=== PATIENT | male | born 1955 | race Caucasian/White ===

== ENCOUNTER → 2020-04-09 14:53 | Outpatient (BNVA) | payer OTHER, SELFPAY | PROVIDERS: PCP Internal Medicine; Visit Provider Internal Medicine | DX: J45.50 Severe persistent asthma, uncomplicated (principal); J30.9 Allergic rhinitis, unspecified | CPT/HCPCS: 99212 ==

== ENCOUNTER 2020-05-30 15:19 | Outpatient (REF) | payer OTHER, SELFPAY ==
[2020-05-30 16:05] LABS: MANUAL DIFF FLAG NO
[2020-05-30 16:12] LABS: Basophils Absolute Auto 0.1 X10*3/uL (0.0-0.2); Basophils Percent Auto 1.2 % (0-2); Eosinophils Absolute Auto 0.7 X10*3/uL (0.0-0.4); Eosinophils Percent Auto 11.4 % (0-4); Hematocrit 40.8 % (42-52); Hemoglobin 14.3 g/dl (14.0-18.0); Imm Gran Abs Auto 0.04 X10*3/uL (0.00-0.03); Imm Gran Pct Auto 0.7 % (0.0-0.4); Lymphocytes Absolute Auto 0.7 X10*3/uL (1.2-4.9); Lymphocytes Percent Auto 12.3 % (20-40); Mean Corpuscular Hemoglobin 30.6 pg (27.0-33.0); Mean Corpuscular Volume 87.4 fL (80-98); Monocytes Absolute Auto 0.7 X10*3/uL (0.1-1.2); Monocytes Percent Auto 11.4 % (2-11); Neutrophils Absolute Auto 3.8 X10*3/uL (2.0-8.3); Platelet Count 243 X10*3/uL (160-400); Red Blood Count 4.67 X10*6/uL (4.60-5.80); Red Cell Distribution Width 12.2 % (11.0-16.0)
[2020-05-31 06:56] LABS: Immunoglobulin E 166 kU/L (<OR=114)
== END 2020-05-30 15:20 | disposition home or self-care (01) ==
LOC: HO.LAB 15:19
PROVIDERS: Visit Provider Internal Medicine
DX: J45.50 Severe persistent asthma, uncomplicated (principal)
CPT/HCPCS: 36415; 82785; 85025

== ENCOUNTER → 2020-06-11 13:36 | Outpatient (BNVA) | payer OTHER, SELFPAY | PROVIDERS: PCP Internal Medicine; Visit Provider Internal Medicine | DX: J45.909 Unspecified asthma, uncomplicated (principal) | CPT/HCPCS: 99212 ==

== ENCOUNTER → 2020-08-15 11:43 | Outpatient (BNVA) | payer OTHER, SELFPAY | PROVIDERS: PCP Internal Medicine; Visit Provider Internal Medicine | DX: J45.909 Unspecified asthma, uncomplicated (principal); Z87.891 Personal history of nicotine dependence; Z79.899 Other long term (current) drug therapy | CPT/HCPCS: 99212 ==

== ENCOUNTER → 2020-10-15 09:53 | Outpatient (BNVA) | payer OTHER, SELFPAY | PROVIDERS: PCP Internal Medicine; Visit Provider Internal Medicine | DX: J45.909 Unspecified asthma, uncomplicated (principal); J45.50 Severe persistent asthma, uncomplicated | CPT/HCPCS: 99212 ==

== ENCOUNTER → 2020-12-17 13:26 | Outpatient (BNVA) | payer OTHER, SELFPAY | PROVIDERS: PCP Urology; Visit Provider Internal Medicine | DX: J45.909 Unspecified asthma, uncomplicated (principal); R63.4 Abnormal weight loss | CPT/HCPCS: 99212 ==

== ENCOUNTER → 2021-02-18 13:03 | Outpatient (BNVA) | payer OTHER, SELFPAY | PROVIDERS: PCP Internal Medicine; Visit Provider Internal Medicine | DX: J45.909 Unspecified asthma, uncomplicated (principal); J30.9 Allergic rhinitis, unspecified | CPT/HCPCS: 99212 ==

== ENCOUNTER → 2021-04-18 13:41 | Outpatient (BNVA) | payer OTHER, SELFPAY | PROVIDERS: PCP Internal Medicine; Visit Provider Internal Medicine | DX: J45.909 Unspecified asthma, uncomplicated (principal) | CPT/HCPCS: 99212 ==

== ENCOUNTER → 2021-08-22 11:11 | Outpatient (BNVA) | payer OTHER, SELFPAY | PROVIDERS: PCP Internal Medicine; Visit Provider Internal Medicine | DX: J45.909 Unspecified asthma, uncomplicated (principal) | CPT/HCPCS: 99212 ==

== ENCOUNTER → 2021-12-26 10:50 | Outpatient (BNVA) | payer OTHER, SELFPAY | PROVIDERS: PCP Internal Medicine; Visit Provider Internal Medicine | DX: J45.50 Severe persistent asthma, uncomplicated (principal); J30.9 Allergic rhinitis, unspecified; D3A.019 Benign carcinoid tumor of the small intestine, unspecified portion | CPT/HCPCS: 99212 ==

== ENCOUNTER → 2022-06-10 09:54 | Outpatient (BNVA) | payer OTHER, SELFPAY | PROVIDERS: PCP Internal Medicine; Visit Provider Internal Medicine | DX: J45.909 Unspecified asthma, uncomplicated (principal) | CPT/HCPCS: 99212 ==

== ENCOUNTER 2022-12-11 11:18 | Outpatient (AMB) | payer OTHER, SELFPAY ==
[2022-12-11 11:20] VITALS: BP 136/74; PULSE 84; O2SAT 93; BMI 26.6
--- NOTE | 2022-12-11 11:20 | MHC.OFFVIS ---
Intake Vital Signs 12/11/22 11:20 Height 5 ft 2 in Weight 145 lb 8.081 oz BMI 26.6 BP 136/74 Blood Pressure Location Lt brachial Position Sitting Pulse 84 Pulse Source Pulse Oximeter Pulse Oximetry (%) 93 Oxygen Delivery Method Room Air Intake Visit Reasons: COPD Intake Note: Pt presents today for a f/u and is looking to discuss his cough. Allergies No Known Allergies Allergy (Verified 12/11/22 11:29) Medication List - Last Reconciled 12/11/22 by Surya Goel MD albuterol sulfate 90 mcg/actuation 2 puffs inhalation Q6H PRN alendronate (Fosamax) 70 mg PO QWEEK amlodipine 10 mg PO DAILY cholecalciferol (vitamin D3) 50 mcg PO DAILY diclofenac sodium 1% 2 grams topical QID docusate sodium 100 mg PO DAILY fluticasone propion-salmeterol 250-50 mcg/dose (Wixela Inhub) 1 inh inhalation BID fluticasone propionate 50 mcg/actuation (Flonase Allergy Relief) 1 spray intranasal DAILY ipratropium-albuterol 0.5 mg-3 mg(2.5 mg base)/3 mL 3 mL inhalation Q6H PRN lisinopril 2.5 mg PO DAILY mepolizumab (Nucala) 100 mg subcut Q4W 28 days octreotide acetate (Sandostatin) subcutaneously monthly; omega 7-qub-tpt-fish oil 60-90-500 mg (Fish Oil) 1 cap PO DAILY tadalafil (Cialis) 10 mg PO DAILY PRN testosterone 1 packet transdermal DAILY tiotropium bromide 2.5 mcg/actuation (Spiriva Respimat) 2 inhalations inhalation QAM zafirlukast 20 mg PO Q12H Do you need a note to return to daycare/school/sports/work: No HPI COPD HPI Details 67 YEARS OLD , A CASE OF CHRONIC ALLERGIC RHINITIS, ASTHMA/COPD, WHO HAD BEEN DEPENDENT ON ORAL STEROIDS FOR MANY YEARS. FINALLY STARTED ON BIOLOGIC TREATMENT, HE GETS NUCALA 100 MG SUBQ Q 28 DAYS. IN ADDITION HE IS ALSO GETTING IGG. INFUSION. AT HOME ONCE A MONTH HE CONTINUES TO USE HIS INHALERS REGULARLY. CLAIMS THAT HIS BREATHING HAS BEEN FAIRLY STABLE, EXCEPT IN THE LAST FEW WEEKS HE HAS HAD INCREASED COUGH, THIS COINCIDES WITH INCREASES ALLERGY SYMPTOMS. HE HAS USED PREDNISONE FOR 4 DAYS WHICH HE DID HAVE ON HAND, AND IS FEELING BETTER. HE HAD. NO FEVER CHILLS OR CHEST PAIN. OVERALL HE IS DOING MUCH BETTER SINCE HE HAS BEEN ON NUCALA THERAPY. FORMERLY [facility] Medical History Allergic rhinitis Bronchial asthma Controlled severe persistent asthma with allergic rhinitis Weight loss Social History Patient Tobacco Use Status: Former Tobacco user Review of Systems Const All systems reviewed & are unremarkable except as noted in HPI and below Eyes Reports no additional complaints ENT Reports nasal congestion (Only mild off and on) Resp Reports as per HPI GI Reports no additional complaints Musc Reports no additional complaints Skin/Breast Reports system reviewed and no additional complaints, except as documented Neuro Reports no additional complaints Psych Reports no additional complaints Physical Exam Vital Signs: Last Vital Signs Pulse 84 12/11/22 11:20 BP 136/74 12/11/22 11:20 Pulse Ox 93 12/11/22 11:20 Oxygen Delivery Method Room Air 12/11/22 11:20 BMI result Body Mass Index 26.6 Const General: healthy appearing, comfortable, no acute distress, alert and awake Orientation/consciousness: patient oriented x3 HEENT Head: Yes normal to inspection General nose exam: No nasal polyps present, No nasal discharge present and Other nasal findings present (MILD NASAL CONGESTION) Face and sinus: Yes sinuses nontender Mouth: oropharynx normal Throat: Yes posterior oropharynx normal Eyes General: appearance normal, both eyes and all related structures Neck Neck: Yes normal visual inspection, Yes no lymphadenopathy, Yes trachea midline and Yes no JVD Thyroid: Thyroid normal Chest Chest palpation & inspection: normal inspection of the chest, normal palpation of entire chest wall and no tenderness Resp Other: Percussion note is resonant, he has good breath sounds on both sides, clear and no wheezes or crepitations are heard Cardio Palpation: normal PMI Rate: regular rate Rhythm: regular rhythm Heart sounds: no gallops and no murmurs Peripheral pulses: Peripheral pulses 2+ throughout GI Palpation (GI): Soft to palpation, nontender, No hepatosplenomegaly present and no masses Auscultation: normal bowel sounds Back/Spine/Pelvis Thoracic/Lumbar Spine: thoracic and lumbar spine normal to inspection Skin General skin exam: no rashes or lesions noted Neuro General: patient oriented x3 and no focal motor deficits Cranial nerves: Yes CN's II-XII intact bilaterally Extrem General: Yes normal to inspection, Yes no clubbing, cyanosis or edema and Yes no calf tenderness Psych Appearance: grossly normal and well kempt Speech and movement: Normal speech and movement present Assessment & Plan Assessment & Plan (1) Allergic rhinitis: Comment: ALLERGIC RHINITIS, GOES ALONG WITH HIS CHRONIC ALLERGIC BRONCHIAL ASTHMA. Controlled at this time . [place]: Cont. present meds : Flonase 2 sprays in each Nostril Daily ZAFALUKAST 20 MG B.I.D. Code(s): J30.9 - Allergic rhinitis, unspecified (2) Bronchial asthma: Comment: THIS GENTLEMAN IS BEING TREATED FOR CHRONIC, SEVERE, PERSISTENT BRONCHIAL ASTHMA. HE HAS EIOSINOPHILIA WELL HIGH LEVEL OF IGE. HE IS MUCH IMPROVED WITH USE OF NUCALA 100 MG Q 4 WEEKS , WHICH HE CONTINUES REGULARLY WITHOUT ANY UNTOWARD SIDE EFFECTS. [place]: ZAFIRLUKAST 20 MG B.I.D. SPIRIVA RESPIMAT 2 INHALATION DAILY WIXELA 250-50 I INH BID., but if symptoms are controlled he might use it only once a day. DUONEB UPDRAFTS Q.4 HOURS P.R.N. OR ALBUTEROL HFA 2 PUFFS Q 4-6 HOURS P.R.N.. NUCALA 100 MG SC Q 4 WEEKS *SHORT COPOURSE OF PREDNISONE 5 MG TABS , 5,4,3,2,1,/ PER DAY, WHEN COUGH AND WHEEZING GETs WORSE . TO CONTROL COUGH IT IS OKAY TO USE BENZONATATE PERLES ONCE OR TWICE A DAY P.R.N.. Code(s): J45.909 - Unspecified asthma, uncomplicated Coding Level of Care Code Est Pt Level 3 (54250) Diagnoses Allergic rhinitis J30.9 Bronchial asthma J45.909
== END 2022-12-11 11:52 | disposition home or self-care (01) ==
PROVIDERS: PCP Internal Medicine; Visit Provider Internal Medicine
DX: J45.909 Unspecified asthma, uncomplicated (principal)
CPT/HCPCS: 99213

== ENCOUNTER → 2022-12-11 11:18 | Outpatient (BNVA) | payer OTHER, SELFPAY | PROVIDERS: PCP Internal Medicine; Visit Provider Internal Medicine | DX: J45.909 Unspecified asthma, uncomplicated (principal); J30.9 Allergic rhinitis, unspecified | CPT/HCPCS: 99212 ==

== ENCOUNTER 2023-06-16 11:01 | Outpatient (AMB) | payer OTHER, SELFPAY ==
[2023-06-16 11:39] VITALS: BP 102/70; PULSE 83; TEMP 37.3; O2SAT 93; BMI 26.5
--- NOTE | 2023-06-16 11:39 | A.OFFVIS_ITS ---
Intake Vital Signs 06/16/23 11:39 Height 5 ft 2 in Weight 145 lb BMI 26.5 BP 102/70 Blood Pressure Location Lt brachial Position Sitting Pulse 83 Pulse Source Pulse Oximeter Temp 99.1 F Pulse Oximetry (%) 93 Oxygen Delivery Method Room Air Intake Visit Reasons: COPD Intake Note: pt is here for follow up and states he in not feeling well, cough is very bad, very hard which causes some vomiting, some congestion in the nasal area with green nasal discharge, has been using over the counter, not much help. Chief Medical Technologist Required: No Allergies No Known Allergies Allergy (Verified 06/16/23 12:02) Medication List - Last Reconciled 06/16/23 by Surya Goel MD albuterol sulfate 90 mcg/actuation 2 puffs inhalation Q6H PRN alendronate (Fosamax) 70 mg PO QWEEK amlodipine 10 mg PO DAILY benzonatate 100 mg PO TID PRN cholecalciferol (vitamin D3) 50 mcg PO DAILY diclofenac sodium 1% 2 grams topical QID docusate sodium 100 mg PO DAILY fluticasone propion-salmeterol 250-50 mcg/dose (Wixela Inhub) 1 inh inhalation BID fluticasone propionate 50 mcg/actuation (Flonase Allergy Relief) 1 spray intranasal DAILY ipratropium-albuterol 0.5 mg-3 mg(2.5 mg base)/3 mL 3 mL inhalation Q6H PRN lisinopril 2.5 mg PO DAILY mepolizumab (Nucala) 100 mg subcut Q4W 28 days octreotide acetate (Sandostatin) subcutaneously monthly; omega 5-aev-azr-fish oil 60-90-500 mg (Fish Oil) 1 cap PO DAILY tadalafil (Cialis) 10 mg PO DAILY PRN testosterone 1 packet transdermal DAILY tiotropium bromide 2.5 mcg/actuation (Spiriva Respimat) 2 inhalations inhalation QAM zafirlukast 20 mg PO Q12H Do you need a note to return to daycare/school/sports/work: No HPI COPD HPI Details Sammy is 68 years old , with chronic allergic rhinitis and bronchial asthma for many years. He had been on large dose prednisone for many years, Finally doing much better with biologic treatment, he has used short courses of prednisone only once or twice a year. He was doing very well on his current medical regimen. In the past 1 week he has had chest congestion with significant cough without much expectoration. He has no fever or chills. [facility] Medical History (Updated 06/16/23 @ 12:09 by Surya Goel MD) Acute bronchitis Weight loss Bronchial asthma Controlled severe persistent asthma with allergic rhinitis Allergic rhinitis Social History Patient Tobacco Use Status: Former Tobacco user Review of Systems Const All systems reviewed & are unremarkable except as noted in HPI and below Eyes Reports no additional complaints ENT Reports nasal congestion (Only mild off and on) Resp Reports as per HPI GI Reports no additional complaints Musc Reports no additional complaints Skin/Breast Reports system reviewed and no additional complaints, except as documented Neuro Reports no additional complaints Psych Reports no additional complaints Physical Exam Vital Signs: Last Vital Signs Temp 99.1 F 06/16/23 11:39 Pulse 83 06/16/23 11:39 BP 102/70 06/16/23 11:39 Pulse Ox 93 06/16/23 11:39 Oxygen Delivery Method Room Air 06/16/23 11:39 BMI result Body Mass Index 26.5 Const General: healthy appearing, comfortable, no acute distress, alert and awake Orientation/consciousness: patient oriented x3 HEENT Head: Yes normal to inspection General nose exam: No nasal polyps present, No nasal discharge present and Other nasal findings present (MILD NASAL CONGESTION IS PRESENT .) Face and sinus: Yes sinuses nontender Mouth: oropharynx normal Throat: Yes posterior oropharynx normal Eyes General: appearance normal, both eyes and all related structures Neck Neck: Yes normal visual inspection, Yes no lymphadenopathy, Yes trachea midline and Yes no JVD Thyroid: Thyroid normal Chest Chest palpation & inspection: normal inspection of the chest, normal palpation of entire chest wall and no tenderness Resp Other: Percussion note is resonant, he has good breath sounds on both sides, . The breath sounds are somewhat distant, and he does have few expiratory wheezes over the basilar areas. Cardio Palpation: normal PMI Rate: regular rate Rhythm: regular rhythm Heart sounds: no gallops and no murmurs Peripheral pulses: Peripheral pulses 2+ throughout GI Palpation (GI): Soft to palpation, nontender, No hepatosplenomegaly present and no masses Auscultation: normal bowel sounds Back/Spine/Pelvis Thoracic/Lumbar Spine: thoracic and lumbar spine normal to inspection Skin General skin exam: no rashes or lesions noted Neuro General: patient oriented x3 and no focal motor deficits Cranial nerves: Yes CN's II-XII intact bilaterally Extrem General: Yes normal to inspection, Yes no clubbing, cyanosis or edema and Yes no calf tenderness Psych Appearance: grossly normal and well kempt Speech and movement: Normal speech and movement present Assessment & Plan Assessment & Plan (1) Allergic rhinitis: Comment: ALLERGIC RHINITIS, GOES ALONG WITH HIS CHRONIC ALLERGIC BRONCHIAL ASTHMA. Controlled at this time . Code(s): J30.9 - Allergic rhinitis, unspecified Plan: TX: Cont. present meds : Flonase 2 sprays in each Nostril Daily ZAFALUKAST 20 MG B.I.D. (2) Bronchial asthma: Comment: THIS GENTLEMAN IS BEING TREATED FOR CHRONIC, SEVERE, PERSISTENT BRONCHIAL ASTHMA. HE HAS EIOSINOPHILIA WELL HIGH LEVEL OF IGE. HE IS MUCH IMPROVED WITH USE OF NUCALA 100 MG Q 4 WEEKS , WHICH HE CONTINUES REGULARLY WITHOUT ANY UNTOWARD SIDE EFFECTS. *SHORT COPOURSE OF PREDNISONE 5 MG TABS , 5,4,3,2,1,/ PER DAY, WHEN COUGH AND WHEEZING GETs WORSE . TO CONTROL COUGH IT IS OKAY TO USE BENZONATATE PERLES ONCE OR TWICE A DAY P.R.N.. Code(s): J45.909 - Unspecified asthma, uncomplicated Plan: TX: CONTINUE : ZAFIRLUKAST 20 MG B.I.D. SPIRIVA RESPIMAT 2 INHALATION DAILY WIXELA 250-50 I INH BID., but if symptoms are controlled he might use it only once a day. DUONEB UPDRAFTS Q.4 HOURS P.R.N. OR ALBUTEROL HFA 2 PUFFS Q 4-6 HOURS P.R.N.. NUCALA 100 MG SC Q 4 WEEKS (3) Acute bronchitis: Comment: AT PRESENT HE HAS UPPER RESPIRATORY INFECTION, MOST LIKELY VIRUS, WITH MUCH INCREASE IN HIS COUGH. Code(s): J20.9 - Acute bronchitis, unspecified Plan: A SHORT COURSE OF PREDNISONE AND ALSO AMOXICILLIN 500 MG T.I.D. FOR 1 WEEK STEAM INHALATIONS T.I.D.. OTC COUGH MED 2 TSP Q 6 HOURS P.R.N.. Coding Level of Care Code Est Pt Level 3 (53547) Diagnoses Allergic rhinitis J30.9 Bronchial asthma J45.909 Acute bronchitis J20.9
== END 2023-06-16 12:13 | disposition home or self-care (01) ==
PROVIDERS: PCP Internal Medicine; Referring Provider Internal Medicine; Visit Provider Internal Medicine
DX: J30.9 Allergic rhinitis, unspecified (principal); J45.909 Unspecified asthma, uncomplicated; J20.9 Acute bronchitis, unspecified
CPT/HCPCS: 99213

== ENCOUNTER → 2023-06-16 11:01 | Outpatient (BNVA) | payer OTHER, SELFPAY | PROVIDERS: PCP Internal Medicine; Visit Provider Internal Medicine | DX: J45.909 Unspecified asthma, uncomplicated (principal); J20.9 Acute bronchitis, unspecified | CPT/HCPCS: 99212 ==

== ENCOUNTER 2023-12-16 11:00 | Outpatient (AMB) | payer OTHER, SELFPAY ==
[2023-12-16 11:03] VITALS: BP 122/72; PULSE 84; O2SAT 95; BMI 27.1
--- NOTE | 2023-12-16 11:03 | A.OFFVIS_ITS ---
Vital Signs 12/16/23 11:03 Height 5 ft 2 in Weight 148 lb BMI 27.1 BP 122/72 Blood Pressure Location Lt brachial Position Sitting Pulse 84 Pulse Source Pulse Oximeter Pulse Oximetry (%) 95 Oxygen Delivery Method Room Air Intake Visit Reasons: COPD Allergies No Known Allergies Allergy (Verified 12/16/23 11:53) Medication List - Last Reconciled 12/16/23 by Surya Goel MD albuterol sulfate 90 mcg/actuation 2 puffs inhalation Q6H PRN alendronate (Fosamax) 70 mg PO QWEEK amlodipine 10 mg PO DAILY benzonatate 100 mg PO TID PRN cholecalciferol (vitamin D3) 50 mcg PO DAILY diclofenac sodium 1% 2 grams topical QID docusate sodium 100 mg PO DAILY fluticasone propion-salmeterol 250-50 mcg/dose (Wixela Inhub) 1 inh inhalation BID fluticasone propionate 50 mcg/actuation (Flonase Allergy Relief) 1 spray intranasal DAILY ipratropium-albuterol 0.5 mg-3 mg(2.5 mg base)/3 mL 3 mL inhalation Q6H PRN lisinopril 2.5 mg PO DAILY mepolizumab (Nucala) 100 mg subcut Q4W 28 days octreotide acetate (Sandostatin) subcutaneously monthly; omega 7-afp-jcu-fish oil 60-90-500 mg (Fish Oil) 1 cap PO DAILY prednisone 5 mg PO BID tadalafil (Cialis) 10 mg PO DAILY PRN testosterone 1 packet transdermal DAILY tiotropium bromide 2.5 mcg/actuation (Spiriva Respimat) 2 inhalations inhalation QAM zafirlukast 20 mg PO Q12H Do you need a note to return to daycare/school/sports/work: No HPI HPI COPD: Details: MR. RUVALCABA IS 68 YEARS OLD GENTLEMAN, HE IS HERE FOR 6 M[facility] FOLLOW-[facility] HE IS A CASE OF SEVERE BRONCHIAL ASTHMA /COPD , WITH EOSINOPHILIA . HAD BEEN STEROIDS DEPENDENT ALL THE TIME FOR MANY YEARS, BUT HAS DONE VERY WELL SINCE HE HAS BEEN STARTED ON BIOLOGIC TREATMENT WITH NUCALA 100 MG SUBQ Q.4 WEEKS. NOW HE GETS ACUTE EXACERBATION MAY BE ONCE OR TWICE A YEAR, AND HAS TO USE SHORT COURSE OF PREDNISONE IN ADDITION TO HIS MAINTENANCE MEDICAL REGIMEN . TODAY HE TELLS ME THAT SINCE LAST WEEK HE WAS HAVING INCREASED SYMPTOMS AND HE IS ON PREDNISONE TAPER WHICH IS ALMOST COMPLETED. [facility] Medical History Acute bronchitis Weight loss Bronchial asthma Controlled severe persistent asthma with allergic rhinitis Allergic rhinitis Social History Patient Tobacco Use Status: Former Tobacco user Review of Systems Const All systems reviewed & are unremarkable except as noted in HPI and below Eyes Reports no additional complaints ENT Reports nasal congestion (Only mild off and on) Resp Reports as per HPI GI Reports no additional complaints Musc Reports no additional complaints Skin/Breast Reports system reviewed and no additional complaints, except as documented Neuro Reports no additional complaints Psych Reports no additional complaints Physical Exam Vital Signs: Last Vital Signs Pulse 84 12/16/23 11:03 BP 122/72 12/16/23 11:03 Pulse Ox 95 12/16/23 11:03 Oxygen Delivery Method Room Air 12/16/23 11:03 BMI result Body Mass Index 27.1 Const General: healthy appearing, comfortable, no acute distress, alert and awake Orientation/consciousness: patient oriented x3 HEENT Head: Yes normal to inspection General nose exam: No nasal polyps present, No nasal discharge present and Other nasal findings present (MILD NASAL CONGESTION IS PRESENT .) Face and sinus: Yes sinuses nontender Mouth: oropharynx normal Throat: Yes posterior oropharynx normal Eyes General: appearance normal, both eyes and all related structures Neck Neck: Yes normal visual inspection, Yes no lymphadenopathy, Yes trachea midline and Yes no JVD Thyroid: Thyroid normal Chest Chest palpation & inspection: normal inspection of the chest, normal palpation of entire chest wall and no tenderness Resp Other: Percussion note is resonant, he has good breath sounds on both sides, . The breath sounds are somewhat distant, and he does have few expiratory wheezes over the basilar areas. Cardio Palpation: normal PMI Rate: regular rate Rhythm: regular rhythm Heart sounds: no gallops and no murmurs Peripheral pulses: Peripheral pulses 2+ throughout GI Palpation (GI): Soft to palpation, nontender, No hepatosplenomegaly present and no masses Auscultation: normal bowel sounds Back/Spine/Pelvis Thoracic/Lumbar Spine: thoracic and lumbar spine normal to inspection Skin General skin exam: no rashes or lesions noted Neuro General: patient oriented x3 and no focal motor deficits Cranial nerves: Yes CN's II-XII intact bilaterally Extrem General: Yes normal to inspection, Yes no clubbing, cyanosis or edema and Yes no calf tenderness Psych Appearance: grossly normal and well kempt Speech and movement: Normal speech and movement present Results Reviewed Results Reviewed: HE HAD A CT SCAN OF THE CHEST AT [facility] ON 12/07 HE SHOWED ME THE REPORT ON ,HIS IPHONE. 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 THERE ARE A FEW SCATTERED PULMONARY NODULES BUT SMALL IN SIZE. Assessment & Plan Assessment & Plan (1) Allergic rhinitis: Comment: ALLERGIC RHINITIS, GOES ALONG WITH HIS CHRONIC ALLERGIC BRONCHIAL ASTHMA. Controlled at this time . Code(s): J30.9 - Allergic rhinitis, unspecified Category: Medical Plan: CONTINUES ZAFIRLUKAST 20 MG B.I.D. A ND USE FLONASE -50 1 1 SPRAY IN EACH NOSTRIL TWICE A DAY (2) Bronchial asthma: Comment: THIS GENTLEMAN IS BEING TREATED FOR CHRONIC, SEVERE, PERSISTENT BRONCHIAL ASTHMA. HE HAS EIOSINOPHILIA WELL HIGH LEVEL OF IGE. HE IS MUCH IMPROVED WITH USE OF NUCALA 100 MG Q 4 WEEKS , WHICH HE CONTINUES REGULARLY WITHOUT ANY UNTOWARD SIDE EFFECTS. Code(s): J45.909 - Unspecified asthma, uncomplicated Category: Medical Plan: CONTINUE THE FOLLOWING REGIMEN : WIXELA 250-51 INHALATION B.I.D.. IPRATROPIUM/ALBUTEROL SOLUTION IN THE NEBULIZER Q 6 HOURS P.R.N. ALBUTEROL HFA 2 PUFFS Q 6 HOURS P.R.N. WHEN OUTDOORS CONTINUES ZAFIRLUKAST 20 MG B.I.D.. CONTINUE NUCALA 100 MG SUBQ Q.4 WEEKS. *SHORT COPOURSE OF PREDNISONE 5 MG TABS , 5,4,3,2,1,/ PER DAY, WHEN COUGH AND WHEEZING GETs WORSE . TO CONTROL COUGH IT IS OKAY TO USE BENZONATATE PERLES ONCE OR TWICE A DAY P.R.N.. Coding Level of Care Code Est Pt Level 3 (35898) Diagnoses Allergic rhinitis J30.9 Bronchial asthma J45.909
== END 2023-12-16 11:27 | disposition home or self-care (01) ==
PROVIDERS: PCP Internal Medicine; Visit Provider Internal Medicine
DX: J30.9 Allergic rhinitis, unspecified (principal); J45.909 Unspecified asthma, uncomplicated
CPT/HCPCS: 99213

== ENCOUNTER → 2023-12-16 11:00 | Outpatient (BNVA) | payer OTHER, SELFPAY | PROVIDERS: PCP Internal Medicine; Visit Provider Internal Medicine | DX: J44.9 Chronic obstructive pulmonary disease, unspecified (principal); J30.9 Allergic rhinitis, unspecified; D72.10 Eosinophilia, unspecified; Z79.52 Long term (current) use of systemic steroids | CPT/HCPCS: 99212 ==

== ENCOUNTER 2024-06-22 10:45 | Outpatient (AMB) | payer OTHER, SELFPAY ==
[2024-06-22 10:59] VITALS: BP 130/60; PULSE 72; O2SAT 96; BMI 25.2
--- NOTE | 2024-06-22 10:59 | A.OFFVIS_ITS ---
Vital Signs 06/22/24 10:59 Height 5 ft 2 in Weight 138 lb BMI 25.2 BP 130/60 Blood Pressure Location Lt brachial Position Sitting Pulse 72 Pulse Source Pulse Oximeter Pulse Oximetry (%) 96 Oxygen Delivery Method Room Air Intake Visit Reasons: COPD Intake Note: pt is here for follow up and feeling okay now, but sinus issue at this time of year. Medical Malpractice Paralegal Required: No Allergies No Known Allergies Allergy (Verified 06/22/24 11:06) Medication List - Last Reconciled 06/22/24 by Surya Goel MD albuterol sulfate 90 mcg/actuation 2 puffs inhalation Q6H PRN alendronate (Fosamax) 70 mg PO QWEEK amlodipine 10 mg PO DAILY benzonatate 100 mg PO TID PRN cholecalciferol (vitamin D3) 50 mcg PO DAILY diclofenac sodium 1% 2 grams topical QID docusate sodium 100 mg PO DAILY fluticasone propion-salmeterol 250-50 mcg/dose (Wixela Inhub) 1 inh inhalation BID fluticasone propionate 50 mcg/actuation (Flonase Allergy Relief) 1 spray intranasal DAILY ipratropium-albuterol 0.5 mg-3 mg(2.5 mg base)/3 mL 3 mL inhalation Q6H PRN lisinopril 2.5 mg PO DAILY mepolizumab (Nucala) 100 mg subcut Q4W 28 days omega 6-tzj-eve-fish oil 60-90-500 mg (Fish Oil) 1 cap PO DAILY tadalafil (Cialis) 10 mg PO DAILY PRN testosterone 1 packet transdermal DAILY tiotropium bromide 2.5 mcg/actuation (Spiriva Respimat) 2 inhalations inhalation QAM zafirlukast 20 mg PO Q12H HPI HPI COPD: Details: THIS 70 YEARS OLD GENTLEMAN IS HERE FOR 6 MONTHS FOLLOW-UP. HE IS DOING GREAT AND HAS HAD NO ACUTE EXACERBATION OF COPD/BRONCHIAL ASTHMA. HE HARDLY NEEDS TO USE THE RESCUE INHALER. HE HAS HAD NO ACUTE. RESPIRATORY INFECTION CONTINUES TO USE HIS MAINTENANCE REGIMEN INCLUDING WIXELA, SPIRIVA RESPIMAT, AND ZAFIRLUKAST . HE IS ON NUCALA 100 MG INJECTION ONCE A MONTH. BECAUSE HE HAS NOT USED ANY STEROIDS LATELY HIS WEIGHT REMAINS WELL CONTROLLED. HE HAS LOST SOME WEIGHT AFTER THE ABDOMINAL SURGERY FOR CARCINOID TUMORS WHILE HE WAS HAVING SURGERY HE WAS FOUND TO HAVE RESPIRATORY PAUSES. HE HAD HOME-BASED SLEEP STUDY WHICH SHOWED THAT HE DOES HAVE SLEEP APNEA. HE IS NOW ON CPAP THERAPY WHICH HE USES REGULARLY EVERY NIGHT. THIS IS BEING MANAGED BY [facility] , RESPIRATORY SERVICE. [facility] Medical History (Updated 06/22/24 @ 11:55 by Surya Goel MD) ANH on CPAP COPD (chronic obstructive pulmonary disease) Acute bronchitis Weight loss Bronchial asthma Controlled severe persistent asthma with allergic rhinitis Allergic rhinitis Social History Patient Tobacco Use Status: Former Tobacco user Review of Systems Const All systems reviewed & are unremarkable except as noted in HPI and below Eyes Reports no additional complaints ENT Reports nasal congestion (Only mild off and on) Resp Reports as per HPI GI Reports no additional complaints Musc Reports no additional complaints Skin/Breast Reports system reviewed and no additional complaints, except as documented Neuro Reports no additional complaints Psych Reports no additional complaints Physical Exam Vital Signs: Last Vital Signs Pulse 72 06/22/24 10:59 BP 130/60 06/22/24 10:59 Pulse Ox 96 06/22/24 10:59 Oxygen Delivery Method Room Air 06/22/24 10:59 BMI result Body Mass Index 25.2 Const General: healthy appearing, comfortable, no acute distress, alert and awake Orientation/consciousness: patient oriented x3 HEENT Head: Yes normal to inspection General nose exam: No nasal polyps present, No nasal discharge present and Other nasal findings present (MILD NASAL CONGESTION IS PRESENT .) Face and sinus: Yes sinuses nontender Mouth: oropharynx normal Throat: Yes posterior oropharynx normal Eyes General: appearance normal, both eyes and all related structures Neck Neck: Yes normal visual inspection, Yes no lymphadenopathy, Yes trachea midline and Yes no JVD Thyroid: Thyroid normal Chest Chest palpation & inspection: normal inspection of the chest, normal palpation of entire chest wall and no tenderness Resp Other: Percussion note is resonant, he has good breath sounds on both sides, . The breath sounds are somewhat distant, lungs are clear , no wheezes rhonchi or crepitations are heard today. Cardio Palpation: normal PMI Rate: regular rate Rhythm: regular rhythm Heart sounds: no gallops and no murmurs Peripheral pulses: Peripheral pulses 2+ throughout GI Inspection: Yes incision (MIDLINE SCAR FROM RECENT ABDOMINAL SURGERY.) Palpation (GI): Soft to palpation, nontender, No hepatosplenomegaly present and no masses Auscultation: normal bowel sounds Back/Spine/Pelvis Thoracic/Lumbar Spine: thoracic and lumbar spine normal to inspection Skin General skin exam: no rashes or lesions noted Neuro General: patient oriented x3 and no focal motor deficits Cranial nerves: Yes CN's II-XII intact bilaterally Extrem General: Yes normal to inspection, Yes no clubbing, cyanosis or edema and Yes no calf tenderness Psych Appearance: grossly normal and well kempt Speech and movement: Normal speech and movement present Office Procedures Spirometry Testing Spirometry Comments: In office spirometry completed with results given to Dr Goel. [id number]- Spirometry Results Reviewed Results Reviewed: SPIROMETRY THE RESULTS ARE CONSISTENT WITH MODERATELY SEVERE OBSTRUCTIVE AIRWAY DISORDER. FVC=. 92% FEV1 59%. FEV1/FVC = 50. FEF 25-75 = 30% Assessment & Plan Assessment & Plan (1) Allergic rhinitis: Comment: ALLERGIC RHINITIS, GOES ALONG WITH HIS CHRONIC ALLERGIC BRONCHIAL ASTHMA. Controlled at this time . Code(s): J30.9 - Allergic rhinitis, unspecified Category: Medical Plan: CONTINUE ZAFIRLUKAST 20 MG B.I.D. FLONASE 2 SPRAY EACH NOSTRIL DAILY. (2) Bronchial asthma: Comment: THIS GENTLEMAN IS BEING TREATED FOR CHRONIC, SEVERE, PERSISTENT BRONCHIAL ASTHMA. HE HAS EIOSINOPHILIA WELL HIGH LEVEL OF IGE. HE IS MUCH IMPROVED WITH USE OF NUCALA 100 MG Q 4 WEEKS , WHICH HE CONTINUES REGULARLY WITHOUT ANY UNTOWARD SIDE EFFECTS. Code(s): J45.909 - Unspecified asthma, uncomplicated Category: Medical Plan: ADVISED TO CONTINUE THE PRESENT REGIMEN WHICH IS FOLLOWS: WIXELA 250-51 INHALATION B.I.D. SPIRIVA RESPIMAT2.5 MG 2 INHALATIONS DAILY IPRATROPIUM-ALBUTEROL SOLUTION IN THE NEBULIZER Q 4-6 HOURS P.R.N. CONTINUE NUCALA 100 MG SUBQ Q.4 WEEKS (3) Weight loss: Comment: PATIENT HAS LOST WEIGHT INITIALLY BECAUSE OF NOT TAKING PREDNISONE ANYMORE. BUT MORE RECENTLY DUE TO ABDOMINAL SURGERY FOR CARCINOMA NIGHTS. HE ACTUALLY HAS A HEALTHY WEIGHT AT PRESENT. Code(s): R63.4 - Abnormal weight loss Category: Medical Plan: CONTINUE TO WATCH AND THIS SHOULD BE NO FURTHER WEIGHT LOSS. (4) COPD (chronic obstructive pulmonary disease): Comment: THIS GENTLEMAN HAS LIFELONG HISTORY OF BRONCHIAL ASTHMA. .NO HISTORY OF SMOKING BUT HE HAS NOW DEVELOPED MODERATELY SEVERE OBSTRUCTIVE AIRWAY DISORDER IN ADDITION TO BRONCHIAL ASTHMA. Code(s): J44.9 - Chronic obstructive pulmonary disease, unspecified Category: Medical Plan: TREATMENT UNDER BRONCHIAL ASTHMA (5) ANH on CPAP: Comment: PATIENT HAS RECENT DIAGNOSIS OF OBSTRUCTIVE SLEEP APNEA, PER HOME SLEEP STUDY PERFORMED THROUGH [facility]. HE IS USING CPAP REGULARLY EVERY NIGHT. HE CLAIMS THAT HIS OXYGEN LEVELS ARE. STAYING IN THE NORMAL RANGE WITH THE USE OF CPAP Code(s): G47.33 - Obstructive sleep apnea (adult) (pediatric) Category: Medical Plan: CONTINUE TO HAVE REGULAR FOLLOW-UP AT [facility] RESPIRATORY SERVICE IS Plan THIS GENTLEMAN REQUEST A YEARLY FOLLOW-UP, WHICH IS OKAY WITH BE. Orders: Orders AMB Spirometry Testing Today J45.909 - Unspecified asthma, uncomplicated Coding Level of Care Code Est Pt Level 4 (09726) Diagnoses Allergic rhinitis J30.9 Bronchial asthma J45.909 Weight loss R63.4 COPD (chronic obstructive pulmonary disease) J44.9 ANH on CPAP G47.33 CPT Codes Spirometry - CPT: 93370- Spirometry ([id number])
--- OUTSIDE RECORDS SUMMARY | 2024-06-22 11:25 | XMS_ITS ---
Author Name [facility] [facility] Address [address] [place] [address] Care Team Providers Care Shot Tube Machine Tender Name Role Phone ZEB MUIR Primary Care Provider Unavailabl e Insurance Providers: All historical and current Section Date Range: From patient's date of to the date document was created. This section includes the names of all active insurance providers for the patient. Insurance Provider Type of Coverage Plan Name Start of Policy Coverage End of Policy Coverage Group Number Member ID Insurance Provider's Telephone Number Policy Schaffer's Name Patient's Relationship to Policy Schaffer MEDICARE (WNR) MEDICARE (M) PART A May 04, 2019 PART A [id number] Alicia WESLEY PATIENT Selected Encounter This section includes the information on record at [place] for the Encounter. Date/Time Encounter Type Encounter Description Reason Provider Source Jun 07, 2024 04:53 PM Outpatient Encounter PRIMARY CARE/MEDICINE ZEB MUIR [facility] Encounter Template Text not used by [place] Plan of Treatment: Future Appointments (+ 6 months) and Future Tests (+/- 45 days) The Plan of Treatment section includes future care activities for the patient from all [facility] treatmentfacilities. This section includes future appointments and future orders which are active, pending or scheduled. Future Appointments This section includes appointments that were scheduled to occur 6 months from the date of the Encounter, up to a maximum of 20 appointments. The data comes from all [place] treatment [facility]. Appointment Date/Time Appointment Type Appointme nt Facility Name Jun 16, 2024 09:30 AM AMBULATORY [facility] NONE [facility] [place] [facility] Jun 22, 2024 10:45 AM AMBULATORY [facility] MEDICINE [facility] [place] [facility] Jul 05, 2024 03:30 PM AMBULATORY - MEDICINE [facility] Aug 03, 2024 11:00 AM AMBULATORY - NONE [facility] [place] [facility] Aug 08, 2024 09:30 AM [facility]BULATORY [facility] MEDICINE [facility] [place] [facility] Aug 16, 2024 09:45 AM AMBULATORY - NONE [facility] [place] [facility] Aug 22, 2024 10:30 AM AMBULATORY - MEDICINE [facility] [place] [facility] Aug 24, 2024 01:00 PM AMBULATORY - REHAB MEDICIN E [facility] [place] [facility] September 19, 2024 10:00 AM AMBULATORY - MEDICINE [facility] [place] [facility] September 29, 2024 11:00 AM AMBULATORY - NONE [facility] [place] [facility] Nov 08, 2024 09:00 AM AMBULATORY - NONE [facility] [place] [facility] Nov 16, 2024 10:00 AM AMBULATORY - NONE [facility] [place] [facility] Active, Pending, and Scheduled Orders This section includes a listing of several types of active, pending, and scheduled orders, including clinic medications orders, diagnostic test orders, procedure orders and consult orders; where the start date of the order is 45 days before the date of the Encounter or 45 days after the date of theEncounter. The data comes from all [place] treatment [facility]. Test Date/Time Test Type Test Details Facility Name Jun 05, 2024 07:18 PM Consult Order COMMUNITY CARE-PULMONARY Cons Blow Mold Operator's Choice [place] [facility] [place] [facility] Social History: Smoking Status (Most current) and Tobacco Use (All prior to encounter date) This section includes the most current, and the historical, smoking and tobacco- related health factors from the [place] facility where the Encounter took place. Current Smoking Status This section includes the most current smoking, or tobacco-related health factor, from the [place] facility where the Encounter took place. Date/Time Current Smoking Status Comment [facility] Jun 08, 2023 10:00 AM VA-TOBACCO FORMER USER [place] [facility] [place] [facility] Tobacco Use History This section includes a history of the smoking, or tobacco-related health factors, that were collected on or before the date of the Encounter. The data comes from the [place] facility where the Encounter took place. Date/Time Smoking Status/Tobac co Use Comment Facility Jun 08, 2023 10:00 AM VA-TOBACCO QUIT 15 YRS OR MORE [facility] [place] [facility] Jun 09, 2022 10:30 AM VA-TOBACCO FORMER USER [facility] [place] [facility] Jun 09, 2022 10:30 AM VA-TOBACCO QUIT 15 YRS OR MORE [facility] [place] [facility] Jun 14, 2021 09:00 AM VA-TOBACCO FORMER USER [facility] [place] [facility] Jun 14, 2021 09:00 AM VA-TOBACCO QUIT 15 YRS OR MORE [facility] [place] [facility] Feb 03, 2020 01:00 PM VA-TOBACCO FORMER USER [facility] [place] [facility] Feb 03, 2020 01:00 PM VA-TOBACCO QUIT 15 YRS OR MORE [facility] [place] [facility] Feb 02, 2019 11:49 AM VA-TOBACCO FORMER USER [facility] [place] [facility] Feb 02, 2019 11:49 AM VA-TOBACCO QUIT 15 YRS OR MORE [facility] [place] [facility] May 13, 2017 10:12 AM LIFETIME NON-TOBACCO USER [facility] [place] [facility] Jun 11, 2016 10:31 AM QUIT TOBACCO USE > 7 YEARS AGO [facility] [place] [facility] Jun 21, 2015 12:49 PM QUIT TOBACCO USE > 7 YEARS AGO pt states he quit smoking 30 yr ago. [facility] [place] [facility] Jul 18, 2004 08:23 AM HISTORY OF SMOKING Smoke free since 1989 [facility] [place] [facility] May 11, 2003 02:17 PM HISTORY OF SMOKING quit smoking 15 years ago [facility] [place] [facility] May 11, 2003 02:17 PM QUIT TOBACCO USE > 7 YEARS AGO quit smoking 15 years ago [facility] Advance Directives: All historical and current Section Date Range: From patient's date of to the date document was created. This section includes ALL of a patient's completed or amended [place] Advance and Rescinded Directives. The entries below indicate that a directive exists for the patient, but an actual copy is not included with this document. The data comes from all [place] facilities. Date Advance Directives Provider Source Nov 26, 2020 ADVANCE DIRECTIVE GARY GUNTER [facility] Jan 25, 2017 ADVANCE DIRECTIVE [facility] Apr 06, 2009 ADVANCE DIRECTIVE KHAI BADILLO [facility] Radiology Reports: +/- 30 days of the encounter Radiology Reports For cases when an order for radiology services may have been completed prior to the date of the Encounter, the report list includes the Radiology Reports that were completed up to 30 days before dateof the Encounter. For cases when an order for radiology services may have been completed after the date of the Encounter, the report list also includes the Radiology Reports that were completed up to30 days after date of the Encounter. The data comes from all [place] treatment facilities. Date/Time Radiology Report Provider Source Jun 10, 2024 09:29 AM HAND3 OR MORE VIEWS(RIGHT): GENARO WESLEY [id number] -1955 Ex Date: JUN 10, 2024@09:29 Req Phys: ZEB MUIR Pat Loc: [facility] PACT 2 MD (Req'g Loc) Im Loc: [facility] 1 Service: Unknown [facility] SANDRA HERRERA [id number] (Case [id number] COMPLETE) HAND3 OR MORE VIEWS(RIGHT) (RAD Detailed) CPT:00790 Reason for Study: pain finger#3 Clinical History: Report Status: Verified Date Reported: JUN 10, 2024 Date Verified: JUN 10, 2024 Contract Coordinator E-Sig:/ES/PAULA ALCARAZ JR Report: Study: AP, lateral and oblique views of the right hand. Comparison: None Findings: No soft tissue swelling or radiopaque foreign body is identified. The right third finger appears intact and normal. Mild to moderate joint space narrowing is seen to the right third MCP joint space which can be seen from osteoarthritis as well as CPPD arthropathy. No joint space erosions are identified. The remaining right hand joint spaces are normal and well-maintained. No acute bony abnormality is seen. 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 Primary Diagnostic Code: No immediate attention required Primary Interpreting Staff: PAULA ALCARAZ JR, Radiologist (Contract Coordinator) /PAULA RUDOLPH JR [place] [facility] Encounter Notes: All associated encounter notes This section contains the clinical notes associated to the Encounter. Date/Time Encounter Note(s) Provider Source Jun 07, 2024 04:53 PM PRIMARY CARE Isoflux E MESSAGING: LOCAL TITLE: PRIMARY CARE SECURE MESSAGING STANDARD TITLE: PRIMARY CARE SECURE MESSAGING DATE OF NOTE: JUN 07, 2024@16:53 ENTRY DATE: JUN 07, 2024@16:53:26 AUTHOR: ZEB MUIR EXP COSIGNER: URGENCY: STATUS: COMPLETED ------Original Message ------- Sent: 06/07/2024 10:58 AM ET From: GENARO WESLEY To: Tima MUIR_PRIMARY CARE_[facility] Subject: Appointment:Rumatology appointment Please set up an appointment to receive a shot in my Right hand middle finger. It is terribly painful. Thank you Genaro Wesley [id number]. ------Original Message ------- Sent: 06/07/2024 04:52 PM ET From: ZEB MUIR To: GENARO WESLEY Subject: Appointment:Rumatology appointment I entered a request for physiatry appointment. This usually goes to physiatry rather than rheumatology. You need to have an updated x-ray before they can inject you. The last x-rays of the right hand were done in 2012. Please come to radiology for x-ray in the next few weeks. They will call you for the physiatry appointment. /alicia/ Zeb Muir MD Staff Physician Signed: 06/07/2024 16:53 ZEB MUIR [facility]
--- OUTSIDE RECORDS SUMMARY | 2024-06-22 11:26 | XMS_ITS | Encounter Summary ---
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 Date/Time Encounter Type Encounter Description Reason Provider Source Aug 05, 2023 10:00 AM OFFICE O/P EST HI 40 MIN PM&RS PHYSICIAN ICD-10-CM M46.1 Sacroiliitis, not elsewhere classified DANIKA JOHNSON IHMoses Encounter Template Text not used by [place] Assessments - Encounter Diagnoses This section includes the primary and secondary diagnoses documented for the Encounter. Date/Time Primary/Secondary Diagnosis Diagnosis Name Provider Source Aug 05, 2023 10:46 AM PRIMARY Sacroiliitis, not elsewhere classified DANIKA JOHNSON [facility] [place] [facility] Plan of Treatment: Future Appointments (+ 6 months) and Future Tests (+/- 45 days) The Plan of Treatment section includes future care activities for the patient from all [place] treatmentfacilities. This section includes future appointments and future orders which are active, pending or scheduled. Future Appointments This section includes appointments that were scheduled to occur 6 months from the date of the Encounter, up to a maximum of 20 appointments. The data comes from all [place] treatment facilities. Appointment Date/Time Appointment Type Appointme nt Facility Name Aug 07, 2023 09:45 AM AMBULATORY - NONE [facility] [place] [facility] Aug 07, 2023 10:00 AM AMBULATORY - NONE [facility] [place] [facility] Aug 27, 2023 09:00 AM AMBULATORY - MEDICINE [facility] [place] [facility] September 14, 2023 08:00 AM AMBULATORY - MEDICINE [facility] [place] [facility] September 18, 2023 11:00 AM AMBULATORY - MEDICINE [facility] [place] [facility] September 21, 2023 09:00 AM AMBULATORY - MEDICINE [facility] [place] [facility] September 22, 2023 03:00 PM AMBULATORY - REHAB MEDICIN E [facility] [place] [facility] Nov 23, 2023 10:00 AM AMBULATORY - MEDICINE [facility] [place] [facility] Dec 01, 2023 08:00 AM AMBULATORY - REHAB MEDICIN E [facility] [place] [facility] Dec 16, 2023 11:00 AM AMBULATORY - MEDICINE [facility] [place] [facility] Dec 17, 2023 10:30 AM AMBULATORY - REHAB MEDICIN E [facility] [place] [facility] Dec 30, 2023 01:30 PM AMBULATORY - REHAB MEDICIN E [facility] [place] [facility] Jan 06, 2024 09:00 AM AMBULATORY - MEDICINE [facility] [place] [facility] Active, Pending, and Scheduled Orders This section includes a listing of several types of active, pending, and scheduled orders, including clinic medications orders, diagnostic test orders, procedure orders and consult orders; where the start date of the order is 45 days before the date of the Encounter or 45 days after the date of theEncounter. The data comes from all [place] treatment facilities. Test Date/Time Test Type Test Details Facility Name Jun 23, 2023 12:00 AM Laboratory - Chemi stry Order CBC BLOOD (LAV-BLOOD) SP [facility] [place] [facility] Vital Signs: All taken on the encounter date This section contains inpatient and outpatient Vital Signs collected on the date of the Encounter. Date/Time Temperature Pulse Blood Pressure Respiratory Rate SP02 Pain Height Weight Body Mass Index Source Aug 05, 2023 10:40 AM 122/80 [facility] [place] [facility] Aug 05, 2023 10:38 AM 76 140/88 18 93 2 [facility] [place] [facility] Aug 05, 2023 09:52 AM 80 140/80 16 94 7 [facility] [place] [facility] Social History: Smoking Status (Most current) and Tobacco Use (All prior to encounter date) This section includes the most current, and the historical, smoking and tobacco- related health factors from the [place] facility where the Encounter took place. Current Smoking Status This section includes the most current smoking, or tobacco-related health factor, from the [place] facility where the Encounter took place. Date/Time Current Smoking Status Comment [facility] Jun 08, 2023 10:00 AM VA-TOBACCO [facility] [place] [facility] Tobacco Use History This section includes a history of the smoking, or tobacco-related health factors, that were collected on or before the date of the Encounter. The data comes from the [place] facility where the Encounter took place. Date/Time Smoking Status/Tobac co Use Comment Facility Jun 08, 2023 10:00 AM VA-TOBACCO QUIT 15 YRS OR MORE [facility] [place] [facility] Jun 09, 2022 10:30 AM VA-TOBACCO FORMER USER [facility] [place] [facility] Jun 09, 2022 10:30 AM VA-TOBACCO QUIT 15 YRS OR MORE [facility] [place] [facility] Jun 14, 2021 09:00 AM VA-TOBACCO FORMER USER [facility] [place] [facility] Jun 14, 2021 09:00 AM VA-TOBACCO QUIT 15 YRS OR MORE [facility] Feb 03, 2020 01:00 PM [facility] Feb 03, 2020 01:00 PM VA-TOBACCO QUIT 15 YRS OR MORE [facility] Feb 02, 2019 11:49 AM VA[facility]BACCO [facility] Feb 02, 2019 11:49 AM VA-TOBACCO QUIT 15 YRS OR MORE [facility] May 13, 2017 10:12 AM LIFETIME NON[facility]TOBACCO [facility] Jun 11, 2016 10:31 AM QUIT TOBACCO USE > 7 YEARS AGO [facility] Jun 21, 2015 12:49 PM QUIT TOBACCO USE > 7 YEARS AGO pt states he quit smoking 30 yr ago. [facility] Jul 18, 2004 08:23 AM HISTORY OF SMOKING Smoke free since 1989 [facility] May 11, 2003 02:17 PM HISTORY OF SMOKING quit smoking 15 years ago [facility] May 11, 2003 02:17 PM QUIT TOBACCO USE > 7 YEARS AGO quit smoking 15 years ago [facility] Advance Directives: All historical and current Section Date Range: From patient's date of to the date document was created. This section includes ALL of a patient's completed or amended [place] Advance and Rescinded Directives. The entries below indicate that a directive exists for the patient, but an actual copy is not included with this document. The data comes from all [place] facilities. Date Advance Directives Provider Source Nov 26, 2020 ADVANCE DIRECTIVE GARY GUNTER [facility] Jan 25, 2017 ADVANCE DIRECTIVE RAFAEL MEJIA [facility] Apr 06, 2009 ADVANCE DIRECTIVE [facility]I BADILLO [facility] Radiology Reports: +/- 30 days of [...] the Encounter. The data comes from all [place] treatment facilities. Date/Time Radiology Report Provider Source Aug 05, 2023 10:17 AM FLUOROSCOPIC KAROLYN NCE FOR NEEDLE PLACEMENT: GENARO RUVALCABA [id number] -[id number] M Exm Date: AUG 05, 2023@10:17 Req Phys: DANIKA JOHNSON THI Pat Loc: [facility]/NO/MED REHAB/SPINE INJ (Re Img Loc: [facility]/BUILDING 1 Service: Unknown (Case [id number] COMPLETE) FLUOROSCOPIC GUIDANCE FOR NEEDLE (RAD Detailed) CPT:27961 Reason for Study: SI joint injection Clinical History: Report Status: Verified Date Reported: AUG 05, 2023 Date Verified: AUG 05, 2023 Lead Network Engineer E-Sig:/ES/PAULA ALCARAZ JR Report: Study: Pain injection of the left and right sacroiliac joints. Findings: Fluoroscopic guidance was provided to Pain Management for interventional pain injection. No dictation provided for this study. Images captured for documentation only. Total fluoroscopy time used was 13.5 seconds. Total cumulative dose is 3.64 mGy. Impression: Fluoroscopic guidance for interventional pain injection. Primary Diagnostic Code: No immediate attention required Primary Interpreting Staff: PAULA LACARAZ JR, Radiologist (Lead Network Engineer) /PAULA RUDOLPH JR [facility] Encounter Notes: All associated encounter notes This section contains the clinical notes associated to the Encounter. Date/Time Encounter Note(s) Provider Source Aug 05, 2023 10:34 AM PHYSICAL MEDICINE REHAB NOTE: LOCAL TITLE: PM&R BACK/JOINT PROCEDURE NOTE STANDARD TITLE: PHYSICAL MEDICINE REHAB NOTE DATE OF NOTE: AUG 05, 2023@10:34 ENTRY DATE: AUG 05, 2023@10:34:13 AUTHOR: DANIKA JOHNSON TH EXP COSIGNER: URGENCY: STATUS: COMPLETED PROCEDURE NOTE: SACROILIAC JOINT INJECTION WITH FLUOROSCOPY PROCEDURE: 1) Bilateral sacroiliac joint injection 2) Fluoroscopic needle guidance REASON FOR PROCEDURE: Sacroiliac joint pain/sacroiliitis PHYSICIAN: Danika Johnson DO MEDICATIONS INJECTED: 40mg triamcinolone and 2 mL of 1% lidocaine each level. Total triamcinolone: 80 mg Lot #: [id number] Exp: 03/2025 LOCAL ANESTHETIC INJECTED: 1 mL of 1% lidocaine CONTRAST AGENT USED: 0.5mL of Omnipaque 300 CONTRAST AGENT WASTED: 0mL of Omnipaque 300 SEDATION MEDICATIONS: None ESTIMATED BLOOD LOSS: None COMPLICATIONS: None HISTORY: Mallie presents with persistent low back pain and pelvic pain. 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 Is followed by oncology, Milo French. He had improvement for 2 half months after the last sacroiliac joint injection on the right, April 08, 2023. Since that time he has been having more pain in the iliac crest and central low back region. He had CT scans done specifically of the abdomen but these were reviewed to determine degree of disc degeneration and facet arthropathy. There were no fractures identified in the CT scan from 06/09/2023. Dedicated MRI would be necessary in order to better assess the L2-3 and L3-4 level. It does appear that there is lateral recess stenosis more prominent on the right at the L2-3 level. And bilateral lateral recess stenosis at L3-4. Significant facet arthrosis noted. Mild retrolisthesis L4 on L5. Significant disc degeneration throughout the lumbar spine noted. No changes about the sacroiliac joint were appreciated. No cystic changes. No compression fractures. Denies bowel/bladder incontinence, fever, or chills. EXAM: Vitals in chart. Hin gentleman, well groomed, awake, alert, in NAD. Affect appropriate. Lumbar maneuvers are tolerated with some restriction in flexion as well as extension. Majority of his pain is on the left side over the sacroiliac joint with a positive Faith's positive pelvic compression test and positive Gaenslen's. Lasegue's maneuver was negative. He has some hypertonicity in the quadratus lumborum region of the left side. Right side was also tender to palpation. Some mild hypertonicity noted in the paralumbar region. He had a positive Faith's and positive Gaenslen's as well as a positive Franki sign. There was additionally central pain at the lumbosacral region. Percussion cause some increased discomfort over the sacrum. No atrophy identified in the lower extremities. Patchy area of numbness noted in the anterior thigh on the left side. INFORMED CONSENT: Verbal and electronic consent in iMed. TIME OUT NOTE TIME: AUG 05, 2023@10:15 correctly stated: [X]Full name: GENARO RUVALCABA [X]Last 4 of #: [id number] [X]: May STAFF NAME: Candsi Causey LPN LOCATION: Marked sites in bilateral lower back TECHNIQUE: Time-out was taken to identify the correct patient, procedure and side prior to starting the procedure. With the patient lying in the prone position, the patient was prepped and draped in the usual sterile fashion using ChloraPrep and a fenestrated drape. The sacroiliac joint was determined under fluoroscopy. Local anesthetic was given by raising a skin wheal and going down to the hub of a 30-gauge 0.5-inch needle. The 3.5-inch 25-gauge Quincke needle was advanced into the above sacroiliac joint. After a negative aspirate to make sure that there was no intravascular placement, Omnipaque 300 was injected to confirm intraarticular spread, and confirm no vascular runoff. Medication was then injected slowly. Procedure was repeated on the contralateral side. The procedure was completed without complications and was tolerated well. The patient was monitored after the procedure. The patient (or responsible democrat) was given post-procedure and discharge instructions to follow at home. The patient was discharged in stable condition. A follow-up appointment was made. Preprocedure pain level: 7/10 Postprocedure pain level: 2/10 ASSESSMENT: : 68-year-old Mallie with neuroendocrine tumor presenting with bilateral sacroiliac joint dysfunction and low back pain. Plan: - Bilateral SI joint injections provided today. - Discharge instructions provided including the use of ice q2 hrs x 48 hrs prn post injection soreness/pain. - Post-injection follow-up with PM&R PA in 2-4 weeks. - Will order PT at follow-up. - If symptoms persist then a dedicated MRI scan of the lumbar spine will be obtained. - Discussed the importance of following pelvic stabilization exercises. - Encouraged engagement in some form of low impact aerobic activity such as walking daily for 30-45 minutes. - Continue all medications - no change. - Contact me with any issues/questions MDM: 45 min Medication Reconciliation: Outpatient: Has the patient been taking medications as documented in the EMLR? YES: The patient has been taking medications as documented in the EMLR. Essential Medication List for Review used to complete this medication reconciliation. INCLUDED IN THIS LIST: Alphabetical list of active outpatient prescriptions dispensed from this [place] (local) and dispensed from another [place] or [facility] facility (remote) as well as inpatient orders (local, pending and active), local clinic medications, locally documented non-VA medications, and local prescriptions that have or been discontinued in the past 90 days. - All changes in medications, including all non-VA/Herbal/OTC medications were entered into CPRS. - If there were any medications the patient should no longer take, they were discontinued. - The patient/caregiver was instructed to update this list, discard old lists, and take this list to the next appointment, whether with a VA or non-VA provider. /alicia/ DANIKA JOHNSON DO STOCK HOLDER Signed: 08/05/2023 10:46 DANIKA JOHNSON [facility] [place] [facility] Aug 05, 2023 10:17 AM DISCHARGE NOTE: LOCAL TITLE: DISCHARGE INSTRUCTIONS/OUTPATIENT STANDARD TITLE: DISCHARGE NOTE DATE OF NOTE: AUG 05, 2023@10:17 ENTRY DATE: AUG 05, 2023@10:17:11 AUTHOR: DANIKA JOHNSON EXP COSIGNER: URGENCY: STATUS: COMPLETED Your ATTENDING PHYSICIAN for today's injection is: Danika Johnson DO Reason for Visit: Bilateral SI joint injections - Physical/Activity Limitations: No strenous activity for 24 Hours - Diet: Resume Previous Diet - Medication reconciliation performed. Active Outpatient Medications (including Supplies): Active Outpatient Medications Status 1) ACCU-CHEK GUIDE (GLUCOSE) TEST STRIP USE 1 STRIP TO ACTIVE TEST BLOOD SUGARS TWO TIMES A WEEK 2) ACETAMINOPHEN 500MG TAB TAKE TWO TABLETS BY MOUTH ACTIVE EVERY 8 HOURS NEEDED FOR PAIN 3) ADAPALENE 0.3% TOP GEL APPLY SMALL AMOUNT TOPICALLY ACTIVE AT BEDTIME NEEDED FOR ACNE 4) ALENDRONATE 70MG TAB TAKE ONE TABLET BY MOUTH EVERY 7 ACTIVE DAYS (TAKE WITH A FULL GLASS OF WATER; REMAIN UPRIGHT FOR 30 MINUTES; NO FOOD OR DRINK FOR 30 MINUTES) 5) AMLODIPINE BESYLATE 10MG TAB TAKE ONE TABLET BY MOUTH ACTIVE ONCE DAILY FOR BLOOD PRESSURE/HEART, DO NOT TAKE WITH GRAPEFRUIT JUICE 6) BENZONATATE 200MG CAP TAKE ONE CAPSULE BY MOUTH THREE ACTIVE TIMES DAILY NEEDED FOR COUGH 7) CALCIUM 200MG (CA CITRATE-950MG) TAB TAKE THREE ACTIVE TABLETS BY MOUTH TWICE DAILY REPLACES CALCIUM CARBONATE 8) CARBOXYMETHYLCELLULOSE NA 1% OPH GEL APPLY 1 DROP ACTIVE INTO EACH EYE FOUR TIMES DAILY NEEDED FOR DRY EYE 9) CETIRIZINE HCL 10MG TAB TAKE ONE TABLET BY MOUTH ACTIVE EVERY DAY NEEDED FOR ALLERGIES 10) CHOLECALCIF 25MCG (D3-1,000UNIT) TAB TAKE ONE TABLET ACTIVE (S) BY MOUTH ONCE DAILY FOR VITAMIN SUPPLEMENTATION 11) DICLOFENAC NA 1% TOP GEL APPLY 4 GRAMS TOPICALLY ACTIVE EVERY 8 HOURS FOR OSTEOARTHRITIS - USE DOSING CARD PROVIDED IN BOX 12) DOCUSATE NA 100MG CAP TAKE ONE CAPSULE BY MOUTH TWICE ACTIVE DAILY NEEDED TO SOFTEN STOOL 13) FISH OIL 1000MG (500MG DHA/EPA) CAP TAKE ONE CAPSULE ACTIVE BY MOUTH THREE TIMES A DAY 14) FLUTICAS 250/SALMETEROL 50 INHL DISK 60 INHALE 1 PUFF ACTIVE BY MOUTH TWICE DAILY FOR BRONCHOSPASM PREVENTION WITH COPD - RINSE MOUTH AFTER USE 15) FLUTICASONE PROP 50MCG 120D NASAL INHL INSTILL 1 ACTIVE SPRAY INTO EACH NOSTRIL TWICE DAILY FOR NASAL IRRITATION/INFLAMMATION 16) KETOTIFEN 0.025% OPH SOLN INSTILL 1 DROP INTO EACH ACTIVE EYE TWICE DAILY NEEDED FOR ALLERGIC CONJUNCTIVITIS 17) LISINOPRIL 2.5MG TAB TAKE ONE TABLET BY MOUTH ONCE ACTIVE (S) DAILY TO CONTROL BLOOD PRESSURE 18) MEPOLIZUMAB 100MG/ML INJ SYR 1ML INJECT 1ML ACTIVE SUBCUTANEOUSLY EVERY FOUR WEEKS 19) NYSTATIN 337723 UNT/ML SUSP TAKE 5 TO 10ML BY MOUTH ACTIVE FOUR TIMES DAILY NEEDED FOR CLEMENTE INFECTION OF MOUTH -- SWISH AND SWALLOW 20) PANTOPRAZOLE NA 40MG EC TAB TAKE ONE TABLET BY MOUTH ACTIVE (S) EVERY MORNING 30 MINUTES BEFORE BREAKFAST FOR GERD 21) TESTOSTERONE 1.62% 20.25MG/PUMP TOP GEL APPLY 3 PUMPS ACTIVE (S) (60.75 MG) TOPICALLY ONCE DAILY FOR LOW TESTOSTERONE 22) TIOTROPIUM 2.5MCG/ACTUAT 60D ORAL INHL INHALE 2 PUFFS ACTIVE BY MOUTH EVERY DAY FOR BREATHING (THIS REPLACES SPIRIVA HANDIHALER). 23) ZAFIRLUKAST 20MG TAB TAKE ONE TABLET BY MOUTH TWICE ACTIVE (S) DAILY Active Non-VA Medications Status 1) Non-VA MULTIVITAMIN/MINERALS CAP/TAB 1 TABLET BY ACTIVE MOUTH EVERY DAY 2) Non-VA OCTREOTIDE (SANDOSTATIN LAR DEPOT) INJ,SUSP,SA ACTIVE UNKNOWN DOSE INTRAMUSCULARLY EVERY MONTH 3) Non-VA OTHER CAP/TAB GAMMAGUARD MONTHLY ACTIVE 26 Total Medications No changes to current medications Resume your prior meds at you next regular scheduled dose except Aspirin, Plavix, Warfarin which can be restarted the next day if you are taking these medications. Medication Education 1. Take medications in the exact amount ordered by the clinician. Do not take more or less. 2. Keep each medication in the original and separate containers. 3. Ice every 2 hours as needed for post injection soreness/pain. Keep on for 15 minutes. Do not use heat within the first 48 hours unless specifically instructed by your doctor. 4. Keep a complete list of all your medications and share with all your health care providers, include all over the counter medications, vitamins or supplements. 5. Do not drink alcoholic beverage, drive or operate machinery, cook or make important decisions for twenty-four (24) hours. A responsible adult should remain with you for the next twenty-four hours and you should REST quietly during this time. Recommended plan for follow up: As scheduled Please call TELEPHONE ASSISTANCE if you experience: Fever 101.5, Dizziness or light-headedness, Redness, discharge, warmth to the touch or foul smelling discharge from wound, Shortness of breath, Nausea, vomiting, diarrhea, or no bowel movement for more than 48 hrs, Newly onset headache, Changes in behavior If you feel the medications are making you sick, your symptoms worsen or you are experiencing problems contact: TELEPHONE ASSISTANCE at [phone] or extension [phone] Or [phone] extension [phone] (DILIP Chirinos) or extension [phone] (ANÍBAL Lopez) If you are in an emotional crisis, feeling suicidal or having any troubling or self-destructive or violent impulses - please call [phone] (or [phone]); press 1 for Veterans to ask for help 24hours per day. Discharge Instructions printed and given to patient: No. Verbal instructions provided due to COVID-19 restrictions. Patient/Caregiver verbalizes understanding of discharge instructions: Yes Diagnostic studies discussed with patient: N/A I have discussed these instructions with the patient/responsible adult and/or demonstrated appropriate care for the patient post discharge. A copy of these discharge instructions have been printed and given to the patient at the time of discharge. /alicia/ DANIKA JOHNSON DO STOCK HOLDER Signed: 08/05/2023 10:17 DANIKA JOHNSON [facility]
--- OUTSIDE RECORDS SUMMARY | 2024-06-22 11:26 | XMS_ITS ---
Author Name [facility] Organization [facility] Address [address] [place] [address] Care Team Providers Care Sustainability Engineer Name Role Phone RAFAEL MEJIA Primary Care [...] PART A May 04, 2019 PART A [id number] Alicia RUVALCABA PATIENT Selected Encounter This section includes the information on record at [place] for the Encounter. Date/Time Encounter Type Encounter Description Reason Provider Source Apr 22, 2024 08:30 AM MECHANICAL TRACTION THERAPY COMMUNICATIONS DIRECTOR ICD-10-CM M54.59 Other low back pain YASSINE HU Moses Encounter Template Text not used by [place] Assessments - Encounter Diagnoses This section includes the primary and secondary diagnoses documented for the Encounter. Date/Time Primary/Secondary Diagnosis Diagnosis Name Provider Source Apr 22, 2024 08:54 AM PRIMARY Other low back pain YASSINE HU [facility] Apr 22, 2024 08:54 AM SECONDARY Pain in thoracic spine YASSINE HU [facility] [place] [facility] Plan of Treatment: Future Appointments (+ 6 months) and Future Tests (+/- 45 days) The Plan of Treatment section includes future care activities for the patient from all [place] treatmentfacilities. This section includes future appointments and future orders which are active, pending or scheduled. Future Appointments This section includes appointments that were scheduled to occur 6 months from the date of the Encounter, up to a maximum of 20 appointments. The data comes from all [place] treatment facilities. Appointment Date/Time Appointment Type Appointme nt Facility Name Apr 25, 2024 07:00 AM AMBULATORY - MEDICINE [facility] [place] [facility] May 05, 2024 10:00 AM AMBULATORY - NONE [facility] [place] [facility] May 05, 2024 01:00 PM AMBULATORY - NONE [facility] [place] [facility] May 09, 2024 01:30 PM AMBULATORY - MEDICINE [facility] [place] [facility] May 12, 2024 11:45 AM AMBULATORY - MEDICINE [facility] [place] [facility] Jun 02, 2024 01:30 PM AMBULATORY - MEDICINE [facility] [place] [facility] Jun 16, 2024 09:30 AM AMBULATORY - NONE [facility] [place] [facility] Jul 05, 2024 03:30 PM AMBULATORY [facility] MEDICINE [facility] Aug 03, 2024 11:00 AM AMBULATORY - NONE [facility] [place] [facility] Aug 08, 2024 09:30 AM AMBULATORY - MEDICINE [facility] [place] [facility] Aug 16, 2024 09:45 AM AMBULATORY - NONE [facility] [place] [facility] Aug 22, 2024 10:30 AM AMBULATORY - MEDICINE [facility] [place] [facility] September 19, 2024 10:00 AM AMBULATORY - MEDICINE [facility] [place] [facility] September 29, 2024 11:00 AM AMBULATORY - NONE [facility] [place] [facility] Active, Pending, and Scheduled Orders This section includes a listing of several types of active, pending, and scheduled orders, including clinic medications orders, diagnostic test orders, procedure orders and consult orders; where the start date of the order is 45 days before the date of the Encounter or 45 days after the date of theEncounter. The data comes from all [place] treatment facilities. Test Date/Time Test Type Test Details Facility Name Mar 21, 2024 04:25 PM Consult Order COMMUNITY CARE-INFUSION Cons Supervisor [facility] [place] [facility] Mar 23, 2024 10:28 AM Consult Order RESPIRATOR Y THERAPY/ NH[facility] OUTPT Cons Supervisor [facility] [place] [facility] Apr 15, 2024 04:34 PM Consult Order COMMUNITY CARE-ONCOLOGY Cons Supervisor [facility] [place] [facility] May 05, 2024 10:00 AM Imaging - General Radiology Order BONE DENSITY AXIAL HIPS,PELVIS.SPINE [facility] [place] [facility] Social History: Smoking Status (Most current) and Tobacco Use (All prior to encounter date) This section includes the most current, and the historical, smoking and tobacco- related health factors from the [place] facility where the Encounter took place. Current Smoking Status This section includes the most current smoking, or tobacco-related health factor, from the [place] facility where the Encounter took place. Date/Time Current Smoking Status Comment [facility] Jun 08, 2023 10:00 AM VA-TOBACCO FORMER USER [facility] [place] [facility] Tobacco Use History This section includes a history of the smoking, or tobacco-related health factors, that were collected on or before the date of the Encounter. The data comes from the [place] facility where the Encounter took place. Date/Time Smoking Status/Tobac co Use Comment Facility Jun 08, 2023 10:00 AM VA-TOBACCO QUIT 15 YRS OR MORE [facility] [place] [facility] Jun 09, 2022 10:30 AM VA-TOBACCO FORMER USER [facility] [place] [facility] Jun 09, 2022 10:30 AM VA-TOBACCO QUIT 15 YRS OR MORE [facility] [place] [facility] Jun 14, 2021 09:00 AM VA-TOBACCO FORMER USER [facility] [place] [facility] Jun 14, 2021 09:00 AM VA-TOBACCO QUIT 15 YRS OR MORE [facility] [place] [facility] Feb 03, 2020 01:00 PM VA-TOBACCO [facility] Feb 03, 2020 01:00 PM VA-TOBACCO QUIT 15 YRS OR MORE [facility] Feb 02, 2019 11:49 AM VA-TOBACCO FORMER USER [facility] Feb 02, 2019 11:49 AM VA-TOBACCO QUIT 15 YRS OR MORE [facility] May 13, 2017 10:12 AM LIFETIME NON-TOBACCO USER [facility] Jun 11, 2016 10:31 AM QUIT TOBACCO USE > 7 YEARS AGO [facility] Jun 21, 2015 12:49 PM QUIT TOBACCO USE > 7 YEARS AGO pt states he quit smoking 30 yr ago. [facility] Jul 18, 2004 08:23 AM HISTORY OF SMOKING Smoke free since 1989 [facility] May 11, 2003 02:17 PM HISTORY OF SMOKING quit smoking 15 years ago [facility] May 11, 2003 02:17 PM QUIT TOBACCO USE > 7 YEARS AGO quit smoking 15 years ago [facility] Advance Directives: All historical and current Section Date Range: From patient's date of to the date document was created. This section includes ALL of a patient's completed or amended [place] Advance and Rescinded Directives. The entries below indicate that a directive exists for the patient, but an actual copy is not included with this document. The data comes from all [place] facilities. Date Advance Directives Provider Source Nov 26, 2020 ADVANCE DIRECTIVE GARY GUNTER [facility] Jan 25, 2017 ADVANCE DIRECTIVE RAFAEL MEJIA [facility] Apr 06, 2009 ADVANCE DIRECTIVE KHAI BADILLO [facility] Encounter Notes: All associated encounter notes This section contains the clinical notes associated to the Encounter. 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; and [employer] Service Connected Disabilities with % Eligibility: Active Problem Microscopic hematuria R31.29, Onset 12/08/2022 RAFAEL MEJIA Impaired fasting glucose R73.01 09/22/2022 KAL GRANADOS Chronic dermatitis L30.9, Onset 12/08/2022 RAFAEL MEJIA Thyroid function tests abnormal R94 06/09/2022 RAFAEL MEJIA 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 04/12/2013SeptemberRENNY Spondylosis (SNOMED CT 9681978) M47 07/04/2023 JEREMIE AYALA Osteoarthritis * (ICD-9-CM 715.90) 10/15/2012 ELY BAJWA Peptic Ulcer Disease * (ICD-9-CM 53 10/25/2008 RAFAEL MEJIA Chronic Low Back Pain (ICD-9-CM 724 11/09/2007 RAFAEL MEJIA Dermatitis * (ICD-9-CM 692.9) 692.9 11/09/2007 RAFAEL MEJIA Sciatica * (ICD-9-CM 724.3) 724.3 10/22/2007 IQRA MERRITT JAWED Allergic rhinitis 477.9 04/21/2006 VANITA FRANZ Colonic Polyps 211.3 03/09/2006 EMMANUEL FRANZVANITA E Dyslipidemia (ICD-9-CM 272.4) 272.4 07/17/2003 PRISCA MURPHY NONINF GASTROENTERIT NEC 558.9 06/10/2000 PRISCA MURPHY NEED INOC/VIRAL HEP V05.3 06/10/2000 PRISCA MURPHY ESOPHAGEAL REFLUX 530.81 08/20/1999 IVAN WOLFE Asthma (SNOMED CT 205023355) J45.90 03/05/2015 ANTOINE PETERS Past Surgeries: Surgery abdominal - 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 At the same time gall bladder removed. [facility] and reports feeling less pain after the last visit. His upper back feels better but the lower pain has not changed much. After he shovelled snow the sx returned. Consistent of back pain but in the mornings it is painful but not severe He/she describes the pain as deep ache and sometimes sharp constant ache and sharp, intermittent Vet rates the pain average on the NPRS 5/10 Onset: 2011 and earlier. No known trauma; He had a job that involved heavy lifting. Palliative: heat; sitting in recliner Provocative: bending, lifting, up or down stairs. Timing: NA Prior treatment: Med Rehab injections in SI jts, both but L>R. He has had about 6 injections; Acu- no relief; Some Physical Therapy traction did not help. He did some of the Hep He lost 15 lbs during medical problems/procedures. 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 AAOx3, speech is fluent. Wood's: Neg bilat Rhombergs no sway General exam findings Cursory PE demonstrates no acute or emergent health conditions. No signs of acute pulmonary distress, breathing is steady and non-labored. No distal edema or signs of peripheral circulatory distress. No saddle paresthesia and no acute bowel or bladder dysfunction. Active LUMBAR ROM limited and provocative into: all motions Extension Flexion Lateral Bending Rotation Motor strength graded 5/5 hip flexion 5/5 5/5 knee extension 5/5 5/5 foot dorsifexion 5/5 5/5 foot inversion 5/5 5/5 foot eversion 5/5 5/5 Resisted hip flexion on left provokes LBP L4-S1 (B) DTR's Not able to obtain at L4 & S1 Sensation grossly intact to light touch L4-S1 (B) No clonus appreciated upon ankle dorsiflexion. Denies calf tenderness (B) Lumbar Orthopedic testing: Valsalva Maneuver: Neg Seated Dural Tension Test SLR/seated slump pos Kemps pos Prone knee bending pos SI provocation testing pos Fabere's neg FADIRs pos Direct S-I palpation Neg supine SLR at 90 C/O lbp Soft tissue palpation reveals hypertonicity and tenderness in left iliopsoas which reproduced N/T in left anterior thigh. Hypertonic tender in TFL, IT band and upper gluteal, L PSIS, L SI jt, T/L Bilat Motion palpation reveals intersegmental T/L lumbar somatic dysfunction with relative joint hypomobility. IMPRESSION: It is reasonable in this case to apply a conservative course of manual therapy to address myofascial and joint findings while encouraging activity and stretching specific to the patient's presentation. PLAN: Treatment #1. I explained all of this to the patient and the patient seemed to understand. Treatment options from least invasive to most with the associated risks, benefits, alternatives, and potential outcomes were discussed in detail. Potential risks associated with spinal manipulative therapy, the following were shared with the patient: Likely (transient mild post-treatment soreness); Less Likely (Bruising, sprain/strain); Rare but potentially serious (disc herniation, fracture); Extremely Rare but serious (epidural spinal hematoma, cauda equina syndrome). Informed consent obtained to provide management consisting of: ~ Lumbar F/D decompression manipulation with the intended goal of the reduction of LBP and limitations related to LBP through the mechanical action of lumbar flexion with a gentle distractive force. ~ MFR as per palpation (10 minutes) ~ Mobilization/SMT to Cervical, Thoracic, and/or Lumbar and S-I regions in lateral decubitus posture ~ Prone or supine thoracic mobilization/SMT ~ Prone hip flexor/quadriceps stretching as per palpation ~ Supine gluteal stretching as per palpation Objectives 04/22/24: Hypertonic lumbar paraspinal mm rambo Restrictions T/L junction and L/S spine Treatment: active/corrective FD mechanical lumbar traction w flexion and lateral bending, 8 min CMT lumbar side posture CMT lower thoracic seated Instructed patient in pelvic tilt which he performed and felt stretch Treatment carried out today and well tolerated The prognosis,at this time,is fair to good Short term goals include improvement in excess 25% on regional disability questionnaire and/or NRS over the first 3-4 treatment visits. It was explained to the patient that resolution of soft tissue complaints through conservative management requires compliance with at home recommendations and avoidance of aggravating factors. Self-Care Recommendations: Try to lower his body instead of bending at the waist over sink. Provided handouts ~Patient encouraged to engage in activities such as a walking program with established goals to reduce fear-avoidance behaviors with regard to movement,and improve overall health and fitness. emphasis placed upon function over pain with effort made each day to remain active understanding that normal daily activities may temporarily increase pain experience but are not inherently injurious and should be explored to the extent possible. Provided patient with Yoga information ~ Activity such as Yoga encouraged to enhance relaxation, flexibility, posture, core stability, balance, and pain modulation. Plan: trial 4 visits; Instruct in hip flexor stretches. Visit 2 F/U next week Seek urgent care as needed. CMT: chiropractic manipulative therapy SMT: Spinal Manipulative Therapy F/D: Flexion Distraction MFR: Myofascial Release S-I: Sacroiliac MFTP: Myofascial Trigger Point NRS: Numeric Rating Scale N/T: Numbness/Tingling PIR: Post isometric relaxation /es/ YASSINE HU [facility]. CHIROPRACTOR Signed: 04/22/2024 08:54 YASSINE HU [facility]
--- OUTSIDE RECORDS SUMMARY | 2024-06-22 11:27 | XMS_ITS | Clinical Summary ---
Author Organization [facility] Facility Address [address] [place] [id number] Care Team Providers Care Puppet Engineer Name Role Phone Zeb Muir MD Primary Care Provider [phone] Social History Tobacco Use Types Packs/Day Years Used Date Smoking Tobacco: Never Assessed Sex and Gender Information Value Date Recorded Sex Assigned at Not on file Legal Sex Male 8:21 AM EST Gender Identity Not on file Sexual Orientation Not on file Plan of Treatment Health Maintenance Due Date Last Done Comments Colorectal Cancer Screening: Annual FOBT 2003 Colorectal Cancer Screening: Colonoscopy 2003 Colorectal Cancer Screening: Sigmoidoscopy 2003 Pneumococcal Vaccine: 65+ Ye ars (1 of 1 - PCV) 2019 Influenza Vaccine (#1) 2024 Hepatitis B Vaccine Aged Out No longe r eligible based on patient's age to complete this topic Insurance [facility] 1,2,3 (VACCN) Care Teams Puppet Engineer Relationship Specialty Start Date End Date Zeb Muir MD [address], [place] PCP - General Internal Medicine 04/21/19
--- OUTSIDE RECORDS SUMMARY | 2024-06-22 11:27 | XMS_ITS | Encounter Summary ---
Author Name [facility] [place] [facility] [place] [facility] [place] Address [address] [place] [address] Care Team Providers Care Detective Captain Name Role Phone RAFAEL MEJIA Primary Care [...] PART A May 04, 2019 PART A [id number] Alicia RUVALCABA PATIENT Selected Encounter This section includes the information on record at [place] for the Encounter. Date/Time Encounter Type Encounter Description Reason Pro vider Source Jun 10, 2024 08:14 AM Outpatient Encounter PM&RS PHYSICIAN IHE Encounter Template Text not used by [place] Plan of Treatment: Future Appointments (+ 6 [...] 20 appointments. The data comes from all [place] treatment [facility]. Appointment Date/Time Appointment Type Appointme nt Facility Name Jun 16, 2024 09:30 AM AMBULATORY - NONE [facility] Jun 22, 2024 10:45 AM AMBULATORY - MEDICINE [facility] Jul 05, 2024 03:30 PM AMBULATORY [facility] MEDICINE [facility] Aug 03, 2024 11:00 AM AMBULATORY - NONE [facility] Aug 08, 2024 09:30 AM AMBULATORY - MEDICINE [facility] Aug 16, 2024 09:45 AM AMBULATORY - NONE [facility] Aug 22, 2024 10:30 AM AMBULATORY [facility] MEDICINE [facility] Aug 24, 2024 01:00 PM AMBULATORY - REHAB MEDICIN E [facility] September 19, 2024 10:00 AM AMBULATORY - MEDICINE [facility] September 29, 2024 11:00 AM AMBULATORY - NONE [facility] Nov 08, 2024 09:00 AM AMBULATORY - NONE [facility] Nov 16, 2024 10:00 AM AMBULATORY - NONE [facility] Active, Pending, and Scheduled Orders This section includes a listing of several types of active, pending, and scheduled orders, including clinic medications orders, diagnostic test orders, procedure orders and consult orders; where the start date of the order is 45 days before the date of the Encounter or 45 days after the date of theEncounter. The data comes from all [facility]. Test Date/Time Test Type Test Details Facility Name Jun 05, 2024 07:18 PM Consult Order COMMUNITY CARE-PULMONARY Cons Chief Talent Officer's Choice [place] [facility] [place] [facility] Social History: Smoking Status (Most current) and Tobacco Use (All prior to encounter date) This section includes the most current, and the historical, smoking and tobacco- related health factors from the [place] facility where the Encounter took place. Current Smoking Status This section includes the most current smoking, or tobacco-related health factor, from the [place] facility where the Encounter took place. Date/Time Current Smoking Status Comment [facility] it Jun 08, 2023 10:00 AM VA-TOBACCO FORMER USER [place] [facility] [place] [facility] Tobacco Use History This section includes a history of the smoking, or tobacco-related health factors, that were collected on or before the date of the Encounter. The data comes from the [place] facility where the Encounter took place. Date/Time Smoking Status/Tobac co Use Comment Facility Jun 08, 2023 10:00 AM VA-TOBACCO QUIT 15 YRS OR MORE [facility] [place] [facility] Jun 09, 2022 10:30 AM VA-TOBACCO FORMER USER [facility] [place] [facility] Jun 09, 2022 10:30 AM VA-TOBACCO QUIT 15 YRS OR MORE [facility] [place] [facility] Jun 14, 2021 09:00 AM VA-TOBACCO FORMER USER [facility] [place] [facility] Jun 14, 2021 09:00 AM VA-TOBACCO QUIT 15 YRS OR MORE [facility] [place] [facility] Feb 03, 2020 01:00 PM VA-TOBACCO FORMER USER [facility] [place] [facility] Feb 03, 2020 01:00 PM VA-TOBACCO QUIT 15 YRS OR MORE [facility] [place] [facility] Feb 02, 2019 11:49 AM VA-TOBACCO FORMER USER [facility] [place] [facility] Feb 02, 2019 11:49 AM VA-TOBACCO QUIT 15 YRS OR MORE [facility] [place] [facility] May 13, 2017 10:12 AM LIFETIME NON-TOBACCO USER [facility] [place] [facility] Jun 11, 2016 10:31 AM QUIT TOBACCO USE > 7 YEARS AGO [facility] [place] [facility] Jun 21, 2015 12:49 PM QUIT TOBACCO USE > 7 YEARS AGO pt states he quit smoking 30 yr ago. [facility] Jul 18, 2004 08:23 AM HISTORY OF SMOKING Smoke free since 1989 [facility] [place] [facility] May 11, 2003 02:17 PM HISTORY OF SMOKING quit smoking 15 years ago [facility] May 11, 2003 02:17 PM QUIT TOBACCO USE > 7 YEARS AGO quit smoking 15 years ago [facility] Advance Directives: All historical and current Section Date Range: From patient's date of to the date document was created. This section includes ALL of a patient's completed or amended [place] Advance and Rescinded Directives. The entries below indicate that a directive exists for the patient, but an actual copy is not included with this document. The data comes from all [place] facilities. Date Advance Directives Provider Source Nov 26, 2020 ADVANCE DIRECTIVE GARY GUNTER [facility] Jan 25, 2017 ADVANCE DIRECTIVE RAFAEL MEJIA [facility] Apr 06, 2009 ADVANCE DIRECTIVE KHAI BADILLO [facility] Radiology Reports: +/- 30 days of [...] the Encounter. The data comes from all [place] treatment facilities. Date/Time Radiology Report Provider Source Jun 10, 2024 09:29 AM HAND3 OR MORE VIEWS(RIGHT): GENARO RUVALCABA [id number] -1955 M Ex Date: JUN 10, 2024@09:29 Req Phys: RAFAEL MEJIA Pat Loc: [facility] PACT 2 MD (Req'g Loc) Im Loc: [facility] 1 Service: Unknown [facility] JAVIERSANDRA [id number] (Case [id number] COMPLETE) HAND3 OR MORE VIEWS(RIGHT) (RAD Detailed) CPT:73806 Reason for Study: pain finger#3 Clinical History: Report Status: Verified Date Reported: JUN 10, 2024 Date Verified: JUN 10, 2024 Hostess Party Sales Representative E-Sig:/ES/PAULA ALCARAZ JR Report: Study: AP, lateral [...] Primary Interpreting Staff: PAULA ALCARAZ JR, Radiologist (Hostess Party Sales Representative) /PAULA RUDOLPH JR [facility] Encounter Notes: All associated encounter notes This section contains the clinical notes associated to the Encounter. Date/Time Encounter Note(s) Provider Source Jun 10, 2024 08:14 AM TELEPHONE ENCOUNTE R NOTE: LOCAL TITLE: TELEPHONE NOTE/SPECIALTY CLINIC STANDARD TITLE: TELEPHONE ENCOUNTER NOTE DATE OF NOTE: JUN 10, 2024@08:14 ENTRY DATE: JUN 10, 2024@08:14:22 AUTHOR: TESSIE BRUNSON EXP COSIGNER: URGENCY: STATUS: COMPLETED vet does not want appt with pid 07/04/2024. rtc disp /es/ TESSIE BRUNSON SHIFT MANAGER Signed: 06/10/2024 08:14 TESSIE BRUNSON [facility]
--- OUTSIDE RECORDS SUMMARY | 2024-06-22 11:27 | XMS_ITS ---
Author Name [facility] [place] [facility] [place] [facility] [place] Address [address] [place] [address] Care Team Providers Care Court Recording Monitor Name Role Phone ZEB MUIR Primary Care [...] PART A May 04, 2019 PART A [id number] Alicia RUVALCABA PATIENT Selected Encounter This section includes the information on record at [place] for the Encounter. Date/Time Encounter Type Encounter Description Reason Pro vider Source Jun 05, 2024 07:17 PM Outpatient Encounter PRIMARY CARE/MEDICINE IHE Encounter Template Text not used by [place] Plan of Treatment: Future Appointments (+ 6 [...] 20 appointments. The data comes from all [place] treatment [facility]. Appointment Date/Time Appointment Type Appointme nt Facility Name Jun 16, 2024 09:30 AM AMBULATORY - NONE [facility] [facility] Jun 22, 2024 10:45 AM AMBULATORY - MEDICINE [facility] [place] [facility] Jul 05, 2024 03:30 PM AMBULATORY - MEDICINE [facility] Aug 03, 2024 11:00 AM AMBULATORY - NONE [facility] [place] [facility] Aug 08, 2024 09:30 AM AMBULATORY - MEDICINE [facility] [place] [facility] Aug 16, 2024 09:45 AM AMBULATORY - NONE [facility] [place] [facility] Aug 22, 2024 10:30 AM AMBULATORY - MEDICINE [facility] [place] [facility] Aug 24, 2024 01:00 PM AMBULATORY - REHAB MEDICIN E [facility] [place] [facility] September 19, 2024 10:00 AM AMBULATORY - MEDICINE [facility] [place] [facility] September 29, 2024 11:00 AM AMBULATORY - NONE [facility] [place] [facility] Nov 08, 2024 09:00 AM AMBULATORY - NONE [facility] [place] [facility] Nov 16, 2024 10:00 AM AMBULATORY - NONE [facility] [place] [facility] Active, Pending, and Scheduled Orders This section includes a listing of several types of active, pending, and scheduled orders, including clinic medications orders, diagnostic test orders, procedure orders and consult orders; where the start date of the order is 45 days before the date of the Encounter or 45 days after the date of theEncounter. The data comes from all [facility]. Test Date/Time Test Type Test Details Facility Name Jun 05, 2024 07:18 PM Consult Order COMMUNITY CARE-PULMONARY Cons Hydrodynamics Teacher's Choice [place] [facility] [place] [facility] Social History: Smoking Status (Most current) and Tobacco Use (All prior to encounter date) This section includes the most current, and the historical, smoking and tobacco- related health factors from the [place] facility where the Encounter took place. Current Smoking Status This section includes the most current smoking, or tobacco-related health factor, from the [place] facility where the Encounter took place. Date/Time Current Smoking Status Comment [facility] it Jun 08, 2023 10:00 AM VA-TOBACCO FORMER USER [place] [facility] [place] [facility] Tobacco Use History This section includes a history of the smoking, or tobacco-related health factors, that were collected on or before the date of the Encounter. The data comes from the [place] facility where the Encounter took place. Date/Time Smoking Status/Tobac co Use Comment Facility Jun 08, 2023 10:00 AM VA-TOBACCO QUIT 15 YRS OR MORE [place] [facility] [place] [facility] Jun 09, 2022 10:30 AM VA-TOBACCO FORMER USER [place] [facility] [place] [facility] Jun 09, 2022 10:30 AM VA-TOBACCO QUIT 15 YRS OR MORE [place] [facility] [place] [facility] Jun 14, 2021 09:00 AM VA-TOBACCO FORMER USER [place] [facility] [place] [facility] Jun 14, 2021 09:00 AM VA-TOBACCO QUIT 15 YRS OR MORE [place] [facility] [place] [facility] Feb 03, 2020 01:00 PM VA-TOBACCO FORMER USER [place] [facility] [place] [facility] Feb 03, 2020 01:00 PM VA-TOBACCO QUIT 15 YRS OR MORE [place] [facility] [place] [facility] Feb 02, 2019 11:49 AM VA-TOBACCO FORMER USER [place] [facility] [place] [facility] Feb 02, 2019 11:49 AM VA-TOBACCO QUIT 15 YRS OR MORE [place] [facility] [place] [facility] May 13, 2017 10:12 AM LIFETIME NON-TOBACCO USER [place] [facility] [place] [facility] Jun 11, 2016 10:31 AM QUIT TOBACCO USE > 7 YEARS AGO [place] [facility] [place] [facility] Jun 21, 2015 12:49 PM QUIT TOBACCO USE > 7 YEARS AGO pt states he quit smoking 30 yr ago. [facility] [place] [facility] Jul 18, 2004 08:23 AM HISTORY OF SMOKING Smoke free since 1989 [place] [facility] [place] [facility] May 11, 2003 02:17 PM HISTORY OF SMOKING quit smoking 15 years ago [facility] May 11, 2003 02:17 PM QUIT TOBACCO USE > 7 YEARS AGO quit smoking 15 years ago [facility] Advance Directives: All historical and current Section Date Range: From patient's date of to the date document was created. This section includes ALL of a patient's completed or amended [place] Advance and Rescinded Directives. The entries below indicate that a directive exists for the patient, but an actual copy is not included with this document. The data comes from all [place] facilities. Date Advance Directives Provider Source Nov 26, 2020 ADVANCE DIRECTIVE GARY GUNTER [facility] Jan 25, 2017 ADVANCE DIRECTIVE ZEB MUIR [facility] Apr 06, 2009 ADVANCE DIRECTIVE KHAI BADILLO [facility] Radiology Reports: +/- 30 days of [...] the Encounter. The data comes from all [place] treatment facilities. Date/Time Radiology Report Provider Source Jun 10, 2024 09:29 AM HAND3 OR MORE VIEWS(RIGHT): GENARO RUVALCABA [id number] -1955 M Ex Date: JUN 10, 2024@09:29 Req Phys: ZEB MUIR Pat Loc: [facility] PACT 2 MD (Req'g Loc) Im Loc: [facility] 1 Service: Unknown [facility] JAVIERSANDRA [id number] (Case [id number] COMPLETE) HAND3 OR MORE VIEWS(RIGHT) (RAD Detailed) CPT:[id number] Reason for Study: pain finger#3 Clinical History: Report Status: Verified Date Reported: JUN 10, 2024 Date Verified: JUN 10, 2024 Research Animal Facility Supervisor E-Sig:/ES/PAULA ALCARAZ JR Report: Study: AP, lateral [...] Primary Interpreting Staff: PAULA ALCARAZ JR, Radiologist (Research Animal Facility Supervisor) /PAULA RUDOLPH JR [facility] Encounter Notes: All associated encounter notes This section contains the clinical notes associated to the Encounter. Date/Time Encounter Note(s) Provider Source Jun 05, 2024 07:19 PM PHYSICIAN NOTE: LOCAL TITLE: NOTE STANDARD TITLE: PHYSICIAN NOTE DATE OF NOTE: JUN 05, 2024@19:19 ENTRY DATE: JUN 05, 2024@19:19:08 AUTHOR: ZEB MUIR EXP COSIGNER: URGENCY: STATUS: COMPLETED Renewed consult pulmonary community care for COPD. /alicia/ Zeb Muir MD Staff Physician Signed: 06/05/2024 19:19 ZEB MUIR [facility]
--- OUTSIDE RECORDS SUMMARY | 2024-06-22 11:27 | XMS_ITS ---
Author Name [facility] Address [address] [place] [address] Care Team Providers Care Wood Floor Layer Name Role Phone ZEB MUIR Primary Care [...] PART A May 04, 2019 PART A [id number] Alicia RUVALCABA PATIENT Selected Encounter This section includes the information on record at [place] for the Encounter. Date/Time Encounter Type Encounter Description Reason Provider Source Feb 22, 2024 10:30 AM OFFICE O/P EST SF 10 MIN PRIMARY CARE/MEDICINE ICD-10-CM I10 Essential (primary) hypertension ZEB MUIR [facility] Encounter Template Text not used by MS Assessments - Encounter Diagnoses This section includes the primary and secondary diagnoses documented for the Encounter. Date/Time Primary/Secondary Diagnosis Diagnosis Name Provider Source Feb 22, 2024 11:02 AM PRIMARY Essential (primary) hypertension ZEB MUIR [facility] [place] [facility] Plan of Treatment: Future Appointments (+ 6 months) and Future Tests (+/- 45 days) The Plan of Treatment section includes future care activities for the patient [facility] This section includes future appointments and future orders which are active, pending or scheduled. Future Appointments This section includes appointments that were scheduled to occur 6 months from the date of the Encounter, up to a maximum of 20 appointments. The data comes from all [place] treatment facilities. Appointment Date/Time Appointment Type Appointme nt Facility Name Feb 24, 2024 08:30 AM AMBULATORY - REHAB MEDICIN E [facility] [place] [facility] Mar 09, 2024 11:00 AM AMBULATORY - NONE [facility] [place] [facility] Mar 09, 2024 11:30 AM AMBULATORY - MEDICINE [facility] [place] [facility] Mar 23, 2024 10:00 AM AMBULATORY - MEDICINE [facility] [place] [facility] Mar 28, 2024 07:00 AM AMBULATORY - MEDICINE [facility] [place] [facility] Mar 28, 2024 11:15 AM AMBULATORY - MEDICINE [facility] [place] [facility] Apr 06, 2024 10:00 AM AMBULATORY - MEDICINE [facility] [place] [facility] Apr 12, 2024 11:00 AM AMBULATORY - NONE [facility] [place] [facility] Apr 14, 2024 02:30 PM AMBULATORY - MEDICINE [facility] [place] [facility] Apr 22, 2024 08:30 AM AMBULATORY - MEDICINE [facility] [place] [facility] Apr 25, 2024 07:00 AM AMBULATORY - MEDICINE [facility] [place] [facility] May 05, 2024 10:00 AM AMBULATORY - NONE [facility] [place] [facility] May 05, 2024 01:00 PM AMBULATORY - NONE [facility] [place] [facility] May 06, 2024 03:00 PM AMBULATORY - MEDICINE [facility] [place] [facility] May 09, 2024 01:30 PM AMBULATORY - MEDICINE [facility] [place] [facility] May 12, 2024 11:45 AM AMBULATORY - MEDICINE [facility] [place] [facility] Jun 16, 2024 09:30 AM AMBULATORY - NONE [facility] [place] [facility] Jun 22, 2024 10:45 AM AMBULATORY - MEDICINE [facility] [place] [facility] Jul 05, 2024 03:30 PM AMBULATORY - MEDICINE [facility] Aug 03, 2024 11:00 AM [facility] NONE [facility] Active, Pending, and Scheduled Orders This section includes a listing of several types of active, pending, and scheduled orders, including clinic medications orders, diagnostic test orders, procedure orders and consult orders; where the start date of the order is 45 days before the date of the Encounter or 45 days after the date of theEncounter. The data comes from all [place] treatment facilities. Test Date/Time Test Type Test Details Facility Name Feb 20, 2024 05:26 PM Consult Order [facility] Cons [employer] Engineer[facility] Mar 21, 2024 04:25 PM Consult Order COMMUNITY CARE-INFUSION Cons [employer] Engineer's Choice [facility] Lab Results: +/- 30 days of the encounter This section includes the Chemistry and Hematology Lab Results on record with MS for the patient. Radiology Reports and Pathology Reports are provided separately, in subsequent sections. Lab Results This section contains the Chemistry/Hematology Results that were resulted 30 days before or 30 daysafter the date of the Encounter. Date/Time Source Result Type Result - Unit Interpretation Reference Range Comment Mar 23, 2024 10:50 AM [facility] TESTOSTERONE, TOTAL (WHV) Specimen Type: SERUM No comment entered. Ordering Provider: KAL GRANADOS Report Released Date/Time: September 21, 2023 09:22 AM Reporting Lab: [facility] [address] [facility] [address] Performing Lab: [address] [address] TESTOSTERONE , TOTAL (WHV) 680.68 ng/dL 220.00-892. 00 Mar 23, 2024 10:50 AM [facility] THYROID T4 FREE(FT4) (WROX) Specimen Type: SERUM No comment entered. Ordering Provider: KAL GRANADOS Report Released Date/Time: Mar 23, 2024 10:31 AM Reporting Lab: [facility] [place] [facility] [address] [facility] [address] Performing Lab: [place] [facility] [place] [facility] [address] [facility] [address] THYROID T4 FREE(FT4) (WROX) 1.12 ng/dL 0.6-1.6 Mar 23, 2024 10:50 AM [facility] VITAMIN D (25-OH) Specimen Type: SERUM No comment entered. Ordering Provider: KAL GRANADOS Report Released Date/Time: September 21, 2023 09:22 AM Reporting Lab: [facility] [place] [facility] [address] [facility] [address] Performing Lab: [facility] [address] [address] VITAMIN D (25-OH) 34 ng/mL 20-50 Mar 23, 2024 10:50 AM [facility] PSA Specimen Type: SERUM No comment entered. Ordering Provider: KAL GRANADOS Report Released Date/Time: September 21, 2023 09:22 AM Reporting Lab: [facility] [place] [facility] [address] [facility] [address] Performing Lab: [facility] [address] [facility] [address] PSA 1.83 ng/mL 0.00-4.00 Mar 23, 2024 10:50 AM [facility] CALCIUM Specimen Type: SERUM No comment entered. Ordering Provider: KAL GRANADOS Report Released Date/Time: September 21, 2023 09:22 AM Reporting Lab: [facility] [place] [address] [address] Performing Lab: [facility] [address] [address] CALCIUM 8.8 mg/dL 8.5-10.2 Mar 23, 2024 10:50 AM [facility] TSH Specimen Type: SERUM No comment entered. Ordering Provider: KAL GRANADOS Report Released Date/Time: Mar 23, 2024 10:31 AM Reporting Lab: [address] [address] Performing Lab: [address] [address] TSH 2.38 u[IU]/mL 0.35-5.00 Mar 23, 2024 10:50 AM [facility] BASIC METABOLIC PANEL (non-fasting) Specimen Type: SERUM No comment entered. Ordering Provider: KAL GRANADOS Report Released Date/Time: September 21, 2023 09:22 AM Reporting Lab: [address] [address] Performing Lab: [address] [address] UREA NITROGEN 10 mg/dL 7-25 GLUCOSE 88 mg/dL 65-100 SODIUM 136 mmol/L 135-145 POTASSIUM 4.0 mmol/L 3.5-5.0 CHLORIDE 105 mmol/L 100-110 CO2 22 meq/L 20-30 CREATININE, Serum 0.91 mg/dL 0.50-1.40 eGFR(CKD-EPI 2020) >90 mL/min >60 Mar 23, 2024 10:50 AM [facility] CBC Specimen Type: BLOOD No comment entered. Ordering Provider: KAL GRANADOS Report Released Date/Time: September 21, 2023 09:22 AM Reporting Lab: [address] [address] Performing Lab: [address] [address] WBC 6.16 10*3/uL 4.50-11.00 RBC 4.48 10*6/uL 4.23-5.66 HGB 10.7 g/dL L 12.8-17 HCT 33.8 L 39.2-50.4 MCV 75.4 fL L 82-99 MCHC 31.7 g/dL 30.8-35.1 PLT 297 10*3/uL 140-360 RDW-CV 14.2 12.0-16.0 MCH 23.9 pg L 26.2-32.6 Vital Signs: All taken on the encounter date This section contains inpatient and outpatient Vital Signs collected on the date of the Encounter. Date/Time Temperature Pulse Blood Pressure Respiratory Rate SP02 Pain Height Weight Body Mass Index Source Feb 22, 2024 10:53 AM 128/78 [facility] [place] [facility] Feb 22, 2024 10:22 AM 98 91 147/74 16 96 4 62 130 24 [facility] [place] [facility] Social History: Smoking Status (Most current) and Tobacco Use (All prior to encounter date) This section includes the most current, and the historical, smoking and tobacco- related health factors from the [place] facility where the Encounter took place. Current Smoking Status This section includes the most current smoking, or tobacco-related health factor, from the MS facility where the Encounter took place. Date/Time Current Smoking Status Comment [facility] Jun 08, 2023 10:00 AM VA-TOBACCO FORMER USER [facility] [place] [facility] Tobacco Use History This section includes a history of the smoking, or tobacco-related health factors, that were collected on or before the date of the Encounter. The data comes from the MS facility where the Encounter took place. Date/Time Smoking Status/Tobac co Use Comment Facility Jun 08, 2023 10:00 AM VA-TOBACCO QUIT 15 YRS OR MORE [facility] [place] [facility] Jun 09, 2022 10:30 AM VA-TOBACCO FORMER USER [facility] [place] [facility] Jun 09, 2022 10:30 AM VA-TOBACCO QUIT 15 YRS OR MORE [facility] [place] [facility] Jun 14, 2021 09:00 AM VA-TOBACCO FORMER USER [facility] [place] [facility] Jun 14, 2021 09:00 AM VA-TOBACCO QUIT 15 YRS OR MORE [facility] [place] [facility] Feb 03, 2020 01:00 PM VA-TOBACCO FORMER USER [facility] [place] [facility] Feb 03, 2020 01:00 PM VA-TOBACCO QUIT 15 YRS OR MORE [facility] [place] [facility] Feb 02, 2019 11:49 AM VA-TOBACCO FORMER USER [facility] [place] [facility] Feb 02, 2019 11:49 AM VA-TOBACCO QUIT 15 YRS OR MORE [facility] May 13, 2017 10:12 AM LIFETIME NON-TOBACCO USER [facility] Jun 11, 2016 10:31 AM QUIT TOBACCO USE > 7 YEARS AGO [facility] Jun 21, 2015 12:49 PM QUIT TOBACCO USE > 7 YEARS AGO pt states he quit smoking 30 yr ago. [facility] Jul 18, 2004 08:23 AM HISTORY OF SMOKING Smoke free since 1989 [facility] May 11, 2003 02:17 PM HISTORY OF SMOKING quit smoking 15 years ago [facility] May 11, 2003 02:17 PM QUIT TOBACCO USE > 7 YEARS AGO quit smoking 15 years ago [facility] Advance Directives: All historical and current Section Date Range: From patient's date of to the date document was created. This section includes ALL of a patient's completed or amended [place] Advance and Rescinded Directives. The entries below indicate that a directive exists for the patient, but an actual copy is not included with this document. The data comes from all [place] facilities. Date Advance Directives Provider Source Nov 26, 2020 ADVANCE DIRECTIVE GARY GUNTER [facility] Jan 25, 2017 ADVANCE DIRECTIVE ZEB MUIR [facility] Apr 06, 2009 ADVANCE DIRECTIVE KHAI BADILLO [facility] Radiology Reports: +/- 30 days of the [...] the Encounter. The data comes from all [place] treatment facilities. Date/Time Radiology Report Provider Source Feb 24, 2024 08:47 AM FLUOROSCOPIC KAROLYN NCE FOR NEEDLE PLACEMENT: GENARO RUVALCABA [id number] -[id number] M Exm Date: FEB 24, 2024@08:47 Req Phys: DANIKA JOHNSON Pat Loc: [facility]/NO/MED REHAB/SPINE INJ (Re Img Loc: [facility]/BUILDING 1 Service: [place] [address] (Case [id number] COMPLETE) FLUOROSCOPIC GUIDANCE FOR NEEDLE (RAD Detailed) CPT:72169 Reason for Study: SI joint injection Clinical History: Report Status: Verified Date Reported: FEB 24, 2024 Date Verified: FEB 24, 2024 Stone Splitter E-Sig:/ES/PAULA ALCARAZ JR Report: Study: Pain injection of the left sacroiliac joint. Findings: Fluoroscopic guidance was provided to Pain Management for interventional pain injection. No dictation provided for this study. Images captured for documentation only. Total fluoroscopy time used was 5.7 seconds. Total cumulative air kerma dose is 1.93 mGy. Impression: Fluoroscopic guidance for interventional pain injection. Primary Diagnostic Code: No immediate attention required Primary Interpreting Staff: PAULA ALCARAZ JR, Radiologist (Stone Splitter) /PAULA RUDOLPH JR [facility] Encounter Notes: All associated encounter notes This section contains the clinical notes associated to the Encounter. Date/Time Encounter Note(s) Provider Source Feb 22, 2024 10:56 AM PHYSICIAN NOTE: LOCAL TITLE: MD NOTE STANDARD TITLE: PHYSICIAN NOTE DATE OF NOTE: FEB 22, 2024@10:56 ENTRY DATE: FEB 22, 2024@10:56:23 AUTHOR: ZEB MUIR EXP COSIGNER: URGENCY: STATUS: COMPLETED Patient Name: GENARO RUVALCABA VITALS: Patient temperature: 98 F [36.7 C] (02/22/2024 10:22) Blood pressure: 128/78 (02/22/2024 10:53) Patient height: 62 in [157.5 cm] (02/22/2024 10:22) Patient weight: 130 lb [58.97 kg] (02/22/2024 10:22) Patient BMI: BMI: 23.8 Patient pulse: 91 (02/22/2024 10:22) Patient respiration: 16 (02/22/2024 10:22) Patient Pulse Oximetry: 96% (02/22/2024 10:22) Pain Ratin (02/22/2024 10:22) Active VA Medications: Active Outpatient Medications (including Supplies): Active Outpatient Medications Status 1) ALENDRONATE 70MG TAB TAKE ONE TABLET BY MOUTH EVERY 7 ACTIVE DAYS (TAKE WITH A FULL GLASS OF WATER; REMAIN UPRIGHT FOR 30 MINUTES; NO FOOD OR DRINK FOR 30 MINUTES) 2) CALCIUM 200MG (CA CITRATE-950MG) TAB TAKE THREE ACTIVE TABLETS BY MOUTH TWICE DAILY REPLACES CALCIUM CARBONATE 3) CARBOXYMETHYLCELLULOSE NA 1% OPH GEL APPLY 1 DROP ACTIVE INTO EACH EYE FOUR TIMES DAILY NEEDED FOR DRY EYE 4) CHOLECALCIF 25MCG (D3-1,000UNIT) TAB TAKE ONE TABLET ACTIVE BY MOUTH ONCE DAILY FOR VITAMIN SUPPLEMENTATION 5) DICLOFENAC NA 1% TOP GEL APPLY 4 GRAMS TOPICALLY ACTIVE EVERY 8 HOURS FOR OSTEOARTHRITIS - USE DOSING CARD PROVIDED IN BOX 6) KETOTIFEN 0.025% OPH SOLN INSTILL 1 DROP INTO EACH ACTIVE EYE TWICE DAILY NEEDED FOR ALLERGIC CONJUNCTIVITIS 7) MEPOLIZUMAB 100MG/ML INJ SYR 1ML INJECT 1ML ACTIVE SUBCUTANEOUSLY EVERY FOUR WEEKS 8) TESTOSTERONE 1.62% 20.25MG/PUMP TOP GEL APPLY 3 PUMPS ACTIVE (60.75 MG) TOPICALLY ONCE DAILY FOR LOW TESTOSTERONE Pending Outpatient Medications Status 1) AMLODIPINE BESYLATE 10MG TAB TAKE ONE TABLET BY MOUTH PENDING ONCE DAILY FOR BLOOD PRESSURE/HEART, DO NOT TAKE WITH GRAPEFRUIT JUICE 2) LISINOPRIL 2.5MG TAB TAKE ONE TABLET BY MOUTH ONCE PENDING DAILY TO CONTROL BLOOD PRESSURE Active Non-VA Medications Status 1) Non-VA MULTIVITAMIN/MINERALS CAP/TAB 1 TABLET BY ACTIVE MOUTH EVERY DAY 2) Non-VA OCTREOTIDE (SANDOSTATIN LAR DEPOT) INJ,SUSP,SA ACTIVE UNKNOWN DOSE INTRAMUSCULARLY EVERY MONTH 3) Non-VA OTHER CAP/TAB GAMMAGUARD MONTHLY ACTIVE 13 Total Medications bar manager note Chief complaint: Hypertension history of present illness Patient takes medications for hypertension. Feels well today with no complaints. Takes medications regularly Review of systems o chest pain or dyspnea No abdominal pain No trouble urinating No fever or chills No cough Physical examination Well-developed well-nourished male no acute distress Coronary no murmur Lungs clear No edema Pharynx and ears no erythema TMs normal Provided paper copy private labs recently were normal Assessment and plan 1. Hypertension: Blood pressure satisfactory plan continue present medications Follow-up 6 months clinic visit and lab Patient declined RSV vaccine PTSD Screening: PC-PTSD-5 A PTSD screening test (PC-PTSD-5) was negative (score=0). IN THE PAST MONTH, have you ever had any experience that was so frightening, horrible or traumatic. For example: A serious accident or fire a physical or sexual assault or abuse An earthquake or flood A war Seeing someone be killed or seriously injured Having a loved one through homicide or suicide 1. Have you ever experienced this kind of event? YES 2. Had nightmares about the event(s) or thought about the event(s) when you did not want to? NO 3. Tried hard not to think about the event(s) or went out of your way to avoid situations that reminded you of the event(s)? NO 4. Been constantly on guard, watchful, or easily startled? NO 5. [place] numb or detached from people, activities, or your surroundings? NO 6. [place] guilty or unable to stop blaming yourself or others for the event(s) or any problems the event(s) may have caused? NO Medication Reconciliation: Outpatient: Has the patient been taking medications as documented in the EMLR? YES: The patient has been taking medications as documented in the EMLR. Essential Medication List for Review used to complete this medication reconciliation. INCLUDED IN THIS LIST: Alphabetical list of active outpatient prescriptions dispensed from this [facility] (local) and dispensed from another MS or DoD facility (remote) as well as inpatient orders [...] whether with a VA or non-VA provider. COVID-19 Immunization: Refused Moderna Monovalent COVID-19 vaccine Immunization: COVID-19 (MODERNA), MRNA, LNP-S, PF, 50 MCG/0.5 ML (AGES 12+ YEARS) Refusal Reason: PATIENT DECISION Patient refuses all immunization(s) in the COVID-19 group Date Documented: 02/22/24 11:01 Screen for Abd Aortic Aneurysm: The patient has had prior imaging of the aorta performed. Date: July 10, 2021 Comment: CT scan this sd No abdominal aortic aneurysm. // Zeb Muir MD Staff Physician Signed: 02/22/2024 11:02 ZEB MUIR [facility] [place] [facility] Feb 22, 2024 10:25 AM PREVENTIVE MEDICINE NURSING NOTE: LOCAL TITLE: CLINICAL REMINDERS/NURSING STANDARD TITLE: PREVENTIVE MEDICINE NURSING NOTE DATE OF NOTE: FEB 22, 2024@10:25 ENTRY DATE: FEB 22, 2024@10:25:51 AUTHOR: SOTO MELLO EXP COSIGNER: URGENCY: STATUS: COMPLETED Sexual Orientation: The patient thinks of their sexual orientation as: Straight or Heterosexual Influenza Immunization: The patient has received the seasonal influenza vaccine for the current season at another location. Documented: INFLUENZA, UNSPECIFIED FORMULATION Historical Date Administered: Jan 18, 2024 Series: Complete Outside Location: Outside Healthcare Provider Information Source: FROM OTHER REGISTRY Comment: [facility] Advance Directive Screen MH AD: Patient has an Advance Directive on file at this [facility]. No updates are needed at this time. The patient received education about Advance Directives and written notification of his/her rights. Comment: up to date (Optional) Whole Health Documentation: What matters the most to you? What motivates you to be healthy? (MAP) Response: I'm retired, I'm here, enjoying what I do /alicia/ SOTO MELLO LPN LPN Signed: 02/22/2024 10:29 SOTO MELLO [facility]
--- OUTSIDE RECORDS SUMMARY | 2024-06-22 11:27 | XMS_ITS | Encounter Summary ---
Author Name [facility] [place] [facility] [place] Address [address] [place] [address] Care Team Providers Care Rn Progressive Care Name Role Phone RAFAEL MEJIA Primary Care [...] PART A May 04, 2019 PART A [id number] Alicia RUVALCABA PATIENT Selected Encounter This section includes the information on record at [place] for the Encounter. Date/Time Encounter Type Encounter Description Reason Provider Source Apr 14, 2024 02:30 PM MECHANICAL TRACTION THERAPY PUDDLER PILE [employer]IVING ICD-10-CM M54.59 Other low back pain YASSINE HU Moses Encounter Template Text not used by [place] Assessments - Encounter Diagnoses This section includes the primary and secondary diagnoses documented for the Encounter. Date/Time Primary/Secondary Diagnosis Diagnosis Name Provider Source Apr 14, 2024 02:48 PM PRIMARY Other low back pain YASSINE HU [facility] Plan of Treatment: Future Appointments (+ 6 months) and Future Tests (+/- 45 days) The Plan of Treatment section includes future care activities for the [facility] [place] [facility] This section includes future appointments and future orders which are active, pending or scheduled. Future Appointments This section includes appointments that were scheduled to occur 6 months from the date of the Encounter, up to a maximum of 20 appointments. The data comes from all [place] treatment facilities. Appointment Date/Time Appointment Type Appointme nt Facility Name Apr 22, 2024 08:30 AM AMBULATORY [facility] MEDICINE [facility] [place] [facility] Apr 25, 2024 07:00 AM AMBULATORY [facility] MEDICINE [facility] [place] [facility] May 05, 2024 10:00 AM AMBULATORY - NONE [facility] [place] [facility] May 05, 2024 01:00 PM AMBULATORY - NONE [facility] [place] [facility] May 06, 2024 03:00 PM AMBULATORY - MEDICINE [facility] [place] [facility] May 09, 2024 01:30 PM AMBULATORY - MEDICINE [facility] [place] [facility] May 12, 2024 11:45 AM AMBULATORY - MEDICINE [facility] [place] [facility] Jun 16, 2024 09:30 AM AMBULATORY - NONE [facility] [place] [facility] Jun 22, 2024 10:45 AM AMBULATORY - MEDICINE [facility] [place] [facility] Jul 05, 2024 03:30 PM AMBULATORY - [place]ICINE [place] [facility] Aug 03, 2024 11:00 AM AMBULATORY - NONE [facility] [place] [facility] Aug 08, 2024 09:30 AM AMBULATORY - MEDICINE [facility] [place] [facility] Aug 16, 2024 09:45 AM AMBULATORY - NONE [facility] [place] [facility] Aug 22, 2024 10:30 AM AMBULATORY - MEDICINE [facility] [place] [facility] Aug 24, 2024 01:00 PM AMBULATORY - REHAB MEDICIN E [facility] [place] [facility] September 19, 2024 10:00 AM AMBULATORY - MEDICINE [facility] [place] [facility] September 29, 2024 11:00 AM AMBULATORY - NONE [facility] Active, Pending, and Scheduled Orders This section includes a listing of several types of active, pending, and scheduled orders, including clinic medications orders, diagnostic test orders, procedure orders and consult orders; where the start date of the order is 45 days before the date of the Encounter or 45 days after the date of theEncounter. The data comes from all [place] treatment facilities. Test Date/Time Test Type Test Details Facility Name Mar 21, 2024 04:25 PM Consult Order COMMUNITY CARE-INFUSION Cons Gravure Press Operator's Choice [facility] Lab Results: +/- 30 days of the encounter This section includes the Chemistry and Hematology Lab Results on record with [place] for the patient. Radiology Reports and Pathology Reports are provided separately, in subsequent sections. Lab Results This section contains the Chemistry/Hematology Results that were resulted 30 days before or 30 daysafter the date of the Encounter. Date/Time Source Result Type Result - Unit Interpretation Reference Range Comment Mar 23, 2024 10:50 AM [facility] TESTOSTERONE, TOTAL (WHV) Specimen Type: SERUM No comment entered. Ordering Provider: KAL GRANADOS Report Released Date/Time: September 21, 2023 09:22 AM Reporting Lab: [facility] [address] [facility] [address] Performing Lab: [facility] [address] [facility] [address] TESTOSTERONE , TOTAL (V) 680.68 ng/dL 220.00-892. 00 Mar 23, 2024 10:50 AM [facility] THYROID T4 FREE(FT4) (WROX) Specimen Type: SERUM No comment entered. Ordering Provider: KAL GRANADOS Report Released Date/Time: Mar 23, 2024 10:31 AM Reporting Lab: [facility] [address] [facility] [address] Performing Lab: [facility] [address] [facility] [address] THYROID T4 FREE(FT4) (WROX) 1.12 ng/dL 0.6-1.6 Mar 23, 2024 10:50 AM [facility] [place] [facility] VITAMIN D (25-OH) Specimen Type: SERUM No comment entered. Ordering Provider: KAL GRANADOS Report Released Date/Time: September 21, 2023 09:22 AM Reporting Lab: [facility] [place] [facility] [address] [facility] [address] Performing Lab: [facility] [place] [address] [address] VITAMIN D (25-OH) 34 ng/mL 20-50 Mar 23, 2024 10:50 AM [facility] PSA Specimen Type: SERUM No comment entered. Ordering Provider: KAL GRANADOS Report Released Date/Time: September 21, 2023 09:22 AM Reporting Lab: [facility] [place] [address] [address] Performing Lab: [facility] [address] [address] PSA 1.83 ng/mL 0.00-4.00 Mar 23, 2024 10:50 AM [facility]RDEKAL[facility] CALCIUM Specimen Type: SERUM No comment entered. Ordering Provider: KAL GRANADOS Report Released Date/Time: September 21, 2023 09:22 AM Reporting Lab: [facility] [place] [address] [address] Performing Lab: [facility] [address] [address] CALCIUM 8.8 mg/dL 8.5-10.2 Mar 23, 2024 10:50 AM [facility] TSH Specimen Type: SERUM No comment entered. Ordering Provider: KAL GRANADOS Report Released Date/Time: Mar 23, 2024 10:31 AM Reporting Lab: [facility] [place] [address] [address] Performing Lab: [facility] [place] [address] [address] TSH 2.38 u[IU]/mL 0.35-5.00 Mar 23, 2024 10:50 AM [facility] BASIC METABOLIC PANEL (non-fasting) Specimen Type: SERUM No comment entered. Ordering Provider: KAL GRANADOS Report Released Date/Time: September 21, 2023 09:22 AM Reporting Lab: [facility] [address] [facility] [address] Performing Lab: [address] [address] UREA NITROGEN 10 mg/dL 7-25 GLUCOSE 88 mg/dL 65-100 SODIUM 136 mmol/L 135-145 POTASSIUM 4.0 mmol/L 3.5-5.0 CHLORIDE 105 mmol/L 100-110 CO2 22 meq/L 20-30 CREATININE, Serum 0.91 mg/dL 0.50-1.40 eGFR(CKD-EPI 2020) >90 mL/min >60 Mar 23, 2024 10:50 AM [facility] CBC Specimen Type: BLOOD No comment entered. Ordering Provider: KAL GRANADOS Report Released Date/Time: September 21, 2023 09:22 AM Reporting Lab: [facility] [address] [facility] [address] Performing Lab: [address] [address] WBC 6.16 10*3/uL 4.50-11.00 RBC 4.48 10*6/uL 4.23-5.66 HGB 10.7 g/dL L 12.8-17 HCT 33.8 L 39.2-50.4 MCV 75.4 fL L 82-99 MCHC 31.7 g/dL 30.8-35.1 PLT 297 10*3/uL 140-360 RDW-CV 14.2 12.0-16.0 MCH 23.9 pg L 26.2-32.6 Social History: Smoking Status (Most current) and Tobacco Use (All prior to encounter date) This section includes the most current, and the historical, smoking and tobacco- related health factors from the [place] facility where the Encounter took place. Current Smoking Status This section includes the most current smoking, or tobacco-related health factor, from the [place] facility where the Encounter took place. Date/Time Current Smoking Status Comment Kajal melton Jun 08, 2023 10:00 AM VA-TOBACCO FORMER USER [facility] [place] [facility] Tobacco Use History This section includes a history of the smoking, or tobacco-related health factors, that were collected on or before the date of the Encounter. The data comes from the [place] facility where the Encounter took place. Date/Time Smoking Status/Tobac co Use Comment Facility Jun 08, 2023 10:00 AM VA-TOBACCO QUIT 15 YRS OR MORE [place] [facility] [place] [facility] Jun 09, 2022 10:30 AM VA-TOBACCO FORMER USER [place] [facility] [place] [facility] Jun 09, 2022 10:30 AM VA-TOBACCO QUIT 15 YRS OR MORE [place] [facility] [place] [facility] Jun 14, 2021 09:00 AM VA-TOBACCO FORMER USER [place] [facility] [place] [facility] Jun 14, 2021 09:00 AM VA-TOBACCO QUIT 15 YRS OR MORE [place] [facility] [place] [facility] Feb 03, 2020 01:00 PM VA-TOBACCO FORMER USER [place] [facility] [place] [facility] Feb 03, 2020 01:00 PM VA-TOBACCO QUIT 15 YRS OR MORE [place] [facility] [place] [facility] Feb 02, 2019 11:49 AM VA-TOBACCO FORMER USER [place] [facility] [place] [facility] Feb 02, 2019 11:49 AM VA-TOBACCO QUIT 15 YRS OR MORE [place] [facility] [place] [facility] May 13, 2017 10:12 AM LIFETIME NON-TOBACCO USER [place] [facility] [place] [facility] Jun 11, 2016 10:31 AM QUIT TOBACCO USE > 7 YEARS AGO [place] [facility] [place] [facility] Jun 21, 2015 12:49 PM QUIT TOBACCO USE > 7 YEARS AGO pt states he quit smoking 30 yr ago. [place] [facility] [place] [facility] Jul 18, 2004 08:23 AM HISTORY OF SMOKING Smoke free since 1989 [place] [facility] [place] [facility] May 11, 2003 02:17 PM HISTORY OF SMOKING quit smoking 15 years ago [place] [facility] [place] [facility] May 11, 2003 02:17 PM QUIT TOBACCO USE > 7 YEARS AGO quit smoking 15 years ago [place] [facility] Advance Directives: All historical and current Section Date Range: From patient's date of to the date document was created. This section includes ALL of a patient's completed or amended [place] Advance and Rescinded Directives. The entries below indicate that a directive exists for the patient, but an actual copy is not included with this document. The data comes from all [place] facilities. Date Advance Directives Provider Source Nov 26, 2020 ADVANCE DIRECTIVE GARY GUNTER [facility] Jan 25, 2017 ADVANCE DIRECTIVE RAFAEL MEJIA [facility] Apr 06, 2009 ADVANCE DIRECTIVE KHAI BADILLO [facility] Radiology Reports: +/- 30 days of [...] the Encounter. The data comes from all [place] treatment facilities. Date/Time Radiology Report Provider Source May 05, 2024 10:04 AM BONE DENSITY AXIAL HIPS,PELVIS.SPINE: GENARO RUVALCABA [id number] -[id number] M Exm Date: MAY 05, 2024@10:04 Req Phys: KAL GRANADOS Loc: [facility]/ENDOCRINE (Req'g Loc) Img Loc: [facility]/BUILDING 1 Service: Unknown [facility] SANDRA HERRERA [id number] (Case [id number] COMPLETE) BONE DENSITY AXIAL HIPS,PELVIS.SP(RAD Detailed) CPT:63820 Reason for Study: osteoporosis Clinical History: Report Status: Verified Date Reported: MAY 05, 2024 Date Verified: MAY 05, 2024 Cover Assembler E-Sig:/ES/JEREMIE CERRATO Report: DXA BONE DENSITY AXIAL REASON FOR STUDY: osteoporosis HISTORY: Reason for Study: osteoporosis TECHNIQUE: Routine bone density was performed. COMPARISON: February 24, 2022 FINDINGS: Total lumbar spine BMD 1.036 g/cm2, T score -0.4. Z score 0.4. Left femoral neck BMD 0.617 g/cm2. T score -2.3. Z score -1.1. Total left hip BMD 0.853 g/cm2. T score -1.2. Z score -0.5. Left proximal third distal forearm BMD 0.805 g/cm2. T score -0.2. Z score 1.1. Total left distal forearm BMD 0.625 g/cm2. T score -1.2. Z score 0.0. Percent change of bone mineral density since the prior study: Total distal left forearm: +3% Total left hip: +2.5% Total lumbar spine: +7% The T-score calculation uses a uniform (non-race adjusted) female reference for women and men of all ethnic groups, concordant with the 2019 ISCD Adult Official Position Statement. Impression: Left hip osteopenia. *10 year fracture risk: not reported. Primary Diagnostic Code: No immediate attention required Primary Interpreting Staff: JEREMIE CERRATO, Staff Physician (Cover Assembler) /JEREMIE GRANT [facility] Encounter Notes: All associated encounter notes This section contains the clinical notes associated to the Encounter. 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 04/12/2013SeptemberRENNY Spondylosis (SNOMED CT 3791077) M47 07/04/2023 JEREMIE AYALA Osteoarthritis * (ICD-9-CM 715.90) 10/15/2012 ELY BAJWA Peptic Ulcer Disease * (ICD-9-CM 53 10/25/2008 RAFAEL MEJIA Chronic Low Back Pain (ICD-9-CM 724 11/09/2007 RAFAEL MEJIA Dermatitis * (ICD-9-CM 692.9) 692.9 11/09/2007 RAFAEL MEJIA Sciatica * (ICD-9-CM 724.3) 724.3 10/22/2007 IQRA MERRITT JAWED Allergic rhinitis 477.9 04/21/2006 VANITA FRANZ Colonic Polyps 211.3 03/09/2006 VANITA FRANZ Dyslipidemia (ICD-9-CM 272.4) 272.4 07/17/2003 PRISCA MURPHY NONINF GASTROENTERIT NEC 558.9 06/10/2000 PRISCA MURPHY NEED INOC/VIRAL HEP V05.3 06/10/2000 PRISCA MURPHY ESOPHAGEAL REFLUX 530.81 08/20/1999 YANETHIVAN Asthma (SNOMED CT 969308990) J45.90 03/05/2015 ANTOINE PETERS Past Surgeries: Surgery abdominal - 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 At the same time gall bladder removed. [facility] and report felt relief after the last visit. After he shovelled snow the sx returned. When he gets up during the night to use the bathroom there is a lot of back pain but in the mornings [...] lost 15 lbs during medical problems/procedures. Prior home care rn: years ago which was helpful Exercise/Activities: None [...] Supine gluteal stretching as per palpation Objectives 04/14/24: Hypertonic lumbar paraspinal mm rambo Restrictions T/L junction and L/S spine Treatment: active/corrective Manual therapy TrPt release 8 min lumbar FD mechanical lumbar traction w flexion and lateral bending, 5 min CMT lumbar side posture CMT lower thoracic seated Treatment carried out today and well tolerated [...] instead of bending at the waist over sink.Provided handouts ~Patient encouraged to engage in activities [...] the extent possible. Provided patient with Yoga flyer ~ Activity such as Yoga encouraged to enhance relaxation, flexibility, posture, core stability, balance, and pain modulation. Plan: trial 4 visits; Instruct in hip flexor stretches. Visit 1 F/U next week Seek urgent care as needed. CMT: chiropractic manipulative therapy SMT: Spinal Manipulative Therapy F/D: Flexion Distraction MFR: Myofascial Release S-I: Sacroiliac MFTP: Myofascial Trigger Point NRS: Numeric Rating Scale N/T: Numbness/Tingling PIR: Post isometric relaxation /es/ YASSINE HU D.C. CHIROPRACTOR Signed: 04/14/2024 14:50 YASSINE HU [facility]
--- OUTSIDE RECORDS SUMMARY | 2024-06-22 11:27 | XMS_ITS | Encounter Summary ---
Author Name [facility] [place] [facility] [place] Address [address] [place] [address] Care Team Providers Care Hand Weaver Name Role Phone ZEB MUIR Primary Care [...] PART A May 04, 2019 PART A [id number] Alicia RUVALCABA PATIENT Selected Encounter This section includes the information on record at [place] for the Encounter. Date/Time Encounter Type Encounter Description Reason Pro vider Source May 26, 2024 10:29 AM Outpatient Encounter PRIMARY CARE/MEDICINE IHE Encounter Template Text not used by [place] Plan of Treatment: Future Appointments (+ 6 [...] 20 appointments. The data comes from all [place] treatment facilities. Appointment Date/Time Appointment Type Appointme nt Facility Name Jun 16, 2024 09:30 AM AMBULATORY - NONE [facility] Jun 22, 2024 10:45 AM AMBULATORY - MEDICINE [facility] [place] [facility] Jul 05, 2024 03:30 PM AMBULATORY - MEDICINE [facility] Aug 03, 2024 11:00 AM AMBULATORY - NONE [facility] [place] [facility] Aug 08, 2024 09:30 AM AMBULATORY - MEDICINE [facility] [place] [facility] Aug 16, 2024 09:45 AM AMBULATORY - NONE [facility] [place] [facility] Aug 22, 2024 10:30 AM AMBULATORY [facility] MEDICINE [facility] [place] [facility] Aug 24, 2024 01:00 PM AMBULATORY - REHAB MEDICIN E [facility] [place] September 19, 2024 10:00 AM AMBULATORY - MEDICINE [facility] [place] [facility] September 29, 2024 11:00 AM AMBULATORY - NONE [facility] [place] [facility] Nov 08, 2024 09:00 AM AMBULATORY - NONE [facility] [place] [facility] Nov 16, 2024 10:00 AM AMBULATORY - NONE [facility] [place] [facility] Active, Pending, and Scheduled Orders This section includes a listing of several types of active, pending, and scheduled orders, including clinic medications orders, diagnostic test orders, procedure orders and consult orders; where the start date of the order is 45 days before the date of the Encounter or 45 days after the date of theEncounter. The data comes from all [place] treatment [facility]. Test Date/Time Test Type Test Details Facility Name Jun 05, 2024 07:18 PM Consult Order COMMUNITY CARE-PULMONARY Cons Stretcher Leveler Operator's Choice [place] [facility] [place] [facility] Social History: Smoking Status (Most current) and Tobacco Use (All prior to encounter date) This section includes the most current, and the historical, smoking and tobacco- related health factors from the [place] facility where the Encounter took place. Current Smoking Status This section includes the most current smoking, or tobacco-related health factor, from the [place] facility where the Encounter took place. Date/Time Current Smoking Status Comment [facility] Jun 08, 2023 10:00 AM VA-TOBACCO FORMER USER [place] [facility] [place] [facility] Tobacco Use History This section includes a history of the smoking, or tobacco-related health factors, that were collected on or before the date of the Encounter. The data comes from the [place] facility where the Encounter took place. Date/Time Smoking Status/Tobac co Use Comment Facility Jun 08, 2023 10:00 AM VA-TOBACCO QUIT 15 YRS OR MORE [place] [facility] [place] [facility] Jun 09, 2022 10:30 AM VA-TOBACCO FORMER USER [facility] [place] [facility] Jun 09, 2022 10:30 AM VA-TOBACCO QUIT 15 YRS OR MORE [place] [facility] [place] [facility] Jun 14, 2021 09:00 AM VA-TOBACCO FORMER USER [place] [facility] [place] [facility] Jun 14, 2021 09:00 AM VA-TOBACCO QUIT 15 YRS OR MORE [place] [facility] [place] [facility] Feb 03, 2020 01:00 PM VA-TOBACCO FORMER USER [place] [facility] [place] [facility] Feb 03, 2020 01:00 PM VA-TOBACCO QUIT 15 YRS OR MORE [place] [facility] [place] [facility] Feb 02, 2019 11:49 AM VA-TOBACCO FORMER USER [facility] [place] [facility] Feb 02, 2019 11:49 AM VA-TOBACCO QUIT 15 YRS OR MORE [place] [facility] [place] [facility] May 13, 2017 10:12 AM LIFETIME NON-TOBACCO USER [place] [facility] [place] [facility] Jun 11, 2016 10:31 AM QUIT TOBACCO USE > 7 YEARS AGO [place] [facility] [place] [facility] Jun 21, 2015 12:49 PM QUIT TOBACCO USE > 7 YEARS AGO pt states he quit smoking 30 yr ago. [place] [facility] [place] [facility] Jul 18, 2004 08:23 AM HISTORY OF SMOKING Smoke free since 1989 [place] [facility] [place] [facility] May 11, 2003 02:17 PM HISTORY OF SMOKING quit smoking 15 years ago [place] [facility] May 11, 2003 02:17 PM QUIT TOBACCO USE > 7 YEARS AGO quit smoking 15 years ago [facility] Advance Directives: All historical and current Section Date Range: From patient's date of to the date document was created. This section includes ALL of a patient's completed or amended [place] Advance and Rescinded Directives. The entries below indicate that a directive exists for the patient, but an actual copy is not included with this document. The data comes from all [place] facilities. Date Advance Directives Provider Source Nov 26, 2020 ADVANCE DIRECTIVE GARY GUNTER [facility] Jan 25, 2017 ADVANCE DIRECTIVE ZEB MUIR [facility] Apr 06, 2009 ADVANCE DIRECTIVE KHAI BADILLO [facility] Radiology Reports: +/- 30 days of [...] the Encounter. The data comes from all [place] treatment facilities. Date/Time Radiology Report Provider Source Jun 10, 2024 09:29 AM HAND3 OR MORE VIEWS(RIGHT): GENARO RUVALCABA [id number] -[id number] M Ex Date: JUN 10, 2024@09:29 Req Phys: ZEB MUIR Pat Loc: [facility] PACT 2 MD (Req'g Loc) Im Loc: [facility] 1 Service: Unknown [facility] [place] [address] (Case [id number] COMPLETE) HAND3 OR MORE VIEWS(RIGHT) (RAD Detailed) CPT:29153 Reason for Study: pain finger#3 Clinical History: Report Status: Verified Date Reported: JUN 10, 2024 Date Verified: JUN 10, 2024 Fender Repairer E-Sig:/ES/PAULA ALCARAZ JR Report: Study: AP, lateral [...] Primary Interpreting Staff: PAULA ALCARAZ JR, Radiologist (Fender Repairer) /PAULA RUDOLPH JR [facility] May 05, 2024 10:04 AM BONE DENSITY AXIAL HIPS,PELVIS.SPINE: GENARO RUVALCABA [id number] -[id number] M Exm Date: MAY 05, 2024@10:04 Req Phys: KAL GRANADOS Loc: [facility]/ENDOCRINE (Req'g Loc) Img Loc: [facility]/BUILDING 1 Service: [place] [address] (Case [id number] COMPLETE) BONE DENSITY AXIAL HIPS,PELVIS.SP(RAD Detailed) CPT:71627 Reason for Study: osteoporosis Clinical History: Report Status: Verified Date Reported: MAY 05, 2024 Date Verified: MAY 05, 2024 Fender Repairer E-Sig:/ES/JEREMIE CERRATO Report: DXA BONE DENSITY AXIAL [...] Primary Interpreting Staff: JEREMIE CERRATO, Staff Physician (Fender Repairer) /JEREMIE GRANT [facility] Encounter Notes: All associated encounter notes This section contains the clinical notes associated to the Encounter. Date/Time Encounter Note(s) Provider Source May 26, 2024 10:29 AM NONVA CONSULT: LOCAL TITLE: MD/OUTSIDE CONSULT REPORT SUMMARY STANDARD TITLE: NONVA CONSULT DATE OF NOTE: MAY 26, 2024@10:29 ENTRY DATE: MAY 26, 2024@10:29:35 AUTHOR: ZEB MUIR EXP COSIGNER: URGENCY: STATUS: COMPLETED 05-19-[address] French Hematology oncology [facility] Chief complaint: Follow-up carcinoid Treated with octreotide and surgery No evidence of disease Plan: Discontinue octreotide Follow-up 6 months /alicia/ Zeb Muir MD Staff Physician Signed: 05/26/2024 10:29 ZEB MUIR [facility]
--- OUTSIDE RECORDS SUMMARY | 2024-06-22 11:27 | XMS_ITS ---
Author Name [facility] Address [address] [place] [address] Care Team Providers Care Java Sql Developer Name Role Phone RAFAEL MEJIA Primary Care [...] PART A May 04, 2019 PART A [id number] Alicia RUVALCABA PATIENT Selected Encounter This section includes the information on record at [place] for the Encounter. Date/Time Encounter Type Encounter Description Reason Provider Source Dec 17, 2023 10:30 AM MANUAL THERAPY 1/> [facility] ICD-10-CM M47.27 Other spondylosis with radiculopathy, lumbosacral region SHARON CA Moses Encounter Template Text not used by [facility] Assessments - Encounter Diagnoses This section includes the primary and secondary diagnoses documented for the Encounter. Date/Time Primary/Secondary Diagnosis Diagnosis Name Provider Source Dec 17, 2023 02:36 PM PRIMARY Other spondylosis with radiculopathy, lumbosacral region SHARON CA [facility] [place] [facility] Dec 17, 2023 02:36 PM SECONDARY Sacroiliitis, not elsewhere classified SHARON CA [facility] [place] [facility] Plan of Treatment: Future Appointments (+ 6 months) and Future Tests (+/- 45 days) The Plan of Treatment section includes future care activities for the patient from all [place] treatmentfacilities. This section includes future appointments and future orders which are active, pending or scheduled. Future Appointments This section includes appointments that were scheduled to occur 6 months from the date of the Encounter, up to a maximum of 20 appointments. The data comes from all [place] treatment facilities. Appointment Date/Time Appointment Type Appointme nt Facility Name Dec 30, 2023 01:30 PM AMBULATORY - REHAB MEDICIN E [facility] [place] [facility] Jan 06, 2024 09:00 AM AMBULATORY - MEDICINE [facility] [place] [facility] Feb 17, 2024 09:45 AM AMBULATORY - NONE [facility] [place] [facility] Feb 22, 2024 10:30 AM AMBULATORY - MEDICINE [facility] [place] [facility] Feb 24, 2024 08:30 AM AMBULATORY - REHAB MEDICIN E [facility] [place] [facility] Mar 09, 2024 11:00 AM AMBULATORY - NONE [facility] [place] [facility] Mar 09, 2024 11:30 AM AMBULATORY - MEDICINE [facility] [place] [facility] Mar 23, 2024 10:00 AM AMBULATORY - MEDICINE [facility] [place] [facility] Mar 28, 2024 07:00 AM AMBULATORY - MEDICINE [facility] [place] [facility] Mar 28, 2024 11:15 AM AMBULATORY - MEDICINE [facility] [place] [facility] Apr 06, 2024 10:00 AM AMBULATORY - MEDICINE [facility] [place] [facility] Apr 12, 2024 11:00 AM AMBULATORY - NONE [facility] [place] [facility] Apr 14, 2024 02:30 PM AMBULATORY - MEDICINE [facility] [place] [facility] Apr 22, 2024 08:30 AM AMBULATORY - MEDICINE [facility] [place] [facility] Apr 25, 2024 07:00 AM AMBULATORY - MEDICINE [facility] [place] [facility] May 05, 2024 10:00 AM AMBULATORY - NONE [facility] [place] [facility] May 05, 2024 01:00 PM AMBULATORY - NONE [facility] [place] [facility] May 06, 2024 03:00 PM AMBULATORY - MEDICINE [facility] [place] [facility] May 09, 2024 01:30 PM AMBULATORY - MEDICINE [facility] [place] [facility] May 12, 2024 11:45 AM AMBULATORY [facility] Lab Results: +/- 30 days of the encounter This section includes the Chemistry and Hematology Lab Results on record with [place] for the patient. Radiology Reports and Pathology Reports are provided separately, in subsequent sections. Lab Results This section contains the Chemistry/Hematology Results that were resulted 30 days before or 30 daysafter the date of the Encounter. Date/Time Source Result Type Result - Unit Interpretation Reference Range Comment Dec 01, 2023 09:42 AM [facility] PSA Specimen Type: SERUM No comment entered. Ordering Provider: RAFAEL MEJIA Report Released Date/Time: Nov 23, 2023 11:37 AM Reporting Lab: [facility] [place] [facility] [address] [address] Performing Lab: [facility] [address] PSA 2.90 ng/mL 0.00-4.00 Dec 01, 2023 09:42 AM [facility] LIPID PANEL FASTING Specimen Type: SERUM No comment entered. Ordering Provider: RAFAEL MEJIA Report Released Date/Time: Nov 23, 2023 11:37 AM Reporting Lab: [facility] [address] [facility] [address] Performing [facility]: [facility] [address] [address] CHOLESTEROL 190 mg/dL TRIGLYCERIDE 269 mg/dL H 0-150 LDL calculated 109 mg/dL 0-129 CHOL/HDL 7.0 HDL CHOLESTEROL 27 mg/dL L 40-60 Dec 01, 2023 09:42 AM [facility] LIVER FUNCTION Specimen Type: SERUM No comment entered. Ordering Provider: RAFAEL MEJIA Report Released Date/Time: Nov 23, 2023 11:37 AM Reporting Lab: [facility] [address] [facility] [address] Performing Lab: [address] [address] PROTEIN,TOTAL 7.8 g/dL 6.0-8.3 ALBUMIN 4.2 g/dL 3.5-5.0 ALKALINE PHOSPHATASE 60 U/L 40-150 AST 23 U/L 5-34 ALT 37 U/L BILIRUBIN, TOTAL 1.1 mg/dL 0.2-1.2 Dec 01, 2023 09:42 AM [facility] BASIC METABOLIC PANEL (fasting) Specimen Type: SERUM No comment entered. Ordering Provider: RAFAEL MEJIA Report Released Date/Time: Nov 23, 2023 11:37 AM Reporting Lab: [address] [address] Performing Lab: [address] [address] UREA NITROGEN 15 mg/dL 7-25 GLUCOSE 125 mg/dL H 65-100 SODIUM 139 mmol/L 135-145 POTASSIUM 4.2 mmol/L 3.5-5.0 CHLORIDE 99 mmol/L L 100-110 CO2 30 meq/L 20-30 CREATININE, Serum 1.44 mg/dL H 0.50-1.40 eGFR(CKD-EPI 2020) 53 mL/min L >60 Dec 01, 2023 09:42 AM [facility] MICROSCOPIC AUTOMATED, URINE Specimen Type: URINE Comment: If Glucose = >500 and Ketones are positive, please alert the Physician. Ordering Provider: RAFAEL MEJIA Report Released Date/Time: Nov 23, 2023 11:37 AM Reporting Lab: [address] [address] Performing Lab: [address] [address] UA WBC 11-20 /[HPF] H 0-5 UA MUCUS FEW /[LPF] Trace UA RBC 3-5 /[HPF] 0-3 Dec 01, 2023 09:42 AM [facility] URINALYSIS CLEAN CATCH Specimen Type: URINE Comment: If Glucose = >500 and Ketones are positive, please alert the Physician. Ordering Provider: RAFAEL MEJIA Report Released Date/Time: Nov 23, 2023 11:37 AM Reporting Lab: [facility] [address] [facility] [address] Performing Lab: [address] [address] UA COLOR Yellow Yellow UA APPEARANCE Clear Clear UA GLUCOSE NEGATIVE mg/dL Negative UA KETONES NEGATIVE mg/dL Negative UA BLOOD NEGATIVE mg/dL Negative UA PROTEIN NEGATIVE mg/dL Negative UA NITRITE NEGATIVE mg/dL Negative UA BILIRUBIN NEGATIVE mg/dL Negative UA SPECIFIC GRAVITY 1.015 L 1.016-1.022 UA pH 6.0 5.0-9.0 UA UROBILINOGEN <2.0 mg/dL <2.0 UA LEUKOCYTE TRACE Negative Dec 01, 2023 09:42 AM [facility] CBC AND DIFF (AUTO) Specimen Type: BLOOD No comment entered. Ordering Provider: RAFAEL MEJIA Report Released Date/Time: Nov 23, 2023 11:37 AM Reporting Lab: [facility] [address] [facility] [address] Performing Lab: [address] [address] WBC 8.78 10*3/uL 4.50-11.00 RBC 5.22 10*6/uL 4.23-5.66 HGB 16.2 g/dL 12.8-17 HCT 46.2 39.2-50.4 MCV 88.5 fL 82-99 MCHC 35.1 g/dL 30.8-35.1 PLT 252 10*3/uL 140-360 RDW-CV 12.0 12.0-16.0 MONO, ABS 0.82 10*3/uL 0.30-1.10 MCH 31.0 pg 26.2-32.6 NEUT % 61.4 43.7-75.8 LYMPH % 28.0 14.0-42.3 MONO % 9.3 5.1-13.7 EOS % 0.5 0.4-6.8 BASO % 0.5 0.1-2.0 NEUT, ABS 5.39 10*3/uL 2.20-7.60 LYMPH, ABS 2.46 10*3/uL 1.00-3.20 EOS, ABS 0.04 10*3/uL 0.03-0.44 BASO, ABS 0.04 10*3/uL 0.01-0.13 IMMATURE GRAN % 0.3 0.0-0.7 IMMATURE GRAN, ABS 0.03 10*3/uL 0.00-0.06 NRBC % 0.0 0.0-0.0 NRBC, ABS 0.00 10*3/uL 0.00-0.00 Nov 23, 2023 11:09 AM [facility] THYROID T4 FREE(FT4) (WROX) Specimen Type: SERUM No comment entered. Ordering Provider: KAL GRANADOS Report Released Date/Time: September 21, 2023 09:26 AM Reporting Lab: [facility] [address] [facility] [address] Performing Lab: [facility] [address] [facility] [address] THYROID T4 FREE(FT4) (WROX) 1.00 ng/dL 0.6-1.6 Nov 23, 2023 11:09 AM [facility] TSH Specimen Type: SERUM No comment entered. Ordering Provider: KAL GRANADOS Report Released Date/Time: September 21, 2023 09:26 AM Reporting Lab: [facility] [address] [facility] [address] Performing Lab: [facility] [address] [facility] [address] TSH 3.32 u[IU]/mL 0.35-5.00 Nov 23, 2023 11:09 AM [facility] MICROALBUMIN CREATININE RATIO PANEL Specimen Type: URINE No comment entered. Ordering Provider: KAL GRANADOS Report Released Date/Time: September 21, 2023 09:32 AM Reporting Lab: [facility] [place] [facility] [address] [facility] [address] Performing Lab: [facility] [place] [facility] [address] [facility] [address] MICROALBUMIN/C REATININE RATIO 5.2 mg/g 0-29.9 MICROALBUMIN,Q UANTITATIVE 0.9 mg/dL RR UNAVAIL CREATININE URINE 172.99 mg/dL Social History: Smoking Status (Most current) and Tobacco Use (All prior to encounter date) This section includes the most current, and the historical, smoking and tobacco- related health factors from the [place] facility where the Encounter took place. Current Smoking Status This section includes the most current smoking, or tobacco-related health factor, from the [place] facility where the Encounter took place. Date/Time Current Smoking Status Comment [facility] Jun 08, 2023 10:00 AM VA-TOBACCO FORMER USER [facility] [place] [facility] Tobacco Use History This section includes a history of the smoking, or tobacco-related health factors, that were collected on or before the date of the Encounter. The data comes from the [place] facility where the Encounter took place. Date/Time Smoking Status/Tobac co Use Comment Facility Jun 08, 2023 10:00 AM VA-TOBACCO QUIT 15 YRS OR MORE [facility] [place] [facility] Jun 09, 2022 10:30 AM VA-TOBACCO FORMER USER [facility] [place] [facility] Jun 09, 2022 10:30 AM VA-TOBACCO QUIT 15 YRS OR MORE [facility] [place] [facility] Jun 14, 2021 09:00 AM VA-TOBACCO FORMER USER [facility] [place] [facility] Jun 14, 2021 09:00 AM VA-TOBACCO QUIT 15 YRS OR MORE [facility] [place] [facility] Feb 03, 2020 01:00 PM VA-TOBACCO FORMER USER [facility] [place] [facility] Feb 03, 2020 01:00 PM VA-TOBACCO QUIT 15 YRS OR MORE [facility] [place] [facility] Feb 02, 2019 11:49 AM VA-TOBACCO FORMER USER [facility] [place] [facility] Feb 02, 2019 11:49 AM VA-TOBACCO QUIT 15 YRS OR MORE [facility] May 13, 2017 10:12 AM LIFETIME NON-TOBACCO USER [facility] Jun 11, 2016 10:31 AM QUIT TOBACCO USE > 7 YEARS AGO [facility] Jun 21, 2015 12:49 PM QUIT TOBACCO USE > 7 YEARS AGO pt states he quit smoking 30 yr ago. [facility] Jul 18, 2004 08:23 AM HISTORY OF SMOKING Smoke free since 1989 [facility] May 11, 2003 02:17 PM HISTORY OF SMOKING quit smoking 15 years ago [facility] May 11, 2003 02:17 PM QUIT TOBACCO USE > 7 YEARS AGO quit smoking 15 years ago [facility] Advance Directives: All historical and current Section Date Range: From patient's date of to the date document was created. This section includes ALL of a patient's completed or amended [place] Advance and Rescinded Directives. The entries below indicate that a directive exists for the patient, but an actual copy is not included with this document. The data comes from all [place] facilities. Date Advance Directives Provider Source Nov 26, 2020 ADVANCE DIRECTIVE GARY GUNTER [facility] Jan 25, 2017 ADVANCE DIRECTIVE RAFAEL MEJIA [facility] Apr 06, 2009 ADVANCE DIRECTIVE KHAI BADILLO [facility] Encounter Notes: All associated encounter notes This section contains the clinical notes associated to the Encounter. Date/Time Encounter Note(s) Provider Source Dec 17, 2023 07:55 AM PHYSICAL THERAPY N OTE: LOCAL TITLE: PHYSICAL THERAPY STANDARD TITLE: PHYSICAL THERAPY NOTE DATE OF NOTE: DEC 17, 2023@07:55 ENTRY DATE: DEC 17, 2023@07:55:10 AUTHOR: SHARON CA COSIGNER: URGENCY: STATUS: COMPLETED Initial Evaluation date: Nov Treat Date: 12/17/2023 Treatment #: 1 Treatment time: 30min Diagnosis: Other Spondylosis with Radiculopathy, Lumbosacral Region (ICD-10-CM M47.27)(Primary) Sacroiliitis, not elsewhere classified(ICD-10-CM M46.1)(secondary) Provider: Ursula PT Treatment Precautions: Patient identified by full name and date of Curtis SUBJECTIVE: Pain got a little worse after I came last time for a few days wasn't sure if it was all the moving we did for testing or if it was the new exercises. OBJECTIVE: THERAPEUTIC EXERCISE: MINUTES:15 Ensure good TA brace and then instruct in Hip flexor stretch, pelvic tilts, gluteal sets, MANUAL THERAPY: MINUTES:10 lumbar traction noted slight relief of left thigh numbness LAD no positive effect noted. GAIT TRAINING: MINUTES: NEUROMUSCULAR EDUCATION: MINUTES: OTHER: MINUTES: MODALITIES: MINUTES: [] Contraindication screen completed prior to modality [] Skin intact pre/post SELF CARE/EDUCATION: MINUTES: HEP:Access Code: [email or web address] URL: [email or web address] Date: 12/17/2023 Prepared by: Sharon Ca Exercises - Seated Transversus Abdominis Bracing - 5-10 x daily - 5-10 reps - 2 breaths hold - Seated Hamstring Stretch - 3 x daily - 3 sets - 30 secs hold - Standing Hamstring Stretch with Step - 3 x daily - 3 sets - 30 secs hold - Standing Bilateral Gastroc Stretch with Step - 3 x daily - 3 sets - 30 secs hold - Supine Pelvic Tilt - 3 x daily - 2 sets - 10 reps - 2 breaths hold - Hooklying Gluteal Sets - 3 x daily - 3 sets - 30 secs hold - Hip Flexor Stretch on Step - 3 x daily - 3 sets - 30 secs hold Patient education was provided for all aspects of care during this clinical encounter. ASSESSMENT:Patient noted numbness in the left thigh decreased from down to the knee to about mid thigh following manual lumbar traction today, noted it contiued to have some relief as he was walking out about 15 min after manual lumbar traction. With walking and standing following left thigh numbness did not increase during session. PLAN: [x]Continue with plan of care. [x]Pt to perform HEP as prescribed. Goals, within: []2-4 wks [x]4-6wks []8wks [x]Perform household ADL's with pain < 3/10. [x]Increase walking/standing tolerance to 60 minutes in order to Ambulate community distances independently with pain < 3/10. [x] Pt will improve core and LE strength to overall 4/5 for improved ability to Ascend/descend 1 flight of stairs independently with pain < 3/10. [x]Pt will increase supine 90/90 by 10-20 degrees to demonstrate increase in HS length. [x]Pt will decrease prone passive knee flexion restriction to demonstrate improved hip flexor/quad length to minimal restriction. [x]Pt will be independent with HEP for increased LE flexibility and optimal progress with PT. PLAN: Pt to be seen 1x/1-2week for 6-8 sessions POC to include: [x]Low impact cardio: [x]Nustep [x]Recumbent elliptical [x]Manual: [x]STM/DTM [x]METs/SCS [x]IASTM [x]Joint mobilizations [x]Therex: [x]Progressive Core [x]Progressive LQ [x]Lumbar flex [x]LQ flex [x]Neuro Re-education: [x]Dual-Task [x]Education: [x]Posture [x]Bodymechanics [x]Self-care strategies [x]PNE [x]Modalities(PRN): [x]Heat/Ice[x]Mechanical traction [x]Biofreeze Trial Mechanical lumbar traction next session, low pull weight 30-40lb Max to start due to moderate osteoporosis do not exceed 40lb pull. intermittant. Proposed interventions: stretches: quad, TFL, gluteals, piriformis, Adductors, QLs, and lumbar flexion stretch Strength/stability:bridge as able, progress pelvic rocking sitting (on ball?) bilat, unilat, side to side.cue core brace. Hip abd, ext, flx, IR, ER. MOdified planks. Progressive stabilization exercises as able. towards functional rx. Suicide Screen: C-SSRS Screening [place]-Suicide Severity Rating Scale (C-SSRS Screener) 1. Over the past month, have you wished you were or wished you could go to sleep and not wake up? No 2. Over the past month, have you had any actual thoughts of killing yourself? No 3. Over the past month, have you been thinking about how you might do this? Response not required due to responses to other questions. 4. Over the past month, have you had these thoughts and had some intention of acting on them? Response not required due to responses to other questions. 5. Over the past month, have you started to work out or worked out the details of how to kill yourself? Response not required due to responses to other questions. 6. If yes, at any time in the past month did you intend to carry out this plan? Response not required due to responses to other questions. 7. In your lifetime, have you ever done anything, started to do anything, or prepared to do anything to end your life (for example, collected pills, obtained a gun, gave away valuables, went to the roof but didn't jump)? No 8. If YES, was this within the past 3 months? Response not required due to responses to other questions. /alicia/ SHARON CA PT, DPT PHYSICAL THERAPIST Signed: 12/17/2023 14:36 [facility]
--- OUTSIDE RECORDS SUMMARY | 2024-06-22 11:28 | XMS_ITS ---
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 Date/Time Encounter Type Encounter Description Reason Provider Source Mar 23, 2024 10:00 AM OFFICE O/P EST MOD 30 MIN ENDOCRINOLOGY ICD-10-CM M81.0 Age-related osteoporosis w/o current pathological fracture KAL GRANADOS Encounter Template Text not used by NH Assessments - Encounter Diagnoses This section includes the primary and secondary diagnoses documented for the Encounter. Date/Time Primary/Secondary Diagnosis Diagnosis Name Provider Source Mar 23, 2024 12:47 PM PRIMARY Age-related osteoporosis w/o current pathological fracture [facility] [place] [facility] Mar 23, 2024 12:47 PM SECONDARY Abnormal results of thyroid function studies [facility] [place] [facility] Mar 23, 2024 12:47 PM SECONDARY Impaired fasting glucose [facility] [place] [facility] Mar 23, 2024 12:47 PM SECONDARY Testicular hypofunction [facility] [place] [facility] Plan of Treatment: Future Appointments (+ 6 months) and Future Tests (+/- 45 days) The Plan of Treatment section includes future care activities for the patient from all [place] treatment[facility] stanlyities. This section includes future appointments and future orders which are active, pending or scheduled. Future Appointments This section includes appointments that were scheduled to occur 6 months from the date of the Encounter, up to a maximum of 20 appointments. The data comes from all [place] treatment facilities. Appointment Date/Time Appointment Type Appointme nt Facility Name Mar 28, 2024 07:00 AM AMBULATORY - MEDICINE [facility] [place] [facility] Mar 28, 2024 11:15 AM AMBULATORY - MEDICINE [facility] [place] [facility] Apr 06, 2024 10:00 AM AMBULATORY - MEDICINE [facility] [place] [facility] Apr 12, 2024 11:00 AM AMBULATORY - NONE [facility] [place] [facility] Apr 14, 2024 02:30 PM AMBULATORY - MEDICINE [facility] [place] [facility] Apr 22, 2024 08:30 AM AMBULATORY - MEDICINE [facility] [place] [facility] Apr 25, 2024 07:00 AM AMBULATORY - MEDICINE [facility] [place] [facility] May 05, 2024 10:00 AM AMBULATORY - NONE [facility] [place] [facility] May 05, 2024 01:00 PM AMBULATORY - NONE [facility] [place] [facility] May 06, 2024 03:00 PM AMBULATORY - MEDICINE [facility] [place] [facility] May 09, 2024 01:30 PM AMBULATORY - MEDICINE [facility] [place] [facility] May 12, 2024 11:45 AM AMBULATORY - MEDICINE [facility] [place] [facility] Jun 16, 2024 09:30 AM AMBULATORY - NONE [facility] [place] [facility] Jun 22, 2024 10:45 AM AM[facility]ULATORY [facility]ICINE [facility] [place] [facility] Jul 05, 2024 03:30 PM AMBULATORY - MEDICINE [place] [facility] Aug 03, 2024 11:00 AM AMBULATORY - NONE [facility] [place] [facility] Aug 08, 2024 09:30 AM AMBULATORY [facility] MEDICINE [facility] [place] [facility] Aug 16, 2024 09:45 AM AMBULATORY - NONE [facility] [place] [facility] Aug 22, 2024 10:30 AM AMBULATORY - MEDICINE [facility] [place] [facility] Aug 24, 2024 01:00 PM AMBULATORY - REHAB MEDICIN E [facility] Active, Pending, and Scheduled Orders This section includes a listing of several types of active, pending, and scheduled orders, including clinic medications orders, diagnostic test orders, procedure orders and consult orders; where the start date of the order is 45 days before the date of the Encounter or 45 days after the date of theEncounter. The data comes from all [place] treatment facilities. Test Date/Time Test Type Test Details Facility Name Feb 20, 2024 05:26 PM Consult Order COMMUNITY CARE-INFUSION Cons [employer] Work[employer] [facility] [place] [facility] Mar 21, 2024 04:25 PM Consult Order COMMUNITY CARE-INFUSION Cons [place] Lab Results: +/- 30 days of the encounter This section includes the Chemistry and Hematology Lab Results on record with NH for the patient. Radiology Reports and Pathology Reports are provided separately, in subsequent sections. Lab Results This section contains the Chemistry/Hematology Results that were resulted 30 days before or 30 daysafter the date of the Encounter. Date/Time Source Result Type Result - Unit Interpretation Reference Range Comment Mar 23, 2024 10:50 AM [facility] TESTOSTERONE, TOTAL (WHV) Specimen Type: SERUM No comment entered. Ordering Provider: KAL GRANADOS Report Released Date/Time: September 21, 2023 09:22 AM Reporting Lab: [facility] [place] [facility] [address] [facility] [address] Performing Lab: [facility] [place] [facility] [address] [facility] [address] TESTOSTERONE , TOTAL (WHV) 680.68 ng/dL 220.00-892. 00 Mar 23, 2024 10:50 AM [facility] [place] [facility] THYROID T4 FREE(FT4) (WROX) Specimen Type: SERUM No comment entered. Ordering Provider: KAL GRANADOS Report Released Date/Time: Mar 23, 2024 10:31 AM Reporting Lab: [facility] [place] [facility] [address] [facility] [address] Performing Lab: [facility] [place] [facility] [address] [facility] [address] THYROID T4 FREE(FT4) (WROX) 1.12 ng/dL 0.6-1.6 Mar 23, 2024 10:50 AM [facility] VITAMIN D (25-OH) Specimen Type: SERUM No comment entered. Ordering Provider: KAL GRANADOS Report Released Date/Time: September 21, 2023 09:22 AM Reporting Lab: [facility] [place] [facility] [address] [facility] [address] Performing Lab: [facility] [place] [facility] [address] [facility] [address] VITAMIN D (25-OH) 34 ng/mL 20-50 Mar 23, 2024 10:50 AM [facility] PSA Specimen Type: SERUM No comment entered. Ordering Provider: KAL GRANADOS Report Released Date/Time: September 21, 2023 09:22 AM Reporting Lab: [facility] [place] [facility] [address] [facility] [address] Performing Lab: [facility] [place] [facility] [address] [facility] [address] PSA 1.83 ng/mL 0.00-4.00 Mar 23, 2024 10:50 AM [facility] CALCIUM Specimen Type: SERUM No comment entered. Ordering Provider: KAL GRANADOS Report Released Date/Time: September 21, 2023 09:22 AM Reporting Lab: [facility] [place] [facility] [address] [facility] [address] Performing Lab: [facility] [place] [facility] [address] [facility] [address] CALCIUM 8.8 mg/dL 8.5-10.2 Mar 23, 2024 10:50 AM [facility] [place] [facility] TSH Specimen Type: SERUM No comment entered. Ordering Provider: KAL GRANADOS Report Released Date/Time: Mar 23, 2024 10:31 AM Reporting Lab: [facility] [place] [facility] [address] [facility] [address] Performing Lab: [facility] [address] [facility] [address] TSH 2.38 u[IU]/mL 0.35-5.00 Mar 23, 2024 10:50 AM [facility] BASIC METABOLIC PANEL (non-fasting) Specimen Type: SERUM No comment entered. Ordering Provider: KAL GRANADOS Report Released Date/Time: September 21, 2023 09:22 AM Reporting Lab: [facility] [address] [facility] [address] Performing Lab: [facility]ITALTRN [facility] [address] [address] UREA NITROGEN 10 mg/dL 7-25 GLUCOSE 88 mg/dL 65-100 SODIUM 136 mmol/L 135-145 POTASSIUM 4.0 mmol/L 3.5-5.0 CHLORIDE 105 mmol/L 100-110 CO2 22 meq/L 20-30 CREATININE, Serum 0.91 mg/dL 0.50-1.40 eGFR(CKD-EPI 2020) >90 mL/min >60 Mar 23, 2024 10:50 AM [facility] CBC Specimen Type: BLOOD No comment entered. Ordering Provider: KAL GRANADOS Report Released Date/Time: September 21, 2023 09:22 AM Reporting Lab: [facility] [address] [facility] [address] Performing Lab: [facility]RJ[facility]ITALN [facility] [address] [address] WBC 6.16 10*3/uL 4.50-11.00 RBC 4.48 10*6/uL [...] Pain Height Weight Body Mass Index Source Mar 23, 2024 09:59 AM 97.9 84 121/77 16 97 3 62 132 24 [place] [facility] [place] [facility] Social History: Smoking Status (Most current) and Tobacco Use (All prior to encounter date) This section includes the most current, and the historical, smoking and tobacco- related health factors from the NH facility where the Encounter took place. Current Smoking Status This section includes the most current smoking, or tobacco-related health factor, from the NH facility where the Encounter took place. Date/Time Current Smoking Status Comment [facility] Jun 08, 2023 10:00 AM VA-TOBACCO FORMER USER [place] [facility] [place] [facility] Tobacco Use History This section includes a history of the smoking, or tobacco-related health factors, that were collected on or before the date of the Encounter. The data comes from the NH facility where the Encounter took place. Date/Time Smoking Status/Tobac co Use Comment Facility Jun 08, 2023 10:00 AM VA-TOBACCO QUIT 15 YRS OR MORE [facility] [place] [facility] Jun 09, 2022 10:30 AM VA-TOBACCO FORMER USER [place] [facility] [place] [facility] Jun 09, 2022 10:30 AM VA-TOBACCO QUIT 15 YRS OR MORE [facility] [place] [facility] Jun 14, 2021 09:00 AM VA-TOBACCO FORMER USER [facility] [place] [facility] Jun 14, 2021 09:00 AM VA-TOBACCO QUIT 15 YRS OR MORE [place] [facility] [place] [facility] Feb 03, 2020 01:00 PM VA-TOBACCO FORMER USER [facility] Feb 03, 2020 01:00 PM VA-TOBACCO QUIT 15 YRS OR MORE [facility] Feb 02, 2019 11:49 AM VA-TOBACCO FORMER USER [facility] Feb 02, 2019 11:49 AM VA-TOBACCO QUIT 15 YRS OR MORE [facility] May 13, 2017 10:12 AM LIFETIME NON-TOBACCO USER [facility]TR[facility] Jun 11, 2016 10:31 AM QUIT TOBACCO USE > 7 YEARS AGO [facility] Jun 21, 2015 12:49 PM QUIT TOBACCO USE > 7 YEARS AGO pt states he quit smoking 30 yr ago. [facility] Jul 18, 2004 08:23 AM HISTORY OF SMOKING Smoke free since 1989 [facility] May 11, 2003 02:17 PM HISTORY OF SMOKING quit smoking 15 years ago [facility] May 11, 2003 02:17 PM QUIT TOBACCO USE > 7 YEARS AGO quit smoking 15 years ago [facility] Advance Directives: All historical and current Section Date Range: From patient's date of to the date document was created. This section includes ALL of a patient's completed or amended NH Advance and Rescinded Directives. The entries below indicate that a directive exists for the patient, but an actual copy is not included with this document. The data comes from all NH facilities. Date Advance Directives Provider Source Nov 26, 2020 ADVANCE DIRECTIVE GARY GUNTER [facility] Jan 25, 2017 ADVANCE DIRECTIVE RAFAEL MEJIA [facility] Apr 06, 2009 ADVANCE DIRECTIVE KHAI BADILLO [facility] Radiology Reports: +/- 30 days of [...] the Encounter. The data comes from all [place] treatment facilities. Date/Time Radiology Report Provider Source Feb 24, 2024 08:47 AM FLUOROSCOPIC KAROLYN NCE FOR NEEDLE PLACEMENT: GENARO RUVALCABA [id number] -[id number] M Exm Date: FEB 24, 2024@08:47 Req Phys: DANIKA JOHNSON THI Pat Loc: [facility]/NO/MED REHAB/SPINE INJ (Re Img Loc: [facility]BUILDING 1 Service: Unknown [place] [address] (Case [id number] COMPLETE) FLUOROSCOPIC GUIDANCE FOR NEEDLE (RAD Detailed) CPT:56947 Reason for Study: SI joint injection Clinical History: Report Status: Verified Date Reported: FEB 24, 2024 Date Verified: FEB 24, 2024 Optimization Consultant E-Sig:/ES/PAULA ALCARAZ JR Report: Study: Pain injection [...] Primary Interpreting Staff: PAULA ALCARAZ JR, Radiologist (Optimization Consultant) /PAULA RUDOLPH JR [facility] Encounter Notes: All associated encounter notes This section contains the clinical notes associated to the Encounter. 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 Currently not on sandostatin. Taking testosterone gel three pumps daily. Feels pretty well. Fair libido and sexual function. Not in a relationship at this time, and not desiring sildenafil. No clotting or CV events. No falls or fractures. Last calcium fill 09/2023. States he was taking three tabs bid. Recently, states not taking vitamins because he has difficulty swallowing since intubation, and having nausea. Has GI appt next week. No other barriers. Alendronate fill 10/2023, 01/2024. Not much dairy No temp intolerance, no constipation or diarhea, no tremor or palpitations. No recent endocrine labs available non VA labs 02/16 Glucose 105 calcium 9.3 Hct 35.4 Nov 22 Nov 22 TSH 3.32 uIU/mL .35 - 5 FT4 1.00 ng/dL .6 - 1.6 Nov 23, 2023@11:09 mALB/Cr: 5.2 mg/G 0 - 29.9 FEB 24, 2022 Bone Mineral Density (BMD) HISTORY: Osteoporosis PRIOR: 02/08/2020 FOREARM: BMD of 0.8, T -score -0.7 HIP: BMD of 0.6, T score -2.5 L-SPINE: BMD of 1.0, T score -1.1 Active problems - Computerized Problem List is the source for the followin. Microscopic hematuria 2. Impaired fasting glucose 3. Chronic dermatitis 4. Thyroid function tests abnormal 5. Carcinoid tumour 6. Lesion of liver 7. Osteoporosis 8. Testicular hypofunction 9. HTN - Hypertension (SCT 19906287) 10. AIN - Acute interstitial nephritis 11. Alcohol Dep-Remission 12. Muscle, ligament and fascia disorders 13. Hand pain (SNOMED CT 28535859) 14. Spondylosis (SNOMED CT 7029984) 15. Osteoarthritis * 16. Peptic Ulcer Disease * 17. Chronic Low Back Pain 18. Dermatitis * 19. Sciatica * 20. Allergic rhinitis 21. Colonic Polyps 22. Dyslipidemia 23. NONINF GASTROENTERIT NEC 24. NEED INOC/VIRAL HEP 25. ESOPHAGEAL REFLUX 26. Asthma (SNOMED CT 100848706) Active Outpatient Medications (including Supplies): Active Outpatient Medications Status ========= 1) ALENDRONATE 70MG TAB TAKE ONE TABLET BY MOUTH EVERY 7 ACTIVE DAYS (TAKE WITH A FULL GLASS OF WATER; REMAIN UPRIGHT FOR 30 MINUTES; NO FOOD OR DRINK FOR 30 MINUTES) 2) AMLODIPINE BESYLATE 10MG TAB TAKE ONE TABLET BY MOUTH ACTIVE (S) ONCE DAILY FOR BLOOD PRESSURE/HEART, DO NOT TAKE WITH GRAPEFRUIT JUICE 3) CALCIUM 200MG (CA CITRATE-950MG) TAB TAKE THREE ACTIVE TABLETS BY MOUTH TWICE DAILY REPLACES CALCIUM CARBONATE 4) CARBOXYMETHYLCELLULOSE NA 1% OPH GEL APPLY 1 DROP ACTIVE INTO EACH EYE FOUR TIMES DAILY NEEDED FOR DRY EYE 5) CETIRIZINE HCL 10MG TAB TAKE ONE TABLET BY MOUTH ACTIVE (S) EVERY DAY NEEDED FOR ALLERGIES 6) CHOLECALCIF 25MCG (D3-1,000UNIT) TAB TAKE ONE TABLET ACTIVE BY MOUTH ONCE DAILY FOR VITAMIN SUPPLEMENTATION 7) DICLOFENAC NA 1% TOP GEL APPLY 4 GRAMS TOPICALLY ACTIVE EVERY 8 HOURS FOR OSTEOARTHRITIS - USE DOSING CARD PROVIDED IN BOX 8) FLUTICASONE PROP 50MCG 120D NASAL INHL INSTILL 1 ACTIVE (S) SPRAY INTO EACH NOSTRIL TWICE DAILY FOR NASAL IRRITATION/INFLAMMATION 9) KETOTIFEN 0.025% OPH SOLN INSTILL 1 DROP INTO EACH ACTIVE EYE TWICE DAILY NEEDED FOR ALLERGIC CONJUNCTIVITIS 10) LISINOPRIL 2.5MG TAB TAKE ONE TABLET BY MOUTH ONCE ACTIVE (S) DAILY TO CONTROL BLOOD PRESSURE 11) MEPOLIZUMAB 100MG/ML INJ SYR 1ML INJECT 1ML ACTIVE SUBCUTANEOUSLY EVERY FOUR WEEKS 12) ONDANSETRON 4MG ORAL DISINTEGRATING TAB PLACE ONE ACTIVE TABLET BY MOUTH EVERY 8 HOURS NEEDED (ALLOW TABLET TO DISSOLVE ON TONGUE, AND SWALLOW WITH SALIVA) 13) PANTOPRAZOLE NA 40MG EC TAB TAKE ONE TABLET BY MOUTH ACTIVE (S) EVERY MORNING 30 MINUTES BEFORE BREAKFAST FOR GERD 14) TESTOSTERONE 1.62% 20.25MG/PUMP TOP GEL APPLY 3 PUMPS ACTIVE (60.75 MG) TOPICALLY ONCE DAILY FOR LOW TESTOSTERONE 15) TIOTROPIUM 2.5MCG/ACTUAT 60D ORAL INHL INHALE 2 PUFFS ACTIVE (S) BY MOUTH ONCE DAILY FOR BRONCHOSPASM PREVENTION WITH COPD 16) ZAFIRLUKAST 20MG TAB TAKE ONE TABLET BY MOUTH TWICE ACTIVE (S) DAILY Active Non-VA Medications Status ========= 1) Non-VA MULTIVITAMIN/MINERALS CAP/TAB 1 TABLET BY ACTIVE MOUTH EVERY DAY 2) Non-VA OCTREOTIDE (SANDOSTATIN LAR DEPOT) INJ,SUSP,SA ACTIVE discontinued UNKNOWN DOSE INTRAMUSCULARLY EVERY MONTH 3) Non-VA OTHER CAP/TAB GAMMAGUARD MONTHLY ACTIVE Wexela 19 Total Medications SHx: lives alone ROS: Chronic cough no fever PE: affect pleasant appropriate speaking easily in full sentences well masculinized A/P: Active problems - Computerized Problem List is the source for the followin. Osteoporosis Discussd role of full calcium supplementation to prevent bone loss. Generally no barriers R/s when he feels able. Hold alendronate until gi eval of esophagus done. He agrees to Bone density now Thyroid function tests abnormal TFTs now 8. Testicular hypofunction Continue testosteorne Impaired fasting glucose Optometry exam was 08/2023, no evidence of retinopathy Calcium, BMP Vitamin D testosterone, CBC PSA hgba1c now and before next visit TFTs now Follow up six mos FTF Medication Reconciliation: Outpatient: Has the patient been taking medications as documented in the EMLR? No: Discrepencies were identified. See below. Essential Medication List for Review used to complete this medication reconciliation. INCLUDED IN THIS LIST: Alphabetical list of active outpatient prescriptions dispensed from this VA (local) and dispensed from another VA or DoD facility (remote) as well as inpatient orders (local, pending and active), local clinic medications, locally documented non-VA medications, and local prescriptions that have or been discontinued in the past 90 days. - Discrepancies were identified, addressed, and discussed with the patient/caregiver at this encounter. - All changes in medications, including all non-VA/Herbal/OTC medications were entered into CPRS. - If there were any medications the patient should no longer take, they were discontinued. - The patient/caregiver was instructed to update this list, discard old lists, and take this list to the next appointment, whether with a VA or non-VA provider. JLV Link Data on this list may not be complete. Please check JLV. Allergies/ADRs (Tool #5) FACILITY ALLERGY/ADR -------- [facility] [place] [facility] No Known Allergies [facility] NO KNOWN ALLERGIES Med [facility] ([facility] INCLUDED IN THIS LIST: Alphabetical list of active outpatient prescriptions dispensed from this NH (local) and dispensed from another NH or [facility] facility (remote) as well as inpatient orders (local pending and active), local clinic medications, locally documented non-VA medications, and local prescriptions that have or been discontinued in the past 90 days. Non-VA Meds Last Documented On: Mar 24, 2022 NOTE The display of VA prescriptions dispensed from another VA or DoD facility (remote) is limited to active outpatient prescription entries matched to National Drug File at the originating site and may not include some items such as investigational drugs, compounds, etc. NOT INCLUDED IN THIS LIST: Medications self-entered by the patient into personal health records (i.e. [employer]) are NOT included in this list. Non-VA medications documented outside this NH, remote inpatient orders (regardless of status) and remote clinic medications are NOT included in this list. The patient and provider must always discuss medications the patient is taking, regardless of where the medication was dispensed or obtained. -------- OUTPT ACETAMINOPHEN 500MG TAB (Status = ) TAKE TWO TABLETS BY MOUTH EVERY 8 HOURS NEEDED FOR PAIN Rx# [id number] Last Released: 01/09/23 Qty/Days Supply: 100/30 Rx Expiration Date: 12/26/23 Refills Remainin Indication: FOR PAIN OUTPT ALENDRONATE 70MG TAB (Status = Active) TAKE ONE TABLET BY MOUTH EVERY 7 DAYS (TAKE WITH A FULL GLASS OF WATER; REMAIN UPRIGHT FOR 30 MINUTES; NO FOOD OR DRINK FOR 30 MINUTES) Rx# [id number] Last Released: 01/06/24 Qty/Days Supply: Rx Expiration Date: 09/21/24 Refills Remainin OUTPT AMLODIPINE BESYLATE 10MG TAB (Status = Discontinued) TAKE ONE TABLET BY MOUTH ONCE DAILY FOR BLOOD PRESSURE/HEART, DO NOT TAKE WITH GRAPEFRUIT JUICE Rx# [id number] Last Released: 10/27/23 Qty/Days Supply: Rx Expiration Date: 02/17/24 Refills Remainin OUTPT AMLODIPINE BESYLATE 10MG TAB (Status = Active/Suspended) TAKE ONE TABLET BY MOUTH ONCE DAILY FOR BLOOD PRESSURE/HEART, DO NOT TAKE WITH GRAPEFRUIT JUICE Rx# [id number] Last Released: 02/24/24 Qty/Days Supply: Rx Expiration Date: 02/22/25 Refills Remainin OUTPT CALCIUM 200MG (CA CITRATE-950MG) TAB (Status = Active) TAKE THREE TABLETS BY MOUTH TWICE DAILY REPLACES CALCIUM CARBONATE Rx# [id number] Last Released: 09/24/23 Qty/Days Supply: Rx Expiration Date: 09/21/24 Refills Remainin Indication: FOR OSTEOPOROSIS OUTPT CARBOXYMETHYLCELLULOSE NA 1% OPH GEL (Status = Active) APPLY 1 DROP INTO EACH EYE FOUR TIMES DAILY NEEDED FOR DRY EYE Rx# [id number] Last Released: 10/12/23 Qty/Days Supply: Rx Expiration Date: 08/03/24 Refills Remainin Indication: FOR DRY EYE OUTPT CETIRIZINE HCL 10MG TAB (Status = Active/Suspended) TAKE ONE TABLET BY MOUTH EVERY DAY NEEDED FOR ALLERGIES Rx# [id number] Last Released: 02/24/24 Qty/Days Supply: Rx Expiration Date: 02/22/25 Refills Remainin OUTPT CHOLECALCIF 25MCG (D3-1,000UNIT) TAB (Status = Active) TAKE ONE TABLET BY MOUTH ONCE DAILY FOR VITAMIN SUPPLEMENTATION Rx# [id number] Last Released: 02/02/24 Qty/Days Supply: Rx Expiration Date: 09/21/24 Refills Remainin OUTPT COLON ELECTROLYTE LAVAGE PWD FOR SOLN (Status = Discontinued) TAKE CONTENTS OF BOTTLE BY MOUTH DIRECTED BY PROVIDER ACCORDING TO INSTRUCTIONS FROM PRESCRIBER - DISSOLVE CONTENTS BEFORE DRINKING Rx# [id number] Last Released: 01/14/24 Qty/Days Supply: 05/04 Rx Expiration Date: 02/12/24 Refills Remainin OUTPT DICLOFENAC NA 1% TOP GEL (Status = Active) APPLY 4 GRAMS TOPICALLY EVERY 8 HOURS FOR OSTEOARTHRITIS - USE DOSING CARD PROVIDED IN BOX Rx# [id number] Last Released: 12/25/23 Qty/Days Supply: Rx Expiration Date: 06/08/24 Refills Remainin OUTPT FLUTICAS 250/SALMETEROL 50 INHL DISK 60 (Status = Pending) 250/SALMETEROL 50 INHL DISK 60 INHALE 1 PUFF BY MOUTH TWICE DAILY FOR BRONCHOSPASM PREVENTION WITH COPD - RINSE MOUTH AFTER USE Renewed from Rx# [id number] Qty/Days Supply: Login Date: 03/23/24 Refills Ordered: 3 OUTPT FLUTICASONE PROP 50MCG 120D NASAL INHL (Status = Active/Suspended) INSTILL 1 SPRAY INTO EACH NOSTRIL TWICE DAILY FOR NASAL IRRITATION/INFLAMMATION Rx# [id number] Last Released: 03/07/24 Qty/Days Supply: Rx Expiration Date: 03/03/25 Refills Remainin Indication: FOR NASAL IRRITATION/INFLAMMATION OUTPT KETOTIFEN 0.025% OPH SOLN (Status = Active) INSTILL 1 DROP INTO EACH EYE TWICE DAILY NEEDED FOR ALLERGIC CONJUNCTIVITIS Rx# [id number] Last Released: 03/15/24 Qty/Days Supply: 09/30 Rx Expiration Date: 08/03/24 Refills Remainin Indication: FOR ALLERGIC CONJUNCTIVITIS OUTPT LISINOPRIL 2.5MG TAB (Status = Active/Suspended) TAKE ONE TABLET BY MOUTH ONCE DAILY TO CONTROL BLOOD PRESSURE Rx# [id number] Last Released: 02/24/24 Qty/Days Supply: 90 Rx Expiration Date: 02/22/25 Refills Remainin OUTPT MEPOLIZUMAB 100MG/ML INJ SYR 1ML (Status = Active) INJECT 1ML SUBCUTANEOUSLY EVERY FOUR WEEKS Rx# [id number] Last Released: 02/22/24 Qty/Days Supply: 05/31 Rx Expiration Date: 04/23/24 Refills Remainin OUTPT METRONIDAZOLE 500MG TAB (Status = ) TAKE ONE TABLET BY MOUTH DIRECTED BY PROVIDER AT 5 PM, 6 PM AND 8 PM THE NIGHT BEFORE SURGERY Rx# [id number] Last Released: 01/13/24 Qty/Days Supply: 07/02 Rx Expiration Date: 02/06/24 Refills Remainin Non-VA MULTIVITAMIN/MINERALS CAP/TAB CAP/TAB TAKE ONE TABLET BY MOUTH EVERY DAY Medication prescribed by Non-VA provider. OUTPT NEOMYCIN SULFATE 500MG TAB (Status = ) TAKE TWO TABLETS BY MOUTH DIRECTED BY PROVIDER AT 5 PM, 6 PM AND 8 PM THE NIGHT BEFORE SURGERY Rx# [id number] Last Released: 01/13/24 Qty/Days Supply: 10/02 Rx Expiration Date: 02/06/24 Refills Remainin OUTPT NYSTATIN [id number] UNT/ML SUSP (Status = ) TAKE 5 TO 10ML BY MOUTH FOUR TIMES DAILY NEEDED FOR CLEMENTE INFECTION OF MOUTH -- SWISH AND SWALLOW Rx# [id number] Last Released: 12/25/23 Qty/Days Supply: Rx Expiration Date: 02/09/24 Refills Remainin Indication: FOR CLEMENTE INFECTION OF MOUTH OUTPT ONDANSETRON 4MG ORAL DISINTEGRATING TAB (Status = Active) PLACE ONE TABLET BY MOUTH EVERY 8 HOURS NEEDED (ALLOW TABLET TO DISSOLVE ON TONGUE, AND SWALLOW WITH SALIVA) Rx# [id number] Last Released: 03/04/24 Qty/Days Supply: 02/03 Rx Expiration Date: 03/03/25 Refills Remainin Non-VA OTHER CAP/TAB TAKE GAMMAGUARD iv MONTHLY OUTPT PANTOPRAZOLE NA 40MG EC TAB (Status = Active/Suspended) TAKE ONE TABLET BY MOUTH EVERY MORNING 30 MINUTES BEFORE BREAKFAST FOR GERD Rx# [id number] Last Released: 02/24/24 Qty/Days Supply: 90 Rx Expiration Date: 02/22/25 Refills Remainin OUTPT TESTOSTERONE 1.62% 20.25MG/PUMP TOP GEL (Status = Active) APPLY 3 PUMPS (60.75 MG) TOPICALLY ONCE DAILY FOR LOW TESTOSTERONE Rx# [id number] Last Released: 03/21/24 Qty/Days Supply: Rx Expiration Date: 03/23/24 Refills Remainin Indication: FOR LOW TESTOSTERONE OUTPT TIOTROPIUM 2.5MCG/ACTUAT 60D ORAL INHL (Status = Active/Suspended) INHALE 2 PUFFS BY MOUTH ONCE DAILY FOR BRONCHOSPASM PREVENTION WITH COPD Rx# [id number] Last Released: 02/24/24 Qty/Days Supply: Rx Expiration Date: 02/22/25 Refills Remainin Indication: FOR BRONCHOSPASM PREVENTION WITH COPD OUTPT ZAFIRLUKAST 20MG TAB (Status = Active/Suspended) TAKE ONE TABLET BY MOUTH TWICE DAILY Rx# [id number] Last Released: 03/07/24 Qty/Days Supply: Rx Expiration Date: 02/22/25 Refills Remainin -------- SUPPLIES -------- /juan carlos GRANADOS MD STAFF PHYSICIAN Signed: 03/23/2024 12:47 KAL GRANADOS [facility]
--- OUTSIDE RECORDS SUMMARY | 2024-06-22 11:28 | XMS_ITS ---
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 Date/Time Encounter Type Encounter Description Reason Provider Source Jul 06, 2023 03:00 PM DIAB MANAGE TRN PER INDIV DIABETES CLINIC ICD-10-CM R73.01 Impaired fasting glucose RENITA VELAZCO Moses Encounter Template Text not used by [place] Assessments - Encounter Diagnoses This section includes the primary and secondary diagnoses documented for the Encounter. Date/Time Primary/Secondary Diagnosis Diagnosis Name Provider Source Jul 06, 2023 04:43 PM PRIMARY Impaired fasting glucose RENITA VELAZCO [facility] [place] [facility] Plan of Treatment: Future Appointments (+ 6 months) and Future Tests (+/- 45 days) The Plan of Treatment section includes future care activities for the patient from [facility] This section includes future appointments and future orders which are active, pending or scheduled. Future Appointments This section includes appointments that were scheduled to occur 6 months from the date of the Encounter, up to a maximum of 20 appointments. The data comes from all [place] treatment facilities. Appointment Date/Time Appointment Type Appointme nt Facility Name Aug 03, 2023 09:30 AM AMBULATORY - MEDICINE [facility] [place] [facility] Aug 05, 2023 10:00 AM AMBULATORY - REHAB MEDICIN E [facility] [place] [facility] Aug 07, 2023 09:45 AM AMBULATORY - NONE [facility] [place] [facility] Aug 07, 2023 10:00 AM AMBULATORY - NONE [facility] [place] [facility] Aug 27, 2023 09:00 AM AMBULATORY - MEDICINE [facility] [place] [facility] September 14, 2023 08:00 AM AMBULATORY - MEDICINE [facility] [place] [facility] September 18, 2023 11:00 AM AMBULATORY - MEDICINE [facility] [place] [facility] September 21, 2023 09:00 AM AMBULATORY - MEDICINE [facility] [place] [facility] September 22, 2023 03:00 PM AMBULATORY - REHAB MEDICIN E [facility] [place] [facility] Nov 23, 2023 10:00 AM AMBULATORY - MEDICINE [facility] [place] [facility] Dec 01, 2023 08:00 AM AMBULATORY - REHAB MEDICIN E [facility] [place] [facility] Dec 16, 2023 11:00 AM AMBULATORY - MEDICINE [facility] [place] Dec 17, 2023 10:30 AM AMBULATORY - REHAB MEDICIN E [facility] [place] [facility] Dec 30, 2023 01:30 PM AMBULATORY - REHAB MEDICIN E [facility] [place] [facility] Jan 06, 2024 09:00 AM AMBULATORY - MEDICINE [facility] [place] [facility] Active, Pending, and Scheduled Orders This section includes a listing of several types of active, pending, and scheduled orders, including clinic medications orders, diagnostic test orders, procedure orders and consult orders; where the start date of the order is 45 days before the date of the Encounter or 45 days after the date of theEncounter. The data comes from all [place] treatment facilities. Test Date/Time Test Type Test Details Facility Name Jun 23, 2023 12:00 AM Laboratory - Chemi stry Order CBC BLOOD (LAV-BLOOD) SP [facility] Lab Results: +/- 30 days of the encounter This section includes the Chemistry and Hematology Lab Results on record with [place] for the patient. Radiology Reports and Pathology Reports are provided separately, in subsequent sections. Lab Results This section contains the Chemistry/Hematology Results that were resulted 30 days before or 30 daysafter the date of the Encounter. Date/Time Source Result Type Result - Unit Interpretation Reference Range Comment Jun 08, 2023 09:30 AM [facility] TESTOSTERONE, TOTAL Specimen Type: SERUM No comment entered. Ordering Provider: KAL GRANADOS Report Released Date/Time: Jun 05, 2023 03:02 PM Reporting Lab: [facility] [address] [facility] [facility] [id number] Performing Lab: [facility] [address] [facility] [address] TESTOSTER ONE, TOTAL 372.75 ng/dL 220.00-892.0 0 Social History: Smoking Status (Most current) and Tobacco Use (All prior to encounter date) This section includes the most current, and the historical, smoking and tobacco- related health factors from the [place] facility where the Encounter took place. Current Smoking Status This section includes the most current smoking, or tobacco-related health factor, from the [place] facility where the Encounter took place. Date/Time Current Smoking Status Comment Kajal harrison Jun 08, 2023 10:00 AM VA-TOBACCO FORMER USER [facility] Tobacco Use History This section includes a history of the smoking, or tobacco-related health factors, that were collected on or before the date of the Encounter. The data comes from the [place] facility where the Encounter took place. Date/Time Smoking Status/Tobac co Use Comment Facility Jun 08, 2023 10:00 AM VA-TOBACCO QUIT 15 YRS OR MORE [facility] [place] [facility] Jun 09, 2022 10:30 AM VA-TOBACCO FORMER USER [facility] [place] [facility] Jun 09, 2022 10:30 AM VA-TOBACCO QUIT 15 YRS OR MORE [facility] [place] [facility] Jun 14, 2021 09:00 AM VA-TOBACCO FORMER USER [facility] [place] [facility] Jun 14, 2021 09:00 AM VA-TOBACCO QUIT 15 YRS OR MORE [facility] [place] [facility] Feb 03, 2020 01:00 PM VA-TOBACCO FORMER USER [facility] [place] [facility] Feb 03, 2020 01:00 PM VA-TOBACCO QUIT 15 YRS OR MORE [facility] [place] [facility] Feb 02, 2019 11:49 AM VA-TOBACCO FORMER USER [facility] [place] [facility] Feb 02, 2019 11:49 AM VA-TOBACCO QUIT 15 YRS OR MORE [facility] [place] [facility] May 13, 2017 10:12 AM LIFETIME NON-TOBACCO USER [facility] [place] [facility] Jun 11, 2016 10:31 AM QUIT TOBACCO USE > 7 YEARS AGO [facility] [place] [facility] Jun 21, 2015 12:49 PM QUIT TOBACCO USE > 7 YEARS AGO pt states he quit smoking 30 yr ago. [facility] [place] [facility] Jul 18, 2004 08:23 AM HISTORY OF SMOKING Smoke free since 1989 [facility] [place] [facility] May 11, 2003 02:17 PM HISTORY OF SMOKING quit smoking 15 years ago [facility] [place] [facility] May 11, 2003 02:17 PM QUIT TOBACCO USE > 7 YEARS AGO quit smoking 15 years ago [facility] [place] [facility] Advance Directives: All historical and current Section Date Range: From patient's date of to the date document was created. This section includes ALL of a patient's completed or amended VA Advance and Rescinded Directives. The entries below indicate that a directive exists for the patient, but an actual copy is not included with this document. The data comes from all [place] facilities. Date Advance Directives Provider Source Nov 26, 2020 ADVANCE DIRECTIVE [facility] Jan 25, 2017 ADVANCE DIRECTIVE [facility]IA [facility] Apr 06, 2009 ADVANCE DIRECTIVE KHAI BADILLO [facility] Radiology Reports: +/- 30 days of [...] the Encounter. The data comes from all [place] treatment facilities. Date/Time Radiology Report Provider Source Aug 05, 2023 10:17 AM FLUOROSCOPIC KAROLYN NCE FOR NEEDLE PLACEMENT: GENARO WESLEY [id number] -1955 Ex Date: AUG 05, 2023@10:17 Req Phys: DANIKA JOHNSON ZAIN THI Pat Loc: CWM/NO/MED REHAB/SPINE INJ (Re Img Loc: [facility]/BUILDING 1 Service: Unknown (Case [id number] COMPLETE) FLUOROSCOPIC GUIDANCE FOR NEEDLE (RAD Detailed) CPT:43284 Reason for Study: SI joint injection Clinical History: Report Status: Verified Date Reported: AUG 05, 2023 Date Verified: AUG 05, 2023 Stereoplotter Operator E-Sig:/ES/PAULA ALCARAZ JR Report: Study: Pain injection [...] Primary Interpreting Staff: PAULA ALCARAZ JR, Radiologist (Stereoplotter Operator) /PAULA RUDOLPH JR [facility] Jun 09, 2023 02:[address] ABDOMEN , PELVIS W/CONT: GENARO WESLEY [id number] -1955 M Exm Date: JUN 09, 2023@14:00 Req Phys: RAFAEL MEJIA Loc: [facility]/OUTSIDE IMAGING NON-CNT (R Img Loc: OUTSIDE GENERAL RADIOLOGY Service: Unknown (Case [id number] COMPLETE) OUTSIDE CT ABDOMEN, PELVIS W/CONT(RAD Detailed) CPT:38839 Reason for Study: outside cd uploaded for continuity of care Clinical History: outside cd uploaded for continuity of care Report Status: Electronically Filed Date Reported: JUN 09, 2023 Report: THIS EXAM WAS PERFORMED AND INTERPRETED AT AN OUTSIDE HOSPITAL Impression: THIS EXAM WAS PERFORMED AND INTERPRETED AT AN OUTSIDE HOSPITAL Primary Diagnostic Code: VERIFIED BY: / *ELECTRONICALLY FILED* [facility] Jun 09, 2023 12:[address] CHEST W CONT: GENARO WESLEY [id number] -1955 M Exm Date: JUN 09, 2023@12:46 Req Phys: RAFAEL MEJIA Loc: [facility]/OUTSIDE IMAGING NON-CNT (R Img Loc: OUTSIDE GENERAL RADIOLOGY Service: Unknown (Case [id number] COMPLETE) OUTSIDE CT CHEST W CONT (RAD Detailed) CPT:91742 Reason for Study: outside cd uploaded for continuity of care Clinical History: outside cd uploaded for continuity of care Report Status: Electronically Filed Date Reported: JUN 09, 2023 Report: THIS EXAM WAS PERFORMED AND INTERPRETED AT AN OUTSIDE HOSPITAL Impression: THIS EXAM WAS PERFORMED AND INTERPRETED AT AN OUTSIDE HOSPITAL Primary Diagnostic Code: VERIFIED BY: / *ELECTRONICALLY FILED* [facility] [place] [facility] Encounter Notes: All associated encounter notes This section contains the clinical notes associated to the Encounter. Date/Time Encounter Note(s) Provider Source Jul 06, 2023 03:06 PM DIABETOLOGY EDUCATION NOTE: LOCAL TITLE: DIABETES EDU FOLLOW UP STANDARD TITLE: DIABETOLOGY EDUCATION NOTE DATE OF NOTE: JUL 06, 2023@15:06 ENTRY DATE: JUL 06, 2023@15:06:23 AUTHOR: RENITA VELAZCO EXP COSIGNER: URGENCY: STATUS: COMPLETED FOLLOW UP DIABETES EDUCATION VISIT Demographics: Patient Name: GENARO WESLEY Age: 68 Sex: MALE Race: WHITE MARITAL STATUS - Introduction: [place] identified with 2 identifiers: [X] Full Name [X] Date of [ ] Address [ ] VA ID Card PATIENT PHONE - PHONE NUMBER [CELLULAR] - Is patient phone number correct, if not, enter below: 's phone number: GENARO WESLEY [address] [facility] [address], [place], [address] MOST RECENT LABS: HEMOGLOBIN A1C TREND Collection DT Spec HGBA1c 03/23/2023 08:42 BLOOD 5.0 11/16/2017 10:14 BLOOD 5.3 CHEM 7 TREND LAB CUMULATIVE SELECTED Collection DT Spec GLUCOSE BUN CREATIN Sodium K+/Pot CL CO2 06/03/2023 09:50 SERUM 100 15 1.45 H 140 4.0 104 27 03/23/2023 08:42 SERUM 106 H 13 1.26 138 4.5 100 27 03/12/2023 08:00 SERUM 110 H 17 1.21 138 4.0 102 29 12/02/2022 11:15 SERUM 103 H 19 1.13 140 4.0 103 28 09/15/2022 10:09 SERUM 115 H 15 1.32 139 4.1 102 26 Collection DT Spec eGFR 10/11/2008 08:14 SERUM >60 11/05/2006 10:35 SERUM >60 03/03/2006 08:35 SERUM >60 LAB CUMULATIVE SELECTED 2 No selection items chosen for this component. CHEM 7 Results Collection DT Spec Sodium K+/Pot CL CO2 GLUCOSE BUN eGFR 06/03/2023 09:50 SERUM 140 4.0 104 27 100 15 03/23/2023 08:42 SERUM 138 4.5 100 27 106 H 13 03/12/2023 08:00 SERUM 138 4.0 102 29 110 H 17 12/02/2022 11:15 SERUM 140 4.0 103 28 103 H 19 09/15/2022 10:09 SERUM 139 4.1 102 26 115 H 15 06/03/2022 09:33 SERUM 140 4.2 103 29 126 H 14 02/04/2022 08:47 SERUM 140 3.9 100 30 101 H 18 12/02/2021 09:12 SERUM 140 4.2 104 28 110 H 16 07/10/2021 11:02 SERUM 141 4.0 102 31 H 94 15 06/25/2021 10:09 SERUM 142 4.3 104 31 H 99 19 04/08/2021 08:12 SERUM 139 4.3 102 27 107 H 11 12/24/2020 09:18 SERUM 139 4.6 101 29 104 H 7 11/15/2020 08:46 SERUM 135 4.2 95 L 29 96 9 10/03/2020 08:42 SERUM 137 3.9 101 29 113 H 9 01/20/2020 08:48 SERUM 139 4.2 101 28 108 H 9 08/29/2019 07:41 SERUM 138 3.8 103 26 130 H 12 06/28/2019 09:37 SERUM 141 4.2 101 29 113 H 10 06/10/2019 09:24 SERUM 142 3.6 104 28 119 H 10 05/31/2019 08:55 SERUM 141 3.6 104 26 113 H 9 05/11/2019 13:27 SERUM 138 4.3 100 27 158 H 14 04/20/2019 12:46 SERUM 139 4.3 103 23 80 63 H 05/20/2018 14:53 SERUM 139 4.5 101 29 163 H 9 11/16/2017 10:14 SERUM 141 4.3 105 25 144 H 13 08/17/2017 08:22 SERUM 139 4.7 103 25 171 H 8 05/25/2017 08:40 SERUM 139 3.6 101 30 122 H 7 12/11/2015 09:20 SERUM 142 5.0 106 32 H 99 7 11/10/2013 08:26 SERUM 140 4.7 105 28 103 H 10 05/24/2013 12:36 SERUM 136 4.1 104 25 128 H 12 04/12/2013 14:01 SERUM 139 4.0 105 27 100 16 01/06/2012 11:10 SERUM 141 5.0 104 28 97 13 02/21/2011 08:00 SERUM 140 4.7 103 27 109 H 20 01/25/2010 07:53 SERUM 140 4.3 103 29 109 H 12 10/11/2008 08:14 SERUM 140 4.5 106 27 98 14 >60 11/05/2006 10:35 SERUM 143 4.3 108 27 96 20 >60 03/03/2006 08:35 SERUM 141 4.4 107 26 90 18 >60 10/10/2004 08:24 SERUM 138 4.2 104 28 93 18 07/11/2004 08:40 SERUM 137 4.6 102 29 88 15 01/11/2004 06:13 SERUM 137 4.1 101 27 93 12 07/10/2003 08:09 SERUM 140 4.4 105 30 105 14 05/02/2003 14:02 SERUM 139 4.0 102 28 89 16 LIPID PANEL TREND Collection DT Spec CHOL HDL CHO/HDL LDL-d LDL-c TRIG 06/03/2023 09:50 SERUM 210 H 32 L 6.6 148 H 152 H 12/02/2022 11:15 SERUM 163 31 L 5.3 85 233 H 06/03/2022 09:33 SERUM 177 34 L 5.2 116 136 12/02/2021 09:12 SERUM 164 27 L 6.1 89 240 H 06/05/2021 11:54 SERUM 171 35 L 4.9 95 204 H CREATININE-EGFR 06/03/23 09:50 1.45 H 03/23/23 08:42 1.26 03/12/23 08:00 1.21 EGFR - NONE FOUND WEIGHT: 145 lb [65.77 kg] (06/08/2023 09:49) HEIGHT: 68 in [172.7 cm] (03/23/2023 07:49) BMI: 22.1 REASON FOR EDUCATION VISIT TODAY: Was told he has pre-diabetes and it was brought up during his appointment with Endocrine in March. reports he has given up jelly beans, however, he does not stop drinking Sprite (soda) and he continues to drink 2-3 cans per day. Has history of exertion asthma and has been on prednisone for years. He was on prednisone for 5 years. Also has history of COPD. Has been in and out of hospital for respiratory issues. Took a course of prednisone for a quick run of it recently about 1.5 months. Also has a sinus issue, had a sinus infection. Also has history of back pain and [facility] History [facility] and [facility]. He has been sober since 1983. Source of referral/primary care provider: (X) Outpatient Name of Referring Provider: Dr. Granados Living arrangements: X Alone Possible barriers to learning: X None Diabetes health history: Years old at diagnosis Diagnosed: Type of diabetes: X PRE diabetes- last visit, started talking about it. No family members have diabetes, as far as he knows. Father had heart condition Mother had Parkinson Allergies: No Allergy Assessment Substance use/abuse: X Cigarettes- quit after a year after being sober, in 1984 Alcohol- quit in 1983 X Other- smoked dope and marijuana in the past and has been sober in 1983 DIABETIC-RELATED CHRONIC COMPLICATIONS EYES: X Cataracts- had surgery 4 years ago for both eyes. Comments: Appt next month. 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 KIDNEYS: Comments: Was sick for 3 days and was very sick. His creatinine was elevated 7.9 and he was sent to [facility]. FEET/LEGS/SKIN: Does not see diamond powder technician. Comments: Has sciatica pain in left leg (seeing Dr. Johnson). CARDIOVASCULAR/CEREBROVASCU LAR: X Hypertension Comments: Father history had heart disease, since he was a young child. 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 Feeling that I am failing my diabetes routine. DIABETES MANAGEMENT Diet In the last 12 months, were there times when the food for you just did not last and there was no money to buy more? Current Meal Plan: breakfast: coffee with sugar and half and half; will eat at the diner and have eggs and sometimes yogurt (activia); or toast and sometimes will cook eggs. lunch: big y and will eat off hot bar (ribs, or chicken nuggets or popcorn chicken, fish, dinner: May only have 2 meals per day and snack during the day. snacks: cut up watermelon and Beverages consumed: He will drink 2 Sprites per day and does not want to give this up. He already gave up jelly beans. Goal weight desired: lbs Exercise/activity: Type: Not a very active person and has helped a friend with shoveling out of her driveway. However, he enjoys sitting in his chair and playing games. DIABETES MEDICATIONS: Not being treated with Diabetes Medications. History of hypoglycemia: Not at risk of hypoglycemia. Monitoring: Downloaded meter today and report reveals: Name: Genaro Wesley : 1955 ID: [id number] Information from [facility] on 07/06/2023 Patient Name: Genaro Wesley Date Range: 04/08/2023 - 07/06/2023 bG values are displayed in mg/dL # of tests 22 Average 117 SD 15.2 Highest 149 Lowest 96 Avg tests/day 0.2 # HI 0 # LO 0 <70 0.0% 70-140 90.9% >140 9.1% Hypos(<69) 0 Date Range: 04/08/2023 - 07/06/2023 bG values are displayed in mg/dL 00:00- 05:30- 08:00- 11:00- 12:30- 17:00- 18:30- 21:30- 05:30 08:00 11:00 12:30 17:00 18:30 21:30 00:00 04/28/2023 100 Isabella 04/30/2023 126 05/01/2023 136 05/05/2023 149 05/09/2023 116 05/12/2023 111 Isabella 05/14/2023 123 05/20/2023 110 05/22/2023 96 05/26/2023 129 Isabella 05/28/2023 112 06/02/2023 117 06/05/2023 98 Mon 06/08/2023 120 06/10/2023 113 06/14/2023 97 Isabella 06/18/2023 135 06/24/2023 143 06/26/2023 129 06/30/2023 103 Isabella 07/02/2023 103 07/06/2023 109 Date Range: 04/08/2023 - 07/06/2023 bG values are displayed in mg/dL 00:00- 05:30- 08:00- 11:00- 12:30- 17:00- 18:30- :30- 05:30 08:00 11:00 12:30 17:00 18:30 21:30 00:00 # of tests 0 1 5 0 5 1 8 2 Average 0 135 106 0 113 136 119 130 SD 0 12.1 8.3 0 16.8 18.4 Hi/Lo 0 0 0 0 0 0 0 0 Date Range: 04/08/2023 - 07/06/2023 bG values are displayed in mg/dL 04/28/2023 3:13 PM 100 04/30/2023 8:17 AM 126 05/01/2023 5:55 PM 136 05/05/2023 8:47 PM 149 05/09/2023 4:19 PM 116 05/12/2023 8:53 PM 111 05/14/2023 3:55 PM 123 05/20/2023 9:01 PM 110 05/22/2023 8:27 AM 96 05/26/2023 8:34 PM 129 05/28/2023 3:05 PM 112 06/02/2023 9:48 PM 117 06/05/2023 9:49 AM 98 06/08/2023 6:45 PM 120 06/10/2023 1:07 PM 113 06/14/2023 8:04 PM 97 06/18/2023 6:52 AM 135 06/24/2023 9:31 PM 143 06/26/2023 8:56 PM 129 06/30/2023 10:06 AM 103 07/02/2023 7:23 PM 103 07/06/2023 8:45 AM 109 End of information from [employer] [facility] SMBG/ What are your BG targets? Fastin-130 mg/dl; 2 hours after meals: 140-180 mg/dl Sensor Glucose/What are your SG TIR targets? 70% What is your A1c target? 7.0% Learning limitations/special education needs: None Cultural influences: None Health beliefs/attitudes/feelings about diabetes: Does not want to give up food or drinks that he likes. Will significant other participate in program? No ASSESSMENT: Kindly referred by Dr. Granados. Last seen by Endocrine in March and Diabetes Education in April. Last A1C was 5.0% in March. Reports he is on IGG infusions for Carcinoid tumors. Currently not being treated with medication for his pre-diabetes. He was told he had pre-diabetes in March of this year. Currently checks his glucose with meter, however, he admits he does not enjoy pricking his finger and he hates needles. He has blood work done once a month when he is visiting with his oncologist, therefore, he questions if he could watch his blood work with them and if something starts to look out of control, he could check his glucose with his meter. We agreed that this would be okay. We also agreed that if he had symptoms of feeling tired, increased thirst, urination would be another reason to check his glucose or if there were any changes with his diet. He continues to keep the jelly beans out of his diet, however, he has not cut out the Sprite (soda) from his diet. He will drink between 2-3 cans per day. We discussed how to prevent the progression of diabetes with lifestyle changes. Reviewed how we offer an online pre-diabetes class at the [facility] for [place] and he would only be interested if his glucose levels increase more then he will consider it. is scheduled to see Endocrine in September and follow up with Diabetes Education on a PRN basis. Education plan/goals/objectives: Assessment/Scale: 1= needs instruction; 2= needs review; 3= comprehends marshall points; 4= demonstrates understanding/competency; NC= Not covered; N/A= not applicable Topics Learning Objectives: Diabetes Pathophysiology (define diabetes and identify own type of diabetes; list 2 options for treating diabetes) Dates Covered & Assessment: 04/28/23; 07/06/23; Healthy Eating (Describe effect of type, amount and timing of food on blood glucose; list 3 methods for planning meals) Dates Covered & Assessment: 04/28/23; 07/06/23; Being Active (State effect of exercise on blood glucose levels) Dates Covered & Assessment: 04/28/23; 07/06/23; Taking Medication (State effect of diabetes medicines on diabetes; name diabetes medication taking, action and side effects) Dates Covered & Assessment: 04/28/23; 07/06/23; Monitoring Glucose (Identify recommended blood glucose targets and personal targets) Dates Covered & Assessment: 04/28/23; 07/06/23; Acute Complications (List symptoms and treatment of hyper- and hypoglycemia, DKA, sick day guidelines and guidelines for severe weather or situation crisis and diabetes supply management) Dates Covered & Assessment: 04/28/23; 07/06/23; Chronic Complications (Define the relationship of blood glucose levels to bed bug exterminator complications of diabetes and screening and preventative measures) Dates Covered & Assessment: 04/28/23; 07/06/23; Lifestyle and Healthy Coping (Describe life style and healthy coping strategies to promote diabetes self-management) Dates Covered & Assessment: 04/28/23; 07/06/23; Diabetes Distress and Support (Recognize diabetes Distress and be able to identify support options) Dates Covered & Assessment: 04/28/23; 07/06/23; HEALTH GOAL #1: In order to meet this goal, I will: Check glucose based on monthly blood work with oncology. HEALTH GOAL #2: In order to meet this goal, I will: Continue watch diet to prevent the progression or the development of diabetes. Clinical or Quality of Life outcome baseline: TEACHING MATERIALS GIVEN: Education: -Reviewed target blood sugars. -Reviewed benefits of checking glucose. -Reviewed when to check glucose. -Reviewed how lifestyle changes help to prevent development of diabetes. INSTRUCTIONS GIVEN TO : -Check glucose based on results of your monthly oncology results. -Continue to bring meter to appointments for download. -Consider cutting back on soda intake. -Please call with any questions or concerns. -Follow up on an as needed basis. Patient/Family Verbalized Understanding FUTURE APPOINTMENTS: 08/03/2023 09:30 CWM/NO/OPTOMETRY 1 AM 08/07/2023 09:45 CWM/NO/DENTAL/RDH1 AM 08/18/2023 09:00 CWM/NO/MED REHAB INJECTIO 09/21/2023 09:00 NHM/ENDOCRINE 12/07/2023 10:00 CWM/NO/PACT 2 DM type is : Pre-diabetes Length of Visit: 60 minutes /alicia/ RENITA VELAZCO RN,BSN, [facility] DIABETES UTILITY BAG ASSEMBLER, RN Signed: 07/06/2023 16:43 RENITA VELAZCO [facility]
--- OUTSIDE RECORDS SUMMARY | 2024-06-22 11:28 | XMS_ITS | Encounter Summary ---
Author Name [facility] [place] Organization [facility] [place] Address [address] [place] [address] Care Team Providers Care Alpine Guide Name Role Phone RAFAEL MEJIA Primary Care [...] PART A May 04, 2019 PART A [id number] Alicia RUVALCABA PATIENT Selected Encounter This section includes the information on record at [place] for the Encounter. Date/Time Encounter Type Encounter Description Reason Pro vider Source Jun 15, 2024 08:25 AM Outpatient Encounter DENTAL IHE Encounter Template Text not used by [facility] Plan of Treatment: Future Appointments (+ 6 [...] 20 appointments. The data comes from all [place] treatment facilities. Appointment Date/Time Appointment Type Appointme nt Facility Name Jun 16, 2024 09:30 AM AMBULATORY - NONE [facility] [place] [facility] Jun 22, 2024 10:45 AM AMBULATORY - MEDICINE [facility] [place] [facility] Jul 05, 2024 03:30 PM AMBULATORY - MEDICINE [place] [place] [facility] Aug 03, 2024 [...] of theEncounter. The data comes from all [place] treatment [facility]. Test Date/Time Test Type Test Details Facility Name Jun 05, 2024 07:18 PM Consult Order COMMUNITY CARE-PULMONARY Cons Nurse Obgyn's Choice [place] [facility] [place] [facility] Social History: Smoking Status (Most current) and Tobacco Use (All prior to encounter date) This section includes the most current, and the historical, smoking and tobacco- related health factors from the [facility] facility where the Encounter took place. Current Smoking Status This section includes the most current smoking, or tobacco-related health factor, from the [place] facility where the Encounter took place. Date/Time Current Smoking Status Comment [facility] Jun 08, 2023 10:00 AM VA-TOBACCO FORMER USER [place] [facility] [place] [facility] Tobacco Use History This section includes a history of the smoking, or tobacco-related health factors, that were collected on or before the date of the Encounter. The data comes from the [place] facility where the Encounter took place. Date/Time Smoking Status/Tobac co Use Comment Facility Jun 08, 2023 10:00 AM VA-TOBACCO QUIT 15 YRS OR MORE [place] [facility] [place] [facility] Jun 09, 2022 10:30 AM VA-TOBACCO FORMER USER [place] [facility] [place] [facility] Jun 09, 2022 10:30 AM VA-TOBACCO QUIT 15 YRS OR MORE [facility] [place] [facility] Jun 14, 2021 09:00 AM VA-TOBACCO FORMER USER [place] [facility] [place] [facility] Jun 14, 2021 09:00 AM VA-TOBACCO QUIT 15 YRS OR MORE [facility] [place] [facility] Feb 03, 2020 01:00 PM VA-TOBACCO FORMER USER [place] [facility] [place] [facility] Feb 03, 2020 01:00 PM VA-TOBACCO QUIT 15 YRS OR MORE [facility] [place] [facility] Feb 02, 2019 11:49 AM VA-TOBACCO FORMER USER [place] [facility] [place] [facility] Feb 02, 2019 11:49 AM VA-TOBACCO QUIT 15 YRS OR MORE [facility] [place] [facility] May 13, 2017 10:12 AM LIFETIME NON-TOBACCO USER [place] [facility] [place] [facility] Jun 11, 2016 10:31 AM QUIT TOBACCO USE > 7 YEARS AGO [place] [facility] [place] [facility] Jun 21, 2015 12:49 PM QUIT TOBACCO USE > 7 YEARS AGO pt states he quit smoking 30 yr ago. [place] [facility] [place] [facility] Jul 18, 2004 08:23 AM HISTORY OF SMOKING Smoke free since 1989 [place] [facility] [place] [facility] May 11, 2003 02:17 PM HISTORY OF SMOKING quit smoking 15 years ago [place] [facility] [place] [facility] May 11, 2003 02:17 PM QUIT TOBACCO USE > 7 YEARS AGO quit smoking 15 years ago [facility] Advance Directives: All historical and current Section Date Range: From patient's date of to the date document was created. This section includes ALL of a patient's completed or amended [place] Advance and Rescinded Directives. The entries below indicate that a directive exists for the patient, but an actual copy is not included with this document. The data comes from all [place] facilities. Date Advance Directives Provider Source Nov 26, 2020 ADVANCE DIRECTIVE GARY GUNTER [facility] Jan 25, 2017 ADVANCE DIRECTIVE RAFALE MEJIA [facility] Apr 06, 2009 ADVANCE DIRECTIVE KHAI BADILLO [facility] Radiology Reports: +/- 30 days of [...] the Encounter. The data comes from all [place] treatment facilities. Date/Time Radiology Report Provider Source Jun 10, 2024 09:29 AM HAND3 OR MORE VIEWS(RIGHT): GENARO RUVALCABA [id number] -1955 M Ex Date: JUN 10, 2024@09:29 Req Phys: RAFAEL MEJIA Pat Loc: [facility] PACT 2 MD (Req'g Loc) [facility] [place] Loc: [facility] 1 Service: [place] [address] (Case [id number] COMPLETE) HAND3 OR MORE VIEWS(RIGHT) (RAD Detailed) CPT:24967 Reason for Study: pain finger#3 Clinical History: Report Status: Verified Date Reported: JUN 10, 2024 Date Verified: JUN 10, 2024 Supervisor Production Managing E-Sig:/ES/PAULA ALCARAZ JR Report: Study: AP, lateral [...] Primary Interpreting Staff: PAULA ALCARAZ JR, Radiologist (Supervisor Production Managing) /PAULA RUDOLPH JR [facility] Encounter Notes: All associated encounter notes This section contains the clinical notes associated to the Encounter. Date/Time Encounter Note(s) Provider Source Jun 15, 2024 08:25 AM DENTISTRY TELEPHON E ENCOUNTER NOTE: LOCAL TITLE: TELEPHONE NOTE/DENTAL STANDARD TITLE: DENTISTRY TELEPHONE ENCOUNTER NOTE DATE OF NOTE: JUN 15, 2024@08:25 ENTRY DATE: JUN 15, 2024@08:25:07 AUTHOR: BILLIE HERRMANN EXP COSIGNER: URGENCY: STATUS: COMPLETED Called pt and LM to confirm dental appointment on 06/16/2024 at 9:30 am. /alicia/ BILLIE HERRMANN ADVANCED COMPENSATION EXPERT Signed: 06/15/2024 08:27 BILLIE HERRMANN [facility]
--- OUTSIDE RECORDS SUMMARY | 2024-06-22 11:28 | XMS_ITS ---
Author Name [facility] [place] [facility] [place] Organization [facility] [place] Address [address] [place] [address] Care Team Providers Care Slope Runner Name Role Phone RAFAEL MEJIA Primary Care [...] PART A May 04, 2019 PART A [id number] Alicia RUVALCABA PATIENT Selected Encounter This section includes the information on record at [place] for the Encounter. Date/Time Encounter Type Encounter Description Reason Provider Source Jun 16, 2024 09:30 AM REMOVABLE PROSTHODONTIC PROC DENTAL ICD-10-CM K08.9 Disorder of teeth and supporting structures, unspecified ARGELIA GODFREY Moses Encounter Template Text not used by [place] Assessments - Encounter Diagnoses This section includes the primary and secondary diagnoses documented for the Encounter. Date/Time Primary/Secondary Diagnosis Diagnosis Name Provider Source Jun 16, 2024 10:11 AM PRIMARY Disorder of teeth and supporting structures, unspecified ARGELIA GODFREY [facility] [place] [facility] Plan of Treatment: Future Appointments (+ 6 months) and Future Tests (+/- 45 days) The Plan of Treatment section includes future care activities for the patient from all [place] [facility] This section includes future appointments and future orders which are active, pending or scheduled. Future Appointments This section includes appointments that were scheduled to occur 6 months from the date of the Encounter, up to a maximum of 20 appointments. The data comes from all [facility] facilities. Appointment Date/Time Appointment Type Appointme nt Facility Name Jun 22, 2024 10:45 AM AMBULATORY - MEDICINE [facility] [place] [facility] Jul 05, 2024 03:30 PM AMBULATORY - MEDICINE [facility] [place] [facility] Aug 03, 2024 11:00 AM AMBULATORY - NONE [place] [facility] [place] [facility] Aug 08, 2024 09:30 AM AMBULATORY - MEDICINE [place] [facility] [place] [facility] Aug 16, 2024 09:45 AM AMBULATORY - NONE [facility] [place] [facility] Aug 22, 2024 10:30 AM AMBULATORY - MEDICINE [facility] [place] [facility] Aug 24, 2024 01:00 PM AMBULATORY - REHAB MEDICIN E [facility] [place] [facility] September 19, 2024 10:00 AM AMBULATORY - MEDICINE [place] [facility] [place] [facility] September 29, 2024 11:00 AM AMBULATORY - NONE [facility] [place] [facility] Nov 08, 2024 09:00 AM AMBULATORY - NONE [facility] [place] [facility] Nov 16, 2024 10:00 [facility] [place] [facility] Active, Pending, and Scheduled Orders This section includes a listing of several types of active, pending, and scheduled orders, including clinic medications orders, diagnostic test orders, procedure orders and consult orders; where the start date of the order is 45 days before the date of the Encounter or 45 days after the date of theEncounter. The data comes from all [facility] [address] [facility]. Test Date/Time Test Type Test Details Facility Name Jun 05, 2024 07:18 PM Consult Order COMMUNITY CARE-PULMONARY Cons Weight Recorder's Choice [facility] [place] [facility] Social History: Smoking Status (Most current) and Tobacco Use (All prior to encounter date) This section includes the most current, and the historical, smoking and tobacco- related health factors from the [place] facility where the Encounter took place. Current Smoking Status This section includes the most current smoking, or tobacco-related health factor, from the [place] facility where the Encounter took place. Date/Time Current Smoking Status Comment [facility] Jun 08, 2023 10:00 AM VA-TOBACCO FORMER USER [place] [facility] [place] [facility] Tobacco Use History This section includes a history of the smoking, or tobacco-related health factors, that were collected on or before the date of the Encounter. The data comes from the [place] facility where the Encounter took place. Date/Time Smoking Status/Tobac co Use Comment Facility Jun 08, 2023 10:00 AM VA-TOBACCO QUIT 15 YRS OR MORE [facility] [place] [facility] Jun 09, 2022 10:30 AM VA-TOBACCO FORMER USER [facility] [place] [facility] Jun 09, 2022 10:30 AM VA-TOBACCO QUIT 15 YRS OR MORE [facility] [place] [facility] Jun 14, 2021 09:00 AM VA-TOBACCO FORMER USER [place] [facility] [place] [facility] Jun 14, 2021 09:00 AM VA-TOBACCO QUIT 15 YRS OR MORE [facility] [place] [facility] Feb 03, 2020 01:00 PM VA-TOBACCO FORMER USER [facility] [place] [facility] Feb 03, 2020 01:00 PM VA-TOBACCO QUIT 15 YRS OR MORE [facility] [place] [facility] Feb 02, 2019 11:49 AM VA-TOBACCO FORMER USER [facility] [place] [facility] Feb 02, 2019 11:49 AM VA-TOBACCO QUIT 15 YRS OR MORE [facility] [place] [facility] May 13, 2017 10:12 AM LIFETIME NON-TOBACCO USER [facility] [place] [facility] Jun 11, 2016 10:31 AM QUIT TOBACCO USE > 7 YEARS AGO [facility] [place] [facility] Jun 21, 2015 12:49 PM QUIT TOBACCO USE > 7 YEARS AGO pt states he quit smoking 30 yr ago. [facility] [place] [facility] Jul 18, 2004 08:23 AM HISTORY OF SMOKING Smoke free since 1989 [facility] May 11, 2003 02:17 PM HISTORY OF SMOKING quit smoking 15 years ago [facility] May 11, 2003 02:17 PM QUIT TOBACCO USE > 7 YEARS AGO quit smoking 15 years ago [facility] Advance Directives: All historical and current Section Date Range: From patient's date of to the date document was created. This section includes ALL of a patient's completed or amended [place] Advance and Rescinded Directives. The entries below indicate that a directive exists for the patient, but an actual copy is not included with this document. The data comes from all [place] facilities. Date Advance Directives Provider Source Nov 26, 2020 ADVANCE DIRECTIVE GARY GUNTER [facility] Jan 25, 2017 ADVANCE DIRECTIVE RAFAEL MEJIA [facility] Apr 06, 2009 ADVANCE DIRECTIVE KHAI BADILLO [facility] Radiology Reports: +/- 30 days of the [...] the Encounter. The data comes from all [place] treatment facilities. Date/Time Radiology Report Provider Source Jun 10, 2024 09:29 AM HAND3 OR MORE VIEWS(RIGHT): GENARO RUVALCABA [id number] -1955 M Exm Date: JUN 10, 2024@09:29 Req Phys: RAFAEL MEJIA Pat Loc: [facility] PACT 2 MD (Req'g Loc) Im Loc: [facility] 1 Service: Unknown [facility] [place] [id number] (Case [id number] COMPLETE) HAND3 OR MORE VIEWS(RIGHT) (RAD Detailed) CPT:86125 Reason for Study: pain finger#3 Clinical History: Report Status: Verified Date Reported: JUN 10, 2024 Date Verified: JUN 10, 2024 Braille Operator E-Sig:/ES/PAULA ALCARAZ JR Report: Study: AP, lateral [...] Primary Interpreting Staff: PAULA ALCARAZ JR, Radiologist (Braille Operator) /PAULA RUDOLPH JR [facility] Encounter Notes: All associated encounter notes This section contains the clinical notes associated to the Encounter. Date/Time Encounter Note(s) Provider Source Jun 16, 2024 10:09 AM DENTISTRY NOTE: LOCAL TITLE: DENTAL NOTE STANDARD TITLE: DENTISTRY NOTE DATE OF NOTE: JUN 16, 2024@10:09 ENTRY DATE: JUN 16, 2024@10:11:30 AUTHOR: ARGELIA GODFREY COSIGNER: URGENCY: STATUS: COMPLETED Patient Name: GENARO RUVALCABA, : 1955, Age: 69 Visit: S: Jun 16, 2024@09:30 [facility] DENTAL DMD 3 AM. Primary PCE Diagnosis: K08.9 (DISORDER OF TEETH AND SUPPORTING STRUCTURES, UNSPECIFIED). Dental Category: 15-OPC, Class IV. Treatment Status: Maintenance. Planned Procedures: Unsequenced (D5110) DENTURES COMPLETE MAXILLARY: Upper. DX: (). Sequencing Notes: 02/17/2017: Patient declines having a lower partial denture made. Says he had one many years ago and did not like it, says he feels it loosens his teeth and arms around teeth are uncomfortable. Completed Care: ([id number]) MANDIBULAR PART DENTURE FLEX. DX: K08.9 Disorder of Teeth and Supporting Structures, unspecified (D5899) REMOVABLE PROSTHODONTIC PROC. DX: K08.9 Disorder of Teeth and Supporting Structures, unspecified - - - - - - - - - - - - - - - - - - - - - - - - - - - - - - The patient was identified by full name and social security number Reviewed the patient's medical/dental history, medications and allergies. I performed medication reconciliation within the scope of my practice. All medications related to dentistry are up to date. Discussed above proposed treatment plan. Patient understands and agrees with the treatment plan. Patient presents for /V partial denture delivery appointment. The mandibular partial denture was seated intra-orally and were evaluated using PIP and adjusted to confirm the following: - no overcontoured pressure areas - Acceptable esthetics and phonetics, stability/retention Patient stated that the fit is ok but the bite is off will take impression for wax rim. Patient would like to keep it as immediate for now. The maxillary custom impression tray was adapted intra-orally to the respective arches and overextended flanges were recontoured in preparation for the final impressions.All areas with significant under-extensions were border-molded intra-orally using the following dental material: PVS monophase Final impressions were completed using the following impression material: PVS monophase Next appointment: Jaw Relation Records, Tooth mould and shade selection,t+6w,90mins /alicia/ ARGELIA GODFREY DMD Staff Dentist Signed: 06/16/2024 10:11 ARGELIA GODFREY [facility]
--- OUTSIDE RECORDS SUMMARY | 2024-06-22 11:29 | XMS_ITS ---
Author Name [facility] [place] Address [address] [place] [address] Care Team Providers Care Impregnator Operator Name Role Phone RAFAEL MEJIA Primary [...] PART A May 04, 2019 PART A [id number] Alicia RUVALCABA PATIENT Selected Encounter This section includes the information on record at [place] for the Encounter. Date/Time Encounter Type Encounter Description Reason Provider Source May 09, 2024 01:30 PM MECHANICAL TRACTION THERAPY DISPATCHER RADIO ICD-10-CM M54.59 Other low back pain YASSINE HU Moses Encounter Template Text not used by [place] Assessments - Encounter Diagnoses This section includes the primary and secondary diagnoses documented for the Encounter. Date/Time Primary/Secondary Diagnosis Diagnosis Name Provider Source May 09, 2024 01:56 PM PRIMARY Other low back pain YASSINE HU [facility] May 09, 2024 01:56 PM SECONDARY Pain in thoracic spine YASSINE HU [place] [facility] [place] [facility] Plan of Treatment: Future Appointments (+ 6 months) and Future Tests (+/- 45 days) The Plan of Treatment section includes future care activities for the patient from all [place] [facility]. This section includes future appointments and future orders which are active, pending or scheduled. Future Appointments This section includes appointments that were scheduled to occur 6 months from the date of the Encounter, up to a maximum of 20 appointments. The data comes from all [place] treatment facilities. Appointment Date/Time Appointment Type Appointme nt Facility Name May 12, 2024 11:45 AM AMBULATORY - MEDICINE [facility] [place] [facility] Jun 16, 2024 09:30 AM AMBULATORY - NONE [facility] [place] [facility] Jun 22, 2024 10:45 AM AMBULATORY - MEDICINE [place] [facility] [place] [facility] Jul 05, 2024 03:30 PM AMBULATORY - MEDICINE [facility] Aug 03, 2024 11:00 AM AMBULATORY - NONE [facility] [place] [facility] Aug 08, 2024 09:30 AM AMBULATORY - MEDICINE [facility] [place] [facility] Aug 16, 2024 09:45 AM AMBULATORY - NONE [facility] [place] [facility] Aug 22, 2024 10:30 AM AMBULATORY - MEDICINE [facility] [place] [facility] Aug 24, 2024 01:00 PM AMBULATORY - REHAB MEDICIN E [facility] [place] [facility] September 19, 2024 10:00 AM AMBULATORY - MEDICINE [place] [facility] [place] [facility] September 29, 2024 11:00 AM AMBULATORY - NONE [place] [facility] [place] [facility] Active, Pending, and Scheduled Orders This section includes a listing of several types of active, pending, and scheduled orders, including clinic medications orders, diagnostic test orders, procedure orders and consult orders; where the start date of the order is 45 days before the date of the Encounter or 45 days after the date of theEncounter. The data comes from all [place] treatment facilities. Test Date/Time Test Type Test Details Facility Name Jun 05, 2024 07:18 PM Consult Order COMMUNITY CARE-PULMONARY Cons Steel Construction Worker's Choice [place] [facility] [place] [facility] Social History: Smoking Status (Most current) and Tobacco Use (All prior to encounter date) This section includes the most current, and the historical, smoking and tobacco- related health factors from the [place] facility where the Encounter took place. Current Smoking Status This section includes the most current smoking, or tobacco-related health factor, from the [place] facility where the Encounter took place. Date/Time Current Smoking Status Comment [facility] Jun 08, 2023 10:00 AM VA-TOBACCO FORMER USER [place] [facility] [place] [facility] Tobacco Use History This section includes a history of the smoking, or tobacco-related health factors, that were collected on or before the date of the Encounter. The data comes from the [place] facility where the Encounter took place. Date/Time Smoking Status/Tobac co Use Comment Facility Jun 08, 2023 10:00 AM VA-TOBACCO QUIT 15 YRS OR MORE [place] [facility] [place] [facility] Jun 09, 2022 10:30 AM VA-TOBACCO FORMER USER [facility] [place] [facility] Jun 09, 2022 10:30 AM VA-TOBACCO QUIT 15 YRS OR MORE [facility] [place] [facility] Jun 14, 2021 09:00 AM VA-TOBACCO FORMER USER [place] [facility] [place] [facility] Jun 14, 2021 09:00 AM VA-TOBACCO QUIT 15 YRS OR MORE [facility] [place] [facility] AM VA-TOBACCO QUIT 15 YRS OR MORE [facility] [place] [facility] May 13, 2017 10:12 AM LIFETIME NON-TOBACCO USER [facility] [place] [facility] Jun 11, 2016 10:31 AM QUIT TOBACCO USE > 7 YEARS AGO [facility] [place] [facility] Jun 21, 2015 12:49 PM QUIT TOBACCO USE > 7 YEARS AGO pt states he quit smoking 30 yr ago. [facility] Jul 18, 2004 08:23 AM HISTORY OF SMOKING Smoke free since 1989 [facility] May 11, 2003 02:17 PM HISTORY OF SMOKING quit smoking 15 years ago [facility] May 11, 2003 02:17 PM QUIT TOBACCO USE > 7 YEARS AGO quit smoking 15 years ago [facility] Advance Directives: All historical and current Section Date Range: From patient's date of to the date document was created. This section includes ALL of a patient's completed or amended [place] Advance and Rescinded Directives. The entries below indicate that a directive exists for the patient, but an actual copy is not included with this document. The data comes from all [place] facilities. Date Advance Directives Provider Source Nov 26, 2020 ADVANCE DIRECTIVE GARY GUNTER [facility] Jan 25, 2017 ADVANCE DIRECTIVE RAFAEL MEJIA [facility] Apr 06, 2009 ADVANCE DIRECTIVE KHAI BADILLO [facility] Radiology Reports: +/- 30 days of the [...] the Encounter. The data comes from all [place] treatment facilities. Date/Time Radiology Report Provider Source May 05, 2024 10:04 AM BONE DENSITY AXIAL HIPS,PELVIS.SPINE: GENARO RUVALCABA [id number] -1955 M Exm Date: MAY 05, 2024@10:04 Req Phys: KAL GRANADOS Loc: NHM/ENDOCRINE (Req'g Loc) Img Loc: [facility] 1 Service: Unknown [facility] SANDRA HERRERA [id number] (Case 102 COMPLETE) BONE DENSITY AXIAL HIPS,PELVIS.SP(RAD Detailed) CPT:07327 Reason for Study: osteoporosis Clinical History: Report Status: Verified Date Reported: MAY 05, 2024 Date Verified: MAY 05, 2024 Rivet Machine Operator E-Sig:/ES/JEREMIE CERRATO Report: DXA BONE DENSITY AXIAL [...] Primary Interpreting Staff: JEREMIE CERRATO, Staff Physician (Chuy) /JEREMIE GRANT [facility] Encounter Notes: All associated encounter notes This section contains the clinical notes associated to the Encounter. 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 At the same time gall bladder removed. [facility] and reports that he saw MAUREEN Piña and a FU injection is schedules. He states that his thoracic area is feeling better. Patient rates the pain 4/10 which is lower that at initial visit. After he shovelled snow the sx [...] lost 15 lbs during medical problems/procedures. Prior health care administrator: years ago which was helpful Exercise/Activities: None [...] Supine gluteal stretching as per palpation Objectives 05/09/24 Hypertonic lumbar paraspinal mm rambo Restrictions T/L [...] core stability, balance, and pain modulation. Plan: will follow with med Rehab Visit 3 F/U will call if needed Seek urgent care as needed. CMT: chiropractic manipulative therapy SMT: Spinal Manipulative Therapy F/D: Flexion Distraction MFR: Myofascial Release S-I: Sacroiliac MFTP: Myofascial Trigger Point NRS: Numeric Rating Scale N/T: Numbness/Tingling PIR: Post isometric relaxation /es/ YASSINE HU D.C. CHIROPRACTOR Signed: 05/09/2024 13:56 YASSINE HU [facility]
--- OUTSIDE RECORDS SUMMARY | 2024-06-22 11:29 | XMS_ITS ---
Author Name [facility] [place] Address [address] [place] [address] Care Team Providers Care Library Technician Name Role Phone RAFAEL MEJIA Primary [...] PART A May 04, 2019 PART A [id number] Alicia RUVALCABA PATIENT Selected Encounter This section includes the information on [place] at [place] for the Encounter. Date/Time Encounter Type Encounter Description Reason Provider Source May 05, 2024 01:00 PM EDU&TRN PT SELF-MGMT NQHP 1 SLEEP MEDICINE ICD-10-CM G47.[address], [address] [facility] IHMoses Encounter Template Text not used by [place] Assessments - Encounter Diagnoses This section includes the primary and secondary diagnoses documented for the Encounter. Date/Time Primary/Secondary Diagnosis Diagnosis Name Provider Source May 05, 2024 02:08 PM PRIMARY Sleep apnea, unspecified ST AMANT,TREY P [place] [facility] [place] [facility] Plan of Treatment: Future Appointments (+ 6 months) and Future Tests (+/- 45 days) The Plan of Treatment section includes future care activities for the patient [facility] [place] [facility] [place] This section includes future appointments and future orders which are active, pending or scheduled. Future Appointments This section includes appointments that were scheduled to occur 6 months from the date of the Encounter, up to a maximum of 20 appointments. The data comes from all [place] treatment facilities. Appointment Date/Time Appointment Type Appointme nt Facility Name May 06, 2024 03:00 PM AMBULATORY - MEDICINE [facility] [place] [facility] May 09, 2024 01:30 PM AMBULATORY - MEDICINE [facility] [place] [facility] May 12, 2024 11:45 AM AMBULATORY - MEDICINE [facility] [place] [facility] Jun 16, 2024 09:30 AM AMBULATORY - NONE [facility] [place] [facility] Jun 22, 2024 10:45 AM AMBULATORY - MEDICINE [facility] [place] [facility] Jul 05, 2024 03:30 PM AMBULATORY - [place]ICINE [place] [facility] Aug 03, 2024 11:00 AM AMBULATORY - NONE [facility] [place] [facility] Aug 08, 2024 09:30 AM AMBULATORY - MEDICINE [facility] [place] [facility] Aug 16, 2024 09:45 AM AMBULATORY - NONE [facility] [place] [facility] Aug 22, 2024 10:30 AM AMBULATORY - MEDICINE [facility] [place] [facility] Aug 24, 2024 01:00 PM AMBULATORY - REHAB MEDICIN E [facility] [place] [facility] September 19, 2024 10:00 AM AMBULATORY - MEDICINE [facility] [place] [facility] September 29, 2024 11:00 AM AMBULATORY - NONE [facility] [place] [facility] Active, Pending, and Scheduled Orders This section includes a listing of several types of active, pending, and scheduled orders, including clinic medications orders, diagnostic test orders, procedure orders and consult orders; where the start date of the order is 45 days before the date of the Encounter or 45 days after the date of theEncounter. The data comes from all [place] treatment facilities. Test Date/Time Test Type Test Details Facility Name Mar 21, 2024 04:25 PM Consult Order COMMUNITY CARE-INFUSION Cons Policy Advisor's Choice [facility] [place] [facility] Jun 05, 2024 07:18 PM Consult Order COMMUNITY CARE-PULMONARY Cons Policy Advisor's Choice [facility] [place] [facility] Social History: Smoking Status (Most current) and Tobacco Use (All prior to encounter date) This section includes the most current, and the historical, smoking and tobacco- related health factors from the [place] facility where the Encounter took place. Current Smoking Status This section includes the most current smoking, or tobacco-related health factor, from the [place] facility where the Encounter took place. Date/Time Current Smoking Status Comment [facility] Jun 08, 2023 10:00 AM VA-TOBACCO FORMER USER [place] [facility] [place] [facility] Tobacco Use History This section includes a history of the smoking, or tobacco-related health factors, that were collected on or before the date of the Encounter. The data comes from the [place] facility where the Encounter took place. Date/Time Smoking Status/Tobac co Use Comment Facility Jun 08, 2023 10:00 AM VA-TOBACCO QUIT 15 YRS OR MORE [facility] [place] [facility] Jun 09, 2022 10:30 AM VA-TOBACCO FORMER USER [facility] [place] [facility] Jun 09, 2022 10:30 AM VA-TOBACCO QUIT 15 YRS OR MORE [facility] [place] [facility] Jun 14, 2021 09:00 AM VA-TOBACCO FORMER USER [facility] [place] [facility] Jun 14, 2021 09:00 AM VA-TOBACCO QUIT 15 YRS OR MORE [facility] [place] [facility] Feb 03, 2020 01:00 PM VA-TOBACCO FORMER USER [facility] [place] [facility] Feb 03, 2020 01:00 PM VA-TOBACCO QUIT 15 YRS OR MORE [facility] [place] [facility] Feb 02, 2019 11:49 AM VA-TOBACCO FORMER USER [facility] [place] [facility] Feb 02, 2019 11:49 AM VA-TOBACCO QUIT 15 YRS OR MORE [facility] [place] [facility] May 13, 2017 10:12 AM LIFETIME NON-TOBACCO USER [facility] Jun 11, 2016 10:31 AM QUIT TOBACCO USE > 7 YEARS AGO [facility] Jun 21, 2015 12:49 PM QUIT TOBACCO USE > 7 YEARS AGO pt states he quit smoking 30 yr ago. [facility] Jul 18, 2004 08:23 AM HISTORY OF SMOKING Smoke free since 1989 [facility] May 11, 2003 02:17 PM HISTORY OF SMOKING quit smoking 15 years ago [facility] May 11, 2003 02:17 PM QUIT TOBACCO USE > 7 YEARS AGO quit smoking 15 years ago [facility] Advance Directives: All historical and current Section Date Range: From patient's date of to the date document was created. This section includes ALL of a patient's completed or amended [place] Advance and Rescinded Directives. The entries below indicate that a directive exists for the patient, but an actual copy is not included with this document. The data comes from all [place] facilities. Date Advance Directives Provider Source Nov 26, 2020 ADVANCE DIRECTIVE GARY GUNTER [facility] Jan 25, 2017 ADVANCE DIRECTIVE RAFAEL MEJIA [facility] Apr 06, 2009 ADVANCE DIRECTIVE KHAI BADILLO [facility] Radiology Reports: +/- 30 days of [...] the Encounter. The data comes from all [place] treatment facilities. Date/Time Radiology Report Provider Source May 05, 2024 10:04 AM BONE DENSITY AXIAL HIPS,PELVIS.SPINE: GENARO RUVALCABA [id number] -1955 M Exm Date: MAY 05, 2024@10:04 Req Phys: DARWINKALENRIQUE Talbot Loc: NHM/ENDOCRINE (Req'g Loc) Img Loc: [facility] 1 Service: Unknown [facility] SANDRA HERRERA [id number] (Case 102 COMPLETE) BONE DENSITY AXIAL HIPS,PELVIS.SP(RAD Detailed) CPT:50778 Reason for Study: osteoporosis Clinical History: Report Status: Verified Date Reported: MAY 05, 2024 Date Verified: MAY 05, 2024 Patient Experience Coordinator E-Sig:/ES/JEREMIE CERRATO Report: DXA BONE DENSITY AXIAL [...] JEREMIE CERRATO, Staff Physician (Chuy) /JEREMIE GRANT [facility] Encounter Notes: All associated encounter notes This section contains the clinical notes associated to the Encounter. Date/Time Encounter Note(s) Provider Source May 05, 2024 01:21 PM RESPIRATORY THERAPY CONSULT: LOCAL TITLE: CONSULT REPORT/RESPIRATORY THERAPY STANDARD TITLE: RESPIRATORY THERAPY CONSULT DATE OF NOTE: MAY 05, 2024@13:21 ENTRY DATE: MAY 05, 2024@13:21:12 AUTHOR: TREY DAWKINS EXP COSIGNER: URGENCY: STATUS: COMPLETED [facility] ([facility]) Standard Documentation [facility] Clinician Resources Only: E911 (Emergency Call Relay Center): [phone] National Veterans Crisis Line - 988 then press #1. KELBY Suicide Coordinator [phone], Ext. [phone]; Back-up Ext. [phone] [place] [phone] Introduction: Visit is being conducted by [place] [facility]. identified with 2 identifiers: [X] Full Name [X] Date of [ ] VA ID Card Emergency Plan: Kane confirmed and/or provided the following information in case of emergency or technology failure. PATIENT PHONE - PHONE NUMBER [CELLULAR] - Is patient phone number correct, if not, enter below: Kane's phone number: GENARO RUVALCABA [address] [place] [address] [address], [place], [address] 's present location and address for appointment: as above Kane's emergency contact name and phone number: SANDY BILL Kane reported that location is private and safe: Yes Informed Consent: Kane informed of the risks and benefits of Telehealth video care. has the right to refuse video services. If refuses video visit, a tbiq-ha-qtrz visit will be scheduled. verbalized consent for this video visit: Yes Kane provided consent for any other persons present for visit: No If yes, who and relationship to patient: Secure visit: Visit was locked for security and privacy:Yes Kane diagnosed with sleep apnea had [facility] visit to discuss recommendations from sleep specialist. Kane was offered and is agreeable to [facility] visit. had a CVT with [facility] sleep specialist. 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 He is symptomatic with snoring, nocturnal awakenings, and occasional daytime sleepiness. He would like to trial PAP therapy. Per [facility]: start APAP 5-15 cmH20 with N30i mask - once consistent CPAP use has been established, overnight oximetry testing on while using PAP is recommended to assess for residual hypoxia - if residual hypoxia or elevated AHI is seen on download, will proceed with titration study. We discussed sleep study findings and the dangers of untreated sleep apnea. Kane is agreeable to begin therapy. A ResMed Airsense 11 set to APAP 5-15 cmH2O with N30-i mask with chinstrap and supplies. Kane has follow- up with [facility] in july. Kane gives consent for appointment. Equipment properly set and sized during this phone call will be sent to Kane's address, phone and email confirmed Time: MSA to call and schedule follow-up Kane will need to purchase distilled water will be sent e-mail link for C visit will receive an invitation to Priscila /alicia/ TREY DAWKINS RESPIRATORY THERAPIST Signed: 05/05/2024 14:08 TREY DAWKINS [facility]
--- OUTSIDE RECORDS SUMMARY | 2024-06-22 11:29 | XMS_ITS ---
Author Name [facility] Address [address] [place] [address] Care Team Providers Care Calf Skinner Name Role Phone RAFAEL MEJIA Primary Care [...] PART A May 04, 2019 PART A [id number] Alicia RUVALCABA PATIENT Selected Encounter This section includes the information on record at [place] for the Encounter. Date/Time Encounter Type Encounter Description Reason Provider Source Apr 06, 2024 10:00 AM OFFICE O/P NEW MOD 45 MIN BAGGAGEMAN ICD-10-CM M54.59 Other low back pain YASSINE HU Moses Encounter Template Text not used by [place] Assessments - Encounter Diagnoses This section includes the primary and secondary diagnoses documented for the Encounter. Date/Time Primary/Secondary Diagnosis Diagnosis Name Provider Source Apr 06, 2024 12:55 PM PRIMARY Other low back pain YASSINE HU [place] [facility] [place] [facility] Plan of Treatment: Future Appointments (+ 6 months) and Future Tests (+/- 45 days) The Plan of Treatment section includes future care activities for the [facility] This section includes future appointments and future orders which are active, pending or scheduled. Future Appointments This section includes appointments that were scheduled to occur 6 months from the date of the Encounter, up to a maximum of 20 appointments. The data comes from all [place] treatment facilities. Appointment Date/Time Appointment Type Appointme nt Facility Name Apr 12, 2024 11:00 AM AMBULATORY - NONE [facility] [place] [facility] Apr 14, 2024 02:30 PM AMBULATORY - MEDICINE [facility] [place] [facility] Apr 22, 2024 08:30 AM AMBULATORY - MEDICINE [facility] [place] [facility] Apr 25, 2024 07:00 AM AMBULATORY - MEDICINE [facility] [place] [facility] May 05, 2024 10:00 AM AMBULATORY - NONE [facility] [place] [facility] May 05, 2024 01:00 PM AMBULATORY - NONE [facility] [place] [facility] May 06, 2024 03:00 PM AMBULATORY - MEDICINE [facility] [place] [facility] May 09, 2024 01:30 PM AMBULATORY - MEDICINE [facility] [place] [facility] May 12, 2024 11:45 AM AMBULATORY - MEDICINE [facility] [place] [facility] Jun 16, 2024 09:30 AM AMBULATORY - NONE [facility] [place] [facility] Jun 22, 2024 10:45 AM AMBULATORY - MEDICINE [facility] [place] [facility] Jul 05, 2024 03:30 PM AMBULATORY - MEDICINE [place] [facility] Aug 03, 2024 11:00 AM AMBULATORY - NONE [facility] [place] [facility] Aug 08, 2024 09:30 AM AMBULATORY - MEDICINE [facility] [place] [facility] Aug 16, 2024 09:45 AM AMBULATORY - NONE [facility] [place] [facility] Aug 22, 2024 10:30 AM AMBULATORY - MEDICINE [facility] [place] [facility] Aug 24, 2024 01:00 PM AMBULATORY - REHAB MEDICIN E [facility] September 19, 2024 10:00 AM AMBULATORY - MEDICINE [place] C [facility]N [facility] September 29, 2024 11:00 AM [facility] Active, Pending, and Scheduled Orders This [...] 04:25 PM Consult Order COMMUNITY CARE-INFUSION Cons Magazine Supervisor's Choice [facility] Lab Results: +/- 30 days of the encounter This section includes the Chemistry and Hematology Lab Results on record with [place] for the patient. Radiology Reports and Pathology Reports are provided separately, in subsequent sections. Lab Results This section contains the Chemistry/Hematology Results that were resulted 30 days before or 30 daysafter the date of the Encounter. Date/Time Source Result Type Result - Unit Interpretation Reference Range Comment Mar 23, 2024 10:50 AM [facility] TESTOSTERONE, TOTAL (WHV) Specimen Type: SERUM No comment entered. Ordering Provider: KAL GRANADOS Report Released Date/Time: September 21, 2023 09:22 AM Reporting Lab: [address] [address] Performing Lab: [address] [address] TESTOSTERONE , TOTAL (WHV) 680.68 ng/dL 220.00-892. 00 Mar 23, 2024 10:50 AM [facility] THYROID T4 FREE(FT4) (WROX) Specimen Type: SERUM No comment entered. Ordering Provider: KAL GRANADOS Report Released Date/Time: Mar 23, 2024 10:31 AM Reporting Lab: [address] [address] Performing Lab: [facility] [place] [facility] [address] [facility] [address] THYROID T4 FREE(FT4) (WROX) 1.12 ng/dL 0.6-1.6 Mar 23, 2024 10:50 AM [facility] VITAMIN D (25-OH) Specimen Type: SERUM No comment entered. Ordering Provider: KAL GRANADOS Report Released Date/Time: September 21, 2023 09:22 AM Reporting Lab: [facility] [place] [facility] [address] [facility] [address] Performing Lab: [facility] [address] [facility] [address] VITAMIN D (25-OH) 34 ng/mL 20-50 Mar 23, 2024 10:50 AM [facility] PSA Specimen Type: SERUM No comment entered. Ordering Provider: KAL GRANADOS Report Released Date/Time: September 21, 2023 09:22 AM Reporting Lab: [facility] [place] [facility] [address] [facility] [address] Performing Lab: [facility] [address] [facility] [address] PSA 1.83 ng/mL 0.00-4.00 Mar 23, 2024 10:50 AM [facility] CALCIUM Specimen Type: SERUM No comment entered. Ordering Provider: KAL GRANADOS Report Released Date/Time: September 21, 2023 09:22 AM Reporting Lab: [facility] [place] [facility] [address] [facility] [address] Performing Lab: [facility] [address] [facility] [address] CALCIUM 8.8 mg/dL 8.5-10.2 Mar 23, 2024 10:50 AM [facility] TSH Specimen Type: SERUM No comment entered. Ordering Provider: KAL GRANADOS Report Released Date/Time: Mar 23, 2024 10:31 AM Reporting Lab: [facility] [place] [facility] [address] [facility] [address] Performing Lab: [facility] [address] [facility] [address] TSH 2.38 u[IU]/mL 0.35-5.00 Mar 23, 2024 10:50 AM [facility] BASIC METABOLIC PANEL (non-fasting) Specimen Type: SERUM No comment entered. Ordering Provider: KAL GRANADOS Report Released Date/Time: September 21, 2023 09:22 AM Reporting Lab: [facility] [address] [facility] [address] Performing Lab: [facility] [address] [facility] [address] UREA NITROGEN 10 mg/dL 7-25 GLUCOSE 88 mg/dL 65-100 SODIUM 136 mmol/L 135-145 POTASSIUM 4.0 mmol/L 3.5-5.0 CHLORIDE 105 mmol/L 100-110 CO2 22 meq/L 20-30 CREATININE, Serum 0.91 mg/dL 0.50-1.40 eGFR(CKD-EPI 2020) >90 mL/min >60 Mar 23, 2024 10:50 AM [facility] CBC Specimen Type: BLOOD No comment entered. Ordering Provider: KAL GRANADOS Report Released Date/Time: September 21, 2023 09:22 AM Reporting Lab: [facility] [address] [facility] [address] Performing Lab: [address] [address] WBC 6.16 10*3/uL 4.50-11.00 RBC 4.48 10*6/uL [...] took place. Date/Time Current Smoking Status Comment [facility] Jun 08, 2023 10:00 AM VA-TOBACCO FORMER USER [place] [facility] [place] [facility] Tobacco Use History This section includes a history of the smoking, or tobacco-related health factors, that were collected on or before the date of the Encounter. The data comes from the [place] facility where the Encounter took place. Date/Time Smoking Status/Tobac co Use Comment Facility Jun 08, 2023 10:00 AM VA-TOBACCO QUIT 15 YRS OR MORE [facility] [place] [facility] Jun 09, 2022 10:30 AM VA-TOBACCO FORMER USER [facility] [place] [facility] Jun 09, 2022 10:30 AM VA-TOBACCO QUIT 15 YRS OR MORE [facility] [place] [facility] Jun 14, 2021 09:00 AM VA-TOBACCO FORMER USER [facility] [place] [facility] Jun 14, 2021 09:00 AM VA-TOBACCO QUIT 15 YRS OR MORE [facility] [place] [facility] Feb 03, 2020 01:00 PM VA-TOBACCO FORMER USER [facility] [place] [facility] Feb 03, 2020 01:00 PM VA-TOBACCO QUIT 15 YRS OR MORE [facility] [place] [facility] Feb 02, 2019 11:49 AM VA-TOBACCO FORMER USER [facility] [place] [facility] Feb 02, 2019 11:49 AM VA-TOBACCO QUIT 15 YRS OR MORE [facility] [place] [facility] May 13, 2017 10:12 AM LIFETIME NON-TOBACCO USER [facility] [place] [facility] Jun 11, 2016 10:31 AM QUIT TOBACCO USE > 7 YEARS AGO [facility] [place] [facility] Jun 21, 2015 12:49 PM QUIT TOBACCO USE > 7 YEARS AGO pt states he quit smoking 30 yr ago. [facility] [place] [facility] Jul 18, 2004 08:23 AM HISTORY OF SMOKING Smoke free since 1989 [facility] [place] [facility] May 11, 2003 02:17 PM HISTORY OF SMOKING quit smoking 15 years ago [facility] May 11, 2003 02:17 PM QUIT TOBACCO USE > 7 YEARS AGO quit smoking 15 years ago [facility] Advance Directives: All historical and [...] 26, 2020 ADVANCE DIRECTIVE GARY GUNTER [facility] Jan 25, 2017 ADVANCE DIRECTIVE RAFAEL MEJIA [facility] Apr 06, 2009 ADVANCE DIRECTIVE KHAI BADILLO [facility] Radiology Reports: +/- 30 days [...] AM BONE DENSITY AXIAL HIPS,PELVIS.SPINE: GENARO RUVALCABA [id number] -[id number] M Exm Date: MAY 05, 2024@10:04 Req Phys: KAL GRANADOS Loc: [facility]/ENDOCRINE (Req'g Loc) Img Loc: [facility]/BUILDING 1 Service: Unknown [facility] JAVIER SANDRA [id number] (Case 102 COMPLETE) BONE DENSITY AXIAL HIPS,PELVIS.SP(RAD Detailed) CPT:84539 Reason for Study: osteoporosis Clinical History: Report Status: Verified Date Reported: MAY 05, 2024 Date Verified: MAY 05, 2024 Associate Sales Manager E-Sig:/ES/JEREMIE CERRATO Report: DXA BONE DENSITY AXIAL [...] Primary Interpreting Staff: JEREMIE CERRATO, Staff Physician (Associate Sales Manager) /JEREMIE GRANT [facility] Encounter Notes: All associated encounter notes This section contains the clinical notes associated to the Encounter. 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 At the same time gall bladder removed. [facility] with C/C low back pain, bilat L> R. He C/O numbness in left anterior thigh When he gets up during the night [...] lost 15 lbs during medical problems/procedures. Prior administrator health care facility: years ago which was helpful Exercise/Activities: None [...] ~ Supine gluteal stretching as per palpation Treatment: active/corrective FD mechanical lumbar traction w [...] relaxation /es/ YASSINE HU D.C. CHIROPRACTOR Signed: 04/06/2024 12:55 YASSINE HU [facility]
--- OUTSIDE RECORDS SUMMARY | 2024-06-22 11:29 | XMS_ITS | Encounter Summary ---
Author Name [facility] Address [address] [place] [address] Care Team Providers Care General Warehouse Associate Name Role Phone RAFAEL MEJIA Primary Care [...] PART A May 04, 2019 PART A [id number] Alicia RUVALCABA PATIENT Selected Encounter This section includes the information on record at [place] for the Encounter. Date/Time Encounter Type Encounter Description Reason Provider Source September 22, 2023 03:00 PM OFFICE O/P EST LOW 20 MIN PM&RS PHYSICIAN ICD-10-CM M47.26 Other spondylosis with radiculopathy, lumbar region SPEEDY AYALA IHMoses Encounter Template Text not used by [facility] Assessments - Encounter Diagnoses This section includes the primary and secondary diagnoses documented for the Encounter. Date/Time Primary/Secondary Diagnosis Diagnosis Name Provider Source September 25, 2023 09:36 AM PRIMARY Other spondylosis with radiculopathy, lumbar region SPEEDY AYALA [facility] [place] [facility] September 25, 2023 09:36 AM SECONDARY Sacroiliitis, not elsewhere classified SPEEDY AYALA [facility] [place] [facility] Plan of Treatment: Future Appointments (+ 6 months) and Future Tests (+/- 45 days) The Plan of Treatment section includes future care activities for the patient [facility] This section includes future appointments and future orders which are active, pending or scheduled. Future Appointments This section includes appointments that were scheduled to occur 6 months from the date of the Encounter, up to a maximum of 20 appointments. The data comes from all [place] treatment facilities. Appointment Date/Time Appointment Type Appointme nt Facility Name Nov 23, 2023 10:00 AM AMBULATORY - MEDICINE [facility] [place] [facility] Dec 01, 2023 08:00 AM AMBULATORY - REHAB MEDICIN E [facility] [place] [facility] Dec 16, 2023 11:00 AM AMBULATORY - MEDICINE [facility] [place] [facility] Dec 17, 2023 10:30 AM AMBULATORY - REHAB MEDICIN E [facility] [place] [facility] Dec 30, 2023 01:30 PM AMBULATORY - REHAB MEDICIN E [facility] [place] [facility] Jan 06, 2024 09:00 AM AMBULATORY - MEDICINE [facility] [place] [facility] Feb 17, 2024 09:45 AM AMBULATORY - NONE [facility] [place] [facility] Feb 22, 2024 10:30 AM AMBULATORY - MEDICINE [facility] [place] [facility] Feb 24, 2024 08:30 AM AMBULATORY - REHAB MEDICIN E [facility] [place] [facility] Mar 09, 2024 11:00 AM AMBULATORY - NONE [facility] [place] [facility] Mar 09, 2024 11:30 AM AMBULATORY - MEDICINE [facility] [place] [facility] Mar 23, 2024 10:00 AM AMBULATORY - MEDICINE [facility] [place] [facility] Lab Results: +/- 30 days of the encounter This section includes the Chemistry and Hematology Lab Results on record with [place] for the patient. Radiology Reports and Pathology Reports are provided separately, in subsequent sections. Lab Results This section contains the Chemistry/Hematology Results that were resulted 30 days before or 30 daysafter the date of the Encounter. Date/Time Source Result Type Result - Unit Interpretation Reference Range Comment September 16, 2023 08:58 [facility] THYROID T4 FREE(FT4) (WROX) Specimen Type: SERUM No comment entered. Ordering Provider: KAL GRANADOS Report Released Date/Time: Apr 16, 2023 12:38 PM Reporting [facility] [place] [facility] [address] [facility] [address] Performing [facility]: [facility] [address] [facility] [address] THYROID T4 FREE(FT4) (WROX) 1.00 ng/dL 0.6-1.6 September 16, 2023 08:58 [facility] TSH Specimen Type: SERUM No comment entered. Ordering Provider: KAL GRANADOS Report Released Date/Time: Apr 16, 2023 12:38 PM Reporting Lab[facility] [address] [facility] [address] Performing [facility]: [facility] [address] [address] TSH 7.55 u[IU]/mL H 0.35-5.00 September 16, 2023 08:58 AM [facility] TESTOSTERONE, TOTAL (WHV) Specimen Type: SERUM No comment entered. Ordering Provider: KAL GRANADOS Report Released Date/Time: Mar 23, 2023 08:16 AM Reporting Lab: [facility] [address] [facility] [address] Performing Lab: [facility] [address] [address] TESTOSTERONE , TOTAL (WHV) 310.23 ng/dL 220.00-892. 00 September 16, 2023 08:58 AM [facility] VITAMIN D (25-OH) Specimen Type: SERUM No comment entered. Ordering Provider: KAL GRANADOS Report Released Date/Time: Mar 23, 2023 08:16 AM Reporting Lab: [facility] [place] [facility] [address] [facility] [address] Performing Lab: [facility] [place] [facility] [address] [facility] [address] VITAMIN D (25-OH) 40 ng/mL 20-50 September 16, 2023 08:58 AM [facility] PSA Specimen Type: SERUM No comment entered. Ordering Provider: KAL GRANADOS Report Released Date/Time: Mar 23, 2023 08:16 AM Reporting Lab: [facility] [place] [facility] [address] [facility] [address] Performing Lab: [facility] [place] [facility] [address] [facility] [address] PSA 2.39 ng/mL 0.00-4.00 September 16, 2023 08:58 AM [facility] CALCIUM Specimen Type: SERUM No comment entered. Ordering Provider: KAL GRANADOS Report Released Date/Time: Mar 23, 2023 08:16 AM Reporting Lab: [facility] [place] [facility] [address] [facility] [address] Performing Lab: [facility] [address] [facility] [address] CALCIUM 9.3 mg/dL 8.5-10.2 September 16, 2023 08:58 AM [facility] HEMOGLOBIN A1C PANEL Specimen Type: BLOOD Comment: Values obtained from A1C measurements can vary. For atypical A1C assays, a reported value of 7.0 could actually be between 6.72 and 7.28 if measured by a reference method. A reported value of 9.0 could actually be between 8.73 and 9.27. Ref: http://www.ngs p.org/CAPdata. asp Ordering Provider: KAL GRANADOS Report Released Date/Time: Mar 23, 2023 08:17 AM Reporting Lab: [facility] [address] [facility] [address] Performing Lab: [facility] [address] [address] HEMOGLOBIN A1C 5.2 4.0-5.6 September 16, 2023 08:58 AM [facility] CBC Specimen Type: BLOOD No comment entered. Ordering Provider: KAL GRANADOS Report Released Date/Time: Mar 23, 2023 08:16 AM Reporting Lab: [facility] [address] [facility] [address] Performing Lab: [facility] [address] [facility] [address] WBC 5.70 10*3/uL 4.50-11.00 RBC 5.71 10*6/uL H 4.23-5.66 HGB 17.0 g/dL 12.8-17 HCT 50.4 39.2-50.4 MCV 88.3 fL 82-99 MCHC 33.7 g/dL 30.8-35.1 PLT 211 10*3/uL 140-360 RDW-CV 11.6 L 12.0-16.0 MCH 29.8 pg 26.2-32.6 September 16, 2023 08:58 AM [facility] BASIC METABOLIC PANEL (fasting) Specimen Type: SERUM No comment entered. Ordering Provider: KAL GRANADOS Report Released Date/Time: Mar 23, 2023 08:16 AM Reporting Lab: [facility] [address] [facility] [address] Performing Lab: [address] [address] UREA NITROGEN 19 mg/dL 7-25 GLUCOSE 111 mg/dL H 65-100 SODIUM 139 mmol/L 135-145 POTASSIUM 4.9 mmol/L 3.5-5.0 CHLORIDE 102 mmol/L 100-110 CO2 30 meq/L 20-30 CREATININE, Serum 1.48 mg/dL H 0.50-1.40 eGFR(CKD-EPI 2020) 51 mL/min L >60 Vital Signs: All taken on the encounter date This section contains inpatient and outpatient Vital Signs collected on the date of the Encounter. Date/Time Temperature Pulse Blood Pressure Respiratory Rate SP02 Pain Height Weight Body Mass Index Source September 22, 2023 02:41 PM 87 124/72 20 95 4 [facility] [place] [facility] Social History: Smoking Status (Most current) and Tobacco Use (All prior to encounter date) This section includes the most current, and the historical, smoking and tobacco- related health factors from the [place] facility where the Encounter took place. Current Smoking Status This section includes the most current smoking, or tobacco-related health factor, from the [place] facility where the Encounter took place. Date/Time Current Smoking Status Comment [facility] Jun 08, 2023 10:00 AM VA-TOBACCO FORMER USER [facility] [place] [facility] Tobacco Use History This section includes a history of the smoking, or tobacco-related health factors, that were collected on or before the date of the Encounter. The data comes from the [place] facility where the Encounter took place. Date/Time Smoking Status/Tobac co Use Comment Facility Jun 08, 2023 10:00 AM VA-TOBACCO QUIT 15 YRS OR MORE [facility] [place] [facility] Jun 09, 2022 10:30 AM VA-TOBACCO FORMER USER [facility] [place] [facility] Jun 09, 2022 10:30 AM VA-TOBACCO QUIT 15 YRS OR MORE [facility] [place] [facility] Jun 14, 2021 09:00 AM VA-TOBACCO FORMER USER [facility] [place] [facility] Jun 14, 2021 09:00 AM VA-TOBACCO QUIT 15 YRS OR MORE [facility] [place] [facility] Feb 03, 2020 01:00 PM VA-TOBACCO FORMER USER [facility] [place] [facility] Feb 03, 2020 01:00 PM VA-TOBACCO QUIT 15 YRS OR MORE [facility] [place] [facility] Feb 02, 2019 11:49 AM VA-TOBACCO FORMER USER [facility] [place] [facility] Feb 02, 2019 11:49 AM VA-TOBACCO QUIT 15 YRS OR MORE [facility] [place] [facility] May 13, 2017 10:12 AM LIFETIME NON-TOBACCO USER [facility] [place] [facility] Jun 11, 2016 10:31 AM QUIT TOBACCO USE > 7 YEARS AGO [facility] [place] [facility] Jun 21, 2015 12:49 PM QUIT TOBACCO USE > 7 YEARS AGO pt states he quit smoking 30 yr ago. [facility] Jul 18, 2004 08:23 AM HISTORY OF SMOKING Smoke free since 1989 [facility] May 11, 2003 02:17 PM HISTORY OF SMOKING quit smoking 15 years ago [facility] May 11, 2003 02:17 PM QUIT TOBACCO USE > 7 YEARS AGO quit smoking 15 years ago [facility] Advance Directives: All historical and current Section Date Range: From patient's date of to the date document was created. This section includes ALL of a patient's completed or amended [place] Advance and Rescinded Directives. The entries below indicate that a directive exists for the patient, but an actual copy is not included with this document. The data comes from all [place] facilities. Date Advance Directives Provider Source Nov 26, 2020 ADVANCE DIRECTIVE GARY GUNTER [facility] Jan 25, 2017 ADVANCE DIRECTIVE RAFAEL MEJIA [facility] Apr 06, 2009 ADVANCE DIRECTIVE KHAI BADILLO [facility] Encounter Notes: All associated encounter notes This section contains the clinical notes associated to the Encounter. Date/Time Encounter Note(s) Provider Source September 22, 2023 03:21 PM PHYSICAL MEDICINE REHAB PHYSICIAN NOTE: LOCAL TITLE: PM&R FOLLOW-UP STANDARD TITLE: PHYSICAL MEDICINE REHAB PHYSICIAN NOTE DATE OF NOTE: SEPTEMBER 22, 2023@15:21 ENTRY DATE: SEPTEMBER 22, 2023@15:21:24 AUTHOR: JEREMIE AYALA COSIGNER: URGENCY: STATUS: COMPLETED SEPTEMBER 22, 2023 GENARO RUVALCABA is a 68 y/o MALE who presents today for follow-up of bilateral buttock pain. reports that he has seen significant improvement and back and buttock pain. Current pain levels no greater than 4 out of 10 on analog scale. He is more functional is able to do his activities more comfortably. His back pain continues to be mild to moderate. We discussed physical therapy involvement previously. He is anxious to begin physical therapy. Back pain usually is with flexion and rotation. Not experiencing radicular symptoms. PMHx as obtained from Chart: Active problems - Computerized Problem List is the source for the followin. Microscopic hematuria 2. Impaired fasting glucose 3. Chronic dermatitis 4. Thyroid function tests abnormal 5. Carcinoid tumour 6. Lesion of liver 7. Osteoporosis 8. Testicular hypofunction 9. HTN - Hypertension (SCT 98946626) 10. AIN - Acute interstitial nephritis 11. Alcohol Dep-Remission 12. Muscle, ligament and fascia disorders 13. Hand pain (SNOMED CT 14387344) 14. Spondylosis (SNOMED CT 8082569) 15. Osteoarthritis * 16. Peptic Ulcer Disease * 17. Chronic Low Back Pain 18. Dermatitis * 19. Sciatica * 20. Allergic rhinitis 21. Colonic Polyps 22. Dyslipidemia 23. NONINF GASTROENTERIT NEC 24. NEED INOC/VIRAL HEP 25. ESOPHAGEAL REFLUX 26. Asthma (SNOMED CT 798284319) Soc Hx: MARITAL STATUS - COAST GUARD FROM Dec TO Dec ALL: Patient has answered NKA MEDS: Reviewed and Reconciled ROS: Constitutional - Denies fever or chills, night sweats, or unexplained weight loss. Head/Eyes/Ears/Neck- Denies headaches, visual changes. Cardiovascular - Denies chest pain/tightness, lower extremity swelling. Respiratory - Denies shortness of breath, or cough. GI - Denies nausea, vomiting, or loss of bowel fx/control. - Denies pelvic pain or loss of bladder function. Musculoskeletal - See HPI. Neuro - Denies numbness or tingling of the extremities. Skin/integuments - Denies rashes, lesions, or skin breakdown in the extremities. All other systems reviewed and are negative. PHYSICAL EXAMINATION: Vitals in chart. GEN: WD, WN. Awake, alert, cooperative with exam. PSYCH: Good eye contact. Appropriate affect and social interaction. HEENT: Normocephalic, atraumatic. CVS: Extremities warm/well perfused. No lower extremity edema. PULM: Breathing unlabored, no accessory muscle use. ABD: Nondistended. EXTREMITIES: No cyanosis or edema of bilateral upper and lower extremities. MUSCULOSKELETAL EXAM: No significant SI joint irritability with provocative maneuvers. Lasegue's maneuver negative. Paralumbar region is tender only mildly. Some mild hypertonicity noted in the paralumbar region. He has no spasm palpable. Slight anterior pelvic rotation identified. No sensory changes in the lower extremities. Diagnostic Studies: No new studies. 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 Most of his pain is axial at this point. The emergency room to consider physical therapy and a PT prescription was provided. Continue acetaminophen for pain control. If his symptoms should escalate we can repeat bilateral SI joint injection. Dedicated MRI msess neuroforaminal stenosis. FOLLOW-UP: 3 months for repeat bilateral SI joint injection Potential risks and side effects of any medication(s) prescribed today was reviewed with [place]. Patient had many excellent questions, which I answered to the best of my ability and to patient's apparent satisfaction. MDM: _20 minutes which includes reviewing records, evaluating patient, documenting in medical record, educating, counseling and coordinating care. Medication Reconciliation: Outpatient: Has the patient been [...] JLV. Allergies/ADRs (Tool #5) FACILITY ALLERGY/ADR -------- [facility] [place] [facility] No Known Allergies KAVIN MARTINEZ JCMandi [facility] NO KNOWN ALLERGIES Med Recon [facility] (Tool #1) INCLUDED IN THIS LIST: Alphabetical list of active outpatient prescriptions dispensed from this [place] (local) and dispensed from another [place] or [facility] facility (remote) as well as inpatient orders (local pending and active), local clinic medications, locally documented non-VA medications, and local prescriptions that have or been discontinued in the past 90 days. Non-VA Meds Last Documented On: Mar 24, 2022 NOTE The display of VA prescriptions dispensed from another [place] or [facility] facility (remote) is limited to active outpatient prescription entries matched to National Drug File at the originating site and may not include some items such as investigational drugs, compounds, etc. NOT INCLUDED IN THIS LIST: Medications self-entered by the patient into personal health records (i.e. [email or web address]) are NOT included in this list. Non-VA medications documented outside this [place], remote inpatient orders (regardless of status) and remote clinic medications are NOT included in this list. The patient and provider must always discuss medications the patient is taking, regardless of where the medication was dispensed or obtained. OUTPT ACETAMINOPHEN 500MG TAB (Status = Active) TAKE TWO TABLETS BY MOUTH EVERY 8 HOURS NEEDED FOR PAIN Rx# [id number] Last Released: 01/09/23 Qty/Days Supply: 100/30 Rx Expiration Date: 12/26/23 Refills Remainin Indication: FOR PAIN OUTPT ADAPALENE 0.3% TOP GEL (Status = Active) APPLY SMALL AMOUNT TOPICALLY AT BEDTIME NEEDED FOR ACNE Rx# [id number] Last Released: 06/11/23 Qty/Days Supply: 4530 Rx Expiration Date: 12/18/23 Refills Remainin Indication: FOR ACNE OUTPT ALENDRONATE 70MG TAB (Status = Discontinued) TAKE ONE TABLET BY MOUTH EVERY 7 DAYS (TAKE WITH A FULL GLASS OF WATER; REMAIN UPRIGHT FOR 30 MINUTES; NO FOOD OR DRINK FOR 30 MINUTES) Rx# [id number] Last Released: 07/28/23 Qty/Days Supply: Rx Expiration Date: 03/23/24 Refills Remainin OUTPT ALENDRONATE 70MG TAB (Status = Active/Suspended) TAKE ONE TABLET BY MOUTH EVERY 7 DAYS (TAKE WITH A FULL GLASS OF WATER; REMAIN UPRIGHT FOR 30 MINUTES; NO FOOD OR DRINK FOR 30 MINUTES) Rx# [id number] Last Released: Qty/Days Supply: Rx Expiration Date: 09/21/24 Refills Remainin OUTPT AMLODIPINE BESYLATE 10MG TAB (Status = Active/Suspended) TAKE ONE TABLET BY MOUTH ONCE DAILY FOR BLOOD PRESSURE/HEART, DO NOT TAKE WITH GRAPEFRUIT JUICE Rx# [id number] Last Released: 07/28/23 Qty/Days Supply: 90/90 Rx Expiration Date: 02/17/24 Refills Remainin OUTPT BENZONATATE 200MG CAP (Status = Active) TAKE ONE CAPSULE BY MOUTH THREE TIMES DAILY NEEDED FOR COUGH Rx# [id number] Last Released: 05/19/23 Qty/Days Supply: 270/90 Rx Expiration Date: 12/09/23 Refills Remainin Indication: FOR COUGH OUTPT CALCIUM 200MG (CA CITRATE-950MG) TAB (Status = Discontinued) TAKE THREE TABLETS BY MOUTH TWICE DAILY REPLACES CALCIUM CARBONATE Rx# [id number] Last Released: 06/03/23 Qty/Days Supply: 600/90 Rx Expiration Date: 03/23/24 Refills Remainin Indication: FOR OSTEOPOROSIS OUTPT CALCIUM 200MG (CA CITRATE-950MG) TAB (Status = Active) TAKE THREE TABLETS BY MOUTH TWICE DAILY REPLACES CALCIUM CARBONATE Rx# [id number] Last Released: Qty/Days Supply: 600/90 Rx Expiration Date: 09/21/24 Refills Remainin Indication: FOR OSTEOPOROSIS OUTPT CARBOXYMETHYLCELLULOSE NA 1% OPH GEL (Status = Discontinued) APPLY 1 DROP INTO EACH EYE FOUR TIMES DAILY NEEDED FOR DRY EYE Rx# [id number] Last Released: 06/11/23 Qty/Days Supply: Rx Expiration Date: 07/30/23 Refills Remainin Indication: FOR DRY EYE OUTPT CARBOXYMETHYLCELLULOSE NA 1% OPH GEL (Status = Active) APPLY 1 DROP INTO EACH EYE FOUR TIMES DAILY NEEDED FOR DRY EYE Rx# [id number] Last Released: 08/05/23 Qty/Days Supply: Rx Expiration Date: 08/03/24 Refills Remainin Indication: FOR DRY EYE OUTPT CETIRIZINE HCL 10MG TAB (Status = Active/Suspended) TAKE ONE TABLET BY MOUTH EVERY DAY NEEDED FOR ALLERGIES Rx# [id number] Last Released: 07/21/23 Qty/Days Supply: Rx Expiration Date: 11/08/23 Refills Remainin OUTPT CHOLECALCIF 25MCG (D3-1,000UNIT) TAB (Status = Discontinued) TAKE ONE TABLET BY MOUTH ONCE DAILY FOR VITAMIN SUPPLEMENTATION Rx# [id number] Last Released: 08/17/23 Qty/Days Supply: Rx Expiration Date: 03/23/24 Refills Remainin OUTPT CHOLECALCIF 25MCG (D3-1,000UNIT) TAB (Status = Active/Suspended) TAKE ONE TABLET BY MOUTH ONCE DAILY FOR VITAMIN SUPPLEMENTATION Rx# [id number] Last Released: Qt Supply: Rx Expiration Date: 09/21/24 Refills Remainin OUTPT DICLOFENAC NA 1% TOP GEL (Status = Active) APPLY 4 GRAMS TOPICALLY EVERY 8 HOURS FOR OSTEOARTHRITIS - USE DOSING CARD PROVIDED IN BOX Rx# [id number] Last Released: 07/14/23 Qty/Days Supply: Rx Expiration Date: 06/08/24 Refills Remainin OUTPT DOCUSATE NA 100MG CAP (Status = Active/Suspended) TAKE ONE CAPSULE BY MOUTH TWICE DAILY NEEDED TO SOFTEN STOOL Rx# [id number] Last Released: 07/21/23 Qty/Days Supply: 200/ Rx Expiration Date: 12/09/23 Refills Remainin OUTPT FISH OIL 1000MG (500MG DHA/EPA) CAP (Status = Active) TAKE ONE CAPSULE BY MOUTH THREE TIMES A DAY Rx# [id number] Last Released: 08/05/23 Qty/Days Supply: Rx Expiration Date: 12/09/23 Refills Remainin OUTPT FLUTICAS 250/SALMETEROL 50 INHL DISK 60 (Status = Active) INHALE 1 PUFF BY MOUTH TWICE DAILY FOR BRONCHOSPASM PREVENTION WITH COPD - RINSE MOUTH AFTER USE Rx# [id number] Last Released: 03/12/23 Qty/Days Supply: Rx Expiration Date: 12/09/23 Refills Remainin Indication: FOR BRONCHOSPASM PREVENTION WITH COPD OUTPT FLUTICASONE PROP 50MCG 120D NASAL INHL (Status = Active) INSTILL 1 SPRAY INTO EACH NOSTRIL TWICE DAILY FOR NASAL IRRITATION/INFLAMMATION Rx# [id number] Last Released: 09/04/23 Qty/Days Supply: Rx Expiration Date: 12/09/23 Refills Remainin Indication: FOR NASAL IRRITATION/INFLAMMATION OUTPT KETOTIFEN 0.025% OPH SOLN (Status = Discontinued) INSTILL 1 DROP INTO EACH EYE TWICE DAILY NEEDED FOR ALLERGIC CONJUNCTIVITIS Rx# [id number] Last Released: 08/07/22 Qty/Days Supply: 09/30 Rx Expiration Date: 07/30/23 Refills Remainin Indication: FOR ALLERGIC CONJUNCTIVITIS OUTPT KETOTIFEN 0.025% OPH SOLN (Status = Active) INSTILL 1 DROP INTO EACH EYE TWICE DAILY NEEDED FOR ALLERGIC CONJUNCTIVITIS Rx# [id number] Last Released: 08/05/23 Qty/Days Supply: 09/30 Rx Expiration Date: 08/03/24 Refills Remainin Indication: FOR ALLERGIC CONJUNCTIVITIS OUTPT LISINOPRIL 2.5MG TAB (Status = Active) TAKE ONE TABLET BY MOUTH ONCE DAILY TO CONTROL BLOOD PRESSURE Rx# [id number] Last Released: 09/09/23 Qty/Days Supply: Rx Expiration Date: 12/09/23 Refills Remainin OUTPT MEPOLIZUMAB 100MG/ML INJ SYR 1ML (Status = Active) INJECT 1ML SUBCUTANEOUSLY EVERY FOUR WEEKS Rx# [id number] Last Released: 09/01/23 Qty/Days Supply: 05/31 Rx Expiration Date: 04/23/24 Refills Remainin Non-VA MULTIVITAMIN/MINERALS CAP/TAB CAP/TAB TAKE ONE TABLET BY MOUTH EVERY DAY Medication prescribed by Non-VA provider. OUTPT NYSTATIN [id number] UNT/ML SUSP (Status = Active) TAKE 5 TO 10ML BY MOUTH FOUR TIMES DAILY NEEDED FOR CLEMENTE INFECTION OF MOUTH -- SWISH AND SWALLOW Rx# [id number] Last Released: 06/11/23 Qty/Days Supply: Rx Expiration Date: 02/09/24 Refills Remainin Indication: FOR CLEMENTE INFECTION OF MOUTH Non-VA OCTREOTIDE (SANDOSTATIN LAR DEPOT) INJ,SUSP,SA INJECT UNKNOWN DOSE INTRAMUSCULARLY EVERY MONTH Non-VA OTHER CAP/TAB TAKE GAMMAGUARD iv MONTHLY OUTPT PANTOPRAZOLE NA 40MG EC TAB (Status = Active) TAKE ONE TABLET BY MOUTH EVERY MORNING 30 MINUTES BEFORE BREAKFAST FOR GERD Rx# [id number] Last Released: 08/17/23 Qty/Days Supply: Rx Expiration Date: 12/09/23 Refills Remainin OUTPT TESTOSTERONE 1.62% 20.25MG/PUMP TOP GEL (Status = Discontinued) APPLY 3 PUMPS (60.75 MG) TOPICALLY ONCE DAILY FOR LOW TESTOSTERONE Rx# [id number] Last Released: 08/25/23 Qty/Days Supply: Rx Expiration Date: 09/23/23 Refills Remainin Indication: FOR LOW TESTOSTERONE OUTPT TESTOSTERONE 1.62% 20.25MG/PUMP TOP GEL (Status = Active/Suspended) APPLY 3 PUMPS (60.75 MG) TOPICALLY ONCE DAILY FOR LOW TESTOSTERONE Rx# [id number] Last Released: Qt Supply: Rx Expiration Date: 03/23/24 Refills Remainin Indication: FOR LOW TESTOSTERONE OUTPT TIOTROPIUM 2.5MCG/ACTUAT 60D ORAL INHL (Status = Active) INHALE 2 PUFFS BY MOUTH EVERY DAY FOR BREATHING (THIS REPLACES SPIRIVA HANDIHALER). Rx# [id number] Last Released: 06/19/23 Qty/Days Supply: Rx Expiration Date: 12/09/23 Refills Remainin OUTPT ZAFIRLUKAST 20MG TAB (Status = Active) TAKE ONE TABLET BY MOUTH TWICE DAILY Rx# [id number] Last Released: 06/27/23 Qty/Days Supply: Rx Expiration Date: 12/09/23 Refills Remainin SUPPLIES OUTPT ACCU-CHEK GUIDE (GLUCOSE) TEST STRIP (Status = ) USE 1 STRIP TO TEST BLOOD SUGARS TWO TIMES A WEEK Rx# [id number] Last Released: 04/21/23 Qty/Days Supply: 50/180 Rx Expiration Date: 09/19/23 Refills Remainin /alicia/ JEREMIE AYALA [facility] Signed: 09/22/2023 15:29 JEREMIE [facility]A [facility]
--- OUTSIDE RECORDS SUMMARY | 2024-06-22 11:29 | XMS_ITS ---
Author Name [facility] Address [address] [place] [address] Care Team Providers Care Stopping Builder Name Role Phone RAFAEL MEJIA Primary Care [...] PART A May 04, 2019 PART A [id number] Alicia RUVALCABA PATIENT Selected Encounter This section includes the information on record at [place] for the Encounter. Date/Time Encounter Type Encounter Description Reason Provider Source May 06, 2024 03:00 PM OFFICE O/P EST LOW 20 MIN PM&RS PHYSICIAN ICD-10-CM M47.896 Other spondylosis, lumbar region JEREMIE AYALA IHMoses Encounter Template Text not used by [place] Assessments - Encounter Diagnoses This section includes the primary and secondary diagnoses documented for the Encounter. Date/Time Primary/Secondary Diagnosis Diagnosis Name Provider Source May 10, 2024 02:17 PM PRIMARY Other spondylosis, lumbar region SPEEDY AYALA [facility] [place] [facility] May 10, 2024 02:17 PM SECONDARY Sacroiliitis, not elsewhere classified SPEEDY AYALA [facility] [place] [facility] Plan of Treatment: Future Appointments (+ 6 months) and Future Tests (+/- 45 days) The Plan of Treatment section includes future care activities for the patient from all [facility] This section includes future appointments and future orders which are active, pending or scheduled. Future Appointments This section includes appointments that were scheduled to occur 6 months from the date of the Encounter, up to a maximum of 20 appointments. The data comes from all [place] treatment facilities. Appointment Date/Time Appointment Type Appointme nt Facility Name May 09, 2024 01:30 PM AMBULATORY - MEDICINE [facility] [place] [facility] May 12, 2024 11:45 AM AMBULATORY - MEDICINE [facility] [place] [facility] Jun 16, 2024 09:30 AM AMBULATORY - NONE [facility] [place] [facility] Jun 22, 2024 10:45 AM AMBULATORY - MEDICINE [facility] [place] [facility] Jul 05, 2024 03:30 PM AMBULATORY - MEDICINE [place] [facility] Aug 03, 2024 11:00 AM AMBULATORY - NONE [facility] [place] [facility] Aug 08, 2024 09:30 AM AMBULATORY - MEDICINE [facility] [place] [facility] Aug 16, 2024 09:45 AM AMBULATORY - NONE [facility] [place] [facility] Aug 22, 2024 10:30 AM AMBULATORY - MEDICINE [facility] [place] [facility] Aug 24, 2024 01:00 PM AMBULATORY - REHAB MEDICIN E [facility] [place] [facility] September 19, 2024 10:00 AM AMBULATORY - MEDICINE [facility] [place] [facility] September 29, 2024 11:00 AM AMBULATORY - NONE [facility] [place] [facility] Active, Pending, and Scheduled Orders This section includes a listing of several types of active, pending, and scheduled orders, including clinic medications orders, diagnostic test orders, procedure orders and consult orders; where the start date of the order is 45 days before the date of the Encounter or 45 days after the date of theEncounter. The data comes from all [place] treatment facilities. Test Date/Time Test Type Test Details Facility Name Jun 05, 2024 07:18 PM Consult Order COMMUNITY CARE-PULMONARY Cons Assistant Signal Maintainer's Choice [facility] [place] [facility] Vital Signs: All taken on the encounter date This section contains inpatient and outpatient Vital Signs collected on the date of the Encounter. Date/Time Temperature Pulse Blood Pressure Respiratory Rate SP02 Pain Height Weight Body Mass Index Source May 06, 2024 10:18 AM 130/70 6 [place] [facility] [place] [facility] Social History: Smoking Status (Most current) and Tobacco Use (All prior to encounter date) This section includes the most current, and the historical, smoking and tobacco- related health factors from the [place] facility where the Encounter took place. Current Smoking Status This section includes the most current smoking, or tobacco-related health factor, from the HI facility where the Encounter took place. Date/Time Current Smoking Status Comment Kajal harrison Jun 08, 2023 10:00 AM VA-TOBACCO FORMER USER [facility] [place] [facility] Tobacco Use History This section includes a history of the smoking, or tobacco-related health factors, that were collected on or before the date of the Encounter. The data comes from the [place] facility where the Encounter took place. Date/Time Smoking Status/Tobac co Use Comment Facility Jun 08, 2023 10:00 AM VA-TOBACCO QUIT 15 YRS OR MORE [facility] [place] [facility] Jun 09, 2022 10:30 AM VA-TOBACCO FORMER USER [facility] [place] [facility] Jun 09, 2022 10:30 AM VA-TOBACCO QUIT 15 YRS OR MORE [facility] [place] [facility] Jun 14, 2021 09:00 AM VA-TOBACCO FORMER USER [facility] [place] [facility] Jun 14, 2021 09:00 AM VA-TOBACCO QUIT 15 YRS OR MORE [facility] [place] [facility] Feb 03, 2020 01:00 PM VA-TOBACCO FORMER USER [facility] [place] [facility] Feb 03, 2020 01:00 PM VA-TOBACCO QUIT 15 YRS OR MORE [facility] [place] [facility] Feb 02, 2019 11:49 AM [facility] Feb 02, 2019 11:49 AM VA-TOBACCO QUIT 15 YRS OR MORE [facility] May 13, 2017 10:12 AM LIFETIME NON-TOBACCO USER [facility] Jun 11, 2016 10:31 AM QUIT TOBACCO USE > 7 YEARS AGO [facility] Jun 21, 2015 12:49 PM QUIT TOBACCO USE > 7 YEARS AGO pt states he quit smoking 30 yr ago. [facility] Jul 18, 2004 08:23 AM HISTORY OF SMOKING Smoke free since 1989 [facility] May 11, 2003 02:17 PM HISTORY OF SMOKING quit smoking 15 years ago [facility] May 11, 2003 02:17 PM QUIT TOBACCO USE > 7 YEARS AGO quit smoking 15 years ago [facility] Advance Directives: All historical and current Section Date Range: From patient's date of to the date document was created. This section includes ALL of a patient's completed or amended [place] Advance and Rescinded Directives. The entries below indicate that a directive exists for the patient, but an actual copy is not included with this document. The data comes from all [place] facilities. Date Advance Directives Provider Source Nov 26, 2020 ADVANCE DIRECTIVE GARY GUNTER [facility] Jan 25, 2017 ADVANCE DIRECTIVE RAFAEL MEJIA [facility] Apr 06, 2009 ADVANCE DIRECTIVE KHAI BADILLO [facility] Radiology Reports: +/- 30 days of the [...] the Encounter. The data comes from all [place] treatment facilities. Date/Time Radiology Report Provider Source May 05, 2024 10:04 AM BONE DENSITY AXIAL HIPS,PELVIS.SPINE: GENARO RUVALCABA [id number] -[id number] M Exm Date: MAY 05, 2024@10:04 Req Phys: KAL GRANADOS Loc: [facility]/ENDOCRINE (Req'g Loc) Img Loc: [facility]/BUILDING 1 Service: Unknown [place] [address] (Case [id number] COMPLETE) BONE DENSITY AXIAL HIPS,PELVIS.SP(RAD Detailed) CPT:11013 Reason for Study: osteoporosis Clinical History: Report Status: Verified Date Reported: MAY 05, 2024 Date Verified: MAY 05, 2024 Quality Control Lead E-Sig:/ES/JEREMIE CERRATO Report: DXA BONE DENSITY AXIAL [...] Primary Interpreting Staff: JEREMIE CERRATO, Staff Physician (Quality Control Lead) /JEREMIE GRANT [facility] Encounter Notes: All associated encounter notes This section contains the clinical notes associated to the Encounter. Date/Time Encounter Note(s) Provider Source May 06, 2024 10:43 AM PHYSICAL MEDICINE REHAB PHYSICIAN NOTE: LOCAL TITLE: PM&R FOLLOW-UP STANDARD TITLE: PHYSICAL MEDICINE REHAB PHYSICIAN NOTE DATE OF NOTE: MAY 06, 2024@10:43 ENTRY DATE: MAY 06, 2024@10:43:57 AUTHOR: JEREMIE AYALA COSIGNER: URGENCY: STATUS: COMPLETED MAY 06, 2024 GENARO RUVALCABA is a 68 y/o MALE who presents today for follow-up of left sacroiliac joint pain. Improved by greater than 60% after left sacroiliac joint injection. Right side was not injected but had not been problematic. Low back pain is somewhat different to him more facet mediated. Improved with customer care coordinator. He is doing home exercises provided. Occasionally does get pain radiating towards the hamstring region. Did have recent bone density on 05/05/2024. Lumbar spine T-score -0.4, left femoral neck -2.3, left proximal third distal forearm -0.2. Improvements noted currently on Fosamax. PMHx as obtained from Chart: Active problems - Computerized Problem List is the source for the followin. Sleep apnea 2. Microscopic hematuria 3. Impaired fasting glucose 4. Chronic dermatitis 5. Thyroid function tests abnormal 6. Carcinoid tumour 7. Lesion of liver 8. Osteoporosis 9. Testicular hypofunction 10. HTN - Hypertension (SCT [id number]) 11. AIN - Acute interstitial nephritis 12. Alcohol Dep-Remission 13. Muscle, ligament and fascia disorders 14. Hand pain (SNOMED CT 02915294) 15. Spondylosis (SNOMED CT 9008410) 16. Osteoarthritis * 17. Peptic Ulcer Disease * 18. Chronic Low Back Pain 19. Dermatitis * 20. Sciatica * 21. Allergic rhinitis 22. Colonic Polyps 23. Dyslipidemia 24. NONINF GASTROENTERIT NEC 25. NEED INOC/VIRAL HEP 26. ESOPHAGEAL REFLUX 27. Asthma (SNOMED CT 526915956) Soc Hx: MARITAL STATUS - COAST GUARD [...] bilateral upper and lower extremities. MUSCULOSKELETAL EXAM: Exam shows tenderness primarily over the sacroiliac joint. Some mild exaggeration of lordosis. Tenderness over the facets on the left side. Lateral flexion to the left does not reproduce symptoms. Extension aggravates symptoms. Forward flexion beyond 40 degrees causes some mild discomfort. Hamstring length is excellent. No hip irritability with internal and external rotation. Positive Faith's, albeit improved on the left. No reflex abnormalities. No sensory changes in the lower extremities. Diagnostic Studies: No new studies ASSESSMENT/PLAN: Patient is a 68-year-old with lumbar spondylosis and left sacroiliac joint dysfunction. Muscle balancing continues to be problematic. He is working with chiropractic and is doing home exercises. 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 FOLLOW-UP: Scheduled for left sacroiliac joint injection in 1 to 2 months. Potential risks and side effects of any medication(s) prescribed today was reviewed with [place]. Patient had many excellent questions, which I answered to the best of my ability and to patient's apparent satisfaction. MDM: minutes which includes reviewing records, evaluating patient, [...] [facility] [place] [facility] No Known Allergies [facility] NO KNOWN ALLERGIES Med Recon [facility] (Tool #1) INCLUDED IN THIS LIST: [...] the patient into personal health records (i.e. apta.me) are NOT included in this list. Non-VA medications documented outside this [place], remote inpatient orders (regardless of status) and remote clinic medications are NOT included in this list. The patient and provider must always discuss medications the patient is taking, regardless of where the medication was dispensed or obtained. OUTPT ALENDRONATE 70MG TAB (Status = Discontinued) TAKE ONE TABLET BY MOUTH EVERY 7 DAYS (TAKE WITH A FULL GLASS OF WATER; REMAIN UPRIGHT FOR 30 MINUTES; NO FOOD OR DRINK FOR 30 MINUTES) Rx# [id number] Last Released: 01/06/24 Qty/Days Supply: Rx Expiration Date: 09/21/24 Refills Remainin OUTPT ALENDRONATE 70MG TAB (Status = Active) TAKE ONE TABLET BY MOUTH EVERY 7 DAYS (TAKE WITH A FULL GLASS OF WATER; REMAIN UPRIGHT FOR 30 MINUTES; NO FOOD OR DRINK FOR 30 MINUTES) Rx# [id number] Last Released: 03/29/24 Qty/Days Supply: Rx Expiration Date: 03/25/25 Refills Remainin OUTPT AMLODIPINE BESYLATE 10MG TAB (Status = Discontinued) TAKE ONE TABLET BY MOUTH ONCE DAILY FOR BLOOD PRESSURE/HEART, DO NOT TAKE WITH GRAPEFRUIT JUICE Rx# [id number] Last Released: 10/27/23 Qty/Days Supply: Rx Expiration Date: 02/17/24 Refills Remainin OUTPT AMLODIPINE BESYLATE 10MG TAB (Status = Active) TAKE ONE TABLET BY MOUTH ONCE DAILY FOR BLOOD PRESSURE/HEART, DO NOT TAKE WITH GRAPEFRUIT JUICE Rx# [id number] Last Released: 05/05/24 Qty/Days Supply: Rx Expiration Date: 02/22/25 Refills Remainin OUTPT CALCIUM 200MG (CA CITRATE-950MG) TAB (Status = Discontinued) TAKE THREE TABLETS BY MOUTH TWICE DAILY REPLACES CALCIUM CARBONATE Rx# [id number] Last Released: 09/24/23 Qty/Days Supply: 600/ Rx Expiration Date: 09/21/24 Refills Remainin Indication: FOR OSTEOPOROSIS OUTPT CALCIUM 200MG (CA CITRATE-950MG) TAB (Status = Active) TAKE THREE TABLETS BY MOUTH TWICE DAILY REPLACES CALCIUM CARBONATE Rx# [id number] Last Released: 03/29/24 Qty/Days Supply: 600/ Rx Expiration Date: 03/25/25 Refills Remainin Indication: FOR OSTEOPOROSIS OUTPT CARBOXYMETHYLCELLULOSE NA 1% OPH GEL (Status = Active) APPLY 1 DROP INTO EACH EYE FOUR TIMES DAILY NEEDED FOR DRY EYE Rx# [id number] Last Released: 10/12/23 Qty/Days Supply: Rx Expiration Date: 08/03/24 Refills Remainin Indication: FOR DRY EYE OUTPT CETIRIZINE HCL 10MG TAB (Status = Active) TAKE ONE TABLET BY MOUTH EVERY DAY NEEDED FOR ALLERGIES Rx# [id number] Last Released: 05/05/24 Qty/Days Supply: Rx Expiration Date: 02/22/25 Refills Remainin OUTPT CHOLECALCIF 25MCG (D3-1,000UNIT) TAB (Status = Discontinued) TAKE ONE TABLET BY MOUTH ONCE DAILY FOR VITAMIN SUPPLEMENTATION Rx# [id number] Last Released: 02/02/24 Qty/Days Supply: 90 Rx Expiration Date: 09/21/24 Refills Remainin OUTPT CHOLECALCIF 25MCG (D3-1,000UNIT) TAB (Status = Active) TAKE ONE TABLET BY MOUTH ONCE DAILY FOR VITAMIN SUPPLEMENTATION Rx# [id number] Last Released: 05/05/24 Qty/Days Supply: 90 Rx Expiration Date: 03/25/25 Refills Remainin OUTPT DICLOFENAC NA 1% TOP GEL (Status = Active) APPLY 4 GRAMS TOPICALLY EVERY 8 HOURS FOR OSTEOARTHRITIS - USE DOSING CARD PROVIDED IN BOX Rx# [id number] Last Released: 12/25/23 Qty/Days Supply: 300/30 Rx Expiration Date: 06/08/24 Refills Remainin OUTPT FLUTICAS 250/SALMETEROL 50 INHL DISK 60 (Status = Active) INHALE 1 PUFF BY MOUTH TWICE DAILY FOR BRONCHOSPASM PREVENTION WITH COPD - RINSE MOUTH AFTER USE Rx# [id number] Last Released: 03/29/24 Qty/Days Supply: Rx Expiration Date: 03/24/25 Refills Remainin Indication: FOR BRONCHOSPASM PREVENTION WITH COPD OUTPT FLUTICASONE PROP 50MCG 120D NASAL INHL (Status = Active/Suspended) INSTILL 1 SPRAY INTO EACH NOSTRIL TWICE DAILY FOR NASAL IRRITATION/INFLAMMATION Rx# [id number] Last Released: 03/07/24 Qty/Days Supply: Rx Expiration Date: 03/03/25 Refills Remainin Indication: FOR NASAL IRRITATION/INFLAMMATION OUTPT KETOTIFEN 0.025% OPH SOLN (Status = Active) INSTILL 1 DROP INTO EACH EYE TWICE DAILY NEEDED FOR ALLERGIC CONJUNCTIVITIS Rx# [id number] Last Released: 03/15/24 Qty/Days Supply: 09/30 Rx Expiration Date: 08/03/24 Refills Remainin Indication: FOR ALLERGIC CONJUNCTIVITIS OUTPT LISINOPRIL 2.5MG TAB (Status = Active) TAKE ONE TABLET BY MOUTH ONCE DAILY TO CONTROL BLOOD PRESSURE Rx# [id number] Last Released: 05/05/24 Qty/Days Supply: Rx Expiration Date: 02/22/25 Refills Remainin OUTPT MEPOLIZUMAB 100MG/ML INJ SYR 1ML (Status = Discontinued) INJECT 1ML SUBCUTANEOUSLY EVERY FOUR WEEKS Rx# [id number] Last Released: 02/22/24 Qty/Days Supply: 05/31 Rx Expiration Date: 04/23/24 Refills Remainin OUTPT MEPOLIZUMAB 100MG/ML INJ SYR 1ML (Status = Active) INJECT 1ML SUBCUTANEOUSLY EVERY FOUR WEEKS Rx# [id number] Last Released: 04/28/24 Qty/Days Supply: 05/31 Rx Expiration Date: 03/24/25 Refills Remainin OUTPT METRONIDAZOLE 500MG TAB (Status = ) TAKE ONE TABLET BY MOUTH DIRECTED BY PROVIDER AT 5 PM, 6 PM AND 8 PM THE NIGHT BEFORE SURGERY Rx# [id number] Last Released: 01/13/24 Qty/Days Supply: 07/02 Rx Expiration Date: 02/06/24 Refills Remainin Non-VA MULTIVITAMIN/MINERALS CAP/TAB CAP/TAB TAKE ONE TABLET BY MOUTH EVERY DAY Medication prescribed by Non-VA provider. OUTPT NEOMYCIN SULFATE 500MG TAB (Status = ) TAKE TWO TABLETS BY MOUTH DIRECTED BY PROVIDER AT 5 PM, 6 PM AND 8 PM THE NIGHT BEFORE SURGERY Rx# [id number] Last Released: 01/13/24 Qty/Days Supply: 10/02 Rx Expiration Date: 02/06/24 Refills Remainin OUTPT NYSTATIN [id number] UNT/ML SUSP (Status = ) TAKE 5 TO 10ML BY MOUTH FOUR TIMES DAILY NEEDED FOR CLEMENTE INFECTION OF MOUTH -- SWISH AND SWALLOW Rx# [id number] Last Released: 12/25/23 Qty/Days Supply: Rx Expiration Date: 02/09/24 Refills Remainin Indication: FOR CLEMENTE INFECTION OF MOUTH OUTPT ONDANSETRON 4MG ORAL DISINTEGRATING TAB (Status = Active) PLACE ONE TABLET BY MOUTH EVERY 8 HOURS NEEDED (ALLOW TABLET TO DISSOLVE ON TONGUE, AND SWALLOW WITH SALIVA) Rx# [id number] Last Released: 03/04/24 Qty/Days Supply: 02/03 Rx Expiration Date: 03/03/25 Refills Remainin Non-VA OTHER CAP/TAB TAKE GAMMAGUARD iv MONTHLY OUTPT PANTOPRAZOLE NA 40MG EC TAB (Status = Active) TAKE ONE TABLET BY MOUTH EVERY MORNING 30 MINUTES BEFORE BREAKFAST FOR GERD Rx# [id number] Last Released: 05/05/24 Qty/Days Supply: Rx Expiration Date: 02/22/25 Refills Remainin OUTPT TESTOSTERONE 1.62% 20.25MG/PUMP TOP GEL (Status = Discontinued) APPLY 3 PUMPS (60.75 MG) TOPICALLY ONCE DAILY FOR LOW TESTOSTERONE Rx# [id number] Last Released: 03/21/24 Qty/Days Supply: Rx Expiration Date: 03/23/24 Refills Remainin Indication: FOR LOW TESTOSTERONE OUTPT TESTOSTERONE 1.62% 20.25MG/PUMP TOP GEL (Status = Active) APPLY 3 PUMPS (60.75 MG) TOPICALLY ONCE DAILY FOR LOW TESTOSTERONE Rx# [id number] Last Released: 04/18/24 Qty/Days Supply: Rx Expiration Date: 09/23/24 Refills Remainin Indication: FOR LOW TESTOSTERONE OUTPT TIOTROPIUM 2.5MCG/ACTUAT 60D ORAL INHL (Status = Active) INHALE 2 PUFFS BY MOUTH ONCE DAILY FOR BRONCHOSPASM PREVENTION WITH COPD Rx# [id number] Last Released: 05/05/24 Qty/Days Supply: Rx Expiration Date: 02/22/25 Refills Remainin Indication: FOR BRONCHOSPASM PREVENTION WITH COPD OUTPT ZAFIRLUKAST 20MG TAB (Status = Active/Suspended) TAKE ONE TABLET BY MOUTH TWICE DAILY Rx# [id number] Last Released: 03/07/24 Qty/Days Supply: Rx Expiration Date: 02/22/25 Refills Remainin SUPPLIES Spondylosis lumbar /es/ JEREMIE AYALA [facility] Signed: 05/06/2024 10:55 JEREMIE AYALA [facility]
--- OUTSIDE RECORDS SUMMARY | 2024-06-22 11:29 | XMS_ITS | Encounter Summary ---
Author Name [facility] [place] Address [address] [place] [address] Care Team Providers Care Credit Reporter Name Role Phone RAFAEL MEJIA Primary Care [...] PART A May 04, 2019 PART A [id number] Alicia RUVALCABA PATIENT Selected Encounter This section includes the information on record at [place] for the Encounter. Date/Time Encounter Type Encounter Description Reason Provider Source September 21, 2023 09:00 AM OFFICE O/P EST HI 40 MIN ENDOCRINOLOGY ICD-10-CM E29.1 Testicular hypofunction KAL GRANADOS Moses Encounter Template Text not used by [place] Assessments - Encounter Diagnoses This section includes the primary and secondary diagnoses documented for the Encounter. Date/Time Primary/Secondary Diagnosis Diagnosis Name Provider Source September 21, 2023 09:33 AM PRIMARY Testicular hypofunction KAL GRANADOS [facility] [place] [facility] September 21, 2023 09:33 AM SECONDARY Abnormal results of thyroid function studies KAL GRANADOS [facility] [place] [facility] September 21, 2023 09:33 AM SECONDARY Age-related osteoporosis w/o current pathological fracture KAL GRANADOS [facility] [place] [facility] September 21, 2023 09:33 AM SECONDARY Hypothyroidism, unspecified KAL GRANADOS [facility] [place] [facility] September 21, 2023 09:33 AM SECONDARY Impaired fasting glucose KAL GRANADOS [facility] [place] [facility] Plan of Treatment: Future Appointments (+ 6 months) and Future Tests (+/- 45 days) The Plan of Treatment section includes future care activities for the patient from all [place] treatmentcilities. This section includes future appointments and future orders which are active, pending or scheduled. Future Appointments This section includes appointments that were scheduled to occur 6 months from the date of the Encounter, up to a maximum of 20 appointments. The data comes from all [place] treatment facilities. Appointment Date/Time Appointment Type Appointme nt Facility Name September 22, 2023 03:00 PM AMBULATORY - REHAB MEDICIN E [facility] [place] [facility] Nov 23, 2023 10:00 AM AMBULATORY - MEDICINE [facility] [place] [facility] Dec 01, 2023 08:00 AM AMBULATORY - REHAB MEDICIN E [facility] [place] [facility] Dec 16, 2023 11:00 AM AMBULATORY - MEDICINE [facility] [place] [facility] Dec 17, 2023 10:30 AM AMBULATORY - REHAB MEDICIN E [facility] [place] [facility] Dec 30, 2023 01:30 PM AMBULATORY - REHAB MEDICIN E [facility] [place] [facility] Jan 06, 2024 09:00 AM AMBULATORY - MEDICINE [facility] [place] [facility] Feb 17, 2024 09:45 AM AMBULATORY - NONE [facility] [place] [facility] Feb 22, 2024 10:30 AM AMBULATORY - MEDICINE [facility] [place] [facility] Feb 24, 2024 08:30 AM AMBULATORY - REHAB MEDICIN E [facility] [place] [facility] Mar 09, 2024 11:00 AM AMBULATORY - NONE [facility] [place] [facility] Mar 09, 2024 11:30 AM AMBULATORY - MEDICINE [place] [facility] [place] [facility] Mar 23, 2024 10:00 AM AMBULATORY [facility] Lab Results: +/- 30 days of the encounter This section includes the Chemistry and Hematology Lab Results on record with [facility] for the patient. Radiology Reports and Pathology Reports are provided separately, in subsequent sections. Lab Results This section contains the Chemistry/Hematology Results that were resulted 30 days before or 30 daysafter the date of the Encounter. Date/Time Source Result Type Result - Unit Interpretation Reference Range Comment September 16, 2023 08:58 AM [facility] THYROID T4 FREE(FT4) (WROX) Specimen Type: SERUM No comment entered. Ordering Provider: KAL GRANADOS Report Released Date/Time: Apr 16, 2023 12:38 PM Reporting Lab: [facility] [address] [address] Performing Lab: [facility] [address] [facility] [address] THYROID T4 FREE(FT4) (WROX) 1.00 ng/dL 0.6-1.6 September 16, 2023 08:58 AM [facility] TSH Specimen Type: SERUM No comment entered. Ordering Provider: KAL GRANADOS Report Released Date/Time: Apr 16, 2023 12:38 PM Reporting Lab: [facility] [place] [facility] [address] [address] Performing Lab: [facility]TRN [facility] [address] [address] TSH 7.55 u[IU]/mL H 0.35-5.00 September 16, 2023 08:58 AM [facility] TESTOSTERONE, TOTAL (WHV) Specimen Type: SERUM No comment entered. Ordering Provider: KAL GRANADOS Report Released Date/Time: Mar 23, 2023 08:16 AM Reporting Lab: [facility]TRN [facility] [address] [address] Performing Lab: [facility] [address] [address] [address] TESTOSTERONE , TOTAL (WHV) 310.23 ng/dL 220.00-892. 00 September 16, 2023 08:58 AM [facility] VITAMIN D (25-OH) Specimen Type: SERUM No comment entered. Ordering Provider: AKL GRANADOS Report Released Date/Time: Mar 23, 2023 08:16 AM Reporting Lab: [facility] [address] [facility] [facility] [address] Performing Lab: [address] [address] VITAMIN D (25-OH) 40 ng/mL 20-50 September 16, 2023 08:58 AM [facility] PSA Specimen Type: SERUM No comment entered. Ordering Provider: KAL GRANADOS Report Released Date/Time: Mar 23, 2023 08:16 AM Reporting Lab: [facility] [address] [facility] [facility] [address] Performing Lab: [address] [address] PSA 2.39 ng/mL 0.00-4.00 September 16, 2023 08:58 AM [facility] CALCIUM Specimen Type: SERUM No comment entered. Ordering Provider: KAL GRANADOS Report Released Date/Time: Mar 23, 2023 08:16 AM Reporting Lab: [facility] [address] Performing Lab: [facility] [address] CALCIUM 9.3 mg/dL 8.5-10.2 September 16, 2023 08:58 AM [facility] HEMOGLOBIN A1C PANEL Specimen Type: BLOOD Comment: [...] Mar 23, 2023 08:17 AM Reporting Lab: [facility] [address] [facility] [facility] [address] Performing Lab: [address] [address] HEMOGLOBIN A1C 5.2 4.0-5.6 September 16, 2023 08:58 AM [facility] BASIC METABOLIC PANEL (fasting) Specimen Type: SERUM No comment entered. Ordering Provider: KAL GRANADOS Report Released Date/Time: Mar 23, 2023 08:16 AM Reporting Lab: [facility] [address] [facility] [facility] [address] Performing Lab: [address] [address] UREA NITROGEN 19 mg/dL 7-25 GLUCOSE 111 mg/dL H 65-100 SODIUM 139 mmol/L 135-145 POTASSIUM 4.9 mmol/L 3.5-5.0 CHLORIDE 102 mmol/L 100-110 CO2 30 meq/L 20-30 CREATININE, Serum 1.48 mg/dL H 0.50-1.40 eGFR(CKD-EPI 2020) 51 mL/min L >60 September 16, 2023 08:58 AM [facility] CBC Specimen Type: BLOOD No comment entered. Ordering Provider: KAL GRANADOS Report Released Date/Time: Mar 23, 2023 08:16 AM Reporting Lab: [address] [address] Performing Lab: [address] [address] WBC 5.70 10*3/uL 4.50-11.00 RBC 5.71 10*6/uL H 4.23-5.66 HGB 17.0 g/dL 12.8-17 HCT 50.4 39.2-50.4 MCV 88.3 fL 82-99 MCHC 33.7 g/dL 30.8-35.1 PLT 211 10*3/uL 140-360 RDW-CV 11.6 L 12.0-16.0 MCH 29.8 pg 26.2-32.6 Vital Signs: All taken on the encounter date This section contains inpatient and outpatient Vital Signs collected on the date of the Encounter. Date/Time Temperature Pulse Blood Pressure Respiratory Rate SP02 Pain Height Weight Body Mass Index Source September 21, 2023 09:02 AM 98.1 85 124/84 16 96 0 68 145 22 [place] [facility] [place] [facility] Social History: Smoking Status (Most current) and [...] took place. Date/Time Current Smoking Status Comment [facility] Jun 08, 2023 10:00 AM [facility]-TO[facility]ACCO [facility] Tobacco Use History This section includes a history of the smoking, or tobacco-related health factors, that were collected on or before the date of the Encounter. The data comes from the [place] facility where the Encounter took place. Date/Time Smoking Status/Tobac co Use Comment Facility Jun 08, 2023 10:00 AM VA-TOBACCO QUIT 15 YRS OR MORE [place] [facility] [place] [facility] Jun 09, 2022 10:30 AM VA-TOBACCO FORMER USER [place] [facility] [place] [facility] Jun 09, 2022 10:30 AM VA-TOBACCO QUIT 15 YRS OR MORE [facility] [place] [facility] Jun 14, 2021 09:00 AM VA-TOBACCO FORMER USER [facility] [place] [facility] Jun 14, 2021 09:00 AM VA-TOBACCO QUIT 15 YRS OR MORE [facility] [place] [facility] Feb 03, 2020 01:00 PM VA-TOBACCO FORMER USER [facility] [place] [facility] Feb 03, 2020 01:00 PM VA-TOBACCO QUIT 15 YRS OR MORE [facility] [place] [facility] Feb 02, 2019 11:49 AM VA-TOBACCO FORMER USER [facility] [place] [facility] Feb 02, 2019 11:49 AM VA-TOBACCO QUIT 15 YRS OR MORE [facility] May 13, 2017 10:12 AM LIFETIME NON-TOBACCO USER [facility] Jun 11, 2016 10:31 AM QUIT TOBACCO USE > 7 YEARS AGO [facility] Jun 21, 2015 12:49 PM QUIT TOBACCO USE > 7 YEARS AGO pt states he quit smoking 30 yr ago. [facility] Jul 18, 2004 08:23 AM HISTORY OF SMOKING Smoke free since 1989 [facility] May 11, 2003 02:17 PM HISTORY OF SMOKING quit smoking 15 years ago [facility] May 11, 2003 02:17 PM QUIT TOBACCO USE > 7 YEARS AGO quit smoking 15 years ago [facility] Advance Directives: All historical and current [...] Nov 26, 2020 ADVANCE DIRECTIVE GARY GUNTER [facility] Jan 25, 2017 ADVANCE DIRECTIVE RAFAEL MEJIA [facility] Apr 06, 2009 ADVANCE DIRECTIVE KHAI BADILLO [facility] Encounter Notes: All associated encounter notes This section contains the clinical notes associated to the Encounter. Date/Time Encounter Note(s) Provider Source September 19, 2023 09:54 AM PHYSICIAN NOTE: LOCAL TITLE: MD NOTE STANDARD TITLE: PHYSICIAN NOTE DATE OF NOTE: SEPTEMBER 19, 2023@09:54 ENTRY DATE: SEPTEMBER 19, 2023@09:54:52 AUTHOR: KAL GRANADOS COSIGNER: URGENCY: STATUS: COMPLETED CC: Osteoporosis, testicular hypofunction, thyroid function tests abnormal, impaired fasting glucose HPI: Feels pretty well. 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 Getting Sandostatin monthly. Doing well, and surgery is being considered. for this. On IGG infusion for immune deficiency chronically. No temp intolerance constipation from medications, no tremor or palpitations. Taking testosterone gel 3 pumps daily. Feels well. He put gel on this AM and this was after shower. No partner. Does have AM erections. Strength and well being are fine. No falls or fractures. Calcium, vitamin D, and alendronate fills are up to date. Not much dairy in diet. Non VA creat 1.2 09/17, calcium 9.5. Non VA HCT 09/17 49.1. Pt does snore. All recent endocrine labs were reviewed with the patient. September 15 September 15 Reference 2023 2023 08:58 08:58 TSH 7.55 H uIU/mL .35 - 5 FTI ug/dL 6.3 - 12.4 T3FR pg/mL ANDREAS AB IU/mL 0 - 2 TSIG % baseline FT4 1.00 ng/dL .6 - 1.6 Sep 16 2023 PSA 2.39 ng/mL 0 - 4 September 16, 2023@08:58 TESTOSTERONE, TOTAL (WHV):310.23 ng/dL 220.00 - 892.00 Sep 16 2023 HGB 17.0 g/dL 12.8 - 17 HCT 50.4 % 39.2 - 50.4 SERUM September 15 Jun 03 Mar 23 Mar 12 Reference 2023 2023 2022 2022 GLUCOSE 111 H 100 106 H 110 H mg/dL 65 - 100 BUN 19 15 13 17 mg/dL 7 - 25 CREATININE 1.48 H 1.45 H 1.26 1.21 mg/dL .5 - 1.4 CA 9.3 9.3 mg/dL 8.5 - 10.2 September 16, 2023@08:58 VITAMIN D (25-OH): 40 ng/mL 20 - 50 Apr 02, 2020@08:25 PTH INTACT: 27.1 pg/mL 10 - 65 SPEP normal FEB 24, 2022 Bone Mineral Density HISTORY: Osteoporosis PRIOR: 02/08/2020 FOREARM: BMD of 0.8, T score -0.7 HIP: BMD of 0.6, T score -2.5, L-SPINE: BMD of 1.0, T score -1.1 Active problems - Computerized Problem List is the source for the followin. Microscopic hematuria 2. Impaired fasting glucose 3. Chronic dermatitis 4. Thyroid function tests abnormal 5. Carcinoid tumour 6. Lesion of liver 7. Osteoporosis 8. Testicular hypofunction 9. HTN - Hypertension (SCT 74161576) 10. AIN - Acute interstitial nephritis 11. Alcohol Dep-Remission 12. Muscle, ligament and fascia disorders 13. Hand pain (SNOMED CT 92345731) 14. Spondylosis (SNOMED CT 6015929) 15. Osteoarthritis * 16. Peptic Ulcer Disease * 17. Chronic Low Back Pain 18. Dermatitis * 19. Sciatica * 20. Allergic rhinitis 21. Colonic Polyps 22. Dyslipidemia 23. NONINF GASTROENTERIT NEC 24. NEED INOC/VIRAL HEP 25. ESOPHAGEAL REFLUX 26. Asthma (SNOMED CT 488172865) Active Outpatient Medications (including Supplies): Active Outpatient Medications Status ========= 1) ACCU-CHEK GUIDE (GLUCOSE) TEST STRIP USE [...] ACTIVE (S) EVERY DAY NEEDED FOR ALLERGIES 10) CHOLECALCIF 25MCG (D3-1,000UNIT) TAB TAKE ONE TABLET ACTIVE BY MOUTH ONCE DAILY FOR VITAMIN SUPPLEMENTATION 11) DICLOFENAC NA 1% TOP GEL APPLY 4 GRAMS TOPICALLY ACTIVE EVERY 8 HOURS FOR OSTEOARTHRITIS - USE DOSING CARD PROVIDED IN BOX 12) DOCUSATE NA 100MG CAP TAKE ONE CAPSULE BY MOUTH TWICE ACTIVE (S) DAILY NEEDED TO SOFTEN STOOL 13) FISH [...] TAKE ONE TABLET BY MOUTH ONCE ACTIVE DAILY TO CONTROL BLOOD PRESSURE 18) MEPOLIZUMAB 100MG/ML INJ SYR 1ML INJECT 1ML ACTIVE SUBCUTANEOUSLY EVERY FOUR WEEKS 19) NYSTATIN 891817 UNT/ML SUSP TAKE 5 TO 10ML BY MOUTH ACTIVE FOUR TIMES DAILY NEEDED FOR CLEMENTE INFECTION OF MOUTH -- SWISH AND SWALLOW 20) PANTOPRAZOLE NA 40MG EC TAB TAKE ONE TABLET BY MOUTH ACTIVE EVERY MORNING 30 MINUTES BEFORE BREAKFAST FOR [...] CAP/TAB GAMMAGUARD MONTHLY ACTIVE 26 Total Medications SHx: lives alone ROS: Chronic cough no fever PE: affect pleasant appropriate peaking easily in full sentences well masculinized A/P: Active problems - Computerized Problem List is the source for the followin. Osteoporosis Continue calcium vitamin D and alendronate 8. Testicular hypofunction Follow up visit six months with labs. Hypothyroidism Borderline tfts three mos. IFG microalb Lab Free T4 and TSH three mos, calcium, vitamin D, testosterone, cbc, psa in six months. Microalb Hgba1c six mos Medication Reconciliation: Outpatient: Has the patient been taking medications as documented in the EMLR? YES: The patient has been taking medications as documented in the EMLR. Essential Medication List for Review used to complete this medication reconciliation. INCLUDED IN THIS LIST: Alphabetical list of active outpatient prescriptions dispensed from this [place] (local) and dispensed from another [place] or [facility] facility (remote) as well as inpatient orders [...] list may not be complete. Please check [employer] Allergies/ADRs (Tool #5) FACILITY ALLERGY/ADR -------- [facility] [place] [facility] No Known Allergies [facility] NO KNOWN ALLERGIES [facility] ([facility] #[facility] INCLUDED IN THIS LIST: Alphabetical list of active outpatient prescriptions dispensed from this [place] (local) and dispensed from another [place] or [facility] facility (remote) as well as inpatient orders (local pending and active), local clinic medications, locally documented non-VA medications, and local prescriptions that have or been discontinued in the past 90 days. Non-VA Meds Last Documented On: Mar 24, 2022 NOTE The display of VA prescriptions dispensed from another [place] or [facility] facility (remote) is limited to active outpatient prescription entries matched to National Drug File at the originating site and may not include some items such as investigational drugs, compounds, etc. NOT INCLUDED IN THIS LIST: Medications self-entered by the patient into personal health records (i.e. [employer] are NOT included in this list. Non-VA medications documented outside this [place], remote inpatient orders (regardless of status) and remote clinic medications are NOT included in this list. The patient and provider must always discuss medications the patient is taking, regardless of where the medication was dispensed or obtained. -------- OUTPT ACETAMINOPHEN 500MG TAB (Status = Active) TAKE TWO TABLETS BY MOUTH EVERY 8 HOURS NEEDED FOR PAIN Rx# [id number] Last Released: 01/09/23 Qty/Days Supply: Rx Expiration Date: 12/26/23 Refills Remainin Indication: FOR PAIN OUTPT ADAPALENE 0.3% TOP GEL (Status = Active) APPLY SMALL AMOUNT TOPICALLY AT BEDTIME NEEDED FOR ACNE Rx# [id number] Last Released: 06/11/23 Qty/Days Supply: 45 Rx Expiration Date: 12/18/23 Refills Remainin Indication: FOR ACNE OUTPT ALENDRONATE 70MG TAB (Status = Active) TAKE ONE TABLET BY MOUTH EVERY 7 DAYS (TAKE WITH A FULL GLASS OF WATER; REMAIN UPRIGHT FOR 30 MINUTES; NO FOOD OR DRINK FOR 30 MINUTES) Rx# [id number] Last Released: 07/28/23 Qty/Days Supply: Rx Expiration Date: 03/23/24 Refills Remainin OUTPT AMLODIPINE BESYLATE 10MG TAB (Status = Active/Suspended) TAKE ONE TABLET BY MOUTH ONCE DAILY FOR BLOOD PRESSURE/HEART, DO NOT TAKE WITH GRAPEFRUIT JUICE Rx# [id number] Last Released: 07/28/23 Qty/Days Supply: Rx Expiration Date: 02/17/24 Refills Remainin OUTPT BENZONATATE 200MG CAP (Status = Active) TAKE ONE CAPSULE BY MOUTH THREE TIMES DAILY NEEDED FOR COUGH Rx# [id number] Last Released: 05/19/23 Qty/Days Supply: Rx Expiration Date: 12/09/23 Refills Remainin Indication: FOR COUGH OUTPT CALCIUM 200MG ([place] CITRATE-950MG) TAB (Status = Active) TAKE THREE TABLETS BY MOUTH TWICE DAILY REPLACES CALCIUM CARBONATE Rx# [id number] Last Released: 06/03/23 Qty/Days Supply: Rx Expiration Date: 03/23/24 Refills Remainin Indication: FOR OSTEOPOROSIS OUTPT CARBOXYMETHYLCELLULOSE NA 1% OPH GEL (Status = Discontinued) APPLY 1 DROP INTO EACH EYE FOUR TIMES DAILY NEEDED FOR DRY EYE Rx# [id number] Last Released: 06/11/23 Qty/Days Supply: Rx Expiration Date: 07/30/23 Refills Remainin Indication: FOR DRY EYE OUTPT CARBOXYMETHYLCELLULOSE NA 1% OPH GEL (Status = Active) APPLY 1 DROP INTO EACH EYE FOUR TIMES DAILY NEEDED FOR DRY EYE Rx# [id number] Last Released: 08/05/23 Qty/Days Supply: Rx Expiration Date: 08/03/24 Refills Remainin Indication: FOR DRY EYE OUTPT CETIRIZINE HCL 10MG TAB (Status = Active/Suspended) TAKE ONE TABLET BY MOUTH EVERY DAY NEEDED FOR ALLERGIES Rx# [id number] Last Released: 07/21/23 Qty/Days Supply: Rx Expiration Date: 11/08/23 Refills Remainin OUTPT CHOLECALCIF 25MCG (D3-1,000UNIT) TAB (Status = Active) TAKE ONE TABLET BY MOUTH ONCE DAILY FOR VITAMIN SUPPLEMENTATION Rx# [id number] Last Released: 08/17/23 Qty/Days Supply: Rx Expiration Date: 03/23/24 Refills Remainin OUTPT DICLOFENAC NA 1% TOP GEL (Status = Active) APPLY 4 GRAMS TOPICALLY EVERY 8 HOURS FOR OSTEOARTHRITIS - USE DOSING CARD PROVIDED IN BOX Rx# [id number] Last Released: 07/14/23 Qty/Days Supply: 300/30 Rx Expiration Date: 06/08/24 Refills Remainin OUTPT DOCUSATE NA 100MG CAP (Status = Active/Suspended) TAKE ONE CAPSULE BY MOUTH TWICE DAILY NEEDED TO SOFTEN STOOL Rx# [id number] Last Released: 07/21/23 Qty/Days Supply: 200/90 Rx Expiration Date: 12/09/23 Refills Remainin OUTPT FISH OIL 1000MG (500MG DHA/EPA) CAP (Status = Active) TAKE ONE CAPSULE BY MOUTH THREE TIMES A DAY Rx# [id number] Last Released: 08/05/23 Qty/Days Supply: 300/90 Rx Expiration Date: 12/09/23 Refills Remainin OUTPT FLUTICAS 250/SALMETEROL 50 INHL DISK 60 (Status = Active) INHALE 1 PUFF BY MOUTH TWICE DAILY FOR BRONCHOSPASM PREVENTION WITH COPD - RINSE MOUTH AFTER USE Rx# [id number] Last Released: 03/12/23 Qty/Days Supply: Rx Expiration Date: 12/09/23 Refills Remainin Indication: FOR BRONCHOSPASM PREVENTION WITH COPD OUTPT FLUTICASONE PROP 50MCG 120D NASAL INHL (Status = Active) INSTILL 1 SPRAY INTO EACH NOSTRIL TWICE DAILY FOR NASAL IRRITATION/INFLAMMATION Rx# [id number] Last Released: 09/04/23 Qty/Days Supply: Rx Expiration Date: 12/09/23 Refills Remainin Indication: FOR NASAL IRRITATION/INFLAMMATION OUTPT KETOTIFEN 0.025% OPH SOLN (Status = Discontinued) INSTILL 1 DROP INTO EACH EYE TWICE DAILY NEEDED FOR ALLERGIC CONJUNCTIVITIS Rx# [id number] Last Released: 08/07/22 Qty/Days Supply: 09/30 Rx Expiration Date: 07/30/23 Refills Remainin Indication: FOR ALLERGIC CONJUNCTIVITIS OUTPT KETOTIFEN 0.025% OPH SOLN (Status = Active) INSTILL 1 DROP INTO EACH EYE TWICE DAILY NEEDED FOR ALLERGIC CONJUNCTIVITIS Rx# [id number] Last Released: 08/05/23 Qty/Days Supply: 09/30 Rx Expiration Date: 08/03/24 Refills Remainin Indication: FOR ALLERGIC CONJUNCTIVITIS OUTPT LISINOPRIL 2.5MG TAB (Status = Active) TAKE ONE TABLET BY MOUTH ONCE DAILY TO CONTROL BLOOD PRESSURE Rx# [id number] Last Released: 09/09/23 Qty/Days Supply: Rx Expiration Date: 12/09/23 Refills Remainin OUTPT MEPOLIZUMAB 100MG/ML INJ SYR 1ML (Status = Active) INJECT 1ML SUBCUTANEOUSLY EVERY FOUR WEEKS Rx# [id number] Last Released: 09/01/23 Qty/Days Supply: 05/31 Rx Expiration Date: 04/23/24 Refills Remainin Non-VA MULTIVITAMIN/MINERALS CAP/TAB CAP/TAB TAKE ONE TABLET BY MOUTH EVERY DAY Medication prescribed by Non-VA provider. OUTPT NYSTATIN 118326 UNT/ML SUSP (Status = Active) TAKE 5 TO 10ML BY MOUTH FOUR TIMES DAILY NEEDED FOR CLEMENTE INFECTION OF MOUTH -- SWISH AND SWALLOW Rx# [id number] Last Released: 06/11/23 Qty/Days Supply: Rx Expiration Date: 02/09/24 Refills Remainin Indication: FOR CLEMENTE INFECTION OF MOUTH Non-VA OCTREOTIDE (SANDOSTATIN LAR DEPOT) INJ,SUSP,SA INJECT UNKNOWN DOSE INTRAMUSCULARLY EVERY MONTH Non-VA OTHER CAP/TAB TAKE GAMMAGUARD iv MONTHLY OUTPT PANTOPRAZOLE NA 40MG EC TAB (Status = Active) TAKE ONE TABLET BY MOUTH EVERY MORNING 30 MINUTES BEFORE BREAKFAST FOR GERD Rx# [id number] Last Released: 08/17/23 Qty/Days Supply: Rx Expiration Date: 12/09/23 Refills Remainin OUTPT TESTOSTERONE 1.62% 20.25MG/PUMP TOP GEL (Status = Active) APPLY 3 PUMPS (60.75 MG) TOPICALLY ONCE DAILY FOR LOW TESTOSTERONE Rx# [id number] Last Released: 08/25/23 Qty/Days Supply: Rx Expiration Date: 09/23/23 Refills Remainin Indication: FOR LOW TESTOSTERONE OUTPT TIOTROPIUM 2.5MCG/ACTUAT 60D ORAL INHL (Status = Active) INHALE 2 PUFFS BY MOUTH EVERY DAY FOR BREATHING (THIS REPLACES SPIRIVA HANDIHALER). Rx# [id number] Last Released: 06/19/23 Qty/Days Supply: Rx Expiration Date: 12/09/23 Refills Remainin OUTPT ZAFIRLUKAST 20MG TAB (Status = Active/Suspended) TAKE ONE TABLET BY MOUTH TWICE DAILY Rx# [id number] Last Released: 06/27/23 Qty/Days Supply: 180/90 Rx Expiration Date: 12/09/23 Refills Remainin -------- SUPPLIES -------- OUTPT ACCU-CHEK GUIDE (GLUCOSE) TEST STRIP (Status = ) USE 1 STRIP TO TEST BLOOD SUGARS TWO TIMES A WEEK Rx# [id number] Last Released: 04/21/23 Qty/Days Supply: 50/180 Rx Expiration Date: 09/19/23 Refills Remainin /alicia/ KAL GRANADOS MD STAFF PHYSICIAN Signed: 09/21/2023 09:33 KAL GRANADOS [facility]
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
--- OUTSIDE RECORDS SUMMARY | 2024-06-22 11:29 | XMS_ITS | Encounter Summary ---
Author Name [facility] of Vetera Affairs ([place]) Organization [place] of [place]) Address [address] [place] [address] Care Team Providers Care Brake Lining Finisher Name Role Phone ZEB MUIR Primary Care [...] PART A May 04, 2019 PART A [id number] Alicia RUVALCABA PATIENT Selected Encounter This section includes the information on record at [place] for the Encounter. Date/Time Encounter Type Encounter Description Reason Provider Source Jun 12, 2024 04:26 PM Outpatient Encounter PRIMARY CARE/MEDICINE ZEB MUIR [facility] Encounter Template Text not used by [place] Plan of Treatment: Future Appointments (+ 6 [...] The data comes from all [place] treatment [facility] Appointment Date/Time Appointment Type Appointme nt Facility Name Jun 16, 2024 09:30 AM AMBULATORY - NONE [facility] [place] [facility] Jun 22, 2024 10:45 AM AMBULATORY - MEDICINE [facility] [place] [facility] Jul 05, 2024 03:30 PM AMBULATORY - MEDICINE [facility] [place] [facility] Aug 03, 2024 11:00 AM AMBULATORY - NONE [facility] [place] [facility] Aug 08, 2024 09:30 AM AMBULATORY - MEDICINE [facility] [place] [facility] Aug 16, 2024 09:45 AM AMBULATORY - NONE [facility] [place] [facility] Aug 22, 2024 10:30 AM AMBULATORY - MEDICINE [facility] [place] [facility] Aug 24, 2024 01:00 PM AMBULATORY - REHAB MEDICIN E [facility] [place] [facility] September 19, 2024 10:00 AM AMBULATORY - MEDICINE [facility] [place] [facility] September 29, 2024 11:00 AM AMBULATORY - NONE [facility] [place] [facility] Nov 08, 2024 09:00 AM AMBULATORY - NONE [facility] [place] [facility] Nov 16, 2024 10:00 AM AMBULATORY - NONE [facility] [place] [facility] Active, Pending, and Scheduled Orders [...] The data comes from all [place] treatment [facility]. 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 Date/Time Current Smoking Status Comment [facility] Jun 08, 2023 10:00 AM VA-TOBACCO FORMER USER [place] [facility] [place] [facility] Tobacco Use History This section includes a history of the smoking, or tobacco-related health factors, that were collected on or before the date of the Encounter. The data comes from the [place] facility where the Encounter took place. Date/Time Smoking Status/Tobac co Use Comment Facility Jun 08, 2023 10:00 AM VA-TOBACCO QUIT 15 YRS OR MORE [place] [facility] [place] [facility] Jun 09, 2022 10:30 AM VA-TOBACCO FORMER USER [place] [facility] [place] [facility] Jun 09, 2022 10:30 AM VA-TOBACCO QUIT 15 YRS OR MORE [place] [facility] [place] [facility] Jun 14, 2021 09:00 AM VA-TOBACCO FORMER USER [place] [facility] [place] [facility] Jun 14, 2021 09:00 AM VA-TOBACCO QUIT 15 YRS OR MORE [place] [facility] [place] [facility] Feb 03, 2020 01:00 PM VA-TOBACCO FORMER USER [place] [facility] [place] [facility] Feb 03, 2020 01:00 PM VA-TOBACCO QUIT 15 YRS OR MORE [place] [facility] [place] [facility] Feb 02, 2019 11:49 AM VA-TOBACCO FORMER USER [place] [facility] [place] [facility] Feb 02, 2019 11:49 AM VA-TOBACCO QUIT 15 YRS OR MORE [place] [facility] [place] [facility] May 13, 2017 10:12 AM LIFETIME NON-TOBACCO USER [place] [facility] [place] [facility] Jun 11, 2016 10:31 AM QUIT TOBACCO USE > 7 YEARS AGO [facility] [place] [facility] Jun 21, 2015 12:49 PM QUIT TOBACCO USE > 7 YEARS AGO pt states he quit smoking 30 yr ago. [facility] [place] [facility] Jul 18, 2004 08:23 AM HISTORY OF SMOKING Smoke free since 1989 [place] [facility] [place] [facility] May 11, 2003 02:17 PM HISTORY OF SMOKING quit smoking 15 years ago [facility] [place] [facility] May 11, 2003 02:17 PM QUIT TOBACCO USE > 7 YEARS AGO quit smoking 15 years ago [facility] Advance Directives: All historical and [...] Nov 26, 2020 ADVANCE DIRECTIVE GARY GUNTER [facility] Jan 25, 2017 AD[facility]ANCE DIRECT[facility] Apr 06, 2009 ADVANCE DIRECTIVE KHAI BADILLO [facility] Radiology Reports: +/- 30 days of [...] the Encounter. The data comes from all [place] treatment facilities. Date/Time Radiology Report Provider Source Jun 10, 2024 09:29 AM HAND3 OR MORE VIEWS(RIGHT): GENARO RUVALCABA [id number] -[id number] Ex Date: JUN 10, 2024@09:29 Req Phys: ZEB MUIR Pat Loc: [facility] PACT 2 MD (Req'g Loc) Im Loc: [facility] 1 Service: Unknown [facility] [place]DRA HERRERA [id number] (Case [id number] COMPLETE) HAND3 OR MORE VIEWS(RIGHT) (RAD Detailed) CPT:84284 Reason for Study: pain finger#3 Clinical History: Report Status: Verified Date Reported: JUN 10, 2024 Date Verified: JUN 10, 2024 Microbiology Teacher E-Sig:/ES/PAULA ALCARAZ JR Report: Study: AP, lateral [...] Primary Interpreting Staff: PAULA ALCARAZ JR, Radiologist (Microbiology Teacher) /EAD PAULA ALCARAZ JR [facility] Encounter Notes: All associated encounter notes This section contains the clinical notes associated to the Encounter. Date/Time Encounter Note(s) Provider Source Jun 12, 2024 04:26 PM PRIMARY CARE [employer] E MESSAGING: LOCAL TITLE: PRIMARY CARE SECURE MESSAGING STANDARD TITLE: PRIMARY CARE SECURE MESSAGING DATE OF NOTE: JUN 12, 2024@16:26 ENTRY DATE: JUN 12, 2024@16:26:15 AUTHOR: ZEB MUIR EXP COSIGNER: URGENCY: STATUS: COMPLETED ------Original Message ----- Sent: 06/12/2024 04:25 PM ET From: ZEB MUIR To: GENARO RUVALCABA Subject: General:General GENARO RUVALCABA [address] [place] [address] [address], [place], [address] June 12, 2024 Dear [place], Please find enclosed a copy of recent testing. x-rays of the right hand showed osteoarthritis. There was no fracture or dislocation. Please contact me if you have questions. Respectfully, Zeb Muir MD HAND3 OR MORE VIEWS(RIGHT) Proc Ord: HAND 1 OR 2 VIEWS Exm Date: JUN 10, 2024@09:29 Req Phys: ZEB MUIR Pat Loc: [facility] PACT 2 MD (Req'g Loc) Img Loc: [facility] 1 Service: Unknown [place] [address] (Case [id number] COMPLETE) HAND3 OR MORE VIEWS(RIGHT) (RAD Detailed) CPT:06885 Reason for Study: pain finger#3 Clinical History: Report Status: Verified Date Reported: JUN 10, 2024 Date Verified: JUN 10, 2024 Report: Study: AP, lateral and oblique views [...] right third MCP joint, as described above. /alicia/ Zeb Muir MD Staff Physician Signed: 06/12/2024 16:26 ZEB MUIR [facility]
--- OUTSIDE RECORDS SUMMARY | 2024-06-22 11:29 | XMS_ITS | Encounter Summary ---
Author Name Department of Vetera Affairs ([place]) Organization [place] Address [address] [facility] [address] Care Team Providers Care Reconciliation Analyst Name Role Phone RAFAEL MEJIA Primary Care [...] PART A May 04, 2019 PART A [id number] Alicia RUVALCABA PATIENT Selected Encounter This section includes the information on record at [place] for the Encounter. Date/Time Encounter Type Encounter Description Reason Provider Source Dec 30, 2023 01:30 PM THERAPEUTIC EXERCISES PHYSICAL THERAPY ICD-10-CM M47.27 Other spondylosis with radiculopathy, lumbosacral region [employer] [employer] [facility] Encounter Template Text not used by VA Assessments - Encounter Diagnoses This section includes the primary and secondary diagnoses documented for the Encounter. Date/Time Primary/Secondary Diagnosis Diagnosis Name Provider Source Dec 30, 2023 02:11 PM PRIMARY Other spondylosis with radiculopathy, lumbosacral region ABIGAIL GREEN [facility] [place] [facility] Dec 30, 2023 02:11 PM SECONDARY Sacroiliitis, not elsewhere classified ABIGAIL GREEN [place] [facility] [place] [facility] Plan of Treatment: Future Appointments (+ 6 months) and Future Tests (+/- 45 days) The Plan of Treatment section includes future care activities for the patient from all [place] treatmentfacilities. This section includes future appointments and future orders which are active, pending or scheduled. Future Appointments This section includes appointments that were scheduled to occur 6 months from the date of the Encounter, up to a maximum of 20 appointments. The data comes from all [place] treatment facilities. Appointment Date/Time Appointment Type Appointme nt Facility Name Jan 06, 2024 09:00 AM AMBULATORY - MEDICINE [facility] [place] [facility] Feb 17, 2024 09:45 AM AMBULATORY - NONE [facility] [place] [facility] Feb 22, 2024 10:30 AM AMBULATORY - MEDICINE [facility] [place] [facility] Feb 24, 2024 08:30 AM AMBULATORY - REHAB MEDICIN E [facility] [place] [facility] Mar 09, 2024 11:00 AM AMBULATORY - NONE [facility] [place] [facility] Mar 09, 2024 11:30 AM AMBULATORY - MEDICINE [facility] [place] [facility] Mar 23, 2024 10:00 AM AMBULATORY - MEDICINE [facility] [place] [facility] Mar 28, 2024 07:00 AM AMBULATORY - MEDICINE [facility] [place] [facility] Mar 28, 2024 11:15 AM AMBULATORY - MEDICINE [facility] [place] [facility] Apr 06, 2024 10:00 AM AMBULATORY - MEDICINE [facility] [place] [facility] Apr 12, 2024 11:00 AM AMBULATORY - NONE [facility] [place] [facility] Apr 14, 2024 02:30 PM AMBULATORY - MEDICINE [facility] [place] [facility] Apr 22, 2024 08:30 AM AMBULATORY - MEDICINE [facility] [place] [facility] Apr 25, 2024 07:00 AM AMBULATORY - MEDICINE [facility] [place] [facility] May 05, 2024 10:00 AM AMBULATORY - NONE [facility] [place] [facility] May 05, 2024 01:00 PM AMBULATORY - NONE [facility] [place] [facility] May 06, 2024 03:00 PM AMBULATORY - MEDICINE [facility] [place] [facility] May 09, 2024 01:30 PM AMBULATORY - MEDICINE [facility] [place] [facility] May 12, 2024 11:45 AM AMBULATORY - MEDICINE [place] [facility] [place] [facility] Jun 16, 2024 09:30 AM AMBULATORY - NONE [place] [facility] Lab Results: +/- 30 days of the encounter This section includes the Chemistry and Hematology Lab Results on record with [place] for the patient. Radiology Reports and Pathology Reports are provided separately, in subsequent sections. Lab Results This section contains the Chemistry/Hematology Results that were resulted 30 days before or 30 daysafter the date of the Encounter. Date/Time Source Result Type Result - Unit Interpretation Reference Range Comment Dec 01, 2023 09:42 AM [facility] PSA Specimen Type: SERUM No comment entered. Ordering Provider: RAFAEL MEJIA Report Released Date/Time: Nov 23, 2023 11:37 AM Reporting Lab: [facility] [address] Performing Lab: [facility] [address] PSA 2.90 ng/mL 0.00-4.00 Dec 01, 2023 09:42 AM [facility] BASIC METABOLIC PANEL (fasting) Specimen Type: SERUM No comment entered. Ordering Provider: RAFAEL MEJIA Report Released Date/Time: Nov 23, 2023 11:37 AM Reporting Lab: [facility] [address] [address] Performing Lab: [facility] [address] [address] UREA NITROGEN 15 mg/dL 7-25 GLUCOSE 125 mg/dL H 65-100 SODIUM 139 mmol/L 135-145 POTASSIUM 4.2 mmol/L 3.5-5.0 CHLORIDE 99 mmol/L L 100-110 CO2 30 meq/L 20-30 CREATININE, Serum 1.44 mg/dL H 0.50-1.40 eGFR(CKD-EPI 2020) 53 mL/min L >60 Dec 01, 2023 09:42 AM [facility] LIVER FUNCTION Specimen Type: SERUM No comment entered. Ordering Provider: RAFAEL MEJIA Report Released Date/Time: Nov 23, 2023 11:37 AM Reporting Lab: [address] [address] Performing Lab: [address] [address] PROTEIN,TOTAL 7.8 g/dL 6.0-8.3 ALBUMIN 4.2 g/dL 3.5-5.0 ALKALINE PHOSPHATASE 60 U/L 40-150 AST 23 U/L 5-34 ALT 37 U/L BILIRUBIN, TOTAL 1.1 mg/dL 0.2-1.2 Dec 01, 2023 09:42 AM [facility] LIPID PANEL FASTING Specimen Type: SERUM No comment entered. Ordering Provider: RAFAEL MEJIA Report Released Date/Time: Nov 23, 2023 11:37 AM Reporting Lab: [address] [address] Performing Lab: [address] [address] CHOLESTEROL 190 mg/dL TRIGLYCERIDE 269 mg/dL H 0-150 LDL calculated 109 mg/dL 0-129 CHOL/HDL 7.0 HDL CHOLESTEROL 27 mg/dL L 40-60 Dec 01, 2023 09:42 AM [facility] MICROSCOPIC AUTOMATED, URINE Specimen Type: URINE Comment: If Glucose = >500 and Ketones are positive, please alert the Physician. Ordering Provider: RAFAEL MEJIA Report Released Date/Time: Nov 23, 2023 11:37 AM Reporting Lab: [address] [address] Performing Lab: [address] [address] UA WBC 11-20 /[HPF] H 0-5 UA MUCUS FEW /[LPF] Trace UA RBC 3-5 /[HPF] 0-3 Dec 01, 2023 09:42 AM [facility] URINALYSIS CLEAN CATCH Specimen Type: URINE Comment: If Glucose = >500 and Ketones are positive, please alert the Physician. Ordering Provider: RAFAEL MEJIA Report Released Date/Time: Nov 23, 2023 11:37 AM Reporting Lab: [facility] [address] [facility] [address] Performing Lab: [address] [address] UA COLOR Yellow Yellow UA APPEARANCE Clear Clear UA GLUCOSE NEGATIVE mg/dL Negative UA KETONES NEGATIVE mg/dL Negative UA BLOOD NEGATIVE mg/dL Negative UA PROTEIN NEGATIVE mg/dL Negative UA NITRITE NEGATIVE mg/dL Negative UA BILIRUBIN NEGATIVE mg/dL Negative UA SPECIFIC GRAVITY 1.015 L 1.016-1.022 UA pH 6.0 5.0-9.0 UA UROBILINOGEN <2.0 mg/dL <2.0 UA LEUKOCYTE TRACE Negative Dec 01, 2023 09:42 AM [facility] CBC AND DIFF (AUTO) Specimen Type: BLOOD No comment entered. Ordering Provider: RAFAEL MEJIA Report Released Date/Time: Nov 23, 2023 11:37 AM Reporting Lab: [facility] [address] [facility] [address] Performing Lab: [address] [address] WBC 8.78 10*3/uL 4.50-11.00 RBC 5.22 10*6/uL [...] 0.0 0.0-0.0 NRBC, ABS 0.00 10*3/uL 0.00-0.00 Social History: Smoking Status (Most current) and Tobacco Use (All prior to encounter date) This section includes the most current, and the historical, smoking and tobacco- related health factors from the [place] facility where the Encounter took place. Current Smoking Status This section includes the most current smoking, or tobacco-related health factor, from the [place] facility where the Encounter took place. Date/Time Current Smoking Status Comment [facility] Jun 08, 2023 10:00 AM VA-TOBACCO FORMER USER [place] [facility] [place] [facility] Tobacco Use History This section includes a history of the smoking, or tobacco-related health factors, that were collected on or before the date of the Encounter. The data comes from the [place] facility where the Encounter took place. Date/Time Smoking Status/Tobac co Use Comment Facility Jun 08, 2023 10:00 AM VA-TOBACCO QUIT 15 YRS OR MORE [place] [facility] [place] [facility] Jun 09, 2022 10:30 AM VA-TOBACCO FORMER USER [place] [facility] [place] [facility] Jun 09, 2022 10:30 AM VA-TOBACCO QUIT 15 YRS OR MORE [place] [facility] [place] [facility] Jun 14, 2021 09:00 AM VA-TOBACCO FORMER USER [place] [facility] [place] [facility] Jun 14, 2021 09:00 AM VA-TOBACCO QUIT 15 YRS OR MORE [place] [facility] [place] [facility] Feb 03, 2020 01:00 PM VA-TOBACCO FORMER USER [facility] [place] [facility] Feb 03, 2020 01:00 PM VA-TOBACCO QUIT 15 YRS OR MORE [place] [facility] Feb 02, 2019 11:49 AM VA-TOBACCO FORMER USER [place] [facility] Feb 02, 2019 11:49 AM VA-TOBACCO QUIT 15 YRS OR MORE [facility] May 13, 2017 10:12 AM LIFETIME NON-TOBACCO USER [facility] Jun 11, 2016 10:31 AM QUIT TOBACCO USE > 7 YEARS AGO [place] [facility] Jun 21, 2015 12:49 PM QUIT TOBACCO USE > 7 YEARS AGO pt states he quit smoking 30 yr ago. [facility] Jul 18, 2004 08:23 AM HISTORY OF SMOKING Smoke free since 1989 [facility] May 11, 2003 02:17 PM HISTORY OF SMOKING quit smoking 15 years ago [facility] May 11, 2003 02:17 PM QUIT TOBACCO USE > 7 YEARS AGO quit smoking 15 years ago [facility] Advance Directives: All historical and current Section Date Range: From patient's date of to the date document was created. This section includes ALL of a patient's completed or amended [place] Advance and Rescinded Directives. The entries below indicate that a directive exists for the patient, but an actual copy is not included with this document. The data comes from all [place] facilities. Date Advance Directives Provider Source Nov 26, 2020 ADVANCE DIRECTIVE GARY GUNTER [place] [facility] Jan 25, 2017 ADVANCE DIRECTIVE RAFAEL MEJIA [place] [facility] Apr 06, 2009 ADVANCE DIRECTIVE KHAI BADILLO [facility] Encounter Notes: All associated encounter notes This section contains the clinical notes associated to the Encounter. Date/Time Encounter Note(s) Provider Source Dec 30, 2023 01:53 PM PHYSICAL THERAPY NOTE: LOCAL TITLE: PHYSICAL THERAPY STANDARD TITLE: PHYSICAL THERAPY NOTE DATE OF NOTE: DEC 30, 2023@13:53 ENTRY DATE: DEC 30, 2023@13:53:59 AUTHOR: EVAN GREEN EXP COSIGNER: URGENCY: STATUS: COMPLETED Initial Evaluation date: Nov Treat Date: 12/17/2023 Treatment #: 1 Treatment time: 30min Diagnosis: Other Spondylosis with Radiculopathy, Lumbosacral Region (ICD-10-CM M47.27)(Primary) Sacroiliitis, not elsewhere classified(ICD-10-CM M46.1)(secondary) Provider: Ursula PT Treatment Precautions: Patient identified by full name and date of Curtis SUBJECTIVE: States that he felt short relief with the manual traction for the numbness, is willing to try the traction on this date OBJECTIVE: THERAPEUTIC EXERCISE: MINUTES:10 mins LTR in supine marching in supine MANUAL THERAPY: MINUTES: GAIT TRAINING: MINUTES: NEUROMUSCULAR EDUCATION: MINUTES: OTHER: MINUTES: MODALITIES: MINUTES: 15 mins mechanical lumbar traction, intermittent 45/15, 2 steps up, LE 90/90 over bolster, 15 mins at 40# [c] Contraindication screen completed prior to modality [] Skin intact pre/post SELF CARE/EDUCATION: MINUTES: Patient education was provided for all aspects of care during this clinical encounter. ASSESSMENT: Tolerated session fairly well, some decrease in numbness anterior thigh after the traction. PLAN: [x]Continue with plan of care. [x]Pt [...] moderate osteoporosis do not exceed 40lb pull. intermittent. Proposed interventions: stretches: quad, TFL, gluteals, piriformis, Adductors, QLs, and lumbar flexion stretch Strength/stability: bridge as able, progress pelvic rocking sitting (on ball?) bilat, unilat, side to side. Cue core brace. Hip abd, ext, flx, IR, ER. Modified planks. Progressive stabilization exercises as able. towards functional rx. 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
--- OUTSIDE RECORDS SUMMARY | 2024-06-22 11:29 | XMS_ITS ---
Author Name [facility] [facility] [place] [facility] [place] Address [address] [place] [address] Care Team Providers Care Special Education Paraeducator Name Role Phone RAFAEL MEJIA Primary Care [...] PART A May 04, 2019 PART A [id number] Alicia RUVALCABA PATIENT Selected Encounter This section includes the information on record at [place] for the Encounter. Date/Time Encounter Type Encounter Description Reason Provider Source Feb 24, 2024 08:30 AM OFFICE O/P EST HI 40 MIN PM&RS PHYSICIAN ICD-10-CM M46.1 Sacroiliitis, not elsewhere classified DANIKA JOHNSON IHMoses Encounter Template Text not used by [place] Assessments - Encounter Diagnoses This section includes the primary and secondary diagnoses documented for the Encounter. Date/Time Primary/Secondary Diagnosis Diagnosis Name Provider Source Feb 28, 2024 09:54 PM PRIMARY Sacroiliitis, not elsewhere classified DANIKA JOHNSON [facility] [facility] Plan of Treatment: Future Appointments (+ 6 months) and Future Tests (+/- 45 days) The Plan of Treatment section includes future care activities for the patient from all [place] treatmentfacilities. This section includes future appointments and future orders which are active, pending or scheduled. Future Appointments This section includes appointments that were scheduled to occur 6 months from the date of the Encounter, up to a maximum of 20 appointments. The data comes from all [place] treatment facilities. Appointment Date/Time Appointment Type Appointme nt Facility Name Mar 09, 2024 11:00 AM AMBULATORY - NONE [facility] [place] [facility] Mar 09, 2024 11:30 AM AMBULATORY - MEDICINE [facility] [place] [place] [facility] Mar 23, 2024 10:00 AM AMBULATORY - MEDICINE [facility] [place] [facility] Mar 28, 2024 07:00 AM AMBULATORY - MEDICINE [facility] [place] [facility] Mar 28, 2024 11:15 AM AMBULATORY - MEDICINE [facility] [place] [facility] Apr 06, 2024 10:00 AM AMBULATORY - MEDICINE [facility] [place] [facility] Apr 12, 2024 11:00 AM AMBULATORY - NONE [facility] [place] [place] [facility] Apr 14, 2024 02:30 PM AMBULATORY - MEDICINE [facility] [place] [facility] Apr 22, 2024 08:30 AM AMBULATORY - MEDICINE [facility] [place] [place] [facility] Apr 25, 2024 07:00 AM AMBULATORY - MEDICINE [facility] [place] [facility] May 05, 2024 10:00 AM AMBULATORY - NONE [facility] [place] [facility] May 05, 2024 01:00 PM AMBULATORY - NONE [facility] [place] [facility] May 06, 2024 03:00 PM AMBULATORY - MEDICINE [facility] [place] [facility] May 09, 2024 01:30 PM AMBULATORY - MEDICINE [facility] [place] [facility] May 12, 2024 11:45 AM AMBULATORY - MEDICINE [facility] [place] [facility] Jun 16, 2024 09:30 AM AMBULATORY - NONE [place] [facility] [place] [facility] Jun 22, 2024 10:45 AM [facility] Jul 05, 2024 03:30 PM AMBULATORY - MEDICINE [facility] Aug 03, 2024 11:00 AM AMBULATORY - NONE [place] [facility] [place] [facility] Aug 08, 2024 09:30 AM AM[facility]ULATORY [facility] Active, Pending, and Scheduled Orders [...] data comes from all [place] treatment facilities. Test Date/Time Test Type Test Details Facility Name Feb 20, 2024 05:26 PM Consult Order COMMUNITY CARE-INFUSION Cons Tmh Teacher's Choice [facility] Mar 21, 2024 04:25 PM Consult Order COMMUNITY CARE-INFUSION Cons Tmh Teacher's Choice [facility] Lab Results: +/- 30 days of the encounter This section includes the Chemistry and Hematology Lab Results on record with [place] for the patient. Radiology Reports and Pathology Reports are provided separately, in subsequent sections. Lab Results This section contains the Chemistry/Hematology Results that were resulted 30 days before or 30 daysafter the date of the Encounter. Date/Time Source Result Type Result - Unit Interpretation Reference Range Comment Mar 23, 2024 10:50 AM [facility] TESTOSTERONE, TOTAL (V) Specimen Type: SERUM No comment entered. Ordering Provider: KAL GRANADOS Report Released Date/Time: September 21, 2023 09:22 AM Reporting Lab: [address] [address] Performing Lab: [address] [address] TESTOSTERONE , TOTAL (WHV) 680.68 ng/dL 220.00-892. 00 Mar 23, 2024 10:50 AM [facility] THYROID T4 FREE(FT4) (WROX) Specimen Type: SERUM No comment entered. Ordering Provider: KAL GRANADOS Report Released Date/Time: Mar 23, 2024 10:31 AM Reporting Lab: [place] [facility] [place] [facility] [address] [facility] [address] Performing Lab: [facility] [place] [facility] [address] [facility] [address] THYROID T4 FREE(FT4) (WROX) 1.12 ng/dL 0.6-1.6 Mar 23, 2024 10:50 AM [facility] [place] [facility] VITAMIN D (25-OH) Specimen Type: SERUM No comment entered. Ordering Provider: KAL GRANADOS Report Released Date/Time: September 21, 2023 09:22 AM Reporting Lab: [place] [facility] [place] [facility] [address] [facility] [address] Performing Lab[facility] [place] [facility] [address] [facility] [address] VITAMIN D (25-OH) 34 ng/mL 20-50 Mar 23, 2024 10:50 AM [facility] [place] [facility] PSA Specimen Type: SERUM No comment entered. Ordering Provider: KAL GRANADOS Report Released Date/Time: September 21, 2023 09:22 AM Reporting Lab: [place] [facility] [place] [facility] [address] [facility] [address] Performing Lab: [facility] [place] [facility] [address] [facility] [address] PSA 1.83 ng/mL 0.00-4.00 Mar 23, 2024 10:50 AM [facility] CALCIUM Specimen Type: SERUM No comment entered. Ordering Provider: KAL GRANADOS Report Released Date/Time: September 21, 2023 09:22 AM Reporting Lab: [place] [facility] [place] [facility] [address] [facility] [address] Performing Lab: [place] [facility] [place] [facility] [address] [facility] [address] CALCIUM 8.8 mg/dL 8.5-10.2 Mar 23, 2024 10:50 AM [facility] TSH Specimen Type: SERUM No comment entered. Ordering Provider: KAL GRANADOS Report Released Date/Time: Mar 23, 2024 10:31 AM Reporting Lab: [facility] [address] [facility] [address] Performing Lab: [address] [address] TSH 2.38 u[IU]/mL 0.35-5.00 Mar 23, 2024 10:50 AM [facility] BASIC METABOLIC PANEL (non-fasting) Specimen Type: SERUM No comment entered. Ordering Provider: KAL GRANADOS Report Released Date/Time: September 21, 2023 09:22 AM Reporting Lab: [address] [address] Performing Lab: [address] [address] UREA NITROGEN 10 mg/dL 7-25 GLUCOSE 88 mg/dL 65-100 SODIUM 136 mmol/L 135-145 POTASSIUM 4.0 mmol/L 3.5-5.0 CHLORIDE 105 mmol/L 100-110 CO2 22 meq/L 20-30 CREATININE, Serum 0.91 mg/dL 0.50-1.40 eGFR(CKD-EPI 2020) >90 mL/min >60 Mar 23, 2024 10:50 AM [facility] CBC Specimen Type: BLOOD No comment entered. Ordering Provider: KAL GRANADOS Report Released Date/Time: September 21, 2023 09:22 AM Reporting Lab: [facility] [address] [facility] [address] Performing Lab: [address] [address] WBC 6.16 10*3/uL 4.50-11.00 RBC 4.48 10*6/uL [...] Height Weight Body Mass Index Source Feb 24, 2024 09:00 AM 98 102 134/79 18 95 3 [place] [facility] Feb 24, 2024 08:30 AM 97.8 107 150/79 18 92 6 130 24 [place] [facility] [place] [facility] Social History: Smoking Status (Most current) and Tobacco Use (All prior to encounter date) This section includes the most current, and the historical, smoking and tobacco- related health factors from the [place] facility where the Encounter took place. Current Smoking Status This section includes the most current smoking, or tobacco-related health factor, from the [place] facility where the Encounter took place. Date/Time Current Smoking Status Comment [facility] Jun 08, 2023 10:00 AM VA-TOBACCO FORMER USER [place] [facility] [place] [facility] Tobacco Use History This section includes a history of the smoking, or tobacco-related health factors, that were collected on or before the date of the Encounter. The data comes from the [place] facility where the Encounter took place. Date/Time Smoking Status/Tobac co Use Comment [facility] Jun 08, 2023 10:00 AM VA-TOBACCO QUIT 15 YRS OR MORE [facility] [place] [facility] Jun 09, 2022 10:30 AM VA-TOBACCO FORMER USER [facility] [place] [facility] Jun 09, 2022 10:30 AM VA-TOBACCO QUIT 15 YRS OR MORE [facility] [place] [facility] Jun 14, 2021 09:00 AM VA-TOBACCO FORMER USER [facility] [facility] Jun 14, 2021 09:00 AM VA-TOBACCO QUIT 15 YRS OR MORE [facility] [place] [facility] Feb 03, 2020 01:00 PM VA-TOBACCO FORMER USER [facility] [place] [facility] Feb 03, 2020 01:00 PM VA-TOBACCO QUIT 15 YRS OR MORE [facility] [place] [facility] Feb 02, 2019 11:49 AM VA-TOBACCO FORMER USER [facility] Feb 02, 2019 11:49 AM VA-TOBACCO QUIT 15 YRS OR MORE [facility] May 13, 2017 10:12 AM LIFETIME NON-TOBACCO USER [facility] Jun 11, 2016 10:31 AM QUIT TOBACCO USE > 7 YEARS AGO [facility] Jun 21, 2015 12:49 PM QUIT TOBACCO USE > 7 YEARS AGO pt states he quit smoking 30 yr ago. [facility] Jul 18, 2004 08:23 AM HISTORY OF SMOKING Smoke free since 1989 [facility] May 11, 2003 02:17 PM HISTORY OF SMOKING quit smoking 15 years ago [facility] May 11, 2003 02:17 PM QUIT TOBACCO USE > 7 YEARS AGO quit smoking 15 years ago [facility] Advance Directives: All historical and current Section [...] Nov 26, 2020 ADVANCE DIRECTIVE GARY GUNTER [facility] Jan 25, 2017 ADVANCE DIRECTIVE RAFAEL MEJIA [facility] Apr 06, 2009 ADVANCE DIRECTIVE KHAI BADILLO [facility] Radiology Reports: +/- 30 days of [...] KAROLYN NCE FOR NEEDLE PLACEMENT: GENARO RUVALCABA [id number] -[id number] M Exm Date: FEB 24, 2024@08:47 Req Phys: DANIKA JOHNSON THI Pat Loc: [facility]/NO/MED REHAB/SPINE INJ (Re Img Loc: [facility]/BUILDING 1 Service: [place] [address] (Case [id number] COMPLETE) FLUOROSCOPIC GUIDANCE FOR NEEDLE (RAD Detailed) CPT:51303 Reason for Study: SI joint injection Clinical History: Report Status: Verified Date Reported: FEB 24, 2024 Date Verified: FEB 24, 2024 Ear Nose Throat Physician E-Sig:/ES/PAULA ALCARAZ JR Report: Study: Pain injection [...] Primary Interpreting Staff: PAULA ALCARAZ JR, Radiologist (Ear Nose Throat Physician) /PAULA RUDOLPH JR [facility] Encounter Notes: All associated encounter notes This section contains the clinical notes associated to the Encounter. Date/Time Encounter Note(s) Provider Source Feb 24, 2024 09:22 AM DISCHARGE NOTE: LOCAL TITLE: DISCHARGE INSTRUCTIONS/OUTPATIENT STANDARD TITLE: DISCHARGE NOTE DATE OF NOTE: FEB 24, 2024@09:22 ENTRY DATE: FEB 24, 2024@09:22:04 AUTHOR: DANIKA JOHNSON EXP COSIGNER: URGENCY: STATUS: COMPLETED Your ATTENDING PHYSICIAN for today's injection is: Danika Johnson DO Reason for Visit: Left SI joint injection - Physical/Activity Limitations: No strenous activity for [...] MOUTH ACTIVE EVERY DAY NEEDED FOR ALLERGIES 6) CHOLECALCIF 25MCG (D3-1,000UNIT) TAB TAKE ONE TABLET ACTIVE BY MOUTH ONCE DAILY FOR VITAMIN SUPPLEMENTATION 7) DICLOFENAC NA 1% TOP GEL APPLY 4 GRAMS TOPICALLY ACTIVE EVERY 8 HOURS FOR OSTEOARTHRITIS - USE DOSING CARD PROVIDED IN BOX 8) KETOTIFEN 0.025% OPH SOLN INSTILL 1 DROP INTO EACH ACTIVE EYE TWICE DAILY NEEDED FOR ALLERGIC CONJUNCTIVITIS 9) LISINOPRIL 2.5MG TAB TAKE ONE TABLET BY MOUTH ONCE ACTIVE DAILY TO CONTROL BLOOD PRESSURE 10) MEPOLIZUMAB 100MG/ML INJ SYR 1ML INJECT 1ML ACTIVE SUBCUTANEOUSLY EVERY FOUR WEEKS 11) PANTOPRAZOLE NA 40MG EC TAB TAKE ONE TABLET BY MOUTH ACTIVE EVERY MORNING 30 MINUTES BEFORE BREAKFAST FOR GERD 12) TESTOSTERONE 1.62% 20.25MG/PUMP TOP GEL APPLY 3 PUMPS ACTIVE (60.75 MG) TOPICALLY ONCE DAILY FOR LOW TESTOSTERONE 13) TIOTROPIUM 2.5MCG/ACTUAT 60D ORAL INHL INHALE 2 PUFFS ACTIVE BY MOUTH ONCE DAILY FOR BRONCHOSPASM PREVENTION WITH COPD Pending Outpatient Medications Status 1) ZAFIRLUKAST 20MG TAB TAKE ONE TABLET BY MOUTH TWICE PENDING DAILY Active Non-VA Medications Status 1) Non-VA MULTIVITAMIN/MINERALS CAP/TAB 1 TABLET BY ACTIVE MOUTH EVERY DAY 2) Non-VA OCTREOTIDE (SANDOSTATIN LAR DEPOT) INJ,SUSP,SA ACTIVE UNKNOWN DOSE INTRAMUSCULARLY EVERY MONTH 3) Non-VA OTHER CAP/TAB GAMMAGUARD MONTHLY ACTIVE 17 Total Medications No changes to current medications [...] are experiencing problems contact: TELEPHONE ASSISTANCE at [phone] or extension [phone] Or [phone] extension [phone] (DILIP Chirinos) or extension [phone] (ANÍBAL Lopez) If you are in an emotional crisis, feeling suicidal or having any troubling or self-destructive or violent impulses - please call [phone] (or [phone]); press 1 for Veterans to ask for [...] time of discharge. /alicia/ DANIKA JOHNSON DO VENEER DRIER FEEDER Signed: 02/24/2024 09:22 DANIKA JOHNSON [place] [facility] [facility] Feb 24, 2024 08:43 AM PHYSICAL MEDICINE REHAB NOTE: LOCAL TITLE: PM&R BACK/JOINT PROCEDURE NOTE STANDARD TITLE: PHYSICAL MEDICINE REHAB NOTE DATE OF NOTE: FEB 24, 2024@08:43 ENTRY DATE: FEB 24, 2024@08:44 AUTHOR: DANIKA JOHNSON EXP COSIGNER: URGENCY: STATUS: COMPLETED PROCEDURE NOTE: SACROILIAC JOINT INJECTION WITH FLUOROSCOPY PROCEDURE: 1) Left sacroiliac joint injection 2) Fluoroscopic needle guidance REASON FOR PROCEDURE: Sacroiliac joint pain/sacroiliitis PHYSICIAN: Danika Johnson DO MEDICATIONS INJECTED: 40mg triamcinolone and 2 mL of 1% lidocaine. Lot #: [id number] Exp: 04/2025 LOCAL ANESTHETIC INJECTED: 1 mL of 1% lidocaine CONTRAST AGENT USED: 0.5mL of Omnipaque 300 CONTRAST AGENT WASTED: 0mL of Omnipaque 300 SEDATION MEDICATIONS: None ESTIMATED BLOOD LOSS: None COMPLICATIONS: None HISTORY: presents for re-evaluation of chronic low back and pelvic pain. Patient had sgnificant improvement of pain s/p b/l SI joint injections in August 2023, lasting 3 months. Pain has since returned, but mainly only on the left SI joint. Pain over the right SI joint is tolerable. Pain is rated at 6/10 on average and 8/10 at worst, nonradiating. Symptoms worsen with prolonged sitting and positional changes. Denies any new symptoms. Denies bowel/bladder incontinence, fever, or chills. 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 He had surgery over a month ago with resection of a portion of the intestines. Is followed by oncology, Dr. Milo French at [facility]. EXAM: Vitals in chart. Thin gentleman, well groomed, awake, alert, in NAD. Affect appropriate. Pleasant. +Franki's sign and TTP left>>>right SI joint. + ZEV's and sacral rocking on the left. +Dynamic SLR on the left, negative on right. Decent ROM of the lumbar spine without replication of pain on lumbar extension, SB or rotation. Lumbosacral PSM hypertonicity with a few trigger points, but not replicating his pain. No focal weakness of the legs. Patchy area of numbness noted in the anterior thigh on the left side. INFORMED CONSENT: Verbal and electronic consent in iMed. TIME OUT NOTE TIME: FEB 24, 2024@08:48 [place] correctly stated: [X]Full name: GENARO RUVALCABA [X]Last 4 of SS#: [id number] [X]: May STAFF NAME: Juan F Fuller LPN LOCATION: Marked sites in left lower back TECHNIQUE: Time-out was taken to [...] vascular runoff. Medication was then injected slowly. The procedure was completed without complications and was tolerated well. The patient was monitored after the procedure. The patient (or responsible green party) was given post-procedure and discharge instructions to follow at home. The patient was discharged in stable condition. A follow-up appointment was made. Preprocedure pain level: 10/11 Postprocedure pain level: 10 ASSESSMENT: : 68-year-old [place] with neuroendocrine tumor presenting with left>>>right sacroiliac joint dysfunction and low back pain. His symptoms have historically improved with SI joint injections. Plan: - Left SI joint injections provided today. - Discharge instructions provided including the use of ice q2 hrs x 48 hrs prn post injection soreness/pain. - Post-injection follow-up with PM&R PA in 2-4 weeks. - If symptoms persist and not improved by SI joint injections, then a dedicated MRI scan of the lumbar spine will be considered. - Discussed the importance of diligence with pelvic stabilization exercises. - Encouraged engagement in some form of low impact aerobic activity such as walking daily for 30-45 minutes. - Continue all medications - no change. - Contact me with any issues/questions MDM: 40 min Medication Reconciliation: Outpatient: Has the patient been taking medications as documented in the EMLR? YES: The patient has been taking medications as documented in the EMLR. Essential Medication List for Review used to complete this medication reconciliation. INCLUDED IN THIS LIST: Alphabetical list of active outpatient prescriptions dispensed from this [place] (local) and dispensed from another [place] or [facility]D facility (remote) as well as [...] or non-VA provider. /alicia/ DANIKA JOHNSON DO VENEER DRIER FEEDER Signed: 02/28/2024 21:55 DANIKA JOHNSON [place] [facility] [place] [facility]
--- OUTSIDE RECORDS SUMMARY | 2024-06-22 11:30 | XMS_ITS ---
Author Name [facility] [place] [facility] [place] Address [address] [place] [address] Care Team Providers Care Leaf Stripper Name Role Phone RAFAEL MEJIA Primary Care [...] PART A May 04, 2019 PART A [id number] Alicia RUVALCABA PATIENT Selected Encounter This section includes the information on record at [place] for the Encounter. Date/Time Encounter Type Encounter Description Reason Pro vider Source Dec 17, 2023 11:46 AM Outpatient Encounter COMMUNITY CARE CONSULT IHE Encounter Template Text not used by [...] 20 appointments. The data comes from all [facility] treatment facilities. Appointment Date/Time Appointment Type Appointme nt Facility Name Dec 30, 2023 01:30 PM AMBULATORY - [facility]IC[facility] [facility] Jan 06, 2024 09:00 AM AMBULATORY [facility] MEDICINE [facility] [place] [facility] Feb 17, 2024 09:45 AM AMBULATORY - NONE [facility] [place] [facility] Feb 22, 2024 10:30 AM AMBULATORY [facility] MEDICINE [facility] [place] [facility] Feb 24, 2024 08:30 AM AMBULATORY - REHAB MEDICIN E [facility] [place] [facility] Mar 09, 2024 11:00 AM AMBULATORY - NONE [facility] [place] [facility] Mar 09, 2024 11:30 AM AM[facility]ULATORY [facility] MEDICINE [facility] [place] [facility] Mar 23, 2024 10:00 AM AM[facility]ULATORY [facility]ICINE [facility] [place] [facility] Mar 28, 2024 07:00 AM AMBULATORY [facility] MEDICINE [facility] [place] [facility] Mar 28, 2024 11:15 AM AMBULATORY [facility] MEDICINE [facility] [place] [facility] Apr 06, 2024 10:00 AM AMBULATORY - MEDICINE [facility] [place] [facility] Apr 12, 2024 11:00 AM AMBULATORY - NONE [facility] [place] [facility] Apr 14, 2024 02:30 PM AMBULATORY [facility] MEDICINE [facility] [place] [facility] Apr 22, 2024 08:30 AM AM[facility]ULATORY [facility] MEDICINE [facility] [place] [facility] Apr 25, 2024 07:00 AM AMBULATORY [facility] MEDICINE [facility] [place] [facility] May 05, 2024 10:00 AM AMBULATORY - NONE [facility] [place] [facility] May 05, 2024 01:00 PM AMBULATORY - NONE [facility] [place] [facility] May 06, 2024 03:00 PM AMBULATORY [facility] MEDICINE [facility] [place] [facility] May 09, 2024 01:30 PM [facility]ULATORY [facility] MEDICINE [facility] [place] [facility] May 12, 2024 11:45 AM AMBULATORY - MEDICINE [facility] Lab Results: +/- 30 days of the encounter This section includes the Chemistry and Hematology Lab Results on record with [place] for the patient. Radiology Reports and Pathology Reports are provided separately, in subsequent sections. Lab Results This section contains the Chemistry/Hematology Results that were resulted 30 days before or 30 daysafter the date of the Encounter. Date/Time Source Result Type Result - Unit Interpretation Reference Range Comment Dec 01, 2023 09:42 AM [facility] PSA Specimen Type: SERUM No comment entered. Ordering Provider: RAFAEL MEJIA Report Released Date/Time: Nov 23, 2023 11:37 AM Reporting Lab: [address] [address] Performing Lab: [address] [address] PSA 2.90 ng/mL 0.00-4.00 Dec 01, 2023 09:42 AM [facility] LIPID PANEL FASTING Specimen Type: SERUM No comment entered. Ordering Provider: RAFAEL MEJIA Report Released Date/Time: Nov 23, 2023 11:37 AM Reporting Lab: [address] [address] Performing Lab: [address] [address] CHOLESTEROL 190 mg/dL TRIGLYCERIDE 269 mg/dL H 0-150 LDL calculated 109 mg/dL 0-129 CHOL/HDL 7.0 HDL CHOLESTEROL 27 mg/dL L 40-60 Dec 01, 2023 09:42 AM [facility] LIVER FUNCTION Specimen Type: SERUM No comment entered. Ordering Provider: RAFAEL MEJIA Report Released Date/Time: Nov 23, 2023 11:37 AM Reporting Lab: [address] [address] Performing Lab: [address] [address] PROTEIN,TOTAL 7.8 g/dL 6.0-8.3 ALBUMIN 4.2 g/dL 3.5-5.0 ALKALINE PHOSPHATASE 60 U/L 40-150 AST 23 U/L 5-34 ALT 37 U/L BILIRUBIN, TOTAL 1.1 mg/dL 0.2-1.2 Dec 01, 2023 09:42 AM [facility] BASIC METABOLIC PANEL (fasting) Specimen Type: SERUM No comment entered. Ordering Provider: RAFAEL MEJIA Report Released Date/Time: Nov 23, 2023 11:37 AM Reporting Lab: [address] [address] Performing Lab: [address] [address] UREA NITROGEN 15 mg/dL 7-25 GLUCOSE 125 mg/dL H 65-100 SODIUM 139 mmol/L 135-145 POTASSIUM 4.2 mmol/L 3.5-5.0 CHLORIDE 99 mmol/L L 100-110 CO2 30 meq/L 20-30 CREATININE, Serum 1.44 mg/dL H 0.50-1.40 eGFR(CKD-EPI 2020) 53 mL/min L >60 Dec 01, 2023 09:42 AM [facility] MICROSCOPIC AUTOMATED, URINE Specimen Type: URINE Comment: If Glucose = >500 and Ketones are positive, please alert the Physician. Ordering Provider: RAFAEL MEJIA Report Released Date/Time: Nov 23, 2023 11:37 AM Reporting Lab: [address] [address] Performing Lab: [address] [address] UA WBC 11-20 /[HPF] H 0-5 UA MUCUS FEW /[LPF] Trace UA RBC 3-5 /[HPF] 0-3 Dec 01, 2023 09:42 AM [facility] URINALYSIS CLEAN CATCH Specimen Type: URINE Comment: If Glucose = >500 and Ketones are positive, please alert the Physician. Ordering Provider: RAFAEL MEJIA Report Released Date/Time: Nov 23, 2023 11:37 AM Reporting Lab: [address] [address] Performing Lab: [facility] [address] [facility] [address] UA COLOR Yellow Yellow UA APPEARANCE Clear Clear UA GLUCOSE NEGATIVE mg/dL Negative UA KETONES NEGATIVE mg/dL Negative UA BLOOD NEGATIVE mg/dL Negative UA PROTEIN NEGATIVE mg/dL Negative UA NITRITE NEGATIVE mg/dL Negative UA BILIRUBIN NEGATIVE mg/dL Negative UA SPECIFIC GRAVITY 1.015 L 1.016-1.022 UA pH 6.0 5.0-9.0 UA UROBILINOGEN <2.0 mg/dL <2.0 UA LEUKOCYTE TRACE Negative Dec 01, 2023 09:42 AM [facility] CBC AND DIFF (AUTO) Specimen Type: BLOOD No comment entered. Ordering Provider: RAFAEL MEJIA Report Released Date/Time: Nov 23, 2023 11:37 AM Reporting Lab: [facility] [address] [facility] [address] Performing Lab: [facility] [address] [facility] [address] WBC 8.78 10*3/uL 4.50-11.00 RBC 5.22 10*6/uL [...] 10*3/uL 0.00-0.00 Nov 23, 2023 11:09 AM [facility] THYROID T4 FREE(FT4) (WROX) Specimen Type: SERUM No comment entered. Ordering Provider: KAL GRANADOS Report Released Date/Time: September 21, 2023 09:26 AM Reporting Lab: [facility] [address] [facility] [address] Performing Lab: [facility] [address] [address] THYROID T4 FREE(FT4) (WROX) 1.00 ng/dL 0.6-1.6 Nov 23, 2023 11:09 AM [facility] TSH Specimen Type: SERUM No comment entered. Ordering Provider: KAL GRANADOS Report Released Date/Time: September 21, 2023 09:26 AM Reporting Lab: [facility] [address] [facility] [address] Performing Lab: [facility] [address] [facility] [address] TSH 3.32 u[IU]/mL 0.35-5.00 Nov 23, 2023 11:09 AM [facility] MICROALBUMIN CREATININE RATIO PANEL Specimen Type: URINE No comment entered. Ordering Provider: AKL GRANADOS Report Released Date/Time: September 21, 2023 09:32 AM Reporting Lab: [facility] [address] [facility] [address] Performing Lab: [facility] [address] [facility] [address] MICROALBUMIN/C REATININE RATIO 5.2 mg/g 0-29.9 MICROALBUMIN,Q UANTITATIVE 0.9 mg/dL RR UNAVAIL CREATININE URINE 172.99 mg/dL Social History: Smoking Status (Most current) and Tobacco Use (All prior to encounter date) This section includes the most current, and the historical, smoking and tobacco- related health factors from the [place] facility where the Encounter took place. Current Smoking Status This section includes the most current smoking, or tobacco-related health factor, from the [place] facility where the Encounter took place. Date/Time Current Smoking Status Comment Kajal melton Jun 08, 2023 10:00 AM VA-TOBACCO FORMER USER [place] [facility] [place] [facility] Tobacco Use History This section includes a history of the smoking, or tobacco-related health factors, that were collected on or before the date of the Encounter. The data comes from the [place] facility where the Encounter took place. Date/Time Smoking Status/Tobac co Use Comment Facility Jun 08, 2023 10:00 AM VA-TOBACCO QUIT 15 YRS OR MORE [facility] [place] [facility] Jun 09, 2022 10:30 AM VA-TOBACCO FORMER USER [facility] [place] [facility] Jun 09, 2022 10:30 AM VA-TOBACCO QUIT 15 YRS OR MORE [place] [facility] [place] [facility] Jun 14, 2021 09:00 AM VA-TOBACCO FORMER USER [place] [facility] [place] [facility] Jun 14, 2021 09:00 AM VA-TOBACCO QUIT 15 YRS OR MORE [facility] [place] [facility] Feb 03, 2020 01:00 PM VA-TOBACCO FORMER USER [facility] [place] [facility] Feb 03, 2020 01:00 PM VA-TOBACCO QUIT 15 YRS OR MORE [facility] [place] [facility] Feb 02, 2019 11:49 AM VA-TOBACCO FORMER USER [facility] [place] [facility] Feb 02, 2019 11:49 AM VA-TOBACCO QUIT 15 YRS OR MORE [facility] [place] [facility] May 13, 2017 10:12 AM LIFETIME NON-TOBACCO USER [facility] [place] [facility] Jun 11, 2016 10:31 AM QUIT TOBACCO USE > 7 YEARS AGO [facility] [place] [facility] Jun 21, 2015 12:49 PM QUIT TOBACCO USE > 7 YEARS AGO pt states he quit smoking 30 yr ago. [facility] [place] [facility] Jul 18, 2004 08:23 AM HISTORY OF SMOKING Smoke free since 1989 [facility] May 11, 2003 02:17 PM HISTORY OF SMOKING quit smoking 15 years ago [facility] May 11, 2003 02:17 PM QUIT TOBACCO USE > 7 YEARS AGO quit smoking 15 years ago [facility] Advance Directives: All historical and current Section Date Range: From patient's date of to the date document was created. This section includes ALL of a patient's completed or amended [place] Advance and Rescinded Directives. The entries below indicate that a directive exists for the patient, but an actual copy is not included with this document. The data comes from all [place] facilities. Date Advance Directives Provider Source Nov 26, 2020 ADVANCE DIRECTIVE GARY GUNTER [facility] Jan 25, 2017 ADVANCE DIRECTIVE RAFAEL MEJIA [facility] Apr 06, 2009 ADVANCE DIRECTIVE KHAI BADILLO [facility] Encounter Notes: All associated encounter notes This section contains the clinical notes associated to the Encounter. Date/Time Encounter Note(s) Provider Source Dec 17, 2023 11:46 AM ADMINISTRATIVE NOTE: LOCAL TITLE: ADMINISTRATIVE NOTE STANDARD TITLE: ADMINISTRATIVE NOTE DATE OF NOTE: DEC 17, 2023@11:46 ENTRY DATE: DEC 17, 2023@11:46:43 AUTHOR: PEYTON MCDANIEL EXP COSIGNER: URGENCY: STATUS: COMPLETED ADMINISTRATIVE NOTE Has ADDENDA came into the community care suite regarding a new referral for oncology. Provider at [facility] ( Dr. French ) is recommending to see Dr. Praveen Trejo at [facility]. Please contact August at , fax , Dr KIM# [phone]. 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 Await return call. /alicia/ CONOR LI [facility] RN Signed: 12/17/2023 13:05 PEYTON MCDANIELRCristino [facility]ITAL[facility]
--- OUTSIDE RECORDS SUMMARY | 2024-06-22 11:30 | XMS_ITS | Encounter Summary ---
Author Name [facility] [place] [place] Organization [facility] [place] Address [address] [place] [address] Care Team Providers Care Harmonic Analyst Name Role Phone RAFAEL MEJIA Primary [...] PART A May 04, 2019 PART A [id number] [phone] [id number] Alicia RUVALCABA PATIENT Selected Encounter This section includes the information on record at [place] for the Encounter. Date/Time Encounter Type Encounter Description Reason Pro vider Source IHE Encounter Template Text not used by [place] Advance Directives: All historical and current Section [...] Nov 26, 2020 ADVANCE DIRECTIVE [facility]ARY [facility]UNTER [facility] Jan 25, 2017 ADVANCE DIRECTIVE RAFAEL MJEIA [facility] Apr 06, 2009 ADVANCE DIRECTIVE KHAI BADILLO [facility]
--- OUTSIDE RECORDS SUMMARY | 2024-06-22 11:30 | XMS_ITS ---
Author Name [facility] [place] [facility] [facility] [place] Address [address] [place] [address] Care Team Providers Care Functional Skills Tutor Name Role Phone RAFAEL MEJIA Primary Care [...] PART A May 04, 2019 PART A [id number] Alicia RUVALCABA PATIENT Selected Encounter This section includes the information on record at [place] for the Encounter. Date/Time Encounter Type Encounter Description Reason Provider Source Dec 01, 2023 08:00 AM SELF CARE MNGMENT TRAINING PHYSICAL THERAPY ICD-10-CM M47.27 Other spondylosis with radiculopathy, lumbosacral region KRYSTIAN CA Moses Encounter Template Text not used by [facility] Assessments - Encounter Diagnoses This section includes the primary and secondary diagnoses documented for the Encounter. Date/Time Primary/Secondary Diagnosis Diagnosis Name Provider Source Dec 01, 2023 01:53 PM PRIMARY Other spondylosis with radiculopathy, lumbosacral region [place]RYSTIAN [place] [facility] [place] [facility] Dec 01, 2023 01:53 PM SECONDARY Sacroiliitis, not elsewhere classified [place]STIAN [place] [facility] [place] [facility] Plan of Treatment: Future Appointments (+ 6 months) and Future Tests (+/- 45 days) The Plan of Treatment section includes future care activities for the patient from all [place] treatmentfacilities. This section includes future appointments and future orders which are active, pending or scheduled. Future Appointments This section includes appointments that were scheduled to occur 6 months from the date of the Encounter, up to a maximum of 20 appointments. The data comes from all [place] treatment facilities. Appointment Date/Time Appointment Type Appointme nt Facility Name Dec 16, 2023 11:00 AM AM[facility]ULATORY [facility]ICINE [facility] [place] [facility] Dec 17, 2023 10:30 AM AMBULATORY - REHAB MEDICIN E [facility] [place] [facility] Dec 30, 2023 01:30 PM AMBULATORY - REHAB MEDICIN E [facility] [place] [facility] Jan 06, 2024 09:00 AM AMBULATORY - MEDICINE [facility] [place] [facility] Feb 17, 2024 09:45 AM AMBULATORY - NONE [facility] [place] [facility] Feb 22, 2024 10:30 AM AMBULATORY - MEDICINE [facility] [place] [facility] Feb 24, 2024 08:30 AM AMBULATORY - REHAB MEDICIN E [facility] [place] [facility] Mar 09, 2024 11:00 AM AMBULATORY - NONE [facility] [place] [facility] Mar 09, 2024 11:30 AM AMBULATORY - MEDICINE [facility] [place] [facility] Mar 23, 2024 10:00 AM AMBULATORY - MEDICINE [facility] [place] [facility] Mar 28, 2024 07:00 AM AMBULATORY - MEDICINE [facility] [place] [facility] Mar 28, 2024 11:15 AM AMBULATORY - MEDICINE [facility] [place] [facility] Apr 06, 2024 10:00 AM AMBULATORY - MEDICINE [facility] [place] [facility] Apr 12, 2024 11:00 AM AMBULATORY - NONE [facility] [place] [facility] Apr 14, 2024 02:30 PM AMBULATORY - MEDICINE [facility] [place] [facility] Apr 22, 2024 08:30 AM AMBULATORY - MEDICINE [facility] [place] [facility] Apr 25, 2024 07:00 AM AMBULATORY - MEDICINE [facility] [place] [facility] May 05, 2024 10:00 AM AMBULATORY - NONE [place] [facility] [place] [facility] May 05, 2024 01:00 PM AMBULATORY - NONE [place] [facility] [place] [facility] May 06, 2024 03:00 PM [place] [facility] Lab Results: +/- 30 days of the encounter This section includes the Chemistry and Hematology Lab Results on record with [place] for the patient. Radiology Reports and Pathology Reports are provided separately, in subsequent sections. Lab Results This section contains the Chemistry/Hematology Results that were resulted 30 days before or 30 daysafter the date of the Encounter. Date/Time Source Result Type Result - Unit Interpretation Reference Range Comment Dec 01, 2023 09:42 AM [facility] LIVER FUNCTION Specimen Type: SERUM No comment entered. Ordering Provider: RAFAEL MEJIA Report Released Date/Time: Nov 23, 2023 11:37 AM Reporting [facility] [address] [address] Performing Lab: [address] [address] PROTEIN,TOTAL 7.8 g/dL 6.0-8.3 ALBUMIN 4.2 g/dL 3.5-5.0 ALKALINE PHOSPHATASE 60 U/L 40-150 AST 23 U/L 5-34 ALT 37 U/L BILIRUBIN, TOTAL 1.1 mg/dL 0.2-1.2 Dec 01, 2023 09:[address] [facility] BASIC METABOLIC PANEL (fasting) Specimen Type: SERUM No comment entered. Ordering Provider: RAFAEL MEJIA Report Released Date/Time: Nov 23, 2023 11:37 AM Reporting [facility] [address] [address] Performing Lab: [facility] [address] [facility] [address] UREA NITROGEN 15 mg/dL 7-25 GLUCOSE 125 mg/dL H 65-100 SODIUM 139 mmol/L 135-145 POTASSIUM 4.2 mmol/L 3.5-5.0 CHLORIDE 99 mmol/L L 100-110 CO2 30 meq/L 20-30 CREATININE, Serum 1.44 mg/dL H 0.50-1.40 eGFR(CKD-EPI 2020) 53 mL/min L >60 Dec 01, 2023 09:42 AM [facility] PSA Specimen Type: SERUM No comment entered. Ordering Provider: RAFAEL MEJIA Report Released Date/Time: Nov 23, 2023 11:37 AM Reporting Lab: [facility] [address] [facility] [address] Performing Lab: [address] [address] PSA 2.90 ng/mL 0.00-4.00 Dec 01, 2023 09:42 AM [facility] LIPID PANEL FASTING Specimen Type: SERUM No comment entered. Ordering Provider: RAFAEL MEJIA Report Released Date/Time: Nov 23, 2023 11:37 AM Reporting Lab: [facility] [address] [facility] [address] Performing Lab: [address] [address] CHOLESTEROL 190 mg/dL TRIGLYCERIDE 269 mg/dL H 0-150 LDL calculated 109 mg/dL 0-129 CHOL/HDL 7.0 HDL CHOLESTEROL 27 mg/dL L 40-60 Dec 01, 2023 09:42 AM [facility] MICROSCOPIC AUTOMATED, URINE Specimen Type: URINE Comment: If Glucose = >500 and Ketones are positive, please alert the Physician. Ordering Provider: RAFAEL MEJIA Report Released Date/Time: Nov 23, 2023 11:37 AM Reporting Lab: [facility] [address] [facility] [address] Performing Lab: [address] [address] UA WBC 11-20 /[HPF] H 0-5 UA MUCUS FEW /[LPF] Trace UA RBC 3-5 /[HPF] 0-3 Dec 01, 2023 09:42 AM [facility] CBC AND DIFF (AUTO) Specimen Type: BLOOD No comment entered. Ordering Provider: RAFAEL MEJIA Report Released Date/Time: Nov 23, 2023 11:37 AM Reporting Lab: [facility] [address] [facility] [address] Performing Lab: [facility] [address] [facility] [address] WBC 8.78 10*3/uL 4.50-11.00 RBC 5.22 10*6/uL [...] 0.0 0.0-0.0 NRBC, ABS 0.00 10*3/uL 0.00-0.00 Dec 01, 2023 09:42 AM [facility] URINALYSIS CLEAN CATCH Specimen Type: URINE Comment: If Glucose = >500 and Ketones are positive, please alert the Physician. Ordering Provider: RAFAEL MEJIA Report Released Date/Time: Nov 23, 2023 11:37 AM Reporting Lab: [facility] [address] [facility] [address] Performing Lab: [facility] [address] [facility] [address] UA COLOR Yellow Yellow UA APPEARANCE Clear Clear UA GLUCOSE NEGATIVE mg/dL Negative UA KETONES NEGATIVE mg/dL Negative UA BLOOD NEGATIVE mg/dL Negative UA PROTEIN NEGATIVE mg/dL Negative UA NITRITE NEGATIVE mg/dL Negative UA BILIRUBIN NEGATIVE mg/dL Negative UA SPECIFIC GRAVITY 1.015 L 1.016-1.022 UA pH 6.0 5.0-9.0 UA UROBILINOGEN <2.0 mg/dL <2.0 UA LEUKOCYTE TRACE Negative Nov 23, 2023 11:09 AM [facility] THYROID T4 FREE(FT4) (WROX) Specimen Type: SERUM No comment entered. Ordering Provider: KAL GRANADOS Report Released Date/Time: September 21, 2023 09:26 AM Reporting Lab: [facility] [address] [facility] [address] Performing Lab: [facility] [address] [facility] [address] THYROID T4 FREE(FT4) (WROX) 1.00 ng/dL 0.6-1.6 Nov 23, 2023 11:09 AM [facility] TSH Specimen Type: SERUM No comment entered. Ordering Provider: KAL GRANADOS Report Released Date/Time: September 21, 2023 09:26 AM Reporting Lab: [facility] [address] [facility] [address] Performing Lab: [facility] [address] [facility] [address] TSH 3.32 u[IU]/mL 0.35-5.00 Nov 23, 2023 11:09 AM [facility] MICROALBUMIN CREATININE RATIO PANEL Specimen Type: URINE No comment entered. Ordering Provider: KAL GRANADOS Report Released Date/Time: September 21, 2023 09:32 AM Reporting Lab: [place] [facility] [place] [facility] [address] [facility] [address] Performing Lab: [place] [facility] [place] [facility] [address] [facility] [address] MICROALBUMIN/C REATININE RATIO 5.2 mg/g 0-29.9 MICROALBUMIN,Q [...] took place. Date/Time Current Smoking Status Comment [facility] Jun 08, 2023 10:00 AM [place] [facility] [place] [facility] Tobacco Use History This section includes a history of the smoking, or tobacco-related health factors, that were collected on or before the date of the Encounter. The data comes from the [place] facility where the Encounter took place. Date/Time Smoking Status/Tobac co Use Comment Facility Jun 08, 2023 10:00 AM VA-TOBACCO QUIT 15 YRS OR MORE [facility] [place] [facility] Jun 09, 2022 10:30 AM VA-TOBACCO FORMER USER [facility] [place] [facility] Jun 09, 2022 10:30 AM VA-TOBACCO QUIT 15 YRS OR MORE [facility] [place] [facility] Jun 14, 2021 09:00 AM VA-TOBACCO FORMER USER [facility] [place] [facility] Jun 14, 2021 09:00 AM VA-TOBACCO QUIT 15 YRS OR MORE [facility] [place] [facility] Feb 03, 2020 01:00 PM VA-TOBACCO FORMER USER [facility] [place] [facility] Feb 03, 2020 01:00 PM VA-TOBACCO QUIT 15 YRS OR MORE [facility] [place] [facility] Feb 02, 2019 11:49 AM VA-TOBACCO FORMER USER [facility] [place] [facility] Feb 02, 2019 11:49 AM VA-TOBACCO QUIT 15 YRS OR MORE [facility] May 13, 2017 10:12 AM LIFETIME NON-TOBACCO USER [facility] Jun 11, 2016 10:31 AM QUIT TOBACCO USE > 7 YEARS AGO [facility] Jun 21, 2015 12:49 PM QUIT TOBACCO USE > 7 YEARS AGO pt states he quit smoking 30 yr ago. [facility] Jul 18, 2004 08:23 AM HISTORY OF SMOKING Smoke free since 1989 [facility] May 11, 2003 02:17 PM HISTORY OF SMOKING quit smoking 15 years ago [facility] May 11, 2003 02:17 PM QUIT TOBACCO USE > 7 YEARS AGO quit smoking 15 years ago [facility] Advance Directives: All historical and current Section [...] 26, 2020 ADVANCE DIRECTIVE GARY GUNTER [facility] Jan 25, 2017 ADVANCE DIRECTIVE RAFAEL MEJIA [facility] Apr 06, 2009 ADVANCE DIRECTIVE KHAI BADILLO [facility] Encounter Notes: All associated encounter notes This section contains the clinical notes associated to the Encounter. Date/Time Encounter Note(s) Provider Source Dec 01, 2023 07:37 AM PHYSICAL THERAPY C ONSULT: LOCAL TITLE: PHYSICAL THERAPY CONSULT STANDARD TITLE: PHYSICAL THERAPY CONSULT DATE OF NOTE: DEC 01, 2023@07:37 ENTRY DATE: DEC 01, 2023@07:37:21 AUTHOR: KRYSTIAN CA COSIGNER: URGENCY: STATUS: COMPLETED Initial Evaluation date: Nov Treat Date: Nov Treatment #: eval Treatment time: 60min Diagnosis: Other Spondylosis with Radiculopathy, Lumbosacral Region (ICD-10-CM M47.27)(Primary) Sacroiliitis, not elsewhere classified(ICD-10-CM M46.1)(secondary) Provider: Ursula PT Treatment Precautions: Patient identified by full name and date of Verbal Consent given for therapist to put hands on patient SUBJECTIVE Tea reports that he has seen significant improvement [...] flexion and rotation. Not experiencing radicular symptoms. I have injections in the left leg, that normally decrease the numbness in the left leg, SI injections never fully goes away, no consistent pattern or precipitating causes. 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 PMH: COPD, exertional asthma, [facility], [facility] cancer )diagnosed about 1 year ago. Chief complaint/ailment/injury: AILYN/Date of onset: ( ) Gradual ( x ) Rapid Since onset: ( x ) Worsening - over the years it is getting worse 5-6/10 overall, used to be more 3/10 ( ) Improving ( x ) Staying the same Are your symptoms: ( ) Constant ( x ) Intermittent Prior PT care for this condition? ( ) No ( ) Yes Previous Medical Interventions: ( ) Xray ( ) MRI/CTscan ( x ) Injections - injections SI. ( ) Other: C/O: ( x ) Pain: ( x ) ROM: ( x ) Strength: ( x ) Sensation: Pain rating on 0-10 VNS: Current: 5/10-more the upper lumbar Average: 5/10 At best: 4/10 At worst: 7/10-stacking wood, snowblowing, yard work type activities. Location:primarilyy in the lumbar region gluteals, and up the paraspinals. Description of pain: ( x )aching ( )throbbing ( )sharp ( )shooting ( x )stabbing- infrequent ( )burning ( )cramping ( x )electric-numb Alleviating factors:resting, injections, heating pad, ice pack after the injections ( ) Position: Aggravating factors:working too long, dishes too long, 20-30min of doing any kind of sig activity will increase pain. Are you currently working? []Full-time []Part-time []Seeking employment []Disabled [x]Retired Current Exercise Habits: I was walking, but have stopped due to the heat. (asthma). NO stretching At least 3x/wk? 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 Patient's Goals: 1)be able to walk easier 2) Active problems - Computerized Problem List is the source for the followin. Microscopic hematuria 2. Impaired fasting glucose 3. Chronic dermatitis 4. Thyroid function tests abnormal 5. Carcinoid tumour 6. Lesion of liver 7. Osteoporosis 8. Testicular hypofunction 9. HTN - Hypertension (SCT 92425639) 10. AIN - Acute interstitial nephritis 11. Alcohol Dep-Remission 12. Muscle, ligament and fascia disorders 13. Hand pain (SNOMED CT 65248497) 14. Spondylosis (SNOMED CT 7273980) 15. Osteoarthritis * 16. Peptic Ulcer Disease * 17. Chronic Low Back Pain 18. Dermatitis * 19. Sciatica * 20. Allergic rhinitis 21. Colonic Polyps 22. Dyslipidemia 23. NONINF GASTROENTERIT NEC 24. NEED INOC/VIRAL HEP 25. ESOPHAGEAL REFLUX 26. Asthma (SNOMED CT 731347247) [facility] REPORTS SUMMARY pg. 1 03-12-21 LS-spine x-rays . FINDINGS: There are 5 lumbar type vertebral segments. There 5 lumbar type vertebral segments. There is straightening of the usual lumbar lordotic curvature. Other lumbar vertebral body heights are maintained. Moderate L1-2 disc space narrowing with degenerative endplate changes. Severe L2-3 disc space narrowing and degenerative endplate changes. Mild to moderate L3-4 disc space narrowing and degenerative endplate changes. Moderate to severe L4-5 disc and L5-S1 disc space narrowing with degenerative endplate changes. Hypertrophic degenerative changes are seen in the lumbar spine most notably at L5-S1. The lumbar pedicles appear intact. There are aortoiliac atherosclerotic vascular calcifications noted.. Multiple right upper quadrant calcifications are consistent with cholelithiasis as noted on the CT of 01/01/2021. Impression: 1. Moderate to severe lumbar lumbar spondylosis, as above. No acute osseous abnormalities. 2. Cholelithiasis, as seen on the CT of 01/01/2021. Primary Diagnostic Code: No immediate attention required Medical Screening Questionnaire/RED FLAGS: []Recent Trauma [x]Age (50+) [x]Hx of Cancer- had issues going to bathroom, not sure if related []Fever/chills/night sweats []Unexplained weight loss []Recent infection [x]Immunosuppression []Night pain []Saddle anesthesia []Bowel/bladder dysfunction retention/frequency [x]LE neurological deficit OBJECTIVE: Posture: shrugged up shoulders Lumbar Posture: WNLs:___ Increased Lordosis ____ Decreased Lordosis _x___ Lateral Shift : Yes: (Direction:___) No_x__ Pelvic Symmetry: ASIS:= bilat anteriortilt PSIS:= Iliac Crest:= Functional Mobility:I Lumbar AROM: Flexion(60-90):25central L3pain Extension(30):15 same pain as Flex L SB(25): 15 pull right R SB(25):5 pain right L Rot(15-30):75% pain right R Rot(15-30):75% central slight pain Neurological: Deep Tendon Reflexes:(0,1+,2+,3+,4+) 1. Quadriceps (L3): L: 3 R:3 2. Achilles (L5-S1): L: 2 R:2 Neurological [UQ=upper quadrant, LQ=lower quadrant] L3 nerve left side distribution [x]Sensation, Light Touch: [x]UQ: [x]WNL []Diminished []Absent [x]LQ: [x]WNL []Diminished []Absent Resisted Tests: (_/5) Trunk Flexion : :4- Trunk Extension : :4- Trunk Rotation : L:4-pain R:4- Hip Flexion (L2-L4): L:3+pain R:3+ Hip Adduction: L:4- R:4- Hip Internal Rotation : L:4- R:4- Hip External Rotation : L:4- R:4- Knee Extension(L2-L4): L:4 R:4 Knee Flexion: L:4 R:4 Ankle Dorsiflexion(L4): L:4 R:4 Ankle Plantarflexion (S1-2) L:4 R:4 Ankle Eversion (S1): L:4 R:4 Great Toe Extension(L5): L:4 R:4 Hip Abduction (L5-S1): L:4- R:4- Hip Extension(L5-S2): L:4- R:4- Range of Motion: Hip WFL Muscle Length/Flexibility: Juancarlos Test: Left: Normal Limited__sig___ Right: Normal Limited___sig Alda's Test: Left: Normal Limited_sig____ Right: Normal Limited__sig Hamstring (90-90): Left: Normal Limited__20___ Degrees Right: Normal Limited___25 Degrees Randi Test: Left: Normal Limited__mod___ Right: Normal Limited___mod Palpation: paraspinals guarded, SI left >Rgith ttp, Joint Mobility Assessment:stiff and guarded lumbar 5/6 Lumbar Special Tests Straight Leg Raise (sn=0.91):- Crossed Straight Leg Raise (sp=0.88):+r leg left lbp Slump Test (sn=0.84 sp=0.83):+ left Pelvic Special Tests ZEV:- Lumbar Traction Test Cluster (identified positive variables) (+) Pain in the leg + Signs of nerve root compression + Peripheralization of symptoms with lumbar extension movements + Positive Crossed SLR Treatment Provided: Patient education was provided for all aspects of care during this clinical encounter. THERAPEUTIC EXERCISE: MINUTES:15 Instruction in therex & issued [employer] HEP:Access Code: [email or web address] URL: [email or web address] Date: 12/01/2023 Prepared by: Krystian Ca Exercises - Seated Transversus Abdominis Bracing [...] - 3 sets - 30 secs hold SELF CARE/EDUCATION: MINUTES:10 EDU on posture and standing for duration to try and be more active with standing vs relaxed standing hanging on skeleton and hip flexors Assessment:Patient presents to Physical Therapy today with reports C/O:Low back pain and intermiitent radicular symptoms into the left LE. Signs/sx consistent w/:spondylosis with Radiculopathy, likely exacerbated by significant muscle flexibility restrictions, and reduced overall strength and core stability. Physical Therapy Problem List [x]Increased Pain [x]Decreased ADL's/IADL's [x]Impaired gait & mobility [x]Impaired balance [x]Reduced muscle performance/strength [x]Decreased soft tissue mobility/flexibility [x]Decreased ROM [x]Impaired joint mobility/integrity [x]Postural deficits [x]Knowledge deficit for home exercises Rehab Potential: []Good [x]Fair []Poor potential Barriers: chronicity of symptoms, multiple comorbidities Goals, within: []2-4 wks [x]4-6wks []8wks [x]Perform [...] [x]Self-care strategies [x]PNE [x]Modalities(PRN): [x]Heat/Ice[x]Mechanical traction [x]Biofreeze [place]:assess lumbar traction benefit manually Ensure good TA brace and then instruct in Hip flexor stretch, pelvic tilts, gluteal sets, bridge as able. Proposed interventions: stretches: quad, TFL, gluteals, piriformis, Adductors, QLs, and lumbar flexion stretch Strength/stability:progress pelvic rocking sitting (on ball?) bilat, unilat, side to side.cue core brace. Hip abd, ext, flx, IR, ER. MOdified planks. Progressive stabilization exercises as able. towards functional rx. /alicia/ KRYSTIAN CA PT, DPT PHYSICAL THERAPIST Signed: 12/02/2023 13:39 K[facility]STIAN [place] [facility] [place] [facility]
--- OUTSIDE RECORDS SUMMARY | 2024-06-22 11:30 | XMS_ITS | Continuity of Care Document ---
Author Name [facility] Organization [facility] Care Team Providers Care [facility] Security Director Name Role Phone [facility] Unavailable Unavailable Problems Combined list of problems from Department of Defense and Veterans Affairs facilities. It does not include entries that were removed or entered in error. Problem Status Onset Date Problem Type Date of Resolution Comments Source Chronic dermatitis Active 05/04/19 23 Condition Aug 06, 2022 Entered By: RAFAEL MEJIA Comment: referred to dermatitisAug 2022 Entered By: RAFAEL MEJIA Comment: [facility] [place] [facility] Microscopic hematuria Active 05/04/19 Condition Dec 08, 2022 Entered By: RAFAEL MEJIA Comment: repeat sample ordered [facility] [place] [facility] Thyroid function tests abnormal Active 05/04/19 23 Condition Jun 09, 2022 Entered By: RAFAEL MEJIA Comment: high tsh [facility] [place] [facility] 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 Condition Dec 09, 2021 Entered By: RAFAEL MEJIA Comment: unknown primary [facility] [place] [facility] Lesion of liver Active 05/04/19 21 Condition Jun 14, 2021 Entered By: RAFAEL MEJIA Comment: hemangioma [facility] [place] [facility] AIN - Acute interstitial nephritis Active 05/04/19 19 Condition May 10, 2019 Entered By: RAFAEL MEJIA Comment: followed by nephrology [facility] [place] [facility] HTN - Hypertension (SCT 98084293) Active 05/04/19 19 Condition May 10, 2019 Entered By: RAFAEL MEJIA Comment: treated with medication [facility] [place] [facility] Peptic Ulcer Disease * (ICD-9-CM 533.90) Active 05/04/19 09 Condition [facility] [place] [facility] Alcohol Dep-Remission Active Condition [facility] [place] [facility] Allergic rhinitis Active Condition De c 2005 Entered By: VANITA FRANZ Comment: trial nasal steroid [facility] [place] [facility] Asthma (SNOMED CT 110066954) Active Condition Apr 21, 2006 Entered By: VANITA FRANZ Comment: PFT 04/08 mod-sever obstructive, no mdi response [facility] [place] [facility] Chronic frontal sinusitis (SNOMED CT 22083475) Active Condition [facility] Chronic Low Back Pain (ICD-9-CM 724.2) Active Condition [facility] [place] [facility] Colonic Polyps Active Condition Mar Entered By: VANITA FRANZ Comment: small polyp excised but not retrieved, needs repeat 2010 [facility] [place] [facility] Dermatitis * (ICD-9-CM 692.9) Active Condition [facility] [place] [facility] Dyslipidemia (ICD-9-CM 272.4) Active Condition [facility] [place] [facility] ESOPHAGEAL REFLUX Active Condition [facility] [place] [facility] Hand pain (SNOMED CT 04078792) Active Condition [facility] [place] [facility] Impaired fasting glucose Active Condition [facility] [place] [facility] Muscle, ligament and fascia disorders Active Condition [facility] (6[facility]) Nasal Polyps * (ICD-9-CM 471.9) Active Condition [facility] NEED INOC/VIRAL HEP Active Condition [facility] [place] [facility] NONINF GASTROENTERIT NEC Active Condition [facility] [place] [facility] Osteoarthritis * (ICD-9-CM 715.90) Active Condition [facility] Osteoporosis Active Condition [facility] [place] [facility] Sciatica * (ICD-9-CM 724.3) Active Condition [facility] [place] [facility] Sleep apnea Active [facility] [place] [facility] Spondylosis (SNOMED CT 4961674) [facility] Testicular hypofunction Active Condition [facility] [place] [facility] Diagnosis: ICD-10-CM K08.9 Disorder of teeth and supporting structures, unspecified Active Diagnosis [facility] [place] [facility] Diagnosis: ICD-10-CM G47.30 Sleep apnea, unspecified Active Diagnosis [facility] [place] [facility] Diagnosis: ICD-10-CM M54.59 Other low back pain Active Diagnosis [facility] [place] [facility] Diagnosis: ICD-10-CM M47.896 Other spondylosis, lumbar region Active Diagnosis [facility] [place] [facility] Diagnosis: ICD-10-CM M81.0 Age-related osteoporosis w/o current pathological fracture Active Diagnosis [facility] [place] [facility] Diagnosis: ICD-10-CM G47.33 Obstructive sleep apnea (adult) (pediatric) Active Diagnosis [facility] Diagnosis: ICD-10-CM Z23 Encounter for immunization Active Diagnosis [facility] [place] [facility] Diagnosis: ICD-10-CM M46.1 Sacroiliitis, not elsewhere classified Active Diagnosis [facility] [place] [facility] Diagnosis: ICD-10-CM I10 Essential (primary) hypertension Active Diagnosis [facility] [place] [facility] Diagnosis: ICD-10-CM K03.6 Deposits [accretions] on teeth Active Diagnosis [facility] [place] [facility] Diagnosis: ICD-10-CM M47.27 Other spondylosis with radiculopathy, lumbosacral region Active Diagnosis [facility] [place] [facility] Diagnosis: ICD-10-CM M25.559 Pain in unspecified hip Active Diagnosis [facility] [place] [facility] Diagnosis: ICD-10-CM M47.26 Other spondylosis with radiculopathy, lumbar region Active Diagnosis [facility] [place] [facility] Diagnosis: ICD-10-CM E29.1 Testicular hypofunction Active Diagnosis [facility] [place] [facility] Diagnosis: ICD-10-CM Z46.0 Encounter for fit/adjst of spectacles and contact lenses Active Diagnosis [facility] [place] [facility] Diagnosis: ICD-10-CM G43.B0 Ophthalmoplegic migraine, 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 Diagnosis [facility] [place] [facility] Diagnosis: ICD-10-CM R73.01 Impaired fasting glucose Active Diagnosis [facility] [place] [place] [facility] Diagnosis: ICD-10-CM M51.36 Other intervertebral disc degeneration, lumbar region Active Diagnosis [facility] [place] [facility] Diagnosis: ICD-10-CM E78.00 Pure hypercholesterolem ia, unspecified Active Diagnosis [facility] [place] [facility] Diagnosis: ICD-10-CM D48.9 Neoplasm of uncertain behavior, unspecified Active Diagnosis [facility] [place] [facility] Diagnosis: ICD-10-CM M25.531 Pain in right wrist Active Diagnosis [facility] [place] [facility] Diagnosis: ICD-10-CM K04.02 Irreversible pulpitis Active Diagnosis [facility] [place] [place] [facility] Diagnosis: ICD-10-CM 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, right wrist Active Diagnosis [facility] [place] [facility] Diagnosis: ICD-10-CM Z71.89 Other specified counseling Active Diagnosis [facility] [place] [facility] Diagnosis: ICD-10-CM M47.816 Spondylosis w/o myelopathy or radiculopathy, lumbar region Active Diagnosis [facility] [place] [facility] Medications Combined list of outpatient medications from Department of Defense and Veterans Affairs facilities.Medications provided include 1) outpatient medications from the last 15 months, and 2) patient-reported medications. Medication Details Route Status Patient Instructions Prescription Expires Prescription Number Last Dispense Date Ordering Provider Order Date Order Qty Source ADAPALENE 0.3% GEL,TOP APPLY SMALL AMOUNT TOPICALL Y AT BEDTIME NEEDED FOR ACNE TOPICA L 12/18/2023 [id number] MARISELA NELSON 2022 45 [facility] ALENDRONATE 70MG TAB TAKE ONE TABLET BY MOUTH EVERY 7 DAYS (TAKE WITH A FULL GLASS OF WATER; REMAIN UPRIGHT FOR 30 MINUTES; NO FOOD OR DRINK FOR 30 MINUTES) ORAL ACTIVE 03/25/2025 [id number] 4 GRANADOS,AL ICE 2023 12 [facility] [place] [facility] ALENDRONATE 70MG TAB TAKE ONE TABLET BY MOUTH EVERY 7 DAYS (TAKE WITH A FULL GLASS OF WATER; REMAIN UPRIGHT FOR 30 MINUTES; NO FOOD OR DRINK FOR 30 MINUTES) ORAL DISCONT INUED 09/21/2024 [id number] 4 GRANADOS,AL ICE 2023 12 [facility] ALENDRONATE 70MG TAB TAKE ONE TABLET BY MOUTH EVERY 7 DAYS (TAKE WITH A FULL GLASS OF WATER; REMAIN UPRIGHT FOR 30 MINUTES; NO FOOD OR DRINK FOR 30 MINUTES) ORAL DISCONT INUED 03/23/2024 [id number] 4 GRANADOS,AL ICE 2023 12 [facility] AMLODIPINE BESYLATE 10MG TAB TAKE ONE TABLET BY MOUTH ONCE DAILY FOR BLOOD PRESSURE /HEART, DO NOT TAKE WITH GRAPEFRU IT JUICE ORAL SUSPEND ED 02/22/2025 [id number] 5 FLOYD MEJIA D 2023 90 [facility] [place] AMLODIPINE BESYLATE 10MG TAB TAKE ONE TABLET BY MOUTH ONCE DAILY FOR BLOOD PRESSURE /HEART, DO NOT TAKE WITH GRAPEFRU IT JUICE ORAL DISCONT INUED 02/17/2024 [id number] 4 FLOYD MEJIA 2022 90 [facility] BENZONATATE 200MG CAP TAKE ONE CAPSULE BY MOUTH THREE TIMES DAILY NEEDED FOR COUGH ORAL 12/09/2023 [id number] FLOYD MEJIA KIRILL D 2022 270 [facility] CALCIUM 200MG (CA CITRATE-950 MG) TAB TAKE THREE TABLETS BY MOUTH TWICE DAILY REPLACES CALCIUM CARBONAT E ORAL ACTIVE 03/25/2025 [id number] 4 GRANADOS,AL ICE 2023 600 [facility] [place] [facility] CALCIUM 200MG (CA CITRATE-950 MG) TAB TAKE THREE TABLETS BY MOUTH TWICE DAILY REPLACES CALCIUM CARBONAT E ORAL DISCONT INUED 09/21/2024 [id number] 4 GRANADOS,AL ICE 2023 600 [facility] [place] [facility] CALCIUM 200MG (CA CITRATE-950 MG) TAB TAKE THREE TABLETS BY MOUTH TWICE DAILY REPLACES CALCIUM CARBONAT E ORAL DISCONT INUED 03/23/2024 [id number] 4 GRANADOS,AL ICE 2023 600 [facility] [place] [facility] CARBOXYMETH YLCELLULOSE NA 1% GEL,OPH APPLY 1 DROP INTO EACH EYE FOUR TIMES DAILY NEEDED FOR DRY EYE OPHTHA LMIC ACTIVE 08/03/2024 [id number] 4 RENATO,NO AH B 2023 15 [facility] [place] [facility] CARBOXYMETH YLCELLULOSE NA 1% GEL,OPH APPLY 1 DROP INTO EACH EYE FOUR TIMES DAILY NEEDED FOR DRY EYE OPHTHA LMIC DISCONT INUED 07/30/2023 [id number] RENATO,NO AH B 2022 30 [facility] [place] [facility] CETIRIZINE HCL 10MG TAB TAKE ONE TABLET BY MOUTH EVERY DAY NEEDED FOR ALLERGIE S ORAL SUSPEND ED 02/22/2025 [id number] 5 FLOYD MEJIA KIRILL D 2023 90 [facility] [place] [facility] CETIRIZINE HCL 10MG TAB TAKE ONE TABLET BY MOUTH EVERY DAY NEEDED FOR ALLERGIE S ORAL DISCONT INUED 11/08/2023 [id number] 4 FLOYD MEJIA D 2022 90 [facility] [place] [facility] CHOLECALCIF PASCUAL 25MCG (1,000UNIT) TAB TAKE ONE TABLET BY MOUTH ONCE DAILY FOR VITAMIN SUPPLEME NTATION ORAL ACTIVE 03/25/2025 [id number] 5 GRANADOS,AL ICE 2024 90 [facility] [place] [facility] [facility] CHOLECALCIF PASCUAL 25MCG (1,000UNIT) TAB TAKE ONE TABLET BY MOUTH ONCE DAILY FOR VITAMIN SUPPLEME NTATION ORAL DISCONT INUED 09/21/2024 [id number] 4 GRANADOS,AL ICE 2023 90 [facility] [place] [facility] [facility] CHOLECALCIF PASCUAL 25MCG (1,000UNIT) TAB TAKE ONE TABLET BY MOUTH ONCE DAILY FOR VITAMIN SUPPLEME NTATION ORAL DISCONT INUED 03/23/2024 [id number] 4 GRANADOS,AL ICE 2023 90 [facility] [place] [facility] DICLOFENAC NA 1% GEL,TOP APPLY 4 GRAMS TOPICALL Y EVERY 8 HOURS FOR OSTEOART HRITIS - USE DOSING CARD PROVIDED IN BOX TOPICA L 06/08/2024 [id number] 4 FLOYD MEJIA KIRILL D 2023 300 [facility] [place] [facility] DOCUSATE NA 100MG CAP TAKE ONE CAPSULE BY MOUTH TWICE DAILY NEEDED TO SOFTEN STOOL ORAL 12/09/2023 [id number] 4 FLOYD MEJIA KIRILL D 2022 200 [facility] [place] [facility] FERROUS GLUCONATE 324MG TAB TAKE ONE TABLET BY MOUTH ONCE DAILY TO SUPPLEME NT IRON ORAL SUSPEND ED 05/20/2025 [id number] Natalie LEMA ARRETT 2024 100 [facility] [place] [facility] [facility] FISH OIL 1000MG (500MG DHA/EPA) CAP,ORAL TAKE ONE CAPSULE BY MOUTH THREE TIMES A DAY ORAL 12/09/2023 [id number] 4 FLOYD MEJIA KIRILL D 2022 300 [facility] [place] [facility] FLUTICASONE 250MCG/SALM ETEROL 50MCG INHL,ORAL,D ISKUS,60 INHALE 1 PUFF BY MOUTH TWICE DAILY FOR BRONCHOS PASM PREVENTI ON WITH COPD - RINSE MOUTH AFTER USE RESPIR ATORY (INHAL ATION) ACTIVE 03/24/2025 [id number] 4 DARWIN,AL ICE 2023 3 [facility] [place] [facility] FLUTICASONE 250MCG/SALM ETEROL 50MCG INHL,ORAL,D ISKUS,60 INHALE 1 PUFF BY MOUTH TWICE DAILY FOR BRONCHOS PASM PREVENTI ON WITH COPD - RINSE MOUTH AFTER USE RESPIR ATORY (INHAL ATION) DISCONT INUED 12/09/2023 [id number] 3 FLOYD MEJIA KIRILL D 2022 3 [facility] [place] [facility] FLUTICASONE PROPIONATE 50MCG/SPRAY SOLN,NASAL, 16GM INSTILL 1 SPRAY INTO EACH NOSTRIL TWICE DAILY FOR NASAL IRRITATI ON/INFLA MMATION NASAL SUSPEND ED 03/03/2025 [id number] FLOYD MEJIA KIRILL D 2023 3 [facility] [place] [facility] [facility] FLUTICASONE PROPIONATE 50MCG/SPRAY SOLN,NASAL, 16GM INSTILL 1 SPRAY INTO EACH NOSTRIL TWICE DAILY FOR NASAL IRRITATI ON/INFLA MMATION NASAL 12/09/2023 [id number] 4 FLOYD MEJIA KIRILL D 2022 3 [facility] [place] [facility] KETOTIFEN 0.025% SOLN,OPH INSTILL 1 DROP INTO EACH EYE TWICE DAILY NEEDED FOR ALLERGIC CONJUNCT IVITIS OPHTHA LMIC ACTIVE 08/03/2024 [id number] 4 EDWINA GROSS AH B 2023 5 [facility] [place] [facility] LISINOPRIL 2.5MG TAB TAKE ONE TABLET BY MOUTH ONCE DAILY TO CONTROL BLOOD PRESSURE ORAL SUSPEND ED 02/22/2025 [id number] 5 FLOYD MEJIA KIRILL D 2023 90 [facility] [place] [facility] LISINOPRIL 2.5MG TAB TAKE ONE TABLET BY MOUTH ONCE DAILY TO CONTROL BLOOD PRESSURE ORAL DISCONT INUED 12/09/2023 [id number] 4 FLOYD MEJIA KIRILL D 2022 90 [facility] [place] [facility] MEPOLIZUMAB 100MG/ML INJ,SYR,1ML INJECT 1ML SUBCUTAN EOUSLY EVERY FOUR WEEKS SUBCUT ANEOUS SUSPEND ED 03/24/2025 [id number] LESLIE MORALES AMMAD S 2023 1 [facility] [place] [facility] MEPOLIZUMAB 100MG/ML INJ,SYR,1ML INJECT 1ML SUBCUTAN EOUSLY EVERY FOUR WEEKS SUBCUT ANEOUS DISCONT INUED 04/23/2024 [id number] [facility] 20[facility] 1 [facility] MEPOLIZUMAB 100MG/ML INJ,SYR,1ML INJECT 1 ML SUBCUTAN EOUSLY EVERY FOUR WEEKS SUBCUT ANEOUS DISCONT INUED 05/31/2023 [id number] 3 [facility] 2022 1 [facility] METRONIDAZO LE 500MG TAB TAKE ONE TABLET BY MOUTH DIRECTED BY PROVIDER AT 5 PM, 6 PM AND 8 PM THE NIGHT BEFORE SURGERY ORAL 02/06/2024 [id number] BRITTA SALMON MD 2023 3 [facility] MULTIVITAMI NS W/MINERALS TAB TAKE ONE TABLET BY MOUTH EVERY DAY ORAL ACTIVE FLOYD MEJIA 2007 [facility] NEOMYCIN SO4 500MG TAB TAKE TWO TABLETS BY MOUTH DIRECTED BY PROVIDER AT 5 PM, 6 PM AND 8 PM THE NIGHT BEFORE SURGERY ORAL 02/06/2024 [id number] BRITTA SALMON MD 2023 6 [facility] NYSTATIN [id number]/M L SUSP,ORAL TAKE 5 TO 10ML BY MOUTH FOUR TIMES DAILY NEEDED FOR CLEMETNE INFECTIO N OF MOUTH -- SWISH AND SWALLOW ORAL 02/09/2024 [id number] FLOYD MEJIA D 2022 1440 [facility] ONDANSETRON HCL 4MG TAB,ORALLY DISINTEGRAT ING PLACE ONE TABLET BY MOUTH EVERY 8 HOURS NEEDED (ALLOW TABLET TO DISSOLVE ON TONGUE, AND SWALLOW WITH SALIVA) ORAL ACTIVE 03/03/2025 [id number] FLOYD MEJIA D 2023 30 [facility] OTHER CAP/TAB TAKE GAMMAGUA RD iv MONTHLY ACTIVE GRANADOSAL ICE 2019 [facility] PANTOPRAZOL E NA 40MG TAB,EC TAKE ONE TABLET BY MOUTH EVERY MORNING 30 MINUTES BEFORE BREAKFAS T FOR GERD ORAL SUSPEND ED 02/22/2025 [id number] 5 FLOYD MEJIA D 2023 90 [facility] PANTOPRAZOL E NA 40MG TAB,EC TAKE ONE TABLET BY MOUTH EVERY MORNING 30 MINUTES BEFORE BREAKFAS T FOR GERD ORAL DISCONT INUED 12/09/2023 [id number] FLOYD MEJIA D 2022 90 [facility] PEG-3350/EL ECTROLYTES PWDR TAKE CONTENTS OF BOTTLE BY MOUTH DIRECTED BY PROVIDER CARYN Hobbs TO INSTRUCT IONS FROM PRESCRIB ER - DISSOLVE CONTENTS BEFORE DRINKING ORAL DISCONT INUED 02/12/2024 [id number] ARTHUR MCINTOSH 2023 1 [facility] TESTOSTERON E 1.62% 20.25MG/PUM P GEL,TOP APPLY 3 PUMPS (60.75 MG) TOPICALL Y ONCE DAILY FOR LOW TESTOSTE MISHEL TOPICA L ACTIVE 09/23/2024 [id number] 4 GRANADOS,AL ICE 2023 2 [facility] TESTOSTERON E 1.62% 20.25MG/PUM P GEL,TOP APPLY 3 PUMPS (60.75 MG) TOPICALL Y ONCE DAILY FOR LOW TESTOSTE MISHEL TOPICA L DISCONT INUED 03/23/2024 [id number] 4 GRANADOS,AL ICE 2023 2 [facility] TESTOSTERON E 1.62% 20.25MG/PUM P GEL,TOP APPLY 3 PUMPS (60.75 MG) TOPICALL Y ONCE DAILY FOR LOW TESTOSTE MISHEL TOPICA L DISCONT INUED 09/23/2023 [id number] GRANAODS,AL ICE 2023 2 [facility] TESTOSTERON E 1.62% 20.25MG/PUM P GEL,TOP APPLY 2 PUMPS (40.5 MG) TOPICALL Y ONCE DAILY TOPICA L DISCONT INUED 05/10/2023 [id number] 3 FLOYD MEJIA KIRILL D 2022 1 [facility] [place] [facility] [facility] TIOTROPIUM 2.5MCG/ACTU AT INHL,ORAL,6 0D,4GM INHALE 2 PUFFS BY MOUTH ONCE DAILY FOR BRONCHOS PASM PREVENTI ON WITH COPD RESPIR ATORY (INHAL ATION) ACTIVE 02/22/2025 [id number] FLOYD MEJIA KIRILL D 2023 3 [facility] [place] [facility] [facility] TIOTROPIUM 2.5MCG/ACTU AT INHL,ORAL,6 0D,4GM INHALE 2 PUFFS BY MOUTH EVERY DAY FOR BREATHIN G (THIS REPLACES SPIRIVA HANDIHAL ER). RESPIR ATORY (INHAL ATION) 12/09/2023 [id number] 4 FLOYD MEJIA KIRILL D 2022 3 [facility] [place] [facility] [facility] ZAFIRLUKAST 20MG TAB TAKE ONE TABLET BY MOUTH TWICE DAILY ORAL SUSPEND ED 02/22/2025 [id number] 5 FLOYD MEJIA D 2023 180 [facility] [place] [facility] ZAFIRLUKAST 20MG TAB TAKE ONE TABLET BY MOUTH TWICE DAILY ORAL DISCONT INUED 12/09/2023 [id number] 4 FLOYD MEJIA KIRILL D 2022 180 [facility] Immunizations Combined list of available immunizations from the Department of Defense and Veterans Affairs facilities. Immunization Series Date Given Administered By Site Reaction Lot Number CVX Code Drug Email Marketing Assistant Status Comments Source RSV, BIVALENT, PROTEIN SUBUNIT RSVPREF, DILUENT RECONSTITUTED , 0.5 ML, PF 2023 VANGIE LORENZ E RIGHT DELTO ID [id number] 305 complet ed [id number] [facility] [place] [facility] INFLUENZA, UNSPECIFIED FORMULATION 2023 88 [facility] [place] [facility] INFLUENZA, UNSPECIFIED FORMULATION 2022 88 complet ed [facility] INFLUENZA VACCINE, QUADRIVALENT, ADJUVANTED 2021 205 complet ed [facility] [place] [facility] INFLUENZA VACCINE, QUADRIVALENT, ADJUVANTED 2020 205 complet ed [facility] [place] [facility] ZOSTER RECOMBINANT 2 2020 187 complet ed [facility] [place] [facility] COVID-19 (PFIZER), MRNA, LNP-S, PF, 30 MCG/0.3 ML DOSE 2 2020 208 complet ed PFR; [id number]; 1 [facility] [place] [facility] COVID-19 (PFIZER), MRNA, LNP-S, PF, 30 MCG/0.3 ML DOSE 1 2020 208 complet ed PFR; [id number]; 1 [facility] [place] [facility] INFLUENZA, HIGH-DOSE, QUADRIVALENT 2019 197 complet ed [facility] [place] [facility] PNEUMOCOCCAL POLYSACCHARID E PPV23 2019 33 complet ed [facility] [place] [facility] ZOSTER RECOMBINANT 1 2019 187 complet ed [facility] [place] [facility] PNEUMOCOCCAL CONJUGATE PCV 13 2018 133 complet ed [facility] [place] [facility] INFLUENZA, INJECTABLE, QUADRIVALENT, PRESERVATIVE FREE 2018 150 complet ed Site: Right Deltoid [facility] [place] [facility] INFLUENZA, INJECTABLE, QUADRIVALENT 2017 158 complet ed Site: Left Deltoid [facility] [place] [facility] TD (ADULT), 2 LF TETANUS TOXOID, PRESERVATIVE FREE, ADSORBED 2017 09 complet ed Site: Right Deltoid [facility] [place] [facility] INFLUENZA, SEASONAL, INJECTABLE 2016 141 complet ed Site: Left Deltoid [facility] [place] [facility] HEP B, ADULT 3 2016 NONE 43 complet ed [facility] [place] [facility] FLU,3 YRS (HISTORICAL) 2015 88 complet ed [facility] [place] [facility] FLU,3 YRS (HISTORICAL) 2014 88 complet ed Site: Left Deltoid [facility] [place] [facility] ZOSTER (SHINGLES) (HISTORICAL) 2014 121 complet ed Proximal Left Arm [facility] [place] [facility] FLU,3 YRS (HISTORICAL) 2013 88 complet ed Site: Left Deltoid [facility] [place] [facility] HEP B, ADULT 2 2012 NONE 43 complet ed [facility] [place] [facility] MMR 2012 03 complet ed [facility] [place] [facility] FLU,3 YRS (HISTORICAL) 2012 88 complet ed Site: Left Deltoid [facility] [place] [facility] HEP B, ADULT 1 2012 NONE 43 complet ed [facility] [place] [facility] MMR 2012 03 complet ed [facility] [place] [facility] FLU,3 YRS (HISTORICAL) 2011 88 complet ed Site: Left Deltoid [facility] [place] [facility] FLU,3 YRS (HISTORICAL) 2010 88 complet ed Site: Left Deltoid [facility] [place] [facility] FLU,3 YRS (HISTORICAL) 2009 88 complet ed Site: Left Deltoid [facility] [place] [facility] FLU,3 YRS (HISTORICAL) 2008 88 complet ed [facility] [place] [facility] FLU,3 YRS (HISTORICAL) 2007 88 complet ed Site: Left Deltoid [facility] [place] [facility] TDAP 2007 115 complet ed IM Right Deltoid [facility] [place] [facility] FLU,3 YRS (HISTORICAL) 2006 88 complet ed Site: Left Deltoid [facility] [place] [facility] FLU,3 YRS (HISTORICAL) 2005 88 complet ed [facility] [place] [facility] PNEUMOCOCCAL, UNSPECIFIED FORMULATION 2005 KATHARINE BENTON 109 complet ed [facility] [place] [facility] FLU,3 YRS (HISTORICAL) 2004 DANNIE TURCIOS 88 complet ed [facility] FLU,3 YRS (HISTORICAL) 2003 PAT BURNS 88 complet ed [facility] HEP B, ADULT 2000 NOELLE LI 43 complet ed [facility] HEP B, ADULT 2000 PAT BURNS 43 complet ed [facility] FLU,3 YRS (HISTORICAL) 1999 DANNIE TURCIOS 88 complet ed [facility] FLU,3 YRS (HISTORICAL) 1998 NGOZI GATES 88 complet ed [facility] Results Combined list of recent chemistry, hematology and other laboratory results from [employer] of Defense and [employer], ranging from 15 months to all on record, depending upon the facility. Order Name Results Value Reference Range Date Interpretation Specimen Comments Source TESTOSTER ONE, TOTAL (WHV) TESTOSTERON E [MASS/VOLUM E] IN SERUM OR PLASMA 680.68 ng/dL 220.00 - 892.00 03/23 Specimen Type: SERUM No comment entered. Ordering Provider: GABRIELLE GRANADOS Report Released Date/Time: September 21, 2023 09:22 AM Reporting Lab[facility] [facility] [address] [facility] [address] Performing Lab: [facility] [place] [address] [address] [facility] THYROID T4 FREE(FT4) (WROX) THYROXINE (T4) FREE [MASS/VOLUM E] IN SERUM OR PLASMA 1.12 ng/dL 0.6 - 1.6 03/23 Specimen Type: SERUM No comment entered. Ordering Provider: GABRIELLE GRANADOS Report Released Date/Time: Mar 23, 2024 10:31 AM Reporting Lab: [facility] [place] [facility] [address] [address] Performing Lab: [facility] [place] [facility] [address] [facility] [address] [facility] VITAMIN D (25-OH) 25-HYDROXYV ITAMIN D3 [MASS/VOLUM E] IN SERUM OR PLASMA 34 ng/mL 20 - 50 03/23 Specimen Type: SERUM No comment entered. Ordering Provider: GABRIELLE GRANADOS Report Released Date/Time: September 21, 2023 09:22 AM Reporting [facility] [address] [facility] [address] Per[facility]: [facility] [address] [address] [facility] PSA PROSTATE SPECIFIC AG [MASS/VOLUM E] IN SERUM OR PLASMA 1.83 ng/mL 0.00 - 4.00 03/23 Specimen Type: SERUM No comment entered. Ordering Provider: GABRIELLE GRANADOS Report Released Date/Time: September 21, 2023 09:22 AM Reporting Lab: [facility]ENTERUSE[address] [address] Performing Lab: [facility]ITALTRN [facility]ENTERUSEG[facility] [address] [facility] [address] [facility] CALCIUM CALCIUM [MASS/VOLUM E] IN SERUM OR PLASMA 8.8 mg/dL 8.5 - 10.2 03/23 Specimen Type: SERUM No comment entered. Ordering Provider: GABRIELLE GRANADOS Report Released Date/Time: September 21, 2023 09:22 AM Reporting Lab: [facility] [address] [facility] [address] Performing Lab: [facility]ERL[facility] HOSPITALTRN [facility] [address] [facility] [address] [facility]ENTERUSE [facility] CBC LEUKOCYTES [#/VOLUME] IN BLOOD BY AUTOMATED COUNT 6.16 10*3/u L 4.50 - 11.00 03/23 Specimen Type: BLOOD No comment entered. Ordering Provider: GABRIELLE GRANADOS Report Released Date/Time: September 21, 2023 09:22 AM Reporting Lab: [facility]ENTERUSE[address] [address] Performing Lab: [facility] [place] [facility] [address] [facility] [address] [facility] [place] [facility] CBC ERYTHROCYTE S [#/VOLUME] IN BLOOD BY AUTOMATED COUNT 4.48 10*6/u L 4.23 - 5.66 03/23 Specimen Type: BLOOD No comment entered. Ordering Provider: GABRIELLE GRANADOS Report Released Date/Time: September 21, 2023 09:22 AM Reporting Lab: [facility] [place] [facility] [address] [facility] [address] Performing Lab: [facility] [place] [facility] [address] [facility] [address] [facility] [place] [facility] CBC HEMOGLOBIN [MASS/VOLUM E] IN BLOOD 10.7 g/dL 12.8 - 17 03/23 L Specimen Type: BLOOD No comment entered. Ordering Provider: GABRIELLE GRANADOS Report Released Date/Time: September 21, 2023 09:22 AM Reporting Lab: [facility] [place] [facility] [address] [facility] [address] Performing Lab: [facility] [place] [facility] [address] [facility] [address] [facility] [place] [facility] CBC HEMATOCRIT [VOLUME FRACTION] OF BLOOD BY AUTOMATED COUNT 33.8 39.2 - 50.4 03/23 L Specimen Type: BLOOD No comment entered. Ordering Provider: GABRIELLE GRANADOS Report Released Date/Time: September 21, 2023 09:22 AM Reporting Lab: [facility] [place] [facility] [address] [facility] [address] Performing Lab: [facility] [place] [facility] [address] [facility] [address] [facility] [place] [facility] CBC MCV [ENTITIC VOLUME] BY AUTOMATED COUNT 75.4 fL 82 - 99 03/23 L Specimen Type: BLOOD No comment entered. Ordering Provider: GABRIELLE GRANADOS Report Released Date/Time: September 21, 2023 09:22 AM Reporting Lab: [facility] [place] [facility] [address] [facility] [address] Performing Lab: [facility] [place] [facility] [address] [facility] [address] [facility] [place] [facility] CBC MCHC [MASS/VOLUM E] BY AUTOMATED COUNT 31.7 g/dL 30.8 - 35.1 03/23 Specimen Type: BLOOD No comment entered. Ordering Provider: GABRIELLE GRANADOS Report Released Date/Time: September 21, 2023 09:22 AM Reporting Lab: [facility] [place] [facility] [address] [facility] [address] Performing Lab: [facility] [place] [facility] [address] [facility] [address] [facility] [place] [facility] CBC PLATELETS [#/VOLUME] IN BLOOD BY AUTOMATED COUNT 297 10*3/u L 140 - 360 03/23 Specimen Type: BLOOD No comment entered. Ordering Provider: GABRIELLE GRANADOS Report Released Date/Time: September 21, 2023 09:22 AM Reporting Lab: [facility] [place] [facility] [address] [facility] [address] Performing Lab: [facility] [place] [facility] [address] [facility] [address] [facility] [place] [facility] CBC ERYTHROCYTE DISTRIBUTIO N WIDTH [RATIO] BY AUTOMATED COUNT 14.2 12.0 - 16.0 03/23 Specimen Type: BLOOD No comment entered. Ordering Provider: GABRIELLE GRANADOS Report Released Date/Time: September 21, 2023 09:22 AM Reporting Lab: [facility] [place] [facility] [address] [facility] [address] Performing Lab: [facility] [place] [facility] [address] [facility] [address] [facility] [place] [facility] CBC MCH [ENTITIC MASS] BY AUTOMATED COUNT 23.9 pg 26.2 - 32.6 03/23 L Specimen Type: BLOOD No comment entered. Ordering Provider: GABRIELLE GRANADOS Report Released Date/Time: September 21, 2023 09:22 AM Reporting Lab: [facility] [place] [facility] [address] [facility] [address] Performing Lab: [facility]ERL[facility] HOSPITALTRN [facility]ENTERUSEG[facility] [address] [facility] [address] [facility] BASIC METABOLIC PANEL (non-fast ing) UREA NITROGEN [MASS/VOLUM E] IN SERUM OR PLASMA 10 mg/dL 7 - 25 03/23 Specimen Type: SERUM No comment entered. Ordering Provider: GABRIELLE GRANADOS Report Released Date/Time: September 21, 2023 09:22 AM Reporting Lab: [facility] [address] [facility] [address] Performing Lab: [facility] [address] [facility] [address] [facility] BASIC METABOLIC PANEL (non-fast ing) GLUCOSE [MASS/VOLUM E] IN SERUM OR PLASMA 88 mg/dL 65 - 100 03/23 Specimen Type: SERUM No comment entered. Ordering Provider: GABRIELLE GRANADOS Report Released Date/Time: September 21, 2023 09:22 AM Reporting Lab: [facility] [address] [facility] [address] Performing Lab: [facility] [address] [facility] [address] [facility] BASIC METABOLIC PANEL (non-fast ing) SODIUM [MOLES/VOLU ME] IN SERUM OR PLASMA 136 mmol/L 135 - 145 03/23 Specimen Type: SERUM No comment entered. Ordering Provider: GABRIELLE GRANADOS Report Released Date/Time: September 21, 2023 09:22 AM Reporting Lab: [facility]ERNOR[facility]ENTERN [facility] [address] [facility] [address] Performing Lab: [facility]N [address] [address] [facility] BASIC METABOLIC PANEL (non-fast ing) POTASSIUM [MOLES/VOLU ME] IN SERUM OR PLASMA 4.0 mmol/L 3.5 - 5.0 03/23 Specimen Type: SERUM No comment entered. Ordering Provider: GABRIELLE GRANADOS Report Released Date/Time: September 21, 2023 09:22 AM Reporting Lab: [facility] CLARERL WSTRN [facility] CENTERUSETS [facility] [address] [facility] [address] Performing Lab: [facility] CLARERL TRN [facility] CENTERUSETS [facility] [address] [facility] [address] [facility] CLARERL TRN [facility]ENTERUSE [facility] BASIC METABOLIC PANEL (non-fast ing) CHLORIDE [MOLES/VOLU ME] IN SERUM OR PLASMA 105 mmol/L 100 - 110 03/23 Specimen Type: SERUM No comment entered. Ordering Provider: GABRIELLE GRANADOS Report Released Date/Time: September 21, 2023 09:22 AM Reporting Lab: [facility]ERL[facility] HOSPITALTRN [facility]USEG[facility] [address] [facility] [address] Performing Lab: [facility] CLARERL TRN [facility]ENTERUSEG[facility] [address] [facility] [address] [facility] CLARERNORTH [facility] CENTERN [facility]ENTERUSE [facility] BASIC METABOLIC PANEL (non-fast ing) CARBON DIOXIDE, TOTAL [MOLES/VOLU ME] IN SERUM OR PLASMA 22 meq/L 20 - 30 03/23 Specimen Type: SERUM No comment entered. Ordering Provider: GABRIELLE GRANADOS Report Released Date/Time: September 21, 2023 09:22 AM Reporting Lab: [facility]ERL[facility]ION[facility] HOSPITALTRN [facility]USE[facility] [address] [facility] [address] Performing Lab: [facility] CLARERL TRN [facility]ENTERUSEG[facility] [address] [facility] [address] [facility]ERNOR[facility]ENTERN [facility] BASIC METABOLIC PANEL (non-fast ing) CREATININE [MASS/VOLUM E] IN SERUM OR PLASMA 0.91 mg/dL 0.50 - 1.40 03/23 Specimen Type: SERUM No comment entered. Ordering Provider: GABRIELLE GRANADOS Report Released Date/Time: September 21, 2023 09:22 AM Reporting Lab: [facility]ERL TRN [facility]ENTERUSEG[facility] [address] [facility] [address] Performing Lab: [facility] CLARERL TRN [facility]USEG[facility] [address] [facility] [address] [facility]ERNOR[facility]ENTERN [facility]ENTERUSE [facility] BASIC METABOLIC PANEL (non-fast ing) GLOMERULAR FILTRATION RATE/1.73 SQ M.PREDICTED [VOLUME RATE/AREA] IN SERUM, PLASMA OR BLOOD BY CREATININE- BASED FORMULA (CKD-EPI 2020) >90mL/ min 60 03/23 Specimen Type: SERUM No comment entered. Ordering Provider: GABRIELLE GRANADOS Report Released Date/Time: September 21, 2023 09:22 AM Reporting Lab: [facility] [place] [facility] [address] [facility] [address] Performing Lab: [facility] CENTERUSETS [facility] [address] [facility] [address] [facility]L [facility] TSH THYROTROPIN [UNITS/VOLU ME] IN SERUM OR PLASMA 2.38 u[IU]/ mL 0.35 - 5.00 03/23 Specimen Type: SERUM No comment entered. Ordering Provider: GABRIELLE GRANADOS Report Released Date/Time: Mar 23, 2024 10:31 AM Reporting Lab: [facility]L W[facility]N [facility]ENTERUSE[address] [address] Performing Lab: [facility]L WSTRN [facility]ENTERUSE[address] [address] [facility] CL[facility]ERL TRN [facility]ENTERUSE [facility] BASIC METABOLIC PANEL (fasting) UREA NITROGEN [MASS/VOLUM E] IN SERUM OR PLASMA 15 mg/dL 7 - 25 11/30 Specimen Type: SERUM No comment entered. Ordering Provider: BEVERLEY MEJIA Report Released Date/Time: Nov 23, 2023 11:37 AM Reporting Lab: [facility]ENTERUSE[address] [address] Performing Lab: [facility] CENTERUSETS [address] [address] [facility] CL[facility]ERL WSTRN [facility]ENTERUSE [facility] BASIC METABOLIC PANEL (fasting) GLUCOSE [MASS/VOLUM E] IN SERUM OR PLASMA 125 mg/dL 65 - 100 11/30 H Specimen Type: SERUM No comment entered. Ordering Provider: BEVERLEY MEJIA Report Released Date/Time: Nov 23, 2023 11:37 AM Reporting Lab: [facility] CL[facility]ERL WSTRN [facility] CENTERUSETS [address] [address] Performing Lab: [facility]ENTERUSE[address] [address] [facility] [place] [facility] BASIC METABOLIC PANEL (fasting) SODIUM [MOLES/VOLU ME] IN SERUM OR PLASMA 139 mmol/L 135 - 145 11/30 Specimen Type: SERUM No comment entered. Ordering Provider: BEVERLEY MEJIA Report Released Date/Time: Nov 23, 2023 11:37 AM Reporting Lab: [facility] [place] [facility] [address] [facility] [address] Performing Lab: [facility] [place] [facility] [address] [facility] [address] [facility] [place] [facility] BASIC METABOLIC PANEL (fasting) POTASSIUM [MOLES/VOLU ME] IN SERUM OR PLASMA 4.2 mmol/L 3.5 - 5.0 11/30 Specimen Type: SERUM No comment entered. Ordering Provider: BEVERLEY MEJIA Report Released Date/Time: Nov 23, 2023 11:37 AM Reporting Lab: [facility] [place] [address] [address] Performing Lab: [facility] [place] [address] [address] [facility] [place] [facility] BASIC METABOLIC PANEL (fasting) CHLORIDE [MOLES/VOLU ME] IN SERUM OR PLASMA 99 mmol/L 100 - 110 11/30 L Specimen Type: SERUM No comment entered. Ordering Provider: BEVERLEY MEJIA Report Released Date/Time: Nov 23, 2023 11:37 AM Reporting Lab: [facility] [place] [facility] [address] [facility] [address] Performing Lab: [facility] [place] [facility] [address] [facility] [address] [facility] [place] [facility] BASIC METABOLIC PANEL (fasting) CARBON DIOXIDE, TOTAL [MOLES/VOLU ME] IN SERUM OR PLASMA 30 meq/L 20 - 30 11/30 Specimen Type: SERUM No comment entered. Ordering Provider: BEVERLEY MEJIA Report Released Date/Time: Nov 23, 2023 11:37 AM Reporting Lab: [facility] [place] [facility] [address] [facility] [address] Performing Lab: [facility] [place] [facility] [address] [facility] [address] [facility] [place] [facility] BASIC METABOLIC PANEL (fasting) CREATININE [MASS/VOLUM E] IN SERUM OR PLASMA 1.44 mg/dL 0.50 - 1.40 11/30 H Specimen Type: SERUM No comment entered. Ordering Provider: BEVERLEY MEJIA Report Released Date/Time: Nov 23, 2023 11:37 AM Reporting Lab: [facility] [place] [facility] [address] [facility] [address] Performing Lab: [facility] [place] [facility] [address] [facility] [address] [facility] BASIC METABOLIC PANEL (fasting) GLOMERULAR FILTRATION RATE/1.73 SQ M.PREDICTED [VOLUME RATE/AREA] IN SERUM, PLASMA OR BLOOD BY CREATININE- BASED FORMULA (CKD-EPI 2020) 53 mL/min 60 11/30 L Specimen Type: SERUM No comment entered. Ordering Provider: BEVERLEY MEJIA Report Released Date/Time: Nov 23, 2023 11:37 AM Reporting Lab: [facility] [place] [facility] [address] [facility] [address] Performing Lab: [facility] [place] [facility] [address] [facility] [address] [facility] [place] [facility] LIVER FUNCTION PROTEIN [MASS/VOLUM E] IN SERUM OR PLASMA 7.8 g/dL 6.0 - 8.3 11/30 Specimen Type: SERUM No comment entered. Ordering Provider: BEVERLEY MEJIA Report Released Date/Time: Nov 23, 2023 11:37 AM Reporting Lab: [facility] [place] [facility] [address] [facility] [address] Performing Lab: [facility] [place] [facility] [address] [facility] [address] [facility] LIVER FUNCTION ALBUMIN [MASS/VOLUM E] IN SERUM OR PLASMA 4.2 g/dL 3.5 - 5.0 11/30 Specimen Type: SERUM No comment entered. Ordering Provider: BEVERLEY MEJIA Report Released Date/Time: Nov 23, 2023 11:37 AM Reporting Lab: [facility] [place] [facility] [address] [facility] [address] Performing Lab: [facility] [place] [facility] [address] [facility] [address] [facility] [place] [facility] LIVER FUNCTION ALKALINE PHOSPHATASE [ENZYMATIC ACTIVITY/VO LUME] IN SERUM OR PLASMA 60 U/L 40 - 150 11/30 Specimen Type: SERUM No comment entered. Ordering Provider: BEVERLEY MEJIA Report Released Date/Time: Nov 23, 2023 11:37 AM Reporting Lab: [facility] [place] [facility] [address] [facility] [address] Performing Lab: [facility] [place] [facility] [address] [facility] [address] [facility] [place] [facility] LIVER FUNCTION ASPARTATE AMINOTRANSF ERASE [ENZYMATIC ACTIVITY/VO LUME] IN SERUM OR PLASMA 23 U/L 5 - 34 11/30 Specimen Type: SERUM No comment entered. Ordering Provider: BEVERLEY MEJIA Report Released Date/Time: Nov 23, 2023 11:37 AM Reporting Lab: [facility] [place] [facility] [address] [facility] [address] Performing Lab: [facility] [place] [facility] [address] [facility] [address] [facility] [place] [facility] LIVER FUNCTION ALANINE AMINOTRANSF ERASE [ENZYMATIC ACTIVITY/VO LUME] IN SERUM OR PLASMA 37 U/L 11/30 Specimen Type: SERUM No comment entered. Ordering Provider: BEVERLEY MEJIA Report Released Date/Time: Nov 23, 2023 11:37 AM Reporting Lab: [facility] [place] [facility] [address] [facility] [address] Performing Lab: [facility] [place] [facility] [address] [facility] [address] [facility] [place] [facility] LIVER FUNCTION BILIRUBIN.T OTAL [MASS/VOLUM E] IN SERUM OR PLASMA 1.1 mg/dL 0.2 - 1.2 11/30 Specimen Type: SERUM No comment entered. Ordering Provider: BEVERLEY MEJIA Report Released Date/Time: Nov 23, 2023 11:37 AM Reporting Lab: [facility] [place] [facility] [address] [facility] [address] Performing Lab: [facility] [place] [facility] [address] [facility] [address] [facility] Vital Signs Combined list of inpatient and outpatient Vital Signs from Department of Defense and Veterans Affairs, ranging from 12 months to all on record, depending upon the facility. Vital Sign Value Date Comments Source SYSTOLIC BLOOD PRESSURE 130 05/06/19 25 10:18:09 [facility] DIASTOLIC BLOOD PRESSURE 70 025 10:18:09 [facility] PAIN 6 05/06/2024 10:18:09 [facility] SYSTOLIC BLOOD PRESSURE 121 03/23/20 24 09:59:00 [facility] DIASTOLIC BLOOD PRESSURE 77 024 09:59:00 [facility] PULSE OXIMETRY 97 03/23/2024 09:59:00 [facility] WEIGHT 132 03/23/2024 09:59:00 [facility] BMI 24 kg/m2 03/23/2024 09:59:00 [facility] PAIN 3 03/23/2024 09:59:00 [facility] HEIGHT 62 03/23/2024 09:59:00 [facility] TEMPERATURE 97.9 03/23/2024 09:59:00 [facility] PULSE 84 03/23/2024 09:59:00 [facility] RESPIRATION 16 03/23/2024 09:59:00 [facility] SYSTOLIC BLOOD PRESSURE 150 02/24/20 24 08:30:00 [facility] DIASTOLIC BLOOD PRESSURE 79 08:30:00 [facility] PULSE OXIMETRY 92 02/24/2024 08:30:00 [facility] WEIGHT 130 02/24/2024 08:30:00 [facility] BMI 24 kg/m2 02/24/2024 08:30:00 [facility] PAIN 6 02/24/2024 08:30:00 [facility] TEMPERATURE 97.8 02/24/2024 08:30:00 [facility] PULSE 107 02/24/2024 08:30:00 [facility] RESPIRATION 18 02/24/2024 08:30:00 [facility] SYSTOLIC BLOOD PRESSURE 147 02/22/20 24 10:22:00 [facility] DIASTOLIC BLOOD PRESSURE 74 024 10:22:00 [facility] PULSE OXIMETRY 96 02/22/2024 10:22:00 [facility] WEIGHT 130 02/22/2024 10:22:00 [facility] BMI 24 kg/m2 02/22/2024 10:22:00 [facility] PAIN 4 02/22/2024 10:22:00 [facility] HEIGHT 62 02/22/2024 10:22:00 [facility] TEMPERATURE 98 02/22/2024 10:22:00 [facility] PULSE 91 02/22/2024 10:22:00 [facility] RESPIRATION 16 02/22/2024 10:22:00 [facility] SYSTOLIC BLOOD PRESSURE 124 09/22/19 24 14:41:25 [facility] DIASTOLIC BLOOD PRESSURE 72 024 14:41:25 [facility] PULSE OXIMETRY 95 09/22/2023 14:41:25 [facility] PAIN 4 09/22/2023 14:41:25 [facility] PULSE 87 09/22/2023 14:41:25 [facility] RESPIRATION 20 09/22/2023 14:41:25 [facility] Encounters Combined list of: 1) Encounters from Department of Veterans Affairs facilities going backup to the last 18 months, not all VA inpatient encounters are included; 2) Encounters from the Department of [facility] facilities going backup to 280 months. Location Location Details Encounter Type Encounter Number Reason For Visit Attending Provider ADM Date DC Date Status Disposition Source [facility] Encounter [id number] 12/18 [facility] OFFICE O/P EST HI 40-54 MIN [id number] Diagnos is: ICD-10- CM M46.1 Sacroil iitis, not elsewhe re classif ied DANIKA JOHNSON 12/25 [facility] [id number] 12/25 [facility] Out[facility] Encounter [id number] 01/02 [facility] Out[facility] Encounter [id number] 01/28 [facility] OFF[facility] O/P EST LOW 20-29 MIN [id number] Diagnos is: ICD-10- CM 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, lumbar region Lyla AYALA 02/03 [facility] Out[facility] Encounter [id number] 02/04 [facility] Encounter [id number] 02/04 [facility] CASE [facility] [id number] Diagnos is: ICD-10- CM K03.6 Deposit s [accret ions] on teeth GLADYS,JUAN ANTONIO CARMEN K 02/05 [facility] En[facility] [id number] 02/06 [facility] [id number] 02/06 [facility] Out[facility] [id number] 02/08 [facility] Encounter [id number] 02/12 [facility] [id number] 02/12 [facility] Encounter [id number] 02/12 [facility] OFF/OP EST MAY X REQ PHY/QHP [id number] Diagnos is: ICD-10- CM 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 PALAK Schuster 02/13 [facility] OFF[facility] O/P EST LOW 20-29 MIN [id number] Diagnos is: ICD-10- CM 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 , right wrist HAILECACHORRO AnaliPatricia GALARZA 02/13 [facility] OFF[facility] O/P EST MOD 30-39 MIN [id number] Diagnos is: ICD-10- CM M25.531 Pain in right wrist Lyla AYALA 02/16 [facility] Out[facility] Encounter [id number] 02/16 [facility] En[facility] [id number] 02/19 [facility] EXTRACTION ERUPTED TOOTH/EXR [id number] Diagnos is: ICD-10- CM K04.02 Irrever sible pulpiti s CHRISTINE BAJWA 02/20 [facility]counter [id number] 02/20 [facility] MANUAL THERAPY 1/> REGIONS [id number] Diagnos is: ICD-10- CM M25.531 Pain in right wrist LIZBETH,CAROL ANN LIE E 02/25 [facility] ULTRASOUND THERAPY [id number] Diagnos is: ICD-10- CM M25.531 Pain in right wrist LIZBETHCAROL ANN LIE E 03/05 [facility] Out[facility] Encounter [id number] 03/06 [facility] ULTRASOUND THERAPY [id number] Diagnos is: ICD-10- CM M25.531 Pain in right wrist LIZBETH,CAROL ANN LIE E 03/12 [facility] Out[facility] Encounter [id number] 03/12 [facility] ULTRASOUND THERAPY [id number] Diagnos is: ICD-10- CM M25.531 Pain in right wrist CAROL ANN NIEVES LIE E 03/19 [facility] OFFICE O/P EST HI 40-54 MIN [id number] Diagnos is: ICD-10- CM 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 LADONNA GRANADOS 03/23 [facility] Encounter [id number] 03/26 [facility] Encounter [id number] 04/04 [facility] OFFICE O/P EST HI 40-54 MIN [id number] Diagnos is: ICD-10- CM M46.1 Sacroil iitis, not elsewhe re classif ied DANIKA JOHNSON THI 04/08 [facility] Encounter [id number] 04/08 [facility] Out[facility] Encounter [id number] 04/16 [facility] Out[facility] Encounter [id number] Diagnos is: ICD-10- CM R73.01 Impaire d fasting glucose LADONNA GRANADOS 04/16 [facility] DIAB MANAGE TRN PER INDIV [id number] Diagnos is: ICD-10- CM R73.01 Impaire d fasting glucose DIVYA VELAZCO P 04/28 [facility] Out[facility] Encounter [id number] 05/17 [facility] Out[facility] Encounter [id number] 05/26 [facility] Out[facility]counter [id number] 05/26 [facility] Out[facility] Encounter [id number] 05/29 [facility] Out[facility] Encounter [id number] 06/01 [facility] Out[facility] Encounter [id number] 06/04 [facility] OFFICE O/P EST LOW 20 MIN [id number] Diagnos is: ICD-10- CM D48.9 Neoplas m of uncerta in behavio r, unspeci fiLyla Borrero 06/04 [facility] Out[facility] Encounter [id number] Diagnos is: ICD-10- CM 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 LADONNA RGANADOS CE 06/05 [facility] OFFICE O/P EST SF 10 MIN [id number] Diagnos is: ICD-10- CM E78.00 Pure hyperch olester olemia, unspeci JOLIE Ely RD 06/08 [facility] Out[facility] Encounter [id number] 06/09 [facility] ORTHC/PROS TC MGMT SBSQ ENC [id number] [id number] Diagnos is: ICD-10- CM M51.36 Other interve rtebral disc degener ation, lumbar region Autumn GREEN 06/09 [facility] Outpatient Encounter [id number] 06/09 [facility] Out[facility] Encounter [id number] 06/15 [facility]counter [id number] [id number] 06/16 [facility] Out[facility]counter [id number] [id number] 06/16 [facility] Out[facility]counter [id number] 06/18 [facility] Out[facility] Encounter [id number] [id number] 06/26 [facility] Out[facility] Encounter [id number] [id number] [facility] Out[facility] Encounter [id number] [id number] LADONNA GRANADOS 07/03 [facility] DIAB MANAGE TRN PER INDIV [id number] Diagnos is: ICD-10- CM R73.01 Impaire d fasting glucose DIVYA VELAZCO P 07/05 [facility] Out[facility] Encounter [id number] 07/16 [facility] Out[facility] Encounter [id number] 07/22 [facility] COMPRE OPH EXAM EST PT 1/> [id number] Diagnos is: ICD-10- CM G43.B0 Ophthal moplegi c migrain e, 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 MAIA GROSS H B 08/02 [facility] FIT SPECTACLES MONOFOCAL [id number] [id number] Diagnos is: ICD-10- CM Z46.0 Encount er for fit/adj st of spectac les and contact lenses MAIA GROSS B 08/03 [facility] OFFICE O/P EST HI 40 MIN [id number] Diagnos is: ICD-10- CM M46.1 Sacroil iitis, not elsewhe re classif ied DANIKA JOHNSONONG TWAN 08/04 [facility] Out[facility] Encounter [id number] 08/04 [facility] Outpatient Encounter [id number] 08/05 [facility] CLEAN/INSP ECT MAX COMP DENT [id number] Diagnos is: ICD-10- CM K03.6 Deposit s [accret ions] on teeth GLADYSJUAN ANTONIO CARMEN K 08/06 [facility] DENTAL BITEWING FOUR IMAGES [id number] [id number] Diagnos is: ICD-10- CM K08.9 Disorde r of teeth and support ing structu res, unspeci fied ARGELIA GODFREY 08/06 [facility] Out[facility] Encounter [id number] 08/09 [facility] Out[facility] Encounter [id number] 08/25 [facility] Out[facility] Encounter [id number] KEVIN VILLAGRAN LAXMI 08/25 [facility] Out[facility] Encounter [id number] 09/13 [facility] Out[facility] Encounter [id number] 09/17 [facility] Out[facility] Encounter [id number] [id number] LADONNA GRANADOS 09/18 [facility] Out[facility] Encounter [id number] LADONNA GRANADOS 09/18 [facility] OFFICE O/P EST HI 40 MIN [id number] [id number] Diagnos is: ICD-10- CM 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 LADONNA GRANADOS 09/20 [facility] Out[facility] Encounter [id number] 09/20 [facility] OFFICE O/P EST LOW 20 MIN [id number] Diagnos is: ICD-10- CM M47.26 Other spondyl osis with radicul opathy, lumbar region Lyla AYALA 09/21 [facility] Out[facility] Encounter [id number] ROBERTO MELLO 10/26 [facility] SELF-MGMT EDUC & TRAIN 1 PT [id number] [id number] Diagnos is: ICD-10- CM G47.33 Obstruc tive sleep apnea (adult) ([facility]) JONNY GAMING [facility] 11/22 [facility] Outpatient Encounter [id number] LADONNA GRANADOS 11/26 [facility] SELF CARE MNGMENT TRAINING [id number] Diagnos is: ICD-10- CM M47.27 Other spondyl osis with radicul opathy, lumbosa cral region ROBSON MAX 11/30 [facility] SLEEP STUDY UNATT&RESP EFFT [id number] [id number] Diagnos is: ICD-10- CM G47.33 Obstruc tive sleep apnea (adult) ([facility]) JONNY GAMING [facility] 12/01 [facility] Outpatient Encounter [id number] 1.12/09 [facility] SLEEP STUDY UNATT&RESP EFFT [id number] Diagnos is: ICD-10- CM G47.33 Obstruc tive sleep apnea (adult) ([facility]) BRANDO JUAREZ 12/09 [facility] Outpatient Encounter [id number] 12/12 [facility] Out[facility]counter [id number] 1.12/14 [facility] Outpatient Encounter [id number]/15 [facility] MANUAL THERAPY 1/> REGIONS [id number] 1. Diagnos is: ICD-10- CM M47.27 Other spondyl osis with radicul opathy, lumbosa cral region ROBSON MAX 12/16 [facility] Out[facility] Encounter [id number] 1.12/16 [facility] HC PRO PHONE CALL 5-10 MIN [id number] 1. Diagnos is: ICD-10- CM M25.559 Pain in unspeci fied hip RA GORDON TURCIOS 12/16 [facility] Out[facility] Encounter [id number]/16 [facility] Out[facility] Encounter [id number] [id number]/16 [facility] Out[facility] Encounter [id number] 1.12/23 [facility] Out[facility] Encounter [id number]/28 [facility] THERAPEUTI C EXERCISES [id number] 1. Diagnos is: ICD-10- CM M47.27 Other spondyl osis with radicul opathy, lumbosa cral region Autumn GREEN 12/29 [facility] Out[facility] Encounter [id number] 12/30 [facility] Out[facility] Encounter [id number] [id number] 01/05 [facility] Out[facility] Encounter [id number] 01/07 [facility] Out[facility] Encounter [id number] 01/07 [facility] Out[facility] Encounter [id number] 1.01/09 [facility] Out[facility] Encounter [id number] 1.01/10 [facility] Out[facility] Encounter [id number] 1.01/10 [facility] Out[facility]counter [id number] 01/11 [facility] Outpatient Encounter [id number] 01/11 [facility] Outpatient Encounter [id number] 01/11 [facility] Out[facility] Encounter [id number] 01/12 [facility] Out[facility] Encounter [id number] 1.01/12 [facility] Out[facility] Encounter [id number] 1.01/12 [facility] Out[facility] Encounter [id number] 1[facility]01/12 [facility] Out[facility]counter [id number]/14 [facility] Out[facility] Encounter [id number] 01/15 [facility] Out[facility]counter [id number] 01/17 [facility] Out[facility] Encounter [id number] 01/17 [facility] Out[facility] Encounter [id number] 01/19 [facility] Out[facility] Encounter [id number]/20 [facility] Out[facility] Encounter [id number] 01/23 [facility] Out[facility] Encounter [id number] 01/24 [facility] Out[facility] Encounter [id number] 01/26 [facility] Out[facility] Encounter [id number] 01/27 [facility] Out[facility]counter [id number] 01/28 [facility] Out[facility] Encounter [id number]/31 [facility] Outpatient Encounter [id number] 02/04 [facility] Out[facility] Encounter [id number] 02/09 [facility] Out[facility] Encounter [id number] 02/15 [facility] Outpatient Encounter [id number] 02/16 [facility] CLEAN/INSP ECT MAX COMP DENT [id number] Diagnos is: ICD-10- CM K03.6 Deposit s [accret ions] on teeth GLADYS,JUAN ANTONIO CARMEN K 02/16 [facility] Out[facility] Encounter [id number] 02/19 [facility] OFFICE O/P EST SF 10 MIN [id number] 1. Diagnos is: ICD-10- CM I10 Essenti al (primar y) hyperte nsion JOLIE MEJIA RD D 02/21 [facility] Out[facility] Encounter [id number] D 02/21 [facility] Out[facility] Encounter [id number]/22 [facility] OFFICE O/P EST HI 40 MIN [id number] Diagnos is: ICD-10- CM M46.1 Sacroil iitis, not elsewhe re classif ied DANIKA JOHNSON THI 02/23 [facility] Out[facility] Encounter [id number]/23 [facility] Outpatient Encounter [id number] D 02/27 [facility] Outpatient Encounter [id number] D 02/27 [facility] Out[facility] Encounter [id number] D 03/02 [facility] Out[facility] Encounter [id number] 03/08 [facility] DENTURES ADJUST PART MANDBL [id number] Diagnos is: ICD-10- CM K08.9 Disorde r of teeth and support ing structu res, unspeci vadimed ARGELIA GODFREY 03/09 [facility] OFF/OP EST SEPTEMBER X REQ PHY/QHP [id number] [id number] Diagnos is: ICD-10- CM Z23 Encount er for immuniz ation KELECHI,TI MOTHY E 03/09 [facility] Outpatient Encounter [id number] 03/09 [facility] Outpatient Encounter [id number] JOANNE REYNOLDS 03/11 [facility] Outpatient Encounter [id number] 03/21 [facility]P EST MOD 30 MIN [id number] Diagnos is: ICD-10- CM G47.33 Obstruc tive sleep apnea (adult) (pediat mine) FRANCHESKA WILBURN 03/22 [place] [facility] OFFICE O/P EST MOD 30 MIN [id number] Diagnos is: ICD-10- CM 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 Diagnos is: ICD-10- CM M54.59 Other low back pain DAVY HU RA 04/06 [facility] Out[facility] Encounter [id number] 04/11 [facility] REMOVABLE PROSTHODON TIC PROC [id number] [id number] Diagnos is: ICD-10- CM K08.9 Disorde r of teeth and support ing structu res, unspeci ARGELIA Campoverde 04/12 [facility] Outpatient Encounter [id number] 04/14 [facility] MECHANICAL TRACTION THERAPY [id number] Diagnos is: ICD-10- CM M54.59 Other low back pain DAVY HU RA 04/14 [facility] Out[facility] Encounter [id number] 04/15 [facility] MECHANICAL TRACTION THERAPY [id number] Diagnos is: ICD-10- CM M54.59 Other low back pain DAVY HU RA 04/22 [facility] EDU&TRN PT SELF-MGMT NQHP 1 [id number] [id number] Diagnos is: ICD-10- CM G47.30 Sleep apnea, unspeci fiABEL Thomason 05/05 [facility] OFFICE O/P EST LOW 20 MIN [id number] Diagnos is: ICD-10- CM M47.896 Other spondyl osis, lumbar region Lyla AYALA L 05/06 [facility] MECHANICAL TRACTION THERAPY [id number] Diagnos is: ICD-10- CM M54.59 Other low back pain DAVY HU RA 05/09 [facility] Outpatient Encounter [id number] [facility] [id number] 1.05/16 [facility] En[facility] [id number] [facility] SPECIAL SUPPLIES PHYS/QHP [id number] . Diagnos is: ICD-10- CM G47.30 Sleep apnea, unspeci fied ST ABEL LIM E P 05/16 [facility] En[facility] [id number] 05/19 [facility] [id number] 05/26 [facility] [id number] 06/05 [facility] [id number] D 06/07 [facility] En[facility] [id number] 06/10 [facility] Out[facility] Encounter [id number] D 06/12 [facility] En[facility] [id number] 06/15 [facility] REMOVABLE PROSTHODON TIC PROC [id number] Diagnos is: ICD-10- CM K08.9 Disorde r of teeth and support ing structu res, unspeci ARGELIA Campoverde 06/16 [facility] Social History Combined list of available smoking, tobacco, and other social history from [facility] of Defense and [facility] facilities. Social History Type Response Date Comment Source Tobacco smoking status [facility] VA-TOBACCO FORMER USER 06/08/2023 [facility] History of tobacco use VA-TOBACCO QUIT 15 YRS OR MORE 06/08/2023 [facility] History [facility] tobacco use VA-TOBACCO QUIT 15 YRS OR MORE 06/09/2022 [facility] History of tobacco use VA-TOBACCO FORMER USER 06/14/2021 [facility] History of tobacco use VA-TOBACCO FORMER USER 02/03/2020 [facility] History [facility] tobacco use VA-TOBACCO QUIT 15 YRS OR MORE 02/02/2019 [facility] History of tobacco use LIFETIME NON-TOBACCO USER 05/13/2017 [facility] History of tobacco use QUIT TOBACCO USE > 7 YEARS AGO 06/11/2016 [facility] History of tobacco use QUIT TOBACCO USE > 7 YEARS AGO 06/21/2015 pt states he quit smoking 30 yr ago. [facility] History of tobacco use HISTORY OF SMOKING 07/18/2004 Smoke free since 1989 [facility] History of tobacco use HISTORY OF SMOKING 05/11/2003 quit smoking 15 years ago [facility] Plan of Care List of future care activities from [facility] facilities. Additional future care activities may be listed in the Assessment and Plan section. Date/Time Care Activity Care Activity Detail Facili ty 06/22/2024 [facility]05/2024 AMBULATORY - MEDICINE AMBULATORY - MEDICI NE [facility] 08/03/2024 AMBULATORY - NONE [facility] [place] 08[facility]08/2024 AMBULATORY - MEDIC[facility] - NONE [facility] [place] [facility] 08[facility]22/2024 [facility]24 AMBULATORY - REHAB MEDICINE [facility] [place] [facility] 09/19/2024 AMBULATORY - MEDIC[facility] [place] [facility] 09/29/2024 AMBULATORY [facility] NONE [facility] [place] [facility] 11[facility]08/2024 AMBULATORY - NONE [facility] [facility] [place] [facility] 11/16/2024 AMBULATORY - NONE [facility]AT[facility] - NONE [facility] 06/05/2024 Consult Order COMM[facility]ITY [facility]ARE-P ULMONARY Cons Secretary's Choice [facility] Advance Directives List of completed, amended, or rescinded Advance Directives on record at [facility] facilities. An actual copy of the Directive is not included. Date Advance Directive Provider Source 11/26/2020 AD[facility]ANCE [facility]IVE [facility] 01/25/2017 ADVANCE DIRECTIVE [facility] 04/06/2009 ADVANCE DIRECTIVE KHAI BADILLO [facility]
== END 2024-06-22 11:56 | disposition home or self-care (01) ==
PROVIDERS: PCP Internal Medicine; Visit Provider Internal Medicine
DX: J30.9 Allergic rhinitis, unspecified (principal); J45.909 Unspecified asthma, uncomplicated; R63.4 Abnormal weight loss; J44.9 Chronic obstructive pulmonary disease, unspecified; G47.33 Obstructive sleep apnea (adult) (pediatric)
CPT/HCPCS: 94010; 99214

== ENCOUNTER → 2024-06-22 10:45 | Outpatient (BNVA) | payer OTHER, SELFPAY | PROVIDERS: PCP Internal Medicine; Visit Provider Internal Medicine | DX: J44.9 Chronic obstructive pulmonary disease, unspecified (principal); R63.4 Abnormal weight loss; G47.33 Obstructive sleep apnea (adult) (pediatric); J30.9 Allergic rhinitis, unspecified; Z99.89 Dependence on other enabling machines and devices; Z79.899 Other long term (current) drug therapy | CPT/HCPCS: 94010; 99212 ==